=== PATIENT | female | born 1980 | race Caucasian/White ===

== ENCOUNTER 2022-03-26 11:24 | Outpatient (REF) | payer MEDICAID, SELFPAY ==
--- NOTE | ~2022-03-26 | MM_ITS ---
EXAMINATION: MM SCREENING DIGITAL BREAST TOMOSYNTHESIS, BILATERAL CLINICAL INFORMATION: Screening. Asymptomatic. The lifetime risk of breast cancer based on the Tyrer-Cuzick Model is 11%. COMPARISON: Mammography: 06/09/2018 (baseline), bilateral breast ultrasound 06/09/2018. TECHNIQUE: Digital breast tomosynthesis is performed in both the craniocaudal and mediolateral oblique views along with computer-aided detection (CAD). Synthesized 2D images are generated from the tomosynthesis. Additional right MLO view is provided. FINDINGS: There are scattered areas of fibroglandular density (ACR BI-RADS breast composition Category b). There is no mass or architectural abnormality. There are bilateral punctate round calcifications central and outer breasts increased from prior exam, greater on right. Patient will be recalled in order to allow for additional magnification views to fully characterize. The axilla and skin contours are unremarkable. MM/MM tomosynthesis screening BI IMPRESSION: -Bilateral increased round calcifications central and outer breasts, greater on right. ASSESSMENT: BI-RADS 0: Incomplete - Need Additional Imaging Evaluation RECOMMENDATION: 1. Additional bilateral magnification views. 2. Radiology department staff will contact the patient for additional imaging. This patient's information was entered into a reminder system with a target due date for their next mammogram.
== END 2022-03-26 11:25 | disposition home or self-care (01) ==
LOC: HO.MAMMO 11:24
PROVIDERS: PCP Pediatrics; Visit Provider Pediatrics
DX: Z12.31 Encounter for screening mammogram for malignant neoplasm of breast (principal)
CPT/HCPCS: 77063; 77067

== ENCOUNTER 2022-03-29 08:55 | Outpatient (REF) | payer MEDICAID, SELFPAY ==
--- NOTE | ~2022-03-29 | MM_ITS ---
EXAMINATION: MM DIAGNOSTIC DIGITAL MAMMOGRAPHY, BILATERAL CLINICAL INFORMATION: Recall from screening for bilateral increased calcifications central and outer breasts. COMPARISON: Mammography: 03/26/2022, 06/09/2018 (baseline). TECHNIQUE: Digital mammography is performed in the following views: Bilateral magnification CC, bilateral magnification ML. FINDINGS: There are scattered areas of fibroglandular density (ACR BI-RADS breast composition Category b). The additional views demonstrate similar appearing bilateral isolated and grouped calcifications in both breasts. This represents increase/change from baseline exam 06/09/2018. On the right, there are grouped calcifications posterior central inner and posterior upper outer quadrant, respectively. On the left, there are grouped calcifications mid central and posterior upper outer quadrants. Results are discussed with the patient at time of visit. The bilateral similarity suggests probable benign calcifications. Chronicity is uncertain. No additional mammography since 2019. Management plan is for short interval six-month follow-up bilateral breasts with magnification views to assess for stability. MM/MM added views BI IMPRESSION: Bilateral similar appearing calcifications, isolated and grouped. ASSESSMENT: BI-RADS 3: Probably Benign RECOMMENDATION: Diagnostic bilateral mammography in 6 months. This patient's information was entered into a reminder system with a target due date for their next mammogram.
== END 2022-03-29 08:56 | disposition home or self-care (01) ==
LOC: HO.MAMMO 08:55
PROVIDERS: Visit Provider Pediatrics
DX: R92.1 Mammographic calcification found on diagnostic imaging of breast (principal)
CPT/HCPCS: 77066

== ENCOUNTER 2022-10-02 12:48 | Outpatient (REF) | payer MEDICAID, SELFPAY ==
--- NOTE | ~2022-10-02 | MM_ITS ---
EXAMINATION: MM DIAGNOSTIC DIGITAL BREAST TOMOSYNTHESIS, BILATERAL CLINICAL INFORMATION: Short interval six-month follow-up multiple bilateral calcifications, isolated and grouped. No known family history breast cancer. The lifetime risk of breast cancer based on the Tyrer-Cuzick Model is 11%. COMPARISON: Mammography: 03/29/2022, 03/26/2022 (BI-RADS 0), 06/09/2018 (baseline). TECHNIQUE: Digital breast tomosynthesis is performed in both the craniocaudal and mediolateral oblique views along with computer-aided detection (CAD). Synthesized 2D images are generated from the tomosynthesis. FINDINGS: There are scattered areas of fibroglandular density (ACR BI-RADS breast composition Category b). Breast tissue composition borders on heterogeneously dense. There is no significant change in parenchymal pattern. No developing density or significant mass or architectural abnormality. The axilla and skin contours are unremarkable. Bilateral isolated and grouped calcifications are similar in number and distribution and appearance to prior diagnostic exam. There are some layering calcifications as well. The bilateral involvement is reassuring. Calcifications will be reassessed again at time of annual bilateral mammography in 6 months to include bilateral magnification views. Results are provided to the patient at time of visit by the technologist. MM/MM tomosynthesis diagnostic BI IMPRESSION: Bilateral calcifications, isolated and grouped, similar to prior diagnostic exam. ASSESSMENT: BI-RADS 3: Probably Benign RECOMMENDATION: Diagnostic mammography at time of annual bilateral mammography, due in 6 months. This patient's information was entered into a reminder system with a target due date for their next mammogram.
== END 2022-10-02 12:49 | disposition home or self-care (01) ==
LOC: HO.MAMMO 12:48
PROVIDERS: PCP Pediatrics; Visit Provider Pediatrics
DX: R92.1 Mammographic calcification found on diagnostic imaging of breast (principal)
CPT/HCPCS: 77062; 77066

== ENCOUNTER 2022-12-27 10:03 | Outpatient (REF) | payer MEDICAID, SELFPAY ==
[2022-12-29 07:28] LABS: Rubella IgG Antibody 2.74 Index
[2022-12-30 07:54] LABS: TS Negative Control Passed; TS Panel A 0; TS Panel B 0; TS Positive Control Passed; TSpotTB Negative (Negative)
== END 2022-12-27 10:04 | disposition home or self-care (01) ==
LOC: HO.CHCLDS 10:03
PROVIDERS: Visit Provider Pediatrics
DX: Z00.00 Encounter for general adult medical examination without abnormal findings (principal); Z11.1 Encounter for screening for respiratory tuberculosis
CPT/HCPCS: 36415; 86481; 86735; 86762; 86765

== ENCOUNTER 2023-03-27 13:56 | Outpatient (REF) | payer MEDICAID, SELFPAY | END 2023-03-27 13:57 | disposition home or self-care (01) | LOC: HO.CHCLNP 13:56 | PROVIDERS: Visit Provider Pediatrics | DX: R35.0 Frequency of micturition (principal) | CPT/HCPCS: 87086 ==

== ENCOUNTER 2023-03-28 09:11 | Outpatient (REF) | payer MEDICAID, SELFPAY ==
[2023-03-28 14:20] LABS: MANUAL DIFF FLAG NO
[2023-03-28 14:31] LABS: Basophils Absolute Auto 0.1 X10*3/uL (0.0-0.2); Basophils Percent Auto 0.8 % (0-2); Eosinophils Absolute Auto 0.1 X10*3/uL (0.0-0.4); Hematocrit 38.4 % (37.0-47.0); Hemoglobin 12.7 g/dl (12.0-16.0); Imm Gran Abs Auto 0.02 X10*3/uL (0.00-0.03); Imm Gran Pct Auto 0.3 % (0.0-0.4); Lymphocytes Absolute Auto 1.8 X10*3/uL (1.2-4.9); Lymphocytes Percent Auto 28.3 % (20-40); Mean Corpuscular HGB Conc 33.1 g/dl (31.0-35.0); Mean Corpuscular Hemoglobin 27.9 pg (27.0-33.0); Mean Corpuscular Volume 84.4 fL (80.0-98.0); Mean Platelet Volume 9.6 fL (9.4-12.3); Monocytes Absolute Auto 0.4 X10*3/uL (0.1-1.2); Monocytes Percent Auto 5.4 % (2-11); Neutrophils Absolute Auto 4.1 x10*3/uL (2.0-8.3); Neutrophils Percent Auto 63.2 % (45-73); Platelet Count 316 X10*3/uL (160-400); Red Blood Count 4.55 X10*6/uL (4.20-5.50); Red Cell Distribution Width 12.9 % (11.0-16.0); White Blood Count 6.4 X10*3/uL (4.8-10.8)
[2023-03-28 15:04] LABS: Estimated Average Glucose 120 mg/dL; Hemoglobin A1c % 5.8 % (<6.0)
[2023-03-28 15:27] LABS: Alanine Aminotransferase 19 U/L (0-31); Albumin Level 3.9 g/dL (3.5-5.0); Alkaline Phosphatase 75 U/L (39-117); Anion Gap 14 (12-20); Aspartate Amino Transferase 21 U/L (5-31); Bilirubin Direct < 0.2 mg/dL (0.0-0.5); Bilirubin Total 0.2 mg/dL (0.0-1.0); Blood Urea Nitrogen 17 mg/dL (9-16); Calcium 9.2 mg/dL (8.4-10.2); Carbon Dioxide 26 mmol/L (22-29); Chloride 101 mmol/L (96-108); Cholesterol 257 mg/dL (<200); Estimated Glomerular Filt Rate > 60; Glucose Random 83 mg/dL (60-115); HDL Cholesterol 55 mg/dL (>40); LDL Cholesterol Calculated 160 mg/dL (<100); Potassium 3.4 mmol/L (3.3-5.1); Sodium 138 mmol/L (135-145); TSH reflex Free T4 0.84 uIU/mL (0.32-4.0); Total Protein 7.6 g/dL (6.5-8.0); Triglycerides 211 mg/dL (<150)
== END 2023-03-28 09:12 | disposition home or self-care (01) ==
LOC: HO.CHCLDS 09:11
PROVIDERS: Visit Provider Pediatrics
DX: F33.1 Major depressive disorder, recurrent, moderate (principal); E78.1 Pure hyperglyceridemia; R73.03 Prediabetes
CPT/HCPCS: 36415; 80048; 80061; 80076; 83036; 84443; 85025

== ENCOUNTER 2023-03-28 10:41 | Outpatient (REF) | payer MEDICAID, SELFPAY ==
--- NOTE | ~2023-03-28 | MM_ITS ---
EXAMINATION: MM DIAGNOSTIC DIGITAL BREAST TOMOSYNTHESIS, BILATERAL CLINICAL INFORMATION: Follow-up bilateral calcifications. Patient due for bilateral screening COMPARISON: Mammography: 10/02/2022, 03/29/2022, 03/26/2022, 06/09/2018. TECHNIQUE: Digital breast tomosynthesis is performed in both the craniocaudal and mediolateral oblique views along with computer-aided detection (CAD). Synthesized 2D images are generated from the tomosynthesis. In addition to standard views, 2-D spot magnification views in the bilateral CC and ML views were obtained. FINDINGS: There are scattered areas of fibroglandular density (ACR BI-RADS breast composition Category b). There are numerous parenchymal scattered calcifications, loosely grouped, the majority of which layer on 90 degrees mediolateral projections and are most likely related to milk of calcium. These have a benign appearance and are unchanged in both distribution and number, as well as morphology. These remain probably benign. Otherwise, there are no suspicious masses, suspicious grouped calcifications, or areas of architectural distortion in either breast. The parenchymal pattern is stable from prior exams. MM/MM tomosynthesis diagnostic BI IMPRESSION: There are no significant changes from prior study. Bilateral loosely grouped calcifications throughout both breasts, many which layer on 90 degree views suggesting milk of calcium. These have been stable over one year. These remain probably benign, and six-month interval follow-up recommended to ensure stability to include standard magnification views bilaterally. Otherwise, no findings suspicious for malignancy in either breast. ASSESSMENT: BI-RADS BI-RADS 3 - Probably benign finding(s) - 6 month follow-up suggested RECOMMENDATION: 6 Month F/U Results were provided to the patient at time of visit by the technologist. This patient's information was entered into a reminder system with a target due date for their next mammogram.
== END 2023-03-28 10:42 | disposition home or self-care (01) ==
LOC: HO.MAMMO 10:41
PROVIDERS: PCP Pediatrics; Visit Provider Pediatrics
DX: R92.1 Mammographic calcification found on diagnostic imaging of breast (principal)
CPT/HCPCS: 36415; 77062; 77066; 80048; 80061; 80076; 83036; 84443; 85025

== ENCOUNTER → 2023-03-28 10:45 | Outpatient (BNV) | payer MEDICAID, SELFPAY | PROVIDERS: PCP Pediatrics; Visit Provider Radiology Diagnostic Radiology | DX: R92.1 Mammographic calcification found on diagnostic imaging of breast (principal) | CPT/HCPCS: 77062; 77066 ==

== ENCOUNTER 2023-06-21 09:41 | Outpatient (REF) | payer MEDICAID, SELFPAY ==
[2023-06-21 14:47] LABS: Anion Gap 17 (12-20); Blood Urea Nitrogen 16 mg/dL (9-16); Calcium 9.6 mg/dL (8.4-10.2); Carbon Dioxide 27 mmol/L (22-29); Chloride 99 mmol/L (96-108); Estimated Glomerular Filt Rate > 60; Glucose Random 111 mg/dL (60-115); Potassium 3.1 mmol/L (3.3-5.1); Sodium 140 mmol/L (135-145)
[2023-06-21 15:31] LABS: Microalbum/Creatinine Ratio Ur 142.3 ug/mg cr (<30)
[2023-06-27 17:09] LABS: Aldosterone/Renin Ratio 1.1 Ratio (0.9-28.9); Plasma Renin Activity 13.56 ng/mL/h (0.25-5.82)
== END 2023-06-21 09:42 | disposition home or self-care (01) ==
LOC: HO.CHCLDS 09:41
PROVIDERS: Visit Provider Pediatrics
DX: R00.0 Tachycardia, unspecified (principal); I10 Essential (primary) hypertension
CPT/HCPCS: 36415; 80048; 82043; 82088; 82570

== ENCOUNTER 2023-07-01 09:26 | Outpatient (REF) | payer MEDICAID, SELFPAY ==
[2023-07-05 19:03] LABS: CATF, 24 Ur Volume 1475 mL; CATF-24Ur Creatinine 1.58 g/24 h (0.50-2.15); Catecholamines,Tot. (E+NE) 24U 52 mcg/24 h (26-121); Dopamine, 24 Ur 322 mcg/24 h (52-480); Norepinephrine, 24 Ur 52 mcg/24 h (15-100)
== END 2023-07-01 09:27 | disposition home or self-care (01) ==
LOC: HO.CHCLNP 09:26
PROVIDERS: Visit Provider Pediatrics
DX: I10 Essential (primary) hypertension (principal); R00.0 Tachycardia, unspecified
CPT/HCPCS: 36415; 82384

== ENCOUNTER 2023-07-12 10:14 | Outpatient (REF) | payer MEDICAID, SELFPAY | END 2023-07-12 10:15 | disposition home or self-care (01) | LOC: HO.CHCLNP 10:14 | PROVIDERS: Visit Provider Family Medicine | DX: N30.01 Acute cystitis with hematuria (principal) | CPT/HCPCS: 87086; 87088; 87186 ==

== ENCOUNTER 2023-07-25 13:55 | Outpatient (AMB) | payer OTHER, SELFPAY ==
--- NOTE | 2023-07-25 14:19 | HO.NEPHOV_ITS ---
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 She has not been a diabetic. She is tolerating her current medications and BP has been at goal. She does not have any hematuria, pedal edema, renal dysfunction. She is trying to loose some weight. She does not take any excessive NSAID's. She has no nausea, vomiting, diarrhea, pedal edema, chest pain, orthopnea, PND or orthostatic symptoms. COUNT INCLUDES THE [facility] Medical History (Updated 07/25/23 @ 14:44 by Gavin López MD) Depression Persistent proteinuria Surgical History (Updated 07/25/23 @ 14:25 by Shea Felipe MA) H/O section History of appendectomy Hx of nasal septoplasty Family History (Updated 07/25/23 @ 14:25 by Shea Felipe MA) Mother Diabetes Hypertension Paternal Uncle Leukemia Social History (Updated 07/25/23 @ 14:26 by Shea Felipe MA) Alcohol intake: never Patient Tobacco Use Status: Never used Tobacco Physical Exam Vital Signs: Last Vital Signs Pulse 110 H 07/25/23 14:20 BP 110/82 07/25/23 14:20 Pulse Ox 97 07/25/23 14:20 Oxygen Delivery Method Room Air 07/25/23 14:20 BMI result Body Mass Index 39.9 Const General: comfortable and no acute distress Orientation/consciousness: patient oriented x3 HEENT Head: Yes normocephalic Mouth: Normal oral and palatal mucosa present Eyes EOM: EOMs intact bilaterally Neck Neck: Yes supple Resp Auscultation: clear to auscultation bilaterally Cardio Jugular venous distension: no JVD Rate: regular rate GI Palpation (GI): Soft to palpation Auscultation: normal bowel sounds General: Yes no CVA tenderness Back/Spine/Pelvis Back: no CVA tenderness Skin General skin exam: no rashes or lesions noted Neuro General: patient oriented x3 and moves all extremities Extrem General: Yes no pedal edema Results Reviewed Nephrology Results: Hgb 12.7 g/dl (12.0-16.0) 03/28/23 WBC 6.4 X10*3/uL (4.8-10.8) 03/28/23 Plt Count 316 X10*3/uL (160-400) 03/28/23 Sodium 140 mmol/L (135-145) 06/21/23 Potassium 3.1 mmol/L (3.3-5.1) L 06/21/23 Chloride 99 mmol/L (96-108) 06/21/23 Carbon Dioxide 27 mmol/L (22-29) 06/21/23 BUN 16 mg/dL (9-16) 06/21/23 Creatinine 0.77 mg/dL (0.5-1.4) 06/21/23 Calcium 9.6 mg/dL (8.4-10.2) 06/21/23 Urine Creatinine 400.54 mg/dL 06/21/23 Assessment & Plan Assessment & Plan (1) Proteinuria: Code(s): R80.9 - Proteinuria, unspecified Category: Medical Qualifiers: Proteinuria type: other Qualified Code(s): R80.8 - Other proteinuria Plan Renal function stable. BP has been at goal Volume status optimal. Tolerating medications Will benefit from losing weight Ordered further blood work & urine studies Will do a 24 hour urine after next visit No indication for renal biopsy at this moment Minimize/avoid NSAID's. Answered all questions Follow up appointment given Orders: Orders Hemoglobin A1c 07/25/23 R80.9 - Proteinuria, unspecified Protein Electrophoresis 24HrUr 07/25/23 R80.9 - Proteinuria, unspecified UA and rflx microscopic 07/25/23 R80.9 - Proteinuria, unspecified Creatinine 07/25/23 R80.9 - Proteinuria, unspecified Blood Urea Nitrogen 07/25/23 R80.9 - Proteinuria, unspecified Electrolytes 07/25/23 R80.9 - Proteinuria, unspecified
[2023-07-25 14:20] VITALS: BP 110/82; PULSE 110; O2SAT 97; BMI 39.9
== END 2023-07-25 14:52 | disposition home or self-care (01) ==
LOC: HO.HKAS 13:55
PROVIDERS: PCP Pediatrics; Referring Provider Pediatrics; Visit Provider Internal Medicine Nephrology
DX: R80.8 Other proteinuria (principal)
CPT/HCPCS: 99214

== ENCOUNTER → 2023-07-25 13:55 | Outpatient (BNVA) | payer OTHER, SELFPAY | PROVIDERS: PCP Pediatrics; Referring Provider Pediatrics; Visit Provider Internal Medicine Nephrology ==

== ENCOUNTER 2023-10-10 13:57 | Outpatient (REF) | payer OTHER, SELFPAY ==
--- NOTE | ~2023-10-10 | MM_ITS ---
EXAMINATION: MM DIAGNOSTIC DIGITAL MAMMOGRAPHY, BILATERAL CLINICAL INFORMATION: 6 month Follow-up bilateral probably benign calcifications upper outer quadrants both breasts. COMPARISON: Mammography: 03/28/2023, 10/02/2022, 03/29/2022, 03/26/2022, 06/09/2018. TECHNIQUE: Digital mammography is performed in the following views: 2-D spot compression right CC, right MLO, left ML, and left CC x2. Computer-aided diagnosis was used for this study. FINDINGS: There are scattered areas of fibroglandular density (ACR BI-RADS breast composition Category b). There are numerous parenchymal scattered calcifications, loosely grouped, the majority of which layer on 90 degrees mediolateral projections and are most likely related to milk of calcium. These have a benign appearance and are unchanged in both distribution and number, as well as morphology. No further follow-up recommended. MM/MM diagnostic mammo BI IMPRESSION: -No findings suspicious for malignancy in either breast. -Bilateral symmetric regional layering calcifications upper outer quadrants, benign and no further follow-up recommended. -Recommend the patient resume routine annual screening mammography in March 2024. ASSESSMENT: BI-RADS BI-RADS 2 - Benign Findings RECOMMENDATION: 1 year F/U This patient's information was entered into a reminder system with a target due date for their next mammogram.
== END 2023-10-10 13:58 | disposition home or self-care (01) ==
LOC: HO.MAMMO 13:57
PROVIDERS: PCP Pediatrics; Visit Provider Pediatrics
DX: R92.1 Mammographic calcification found on diagnostic imaging of breast (principal)
CPT/HCPCS: 77062; 77066

== ENCOUNTER → 2023-10-10 14:00 | Outpatient (BNV) | payer OTHER, SELFPAY | PROVIDERS: PCP Pediatrics; Visit Provider Radiology Diagnostic Radiology | DX: R92.1 Mammographic calcification found on diagnostic imaging of breast (principal) | CPT/HCPCS: 77062; 77066 ==

== ENCOUNTER → 2024-01-14 11:17 | Outpatient (BNVA) | payer OTHER, SELFPAY | PROVIDERS: PCP Pediatrics; Visit Provider Physician Assistant Surgical ==

== ENCOUNTER 2024-01-17 07:48 | Outpatient (AMB) | payer OTHER, SELFPAY ==
--- NOTE | 2024-01-17 11:13 | MHC.OFFVISWM ---
VS Expanded 01/17/24 11:24 Height 4 ft 8 in Weight 188 lb 2 oz BMI 42.2 Body Fat % 44.5 Body Fat Mass 83.8 Fat Free Mass 104.2 Visceral Fat Rating 13 Body Water % 39.6 Body Water Mass 74.6 Basal Metabolic Rate/Score 1,476 Intake Visit Reasons: TV [employer] SWL BMI 42.2 Allergies codeine Allergy (Verified 01/17/24 11:13) Itching Penicillins Allergy (Verified 01/17/24 11:13) Swelling Medication List - Last Reconciled 01/17/24 by Carlos Leonard MD albuterol sulfate 90 mcg/actuation (Ventolin HFA) 2 puffs inhalation Q4H amitriptyline 75 mg PO BEDTIME aripiprazole 15 mg PO QAM blood pressure test kit-large As directed cetirizine 10 mg PO DAILY PRN fluoxetine 40 mg PO DAILY fluticasone propionate 50 mcg/actuation 2 sprays intranasal DAILY hydrochlorothiazide 25 mg PO QAM hydroxyzine HCl 25 - 50 mg PO Q8H PRN lorazepam 0.5 mg PO BID PRN melatonin 5 - 10 mg PO BEDTIME PRN norethindrone-ethin estradiol 0.5-35 mg-mcg (Nortrel) 1 tab PO DAILY omega 5-ajr-cmx-fish oil 300 mg (120 mg- 180mg)-1,000 mg 1 cap PO BID prazosin 4 mg PO BEDTIME HPI HPI TV [employer] SWL BMI 42.2: Details: Start time: 11.00am, End time: 11.40am ?I spent 35 minutes speaking with the patient on the phone plus an additional 5 minutes reviewing and updating records for a total of 40 minutes HPI Comments Details: Previous weight loss efforts: self diets, Weight Watchers, [employer] Wakes up: 7am, Sleeps: 9pm Breakfast: 10am (cereal, oatmeal, egg sandwich) Lunch: 2pm (salad, soup, grilled cheese Dinner: 7.30pm (rice, beans, vegetables, chicken, steak) Snacks: 12pm (fruit), 9pm (rice cake, yogurt) Exercise: Has an Elliptical at home Fluids: Coffee: none, tea: rarely, soda: Regular or coke zero, juice: none, ETOH: rarely PFSH Medical History (Updated 01/17/24 @ 11:18 by Carlos Leonard MD) Asthma Migraines Insomnia Anxiety Hyperlipidemia Hypertension Morbid obesity Depression Persistent proteinuria Surgical History (Updated 07/25/23 @ 14:25 by Shea Felipe MA) H/O section History of appendectomy Hx of nasal septoplasty Family History (Updated 07/25/23 @ 14:25 by Shea Felipe MA) Mother Diabetes Hypertension Paternal Uncle Leukemia Social History (Updated 01/14/24 @ 13:12 by Leslee Lara CMA) Alcohol intake: current Alcohol intake frequency: holidays/special occasions only Alcohol type: other Patient Tobacco Use Status: Never used Tobacco Telehealth Telehealth Telehealth Platform: Telephone Location of provider rendering services: practice address Location of patient: address on file Patient Identification confirmed using: Name, : Yes Telehealth method: voice only Patient verbally consented to treatment: Yes Patient verbally consented to billing insurance company: Yes Patient informed of any privacy concerns related to visit: Yes Minutes spent on Phone/Video with Pt.: 40 Assessment & Plan Assessment & Plan (1) Morbid obesity: Code(s): E66.01 - Morbid (severe) obesity due to excess calories Category: Medical Plan: 1.? Plan for lap sleeve gastrectomy. If diaphragmatic or ventral hernias are present at time of surgery, these will be repaired laparoscopically as well. 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 I emphasized the importance of close follow-up, adherence to instructions and good communication. 2. You will receive a link of our software melanie to generate an individualized nutritional and exercise plan specific for you. Please send me a screenshot of the plans you will generate Meal to include lean meat (beef, fish, pork, turkey, chicken), or albanian yogurt, or egg whites, or beans with a salad with olive oil and fruits (berries, pears, apples, kiwi). Avoid salt, breads, potatoes, rice, pasta, desserts. ?3. If you choose shakes, each shake would be drunk slowly, like coffee in a period of 2 hours. ?4. If you choose bars, cut each bar in 4 pieces and eat each piece in 30min ?to make each bar last 2 hours. ?5. I emphasized the importance of measuring accurately the food portion and measure it when serving the food in plate ?6. The meal portions include a specific number of forks of meat and salad. You always eat the meat portion but you can replace up to half of salad/vegetables portion with rice, potatoes or pasta, or a fruit ?if you like. The less you do it the better weight loss will be. ?7. One full-size fork is what it can be scooped on the fork without falling aside and not what can be bit with the fork. Use regular forks like those you find in a typical restaurant. ?8.? Please send me weight measurements as soon as possible and then once a week. Always include your diet and exercise plan. 9. The best choice would be to purchase a stationary bike, elliptical or treadmill at home that can track calories. Let me know if you do so I can give you an exercise plan. ?10.?It is important of avoiding and for at least 18 months postoperatively and has been discussed at the infosession. ?11. Goal is to lose at least 1.5-2lbs per week ?12. Goal to lose 10% of your weight before surgery, which is about 18lbs. Ultimate weight goal: 170lbs before surgery 13. Please follow the diet plan exactly without any change. If you don't like something about the plan or you feel hungry you need to communicate with me so I can help you revise the plan. You should not change the plan yourself. 14. To be scheduled for EGD due to history of GERD. The possibility of biopsies was discussed. Patient needs to avoid use of NSAIDs and aspirin for 1 week prior to EGD. Risks of perforation and bleeding was discussed with the patient. This will be an outpatient procedure with IV sedation. Orders: Orders Hemoglobin A1c Today E66.01 - Morbid (severe) obesity due to excess calories, E78.5 - Hyperlipidemia, unspecified, I10 - Essential (primary) hypertension, J45.909 - Unspecified asthma, uncomplicated Lipid Panel Today E66.01 - Morbid (severe) obesity due to excess calories, E78.5 - Hyperlipidemia, unspecified, I10 - Essential (primary) hypertension, J45.909 - Unspecified asthma, uncomplicated Comprehensive Met. Panel Today E66.01 - Morbid (severe) obesity due to excess calories, E78.5 - Hyperlipidemia, unspecified, I10 - Essential (primary) hypertension, J45.909 - Unspecified asthma, uncomplicated Zinc Today E66.01 - Morbid (severe) obesity due to excess calories, E78.5 - Hyperlipidemia, unspecified, I10 - Essential (primary) hypertension, J45.909 - Unspecified asthma, uncomplicated Vitamin B1 Today E66.01 - Morbid (severe) obesity due to excess calories, E78.5 - Hyperlipidemia, unspecified, I10 - Essential (primary) hypertension, J45.909 - Unspecified asthma, uncomplicated TSH reflex Free T4 Today E66.01 - Morbid (severe) obesity due to excess calories, E78.5 - Hyperlipidemia, unspecified, I10 - Essential (primary) hypertension, J45.909 - Unspecified asthma, uncomplicated Ferritin Today E66.01 - Morbid (severe) obesity due to excess calories, E78.5 - Hyperlipidemia, unspecified, I10 - Essential (primary) hypertension, J45.909 - Unspecified asthma, uncomplicated US abdomen comp w elastography Today E66.01 - Morbid (severe) obesity due to excess calories, E78.5 - Hyperlipidemia, unspecified, I10 - Essential (primary) hypertension, J45.909 - Unspecified asthma, uncomplicated FL upper GI w air Today E66.01 - Morbid (severe) obesity due to excess calories, E78.5 - Hyperlipidemia, unspecified, I10 - Essential (primary) hypertension, J45.909 - Unspecified asthma, uncomplicated Insulin Today E66.01 - Morbid (severe) obesity due to excess calories, E78.5 - Hyperlipidemia, unspecified, I10 - Essential (primary) hypertension, J45.909 - Unspecified asthma, uncomplicated H Pylori Breath Test Today E66.01 - Morbid (severe) obesity due to excess calories, E78.5 - Hyperlipidemia, unspecified, I10 - Essential (primary) hypertension, J45.909 - Unspecified asthma, uncomplicated Complete Blood Count Auto Diff Today E66.01 - Morbid (severe) obesity due to excess calories, E78.5 - Hyperlipidemia, unspecified, I10 - Essential (primary) hypertension, J45.909 - Unspecified asthma, uncomplicated IRON PROFILE Today E66.01 - Morbid (severe) obesity due to excess calories, E78.5 - Hyperlipidemia, unspecified, I10 - Essential (primary) hypertension, J45.909 - Unspecified asthma, uncomplicated Vitamin B12 and Folate Today E66.01 - Morbid (severe) obesity due to excess calories, E78.5 - Hyperlipidemia, unspecified, I10 - Essential (primary) hypertension, J45.909 - Unspecified asthma, uncomplicated C Reactive Protein Today E66.01 - Morbid (severe) obesity due to excess calories, E78.5 - Hyperlipidemia, unspecified, I10 - Essential (primary) hypertension, J45.909 - Unspecified asthma, uncomplicated Vitamin A Today E66.01 - Morbid (severe) obesity due to excess calories, E78.5 - Hyperlipidemia, unspecified, I10 - Essential (primary) hypertension, J45.909 - Unspecified asthma, uncomplicated Vitamin D 25-OH Total Today E66.01 - Morbid (severe) obesity due to excess calories, E78.5 - Hyperlipidemia, unspecified, I10 - Essential (primary) hypertension, J45.909 - Unspecified asthma, uncomplicated XR chest 2V Today E66.01 - Morbid (severe) obesity due to excess calories, E78.5 - Hyperlipidemia, unspecified, I10 - Essential (primary) hypertension, J45.909 - Unspecified asthma, uncomplicated ECG 12 lead EKG Today E66.01 - Morbid (severe) obesity due to excess calories, E78.5 - Hyperlipidemia, unspecified, I10 - Essential (primary) hypertension, J45.909 - Unspecified asthma, uncomplicated Referrals Behavioral Health Referral E66.01 - Morbid (severe) obesity due to excess calories, E78.5 - Hyperlipidemia, unspecified, I10 - Essential (primary) hypertension, J45.909 - Unspecified asthma, uncomplicated Nutrition/Dietitian Referral E66.01 - Morbid (severe) obesity due to excess calories, E78.5 - Hyperlipidemia, unspecified, I10 - Essential (primary) hypertension, J45.909 - Unspecified asthma, uncomplicated
[2024-01-17 11:24] VITALS: BMI 42.2
== END 2024-01-17 11:40 | disposition home or self-care (01) ==
LOC: HO.HBS 07:49
PROVIDERS: PCP Pediatrics; Visit Provider Surgery
DX: E66.01 Morbid (severe) obesity due to excess calories (principal)
CPT/HCPCS: 99203

== ENCOUNTER → 2024-01-17 07:48 | Outpatient (BNVA) | payer OTHER, SELFPAY | PROVIDERS: PCP Pediatrics; Visit Provider Surgery ==

== ENCOUNTER 2024-01-30 08:44 | Outpatient (REF) | payer OTHER, SELFPAY ==
--- NOTE | ~2024-01-30 | US_ITS ---
EXAMINATION: US COMPLETE ABDOMEN WITH LIVER ELASTOGRAPHY CLINICAL INFORMATION: Morbid obesity. COMPARISON: None available. TECHNIQUE: Real-time imaging of the abdominal viscera. Noninvasive ultrasound liver fibrosis assessment is performed using Hannah ElastPQ point quantification shear wave elastography (pSWE) with a C5-2 MHz transducer. Multiple elastography samples are obtained. FINDINGS: PANCREAS: The visualized pancreatic head and body are normal in appearance. The remainder of the pancreas is obscured from visualization by the overlying bowel gas. ABDOMINAL AORTA: The proximal, middle, and distal aortic segments are normal in caliber. INFERIOR VENA CAVA: Visualized portions are normal. LIVER: The liver demonstrates normal size and contour but with increased echogenicity. No focal lesion or intrahepatic biliary duct dilatation. The right lobe measures 15.1 cm in length. The left lobe measures 11.5 cm in length. Portal flow is towards the liver (hepatopetal). Shear wave liver elastography median stiffness is 1.38 m/s (reference: normal median stiffness is 1.3 m/s or less). IQR/median stiffness to assess sampling precision is 0.08 (reference: good quality data set is IQR/median stiffness of 0.15 or less). GALLBLADDER: Normal. The gallbladder is physiologically distended without evidence of stones, sludge, polyps, wall thickening or pericholecystic fluid. COMMON BILE DUCT: Normal in caliber measuring 0.3 cm in diameter. RIGHT KIDNEY: Normal. No hydronephrosis. No renal calculi or focal parenchymal lesions. The kidney measures 10.4 cm in maximum dimension. LEFT KIDNEY: Normal. No hydronephrosis. No renal calculi or focal parenchymal lesions. The kidney measures 10.1 cm in maximum dimension. SPLEEN: Normal. The spleen measures 8.8 cm in maximum dimension. FREE FLUID: None. US/US abdomen comp w elastography IMPRESSION: 1. Echogenic liver consistent with hepatic steatosis. 2. Liver elastography: In the absence of other known clinical signs, measurements rule out compensated advanced chronic liver disease. If there are known clinical signs, further testing may be needed for confirmation. REFERENCE: Society of Radiologists in Ultrasound Liver Stiffness Thresholds (2020): LIVER STIFFNESS THRESHOLDS: *Liver Stiffness equal or less than 1.3 m/s: High probability of being normal. *Liver Stiffness less than 1.7 m/s: In the absence of other known clinical signs, rules out compensated advanced chronic liver disease. *Liver Stiffness 1.7-2.1 m/s: Suggestive of compensated advanced chronic liver disease but need further test for confirmation. *Liver Stiffness over 2.1 m/s: Rules in compensated advanced chronic liver disease. *Liver Stiffness over 2.4 m/s: Suggestive of clinically significant portal hypertension. QUALITY OF DATA SET: *IQR/Median value equal or less than 0.15 implies a quality data set. *IQR/Median value over 0.15 implies a poor quality data set. SIGNIFICANT CHANGE FROM PRIOR EXAM: Significant change if liver stiffness measurement is 10% or greater from prior exam. OTHER CONSIDERATIONS: The stage of liver fibrosis may be overestimated in the setting of acute hepatitis, liver inflammation, elevated liver function tests, hepatic vascular congestion, obstructive cholestasis, non-fasting state, and infiltrative diseases such as amyloidosis and lymphoma. In some patients with NAFLD, the liver stiffness thresholds for compensated advanced chronic liver disease may be lower. In causes other than viral hepatitis and NAFLD, liver stiffness thresholds are not well established. Electronically signed by: Benson Jones MD 03/14/2024 12:16 PM [facility]
--- NOTE | 2024-01-30 08:51 | ECG_ITS ---
Test Reason : mor obs Blood Pressure : / mmHG Vent. Rate : 098 BPM Atrial Rate : 098 BPM P-R Int : 150 ms QRS Dur : 080 ms QT Int : 360 ms P-R-T Axes : 058 -07 -06 degrees QTc Int : 459 ms Normal sinus rhythm Normal ECG No previous ECGs available Referred By: Carlos Leonard Electronically Signed By:SAVANAH LUX
[2024-01-30 09:04] LABS: MANUAL DIFF FLAG NO
[2024-01-30 09:11] LABS: Basophils Percent Auto 0.6 % (0-2); Eosinophils Absolute Auto 0.2 X10*3/uL (0.0-0.4); Eosinophils Percent Auto 2.1 % (0-4); Hematocrit 39.6 % (37.0-47.0); Hemoglobin 13.5 g/dl (12.0-16.0); Imm Gran Abs Auto 0.02 X10*3/uL (0.00-0.03); Imm Gran Pct Auto 0.3 % (0.0-0.4); Mean Corpuscular HGB Conc 34.1 g/dl (31.0-35.0); Mean Corpuscular Hemoglobin 28.1 pg (27.0-33.0); Mean Corpuscular Volume 82.3 fL (80.0-98.0); Mean Platelet Volume 8.9 fL (9.4-12.3); Monocytes Absolute Auto 0.4 X10*3/uL (0.1-1.2); Neutrophils Absolute Auto 4.5 x10*3/uL (2.0-8.3); Platelet Count 311 X10*3/uL (160-400); Red Blood Count 4.81 X10*6/uL (4.20-5.50); Red Cell Distribution Width 12.1 % (11.0-16.0); White Blood Count 7.1 X10*3/uL (4.8-10.8)
[2024-01-30 09:30] LABS: Estimated Average Glucose 120 mg/dL; Hemoglobin A1C 136.2563 umol/L; Hemoglobin A1c % 5.8 % (<6.0); Total Hemoglobin (HGBA1C) 3389.7725 umol/L
[2024-01-30 09:48] LABS: Alanine Aminotransferase 33 U/L (0-31); Albumin Level 4.1 g/dL (3.5-5.0); Alkaline Phosphatase 65 U/L (39-117); Anion Gap 14 (12-20); Aspartate Amino Transferase 26 U/L (5-31); Bilirubin Total 0.3 mg/dL (0.0-1.0); Blood Urea Nitrogen 17 mg/dL (9-16); Calcium 9.3 mg/dL (8.4-10.2); Carbon Dioxide 28 mmol/L (22-29); Chloride 100 mmol/L (96-108); Cholesterol 257 mg/dL (<200); Estimated Glomerular Filt Rate > 60; Glucose Random 121 mg/dL (60-115); HDL Cholesterol 53 mg/dL (>40); Iron 69 mcg/dL (30-160); LDL Cholesterol Calculated 147 mg/dL (<100); Percent Iron Saturation 19 % (15-50); Potassium 3.5 mmol/L (3.3-5.1); Sodium 138 mmol/L (135-145); Total Iron Binding Capacity 359 mcg/dL (228-428); Total Protein 7.7 g/dL (6.5-8.0); Triglycerides 287 mg/dL (<150); Unsaturated Iron Binding 290 ug/dL
[2024-01-30 10:14] LABS: Folate 12.4 ng/mL (> or = 4.0); Vitamin B12 314 pg/mL (200-900)
[2024-01-30 10:17] LABS: Ferritin 44 ng/mL (10-250); Insulin 27 uU/mL (2-29); TSH reflex Free T4 0.98 uIU/mL (0.32-4.0)
[2024-02-03 18:28] LABS: Zinc 67 mcg/dL (60-130)
[2024-02-04 22:59] LABS: Vitamin A 78 mcg/dL (38-98)
[2024-02-06 06:39] LABS: Vitamin B1 13 nmol/L (8-30)
== END 2024-01-30 08:45 | disposition home or self-care (01) ==
LOC: HO.US 08:44
PROVIDERS: PCP Pediatrics; Visit Provider Surgery
DX: E66.01 Morbid (severe) obesity due to excess calories (principal); I10 Essential (primary) hypertension; E78.5 Hyperlipidemia, unspecified; J45.909 Unspecified asthma, uncomplicated; Z13.1 Encounter for screening for diabetes mellitus
CPT/HCPCS: 36415; 71046; 76700; 76981; 80053; 80061; 82306; 82607; 82728; 82746; 83036; 83525; 83540; 84425; 84443; 84590; 84630; 85025; 86140; 93005

== ENCOUNTER → 2024-02-05 10:10 | Outpatient (AMB) | payer OTHER, SELFPAY ==
--- NOTE | 2024-02-05 10:05 | MHC.WMTHER ---
Intake Intake Visit Reasons: TV BH Intake Allergies codeine Allergy (Verified 01/17/24 11:13) Itching Penicillins Allergy (Verified 01/17/24 11:13) Swelling PFSH Medical History (Updated 02/03/24 @ 20:19 by Carlos Leonard MD) Asthma Migraines Insomnia Anxiety Hyperlipidemia Hypertension Morbid obesity Depression Persistent proteinuria Surgical History (Updated 07/25/23 @ 14:25 by Shea Felipe MA) H/O section History of appendectomy Hx of nasal septoplasty Family History (Updated 07/25/23 @ 14:25 by Shea Felipe MA) Mother Diabetes Hypertension Paternal Uncle Leukemia Social History (Updated 01/14/24 @ 13:12 by Leslee Lara CMA) Alcohol intake: current Alcohol intake frequency: holidays/special occasions only Alcohol type: other Patient Tobacco Use Status: Never used Tobacco Behavioral Health Assessment Weight Management Therapy Therapy Notes Details PT is a 43 years old Female who presents for a visit to complete BH assessment as part of surgical weight loss program. Presenting Concerns Referral Source WMP-Provider. PT had initial visit with Dr. Matta Reason for referral Completion of behavioral health assessment as part of process for weight-loss surgery. Precipitating Event Obesity Living Situation Current Living Situation Rent At risk of losing current housing? No Satisfied with current living situation? Yes Comments PT live with her partner and 8 y/o daughter. Food/Weight/Diet Expectations of change Initial goal to lose 10% of your weight before surgery, which is about 18lbs. Ultimate weight goal: 170lbs before surgery PT is implementing the following: Current meal plan: Exercise plan: History/Relationship with food Example of meals before starting the program: Breakfast: Lunch: Dinner: Snacks: Drinks/Liquids: History/Relationship with weight In the last 10 years, the patient's Lowest weight was and highest History/Relationship with dieting Weight watchers, [facility] Social History Family history and relationship PT has been in a relationship for 12 years, they live together and have an 8y/o daughter. She has 2 sisters and 1 brother. Parents alive. PT reports she is very close to her family. 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 Developmental history and status WNL Social support Family, parents siblings, partner Community support None. Advent/Spirituality Taoist. Cultural/Ethnic information Born and raised [place]. [place]oved [place] the [place] at age 7. Her is from [place]. Legal Involvement and History Current or historical involvement with the legal system? None reported. Education Highest grade completed Associate degree. Preferred learning style Visual Currently enrolled in educational program? No Interested in further educational program? Yes (pursue her bachelors in nursing. 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 No Meaningful activities Family time, watch some TV, social activities. Financial Situation Describe current financial situation Comfortable Financial assistance? None Service Service? Yes Mental Health and Addiction Treatment Current/Past substance abuse? No Comments Alcohol: Socially, usually on Holidays, probably 3 times at year. Usually 3 wine glasses. Cigarettes/Tobacco: None. Cannabis/Edibles: None Current/Past addictive behavior concerns? 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 She was in therapy for about 2 years, no longer in counseling but receives medication from her PCP as her prescriber retired. Current Psych. meds: - Fluoxetine 20mg 2 per day. - Hydroxyzine 25-50mg, 1 as needed every 8 hours. - Abilify 15mg, 1 per day for anxiety and depression. - Prazosin 4mg, 1 at bedtime for nightmares. She has a prescription for Melatonin but she doesn't use it. Lorazepam 0.5mg - Discontinued that couple of months ago. . Last month she had a period of about a weeks with with stress and anxiety due to a family situation. Most of her symptoms of stress are triggered by life stressors, when nothing is going on she's stable and with no symptoms. She can't remember the last time she had a full depressive episode lasting 2 weeks. But, once at ,month or less she has a short lapse of 2-3 days with active depressive Sx, feeling down, like a failure, sad, denies any SI or self-harming/other-harm thoughts during these days. During these days she also has some anxiety-like Sx with catastrophic thoughts. PT denies any history of concern with SI/Sa, self-harm or other harm. Denies any inpatient services or even been in crisis. Medical and Physical Health Summary Additional Medical History not covered in history bleeding disorder. Sexual History concerns None reported. Physical exam in the last year? Yes Pain Screening Current pain? Yes Pain in the last few months? No Medications Is the patient compliant with medications? Yes Does the patient have [employer] Guardian in place? Not applicable Does the patient use complimentary health approaches? Yes (massages every 2 months. ) Trauma/Abuse History History of trauma? No Questionnaires PHQ-9 Over the last 2 weeks, how often have you been bothered by any of the following problems? 1. Little interest or pleasure in doing things: more than half the days 2. Feeling down, depressed, or hopeless: more than half the days 3. Trouble falling or staying asleep, or sleeping too much: more than half the days 4. Feeling tired or having little energy: more than half the days 5. Poor appetite or overeating: more than half the days 6. Feeling bad about yourself - or that you are a failure or have let yourself or your family down: several days 7. Trouble concentrating on things, such as reading the newspaper or watching television: several days 8. Moving or speaking so slowly that other people could have noticed. Or the opposite - being so fidgety or restless that you have been moving around a lot more than usual: not at all 9. Thoughts that you would be better off or of hurting yourself in some way: not at all Total score: 12 Depression Screening Interpretation: Positive (Scores obtained on 01/13 from new PT pack. New one will be administered at next visit.) Depression Screening Follow-up: Existing condition Depression Screening Done: Yes Source: Developed by Drs. Nitish De La Rosa, Telma Rivera, Ozzie Riddle and colleagues, with an educational aishwarya from [employer]. Binge Eating Scale Group 1 A. I don't feel self-conscious about my wt. or body size when I'm with others. B. I feel concerned about how I look to others, but it normally does not make me fell disappointed with myself C. I do get self-conscious about my appearance and wt. which makes me feel disappointed in myself. D. I feel very self-conscious about my wt. and frequently I feel intense shame and disgust for myself. I try to avoid social contacts because of my self-consciousness. Response Group 1: D Group 2 A. I don't have any difficulty eating slowly in the proper manner. B. Although I seem to gobble down foods, I don't end up feeling stuffed because of eating to much. C. At times, I tend to eat quickly and then, I feel uncomfortably full afterwards. D. I have the habit of bolting down my food, without really chewing it. When this happens I usually feel uncomfortably stuffed because I've eaten to much. Response Group 2: C Group 3 A. I feel capable to control my eating urges when I want to. B. I feel like I have failed to control my eating more than the average person. C. I feel utterly helpless when it comes to feeling in control of my eating urges. D. Because I feel so helpless about controlling my eating I have become very desperate about trying to get control. Response Group 3: B Group 4 A. I don't have the habit of eating when I'm bored. B. I sometimes eat when I'm bored, but often I'm able to get busy and get my mind off food. C. I have a regular habit of eating when I'm bored, but occasionally, I can use some other activity to get my mind off eating. D. I have a strong habit of eating when I'm bored. Nothing seems to help me breath the habit. Response Group 4: D Group 5 A. I'm usually physically hungry when I eat something. B. Occasionally, I eat something on impulse even though I really am not hungry. C. I have the regular habit of eating foods, that I might not really enjoy, to satisfy a hungry feeling even though physically, I don't need the food. D. Although I'm not physically hungry, I get a hungry feeling in my mouth that only seems to be satisfied when I eat a food, like sandwich, that fills my mouth. Sometimes, when I eat the food to satisfy my mouth hunger, I then spit the food out so I won't gain weight. Response Group 5: B Group 6 A. I don't feel any guilt or self-hate after I overeat. B. After I overeat, occasionally I feel guilt or self-hate. C. Almost all the time I experience strong guilt or self-hate after I overeat. Response Group 6: C Group 7 A. I don't lose total control of my eating when dieting even after periods when I overeat. B. Sometimes when I eat a forbidden food on a diet, I feel like I blew it and eat even more. C. Frequently, I have the habit of saying to myself, I've blown it now, why not go all the way, when I overeat on a diet. When that happens I eat more. D. I have a regular habit of starting a strict diets for myself but I break the diets by going on an eating binge. My life seems to be either a feast or famine. Response Group 7: B Group 8 A. I rarely eat so much food that I feel uncomfortably stuffed afterwards. B. Usually about once a month, I each such a quantity of food, I end up feeling very stuffed. C. I have regular periods during the month when I eat large amounts of food, either at mealtime or at snacks. D. I eat so much food that I regularly feel quite uncomfortable after eating and sometimes a bit nauseous. Response Group 8: C Group 9 A. My level of calorie intake does not go up very high or go down very low on a regular basis. B. Sometimes after I overeat, I will try to reduce my caloric intake to almost nothing to compensate for the excess calories I've eaten. C. I have a regular habit of overeating during the night. It seems that my routine is not to be hungry in the morning but overeat in the evening. D. In my adult years, I have had week-long periods where I practically starve myself. This follows periods when I overeat. It seems I live a life of either feast or famine. Response Group 9: A Group 10 A. I usually am able to stop eating when I want to. I know when enough is enough. B. Every so often, I experience a compulsion to eat which I can't seem to control. C. Frequently, I experience strong urges to eat which I seem unable to control, but at other times I can control my eating urges. D. I feel incapable of controlling urges to eat. I have a fear of not being able to stop eating voluntarily. Response Group 10: B Group 11 A. I don't have any problem stopping eating when I feel full. B. I usually can stop eating when I feel full but occasionally overeat leaving me feeling uncomfortably stuffed. C. I have a problem stopping eating once I start and usually I feel uncomfortably stuffed after I eat a meal. D. Because I have a problem not being able to stop eating when I want, I sometimes have to induce vomiting to relieve my stuffed feeling. Response Group 11: B Group 12 A. I seem to eat just as much when I'm with others, Family social gatherings as when I'm by myself. B. Sometimes, when I'm with other persons, I don't eat as much as I want to eat because I'm self-conscious about my eating. C. Frequently, I eat only a small amount of food when others are present, because I'm very embarrassed about my eating. D. I feel so ashamed about overeating that I pick times to overeat when I know no one will see me. I feel like a closet eater. Response Group 12: B Group 14 A. I don't think much about trying to control unwanted eating urges. B. At least some of the time, I feel my thoughts are pre-occupied with trying to control my eating urges. C. I feel that frequently I spend much time thinking about how much I ate or about trying not to eat anymore. D. It seems to me that most of my waking hours are pre-occupied by thoughts about eating or not eating. I feel like I'm constantly struggling not to eat. Response Group 14: B Group 15 A. I don't think about food a great deal. B. I have strong craving for food but they last only for brief periods of time. C. I have days when I can't seem to think about anything else but food. D. Most of my days seem to be pre-occupied with thoughts about food. I feel like I live to eat. Response Group 15: B Group 16 A. I usually know whether or not I'm physically hungry. I take the right portion of food to satisfy me. B. Occasionally, I feel uncertain about knowing whether or not I'm physically hungry. A these times it's hard to know how much food I should take to satisfy me. C. Even though I might know how many calories I should eat, I don't have any idea what is a normal amount of food for me. Response Group 16: B Binge Eating Score: 21 Score less than 17 Minimal Risk Score between 18-26 Moderate Risk Score between 27-46 High Risk Assessment & Plan Assessment & Plan (1) Depression: Code(s): F32.A - Depression, unspecified (2) Anxiety: Code(s): F41.9 - Anxiety disorder, unspecified (3) Morbid obesity: Code(s): E66.01 - Morbid (severe) obesity due to excess calories Plan PT not cleared today as assessment is not finished yet. PHQ9 will be administered again and BES reviewed at next visit. Follow up on 05/28/23 at 10am. Telehealth Telehealth Telehealth Platform: [employer] Location of provider rendering services: other ([place], [place] - [place] office. ) Location of patient: address on file Patient Identification confirmed using: Name, : Yes Telehealth method: voice only Patient verbally consented to treatment: Yes Patient verbally consented to billing insurance company: Yes Patient informed of any privacy concerns related to visit: Yes Minutes spent on Phone/Video with Pt.: 55 Coding Level of Care Code New Pt Tele Psy Diag Elizabeth ([id number]) Patient Type New Diagnoses Depression F32.A Anxiety F41.9 Morbid obesity E66.01 Time Spent (min) 55 Comment Start time: 10:05am, End time:11:00am
== END ==
LOC: HO.HBST 10:10
PROVIDERS: PCP Pediatrics; Visit Provider Counselor Mental Health
DX: F32.A Depression, unspecified (principal); F41.9 Anxiety disorder, unspecified; E66.01 Morbid (severe) obesity due to excess calories
CPT/HCPCS: 90791

== ENCOUNTER → 2024-02-05 10:10 | Outpatient (BNVA) | payer OTHER, SELFPAY | PROVIDERS: PCP Pediatrics; Visit Provider Counselor Mental Health ==

== ENCOUNTER → 2024-02-26 10:05 | Outpatient (BNVA) | payer OTHER, SELFPAY | PROVIDERS: PCP Pediatrics; Visit Provider Counselor Mental Health ==

== ENCOUNTER → 2024-02-26 10:05 | Outpatient (AMB) | payer OTHER, SELFPAY ==
--- NOTE | 2024-02-26 10:00 | A.OFFWM_ITS ---
Intake Intake Visit Reasons: (TV) BH F/U Allergies codeine Allergy (Verified 01/17/24 11:13) Itching Penicillins Allergy (Verified 01/17/24 11:13) Swelling PFSH Medical History (Updated 02/03/24 @ 20:19 by Carlos Leonard MD) Asthma Migraines Insomnia Anxiety Hyperlipidemia Hypertension Morbid obesity Depression Persistent proteinuria Surgical History (Updated 07/25/23 @ 14:25 by Shea Felipe MA) H/O section History of appendectomy Hx of nasal septoplasty Family History (Updated 07/25/23 @ 14:25 by Shea Felipe MA) Mother Diabetes Hypertension Paternal Uncle Leukemia Social History (Updated 01/14/24 @ 13:12 by Leslee Lara CMA) Alcohol intake: current Alcohol intake frequency: holidays/special occasions only Alcohol type: other Patient Tobacco Use Status: Never used Tobacco Behavioral Health Assessment Weight Management Therapy Therapy Notes Details PT is a 43 years old Female who presents for a second visit to complete BH assessment as part of surgical weight loss program. She is interested in bariatric surgery due to strugles with weight loss the past 8 years, PT also expects to gain a better understanding of her eating issues and change eating patterns to be able to keep the weight off in the long-term. 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 She was in therapy for about 2 years, no longer in counseling but receives medication from her MH PCP as her prescriber retired. PT denies any history of concern with SI/SA, self-harm or other harm, also denies any inpatient services or even been in crisis. There is also no evidence for stress/emotional-eating sine started the program, and scores from BES suggest low risk for binge eating behavior. PHQ- scores also showed no active symptoms/concerns with depression. On the other hand, mental status exam is within normal limits, suggesting person's functioning is not impaired. At this time patient is cleared from the behavioral health standpoint. She will follow up with this provider post-op for support. Presenting Concerns Referral Source WMP-Provider. PT had initial visit with Dr. Matta Reason for referral Completion of behavioral health assessment as part of process for weight-loss surgery. Precipitating Event Obesity Living Situation Current Living Situation Rent At risk of losing current housing? No Satisfied with current living situation? Yes Comments PT live with her partner and 8 y/o daughter. Food/Weight/Diet Expectations of change Initial goal to lose 10% of her weight before surgery, which is about 18lbs. Ultimate weight goal: 170lbs before surgery. PT expects to gain a better understanding of her eating issues and change eating patterns to be able to keep the weight off in the long-term. PT is implementing the following: None as she injured and has been sick. Current meal plan: 2 1/2 shakes in the morning, 1 meal (8F/8F) and 1 bar (divided in 2 halves, 2 times at day) Exercise plan: Elipticals, 285 Calories, 7 days at week. History/Relationship with food PT reports she has a weakness for food as she loves trying new things and exploring variety of foods. She eats at lot of carbs due to heritage. Also, she tends to eat more when stressed, and at times after losing weight or do great then she cheat . sometimes after not eating well during the day she might wake up around 2 or 3 am she wakes up to eat. Example of meals before starting the program: Breakfast: Her go to are ham/cheese sandwich, oatmeal, scramble eggs with cheese and fries, cereal with milk and banana. Lunch: skip mostly if had a big breakfast and wasn't hungry. When hungry had chili or a salad, or anything quick and simple. mostly from a local place/restaurant on her way. Dinner: mostly home made. Lasagna, rice with beans and meat, pastas, soup with rice, grilled chicken with potatoes or Salad. Snacks during the day: only after dinner. Her go to were: popcorn, fruits, nuts, dry cereal, yogurt, marshmallows. Drinks/Liquids: 2 cans of soda, 2 glasses of orange juice, lemonade, she has a 64oz jug she fills with water water. History/Relationship with weight In childhood she was at a healthy weight. PT believes her healthy weight is around 115Lbs, and the last time she was at this weight was on her early 20's. She felt very good at 130Lbs before having her daughter 8 years ago. She has gained In the last 10 years, the patient's Lowest weight was 130Lbs and highest 208Lbs. History/Relationship with dieting Weight watchers, [employer]bal[employer], self-diets, phone melanie counting calories. Binge Eating Do you frequently eat large amounts of food in short periods of time, not feeling physically hungry? No Do you feel out of control when you eat a large amount of food in a short period of time? No Do you eat large amounts of food rapidly and typically alone? No Night Eating Do you wake up at least once during the night to eat? No If you wake up in the night, do you find that it is necessary to eat something in order to fall back asleep? No Do you have little or no appetite in the morning and feel very hungry in the evening, often overeating between dinner and when you go to bed? Yes Social History Family history and relationship PT has been in a relationship for 12 years, they live together and have an 8y/o daughter. She has 2 sisters and 1 brother. Parents alive. PT reports she is very close to her family. Parental/Familial branch administrator obligations 8y/o daughter. Developmental history and status WNL Social support Family, parents siblings, partner. Community support None. Jainism/Spirituality Evangelical. Cultural/Ethnic information Born and raised [place]. [place]oved [place] the [place] age 7. Her is from [place]. Legal Involvement and History Current or historical involvement with the legal system? None reported. Education Highest grade completed Associate degree. Preferred learning style Visual Currently enrolled in educational program? No Interested in further educational program? Yes (pursue her bachelors in nursing. 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 No Meaningful activities Family time, watch some TV, social activities. Financial Situation Describe current financial situation Comfortable Financial assistance? None Service Service? Yes Mental Health and Addiction Treatment Current/Past substance abuse? No Comments Alcohol: Socially, usually on Holidays, probably 3 times at year. Usually 3 wine glasses. Cigarettes/Tobacco: None. Cannabis/Edibles: None Current/Past addictive behavior concerns? 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 She was in therapy for about 2 years, no longer in counseling but receives medication from her PCP as her prescriber retired. Current Psych. meds: - Fluoxetine 20mg 2 per day. - Hydroxyzine 25-50mg, 1 as needed every 8 hours. - Abilify 15mg, 1 per day for anxiety an d depression. - Prazosin 4mg, 1 at bedtime for nightma res. She has a prescription for Melatonin but she doesn't use it. Lorazepam 0.5mg - Discontinued that couple of months ago. . Last month she had a period of about a weeks with with stress and anxiety due to a family situation. Most of her symptoms of stress are triggered by life stressors, when nothing is going on she's stable and with no symptoms. She can't remember the last time she had a full depressive episode lasting 2 weeks. But, once at ,month or less she has a short lapse of 2-3 days with active depressive Sx, feeling down, like a failure, sad, denies any SI or self-harming/other-harm thoughts during these days. During these days she also has some anxiety-like Sx with catastrophic thoughts. PT denies any history of concern with SI/SA, self-harm or other harm. Denies any inpatient services or even been in crisis. Medical and Physical Health Summary Additional Medical History not covered in history Bleeding disorder. Sexual History concerns None reported. Physical exam in the last year? Yes Pain Screening Current pain? Yes Pain in the last few months? No Medications Is the patient compliant with medications? Yes Does the patient have [facility] Guardian in place? Not applicable Does the patient use complimentary health approaches? Yes (massages every 2 months. ) Trauma/Abuse History History of trauma? No Questionnaires PHQ-9 Over the last 2 weeks, how often have you been bothered by any of the following problems? 1. Little interest or pleasure in doing things: not at all 2. Feeling down, depressed, or hopeless: several days (2 days) 3. Trouble falling or staying asleep, or sleeping too much: several days (staying asleep, 2-3 days at week) 4. Feeling tired or having little energy: several days (when not sleeping well) 5. Poor appetite or overeating: several days (overeating.) 6. Feeling bad about yourself - or that you are a failure or have let yourself or your family down: not at all 7. Trouble concentrating on things, such as reading the newspaper or watching television: not at all 8. Moving or speaking so slowly that other people could have noticed. Or the opposite - being so fidgety or restless that you have been moving around a lot more than usual: not at all 9. Thoughts that you would be better off or of hurting yourself in some way: not at all Total score: 4 Depression Screening Interpretation: Negative Depression Screening Done: Yes [id number] - PHQ-9 Billing: Yes Source: Developed by Drs. Nitish De La Rosa, Telma Rivera, Ozzie Riddle and colleagues, with an educational aishwarya from [employer]. Binge Eating Scale Group 1 A. I don't feel self-conscious about my wt. or body size when I'm with others. B. I feel concerned about how I look to others, but it normally does not make me fell disappointed with myself C. I do get self-conscious about my appearance and wt. which makes me feel disappointed in myself. D. I feel very self-conscious about my wt. and frequently I feel intense shame and disgust for myself. I try to avoid social contacts because of my self- consciousness. Response Group 1: D Group 2 A. I don't have any difficulty eating slowly in the proper manner. B. Although I seem to gobble down foods, I don't end up feeling stuffed because of eating to much. C. At times, I tend to eat quickly and then, I feel uncomfortably full afterwards. D. I have the habit of bolting down my food, without really chewing it. When this happens I usually feel uncomfortably stuffed because I've eaten to much. Response Group 2: C Group 3 A. I feel capable to control my eating urges when I want to. B. I feel like I have failed to control my eating more than the average person. C. I feel utterly helpless when it comes to feeling in control of my eating urges. D. Because I feel so helpless about controlling my eating I have become very desperate about trying to get control. Response Group 3: B Group 4 A. I don't have the habit of eating when I'm bored. B. I sometimes eat when I'm bored, but often I'm able to get busy and get my mind off food. C. I have a regular habit of eating when I'm bored, but occasionally, I can use some other activity to get my mind off eating. D. I have a strong habit of eating when I'm bored. Nothing seems to help me breath the habit. Response Group 4: D Group 5 A. I'm usually physically hungry when I eat something. B. Occasionally, I eat something on impulse even though I really am not hungry. C. I have the regular habit of eating foods, that I might not really enjoy, to satisfy a hungry feeling even though physically, I don't need the food. D. Although I'm not physically hungry, I get a hungry feeling in my mouth that only seems to be satisfied when I eat a food, like sandwich, that fills my mouth. Sometimes, when I eat the food to satisfy my mouth hunger, I then spit the food out so I won't gain weight. Response Group 5: B Group 6 A. I don't feel any guilt or self-hate after I overeat. B. After I overeat, occasionally I feel guilt or self-hate. C. Almost all the time I experience strong guilt or self-hate after I overeat. Response Group 6: C Group 7 A. I don't lose total control of my eating when dieting even after periods when I overeat. B. Sometimes when I eat a forbidden food on a diet, I feel like I blew it and eat even more. C. Frequently, I have the habit of saying to myself, I've blown it now, why not go all the way, when I overeat on a diet. When that happens I eat more. D. I have a regular habit of starting a strict diets for myself but I break the diets by going on an eating binge. My life seems to be either a feast or famine. Response Group 7: B Group 8 A. I rarely eat so much food that I feel uncomfortably stuffed afterwards. B. Usually about once a month, I each such a quantity of food, I end up feeling very stuffed. C. I have regular periods during the month when I eat large amounts of food, either at mealtime or at snacks. D. I eat so much food that I regularly feel quite uncomfortable after eating and sometimes a bit nauseous. Response Group 8: C Group 9 A. My level of calorie intake does not go up very high or go down very low on a regular basis. B. Sometimes after I overeat, I will try to reduce my caloric intake to almost nothing to compensate for the excess calories I've eaten. C. I have a regular habit of overeating during the night. It seems that my routine is not to be hungry in the morning but overeat in the evening. D. In my adult years, I have had week-long periods where I practically starve myself. This follows periods when I overeat. It seems I live a life of either feast or famine. Response Group 9: A Group 10 A. I usually am able to stop eating when I want to. I know when enough is enough. B. Every so often, I experience a compulsion to eat which I can't seem to control. C. Frequently, I experience strong urges to eat which I seem unable to control, but at other times I can control my eating urges. D. I feel incapable of controlling urges to eat. I have a fear of not being able to stop eating voluntarily. Response Group 10: B Group 11 A. I don't have any problem stopping eating when I feel full. B. I usually can stop eating when I feel full but occasionally overeat leaving me feeling uncomfortably stuffed. C. I have a problem stopping eating once I start and usually I feel uncomfortably stuffed after I eat a meal. D. Because I have a problem not being able to stop eating when I want, I sometimes have to induce vomiting to relieve my stuffed feeling. Response Group 11: B Group 12 A. I seem to eat just as much when I'm with others, Family social gatherings as when I'm by myself. B. Sometimes, when I'm with other persons, I don't eat as much as I want to eat because I'm self-conscious about my eating. C. Frequently, I eat only a small amount of food when others are present, because I'm very embarrassed about my eating. D. I feel so ashamed about overeating that I pick times to overeat when I know no one will see me. I feel like a closet eater. Response Group 12: B Group 14 A. I don't think much about trying to control unwanted eating urges. B. At least some of the time, I feel my thoughts are pre-occupied with trying to control my eating urges. C. I feel that frequently I spend much time thinking about how much I ate or about trying not to eat anymore. D. It seems to me that most of my waking hours are pre-occupied by thoughts about eating or not eating. I feel like I'm constantly struggling not to eat. Response Group 14: B Group 15 A. I don't think about food a great deal. B. I have strong craving for food but they last only for brief periods of time. C. I have days when I can't seem to think about anything else but food. D. Most of my days seem to be pre-occupied with thoughts about food. I feel like I live to eat. Response Group 15: B Group 16 A. I usually know whether or not I'm physically hungry. I take the right portion of food to satisfy me. B. Occasionally, I feel uncertain about knowing whether or not I'm physically hungry. A these times it's hard to know how much food I should take to satisfy me. C. Even though I might know how many calories I should eat, I don't have any idea what is a normal amount of food for me. Response Group 16: B Binge Eating Score: 21 Score less than 17 Minimal Risk Score between 18-26 Moderate Risk Score between 27-46 High Risk Assessment & Plan Assessment & Plan (1) Depression: Code(s): F32.A - Depression, unspecified (2) Anxiety: Code(s): F41.9 - Anxiety disorder, unspecified (3) Morbid obesity: Code(s): E66.01 - Morbid (severe) obesity due to excess calories Plan PT has been cleared from standpoint. This provider has advised client to utilize available resources such as peer support group, Facebook group and group therapy, also the patient has been informed of support available at anytime while she is part of this program. Next melanie: 2-4 wks PO. Telehealth Telehealth Telehealth Platform: TopFloor Location of provider rendering services: other Location of patient: address on file Patient Identification confirmed using: Name, : Yes Telehealth method: voice only Patient verbally consented to treatment: Yes Patient verbally consented to billing insurance company: Yes Patient informed of any privacy concerns related to visit: Yes Minutes spent on Phone/Video with Pt.: 60 Coding Level of Care Code Established Pt Tele Psytx >53 mins (83898) Patient Type Established Diagnoses Depression F32.A Anxiety F41.9 Morbid obesity E66.01 Time Spent (min) 60
== END ==
LOC: HO.HBST 10:05
PROVIDERS: PCP Pediatrics; Visit Provider Counselor Mental Health
DX: F32.A Depression, unspecified (principal); F41.9 Anxiety disorder, unspecified; E66.01 Morbid (severe) obesity due to excess calories
CPT/HCPCS: 90837

== ENCOUNTER 2024-03-31 08:49 | Day surgery (SDC) | payer OTHER, SELFPAY ==
--- NOTE | 2024-03-30 10:17 | HO.ANESPROP2 ---
Documented by User: Shari Corona NP 03/30/24 10:17 HPI - Anesthesia Eval Consult details Narrative: 43yo F for Upper Endoscopy PMFSH Active Problems Active Problems: All Active Problems Vitamin B12 deficiency (Acute) Asthma (Acute) Migraines (Acute) Insomnia (Acute) Anxiety (Acute) Depression (Acute) Hyperlipidemia (Acute) Hypertension (Acute) Morbid obesity (Acute) Proteinuria (Acute) Past Medical History Medical History Asthma Migraines Insomnia Anxiety Hyperlipidemia Hypertension Morbid obesity Depression Persistent proteinuria Family History Family History Mother Diabetes Hypertension Paternal Uncle Leukemia Surgical History Surgical History H/O section History of appendectomy Hx of nasal septoplasty Social History Social History Alcohol intake: current Alcohol intake frequency: holidays/special occasions only Alcohol type: other Patient Tobacco Use Status: Never used Tobacco Use of substances other than those prescribed or required for medical reasons: No Are you DNR?: No Advance Directives: No Advance Directives Information Provided: Yes Meds Allergies Allergy/AdvReac Type Severity Reaction Status Date / Time codeine Allergy Itching Verified 03/31/24 09:04 Penicillins Allergy Swelling Verified 03/31/24 09:04 Home Medications ?Medication ?Instructions ?Recorded ?Confirmed ?Last Taken ?Type albuterol sulfate 90 mcg/actuation 2 puff inhalation Q4H 07/25/23 03/31/24 Unknown History aerosol inhaler (Ventolin HFA) amitriptyline 75 mg tablet 75 mg PO BEDTIME 07/25/23 03/31/24 Unknown History aripiprazole 15 mg tablet 15 mg PO QAM 07/25/23 03/31/24 Unknown History blood pressure test kit-large #1 ea 07/25/23 01/17/24 Unknown History cetirizine 10 mg tablet 10 mg PO DAILY PRN environmental 07/25/23 03/31/24 Unknown History allergies fluoxetine 20 mg capsule 40 mg PO DAILY 07/25/23 03/31/24 Unknown History fluticasone propionate 50 2 spray intranasal DAILY 07/25/23 03/31/24 Unknown History mcg/actuation nasal spray,suspension hydrochlorothiazide 25 mg tablet 25 mg PO QAM 07/25/23 03/31/24 Unknown History hydroxyzine HCl 25 mg tablet 25 - 50 mg PO Q8H PRN anxiety 07/25/23 03/31/24 Unknown History melatonin 5 mg tablet 5 - 10 mg PO BEDTIME PRN insomnia 07/25/23 03/31/24 Unknown History norethindrone 0.5 mg-ethinyl 1 tab PO DAILY 07/25/23 03/31/24 Unknown History estradiol 35 mcg tablet (Nortrel) omega-3 300 mg-dha 120 mg-epa 180 1 cap PO BID 07/25/23 03/31/24 Unknown History mg-fish oil 1,000 mg capsule prazosin 2 mg capsule 4 mg PO BEDTIME 07/25/23 03/31/24 Unknown History Assessment and Plan Assessment Anesthesia Assessment: Chart Reviewed Documented by User: Fabiola Grajeda MD 03/31/24 10:02 PMFSH Past Medical History Medical History Asthma Migraines Insomnia Anxiety Hyperlipidemia Hypertension Morbid obesity Depression Persistent proteinuria Family History Family History Mother Diabetes Hypertension Paternal Uncle Leukemia Surgical History Surgical History H/O section History of appendectomy Hx of nasal septoplasty History of Problems with Anesthesia: No Social History Social History Alcohol intake: current Alcohol intake frequency: holidays/special occasions only Alcohol type: other Patient Tobacco Use Status: Never used Tobacco Use of substances other than those prescribed or required for medical reasons: No Are you DNR?: No Advance Directives: No Advance Directives Information Provided: Yes Meds Allergies Allergy/AdvReac Type Severity Reaction Status Date / Time codeine Allergy Itching Verified 03/31/24 09:04 Penicillins Allergy Swelling Verified 03/31/24 09:04 Home Medications ?Medication ?Instructions ?Recorded ?Confirmed ?Last Taken ?Type albuterol sulfate 90 mcg/actuation 2 puff inhalation Q4H 07/25/23 03/31/24 Unknown History aerosol inhaler (Ventolin HFA) amitriptyline 75 mg tablet 75 mg PO BEDTIME 07/25/23 03/31/24 Unknown History aripiprazole 15 mg tablet 15 mg PO QAM 07/25/23 03/31/24 Unknown History blood pressure test kit-large #1 ea 07/25/23 01/17/24 Unknown History cetirizine 10 mg tablet 10 mg PO DAILY PRN environmental 07/25/23 03/31/24 Unknown History allergies fluoxetine 20 mg capsule 40 mg PO DAILY 07/25/23 03/31/24 Unknown History fluticasone propionate 50 2 spray intranasal DAILY 07/25/23 03/31/24 Unknown History mcg/actuation nasal spray,suspension hydrochlorothiazide 25 mg tablet 25 mg PO QAM 07/25/23 03/31/24 Unknown History hydroxyzine HCl 25 mg tablet 25 - 50 mg PO Q8H PRN anxiety 07/25/23 03/31/24 Unknown History melatonin 5 mg tablet 5 - 10 mg PO BEDTIME PRN insomnia 07/25/23 03/31/24 Unknown History norethindrone 0.5 mg-ethinyl 1 tab PO DAILY 07/25/23 03/31/24 Unknown History estradiol 35 mcg tablet (Nortrel) omega-3 300 mg-dha 120 mg-epa 180 1 cap PO BID 07/25/23 03/31/24 Unknown History mg-fish oil 1,000 mg capsule prazosin 2 mg capsule 4 mg PO BEDTIME 07/25/23 03/31/24 Unknown History Exam Airway Mallampati Class: II TM Dist: >3cm Neck ROM: Full Loose/Missing/Broken Teeth: No Heart: RRR Lungs: CTA Assessment and Plan Assessment Anesthesia Assessment: Anesthesia Plan Discussed Final Anesthetic Review History of Problems with Anesthesia: No NPO: Yes ASA Class: III Final Preanesthetic Review: Meds/Allgs Chart Reviewed, Consent Obtained/Reviewed and Anes Risks/Benef Reviewed Patient Risk: Intermediate Procedure Risk: Intermediate Anesthetic Plan Anesthetic Plan: MAC: Disposition: Standard PACU
[2024-03-31 09:08] VITALS: BMI 40.8
[2024-03-31 09:19] VITALS: BP 117/78; PULSE 104; RESP 16; TEMP 36.9; O2SAT 94
[2024-03-31] MEDS: Lactated Ringers 1,000 ML 100 ML IVCONT (09:23)
[2024-03-31 09:28] LABS: UPreg QC Valid YES; Urine Pregnancy NEGATIVE (NEGATIVE)
--- NOTE | 2024-03-31 10:09 | MHC.SHP ---
Pre-Procedural Eval Section A - 24 Hr Update-Section A only Date of Service: 03/31/24 The patient is an INPATIENT: No The patient has been examined within 24 hours of the surgical procedure. The History & Physical has been completed within 30 days and I have reviewed it.: Yes Section B - Complete if H&P > 30 days Chief Complaint: Morbid (severe) obesity due to excess calories Relevant Family History (Specify if Yes): No Relevant Social History: None Present Medications: None Medical History: No relevant PMH History of Previous Operations: No relevant previous surgery Allergies: Allergies Allergy/AdvReac Type Severity Reaction Status Date / Time codeine Allergy Itching Verified 03/31/24 09:04 Penicillins Allergy Swelling Verified 03/31/24 09:04 Review of Systems Sugical H&P ROS: Negative: Constitution, Cardiovascular, Respiratory, Neurological, Psychiatric, Hem-Onc, Allergic/Immunologic, Gastrointestinal, Genitourinary, Musculoskeletal, Integumentary, Endocrine and Eyes/Ears/Nose/Throat Exam Surgical H&P Exam: Normal: HEENT, Normal: Heart, Normal: Lungs, Normal: Extremities, Normal: Abdomen, Normal: Skin and Normal: Neurological Plan Diagnosis/Plan: Unchanged (EGD to assess the stomach's anatomy. Risks of bleeding and perforation were discussed with the patient and she is in agreement with the plan.) I have reviewed the history and physical and performed a pertinent physical examination on my patient. No changes have occurred unless specified. Time Spent With Patient Time: Total time managing care of this patient today ____ minutes.
--- NOTE | 2024-03-31 10:33 | PM.OP ---
Brief Operative Note Date of Service: 03/31/24 Pre-op diagnosis: Morbid obesity Post-op diagnosis: same (Small diaphragmatic hernia) Procedure: PROCEDURE DATE: 03/31/2024 PREOPERATIVE DIAGNOSIS: Morbid obesity POSTOPERATIVE DIAGNOSIS: ?Same as above. 1) small hiatal hernia PROCEDURE: [id number]-[id number]-[id number] with biopsies Surgeon: ?Riccardo Leonard M.D.. Ph.D. Door And Arrival Attendant: None ? Anesthesia: IV sedation Estimated blood loss: ?Minimal FINDINGS AND PROCEDURE: ? OPERATIVE INDICATIONS: ?The patient is a 43 year old female known to me who is interested in bariatric surgery. Based on this information I recommended an upper endoscopy to evaluate the stomach's anatomy. Risks and complications of the surgery were discussed with the patient in advance particularly the possibility of perforation or bleeding that may require surgical intervention. The patient understood the risks and was in agreement with the plan. ? PROCEDURE: After informed consent was obtained by the patient, the patient was ?transferred to the Operating Room and was placed in the supine position.? After successful induction of IV sedation, a mouth block was inserted and the patient was placed in the left lateral decubitus position. An upper endoscopy was performed next, the oropharynx and esophagus appeared within the normal limits. There was a small 2cm diaphragmatic hernia. The z-line was smooth. Two biopsies were obtained from the distal esophagus 2-3 cm proximal to the GE junction and two additional biopsies from the GE junction. The stomach was entered and it appeared to be of normal size. There was mild gastritis at distal antrum. There was no stricture or ulcer. A biopsy was obtained from the gastric fundus and the antrum. No significant bleeding was noted from any of the biopsy sites. Retroflexion of the scope confirmed the presence of a small diaphragmatic hernia. The scope was then advanced into the duodenum which appeared to be normal as well. At that point the duodenum ?and the stomach were decompressed and the scope was withdrawn from the patient's mouth. The patient extubated and was transferred in stable condition to the Recovery Room for further care. I was present and performed all steps of the procedure. There were no residents to assist with this case. Riccardo Leonard M.D., Ph.D. Surgeon: Carlos Leonard MD Anesthesia: MAC Was an Door And Arrival Attendant used for this Procedure?: No Estimated blood loss (mL): 0 IV fluids (mL): 400 Urine output (mL): 0 (No Fuller to record output) Pathology: other (1) antrum x1, 2) fundus x1, 3) GE junction x2, 4) distal esophagus x2) Condition: stable Disposition: PACU
[2024-03-31 10:35] VITALS: BP 117/74; PULSE 117; RESP 18; TEMP 36.9; O2SAT 96
[2024-03-31 10:50] VITALS: BP 114/77; PULSE 99; RESP 18; O2SAT 96
[2024-03-31 10:54] VITALS: TEMP 36.8
== END 2024-03-31 11:32 | disposition home or self-care (01) ==
PROVIDERS: Nurse Practitioner; PCP Pediatrics; Visit Provider Surgery
PROC: 0DJ08ZZ Inspection of Upper Intestinal Tract, Via Natural or Artificial Opening Endoscopic (ICD-10-PCS; CPT 43235; principal; 2024-03-31 10:30)
DX: E66.01 Morbid (severe) obesity due to excess calories (principal); Z68.41 Body mass index [BMI] 40.0-44.9, adult; K29.60 Other gastritis without bleeding; K44.9 Diaphragmatic hernia without obstruction or gangrene; I10 Essential (primary) hypertension; J45.909 Unspecified asthma, uncomplicated; E78.5 Hyperlipidemia, unspecified; R80.1 Persistent proteinuria, unspecified; G43.909 Migraine, unspecified, not intractable, without status migrainosus; G47.00 Insomnia, unspecified; F32.A Depression, unspecified; Z79.51 Long term (current) use of inhaled steroids; F41.9 Anxiety disorder, unspecified; Z79.899 Other long term (current) drug therapy; Z88.0 Allergy status to penicillin; Z88.5 Allergy status to narcotic agent; Z98.890 Other specified postprocedural states
CPT/HCPCS: 43239; 81025; 88305; 88313; 88342; J2003; J2704

== ENCOUNTER → 2024-03-31 08:49 | Outpatient (BNV) | payer OTHER, SELFPAY | PROVIDERS: PCP Pediatrics; Visit Provider Surgery | DX: K44.9 Diaphragmatic hernia without obstruction or gangrene (principal) | CPT/HCPCS: 43239 ==

== ENCOUNTER 2024-04-01 08:45 | Outpatient (REF) | payer OTHER, SELFPAY ==
--- NOTE | ~2024-04-01 | FL_ITS ---
EXAMINATION: XR FLUOROSCOPY UPPER GI WITH AIR CLINICAL INFORMATION: Preoperative evaluation prior to bariatric surgery COMPARISON: None TECHNIQUE: Fluoroscopic air contrast upper GI examination was performed utilizing standard techniques with thin and thick barium and effervescent granules. Numerous spot images were obtained. FINDINGS: Dual and single contrast images of the esophagus demonstrate normal caliber, contour, and mucosal pattern. No evidence of stricture, mass, or ulcerations identified. Esophageal peristalsis was normal. A very small type I hiatal hernia is present. Mild gastroesophageal reflux is seen in the distal esophagus. Dual contrast and single contrast images of the stomach demonstrated a normal contour. Evaluation of the gastric mucosa is limited due to suboptimal coating of the barium. No obvious masses or ulcerations are seen. Contrast freely passed into the gastric antrum and duodenal bulb without delay. Single and air-contrast images of the duodenal bulb demonstrate no abnormality. The duodenal sweep has a normal appearance, course, and mucosal fold appearance. The imaged proximal jejunum has a normal fold pattern and caliber. FLUOROSCOPY TIME: 3.0 minutes Number of Spot Images: 7 Number of Cine: 11 DOSE AREA PRODUCT: 2280 uGy-m2 (microgray-meter squared) FL/FL upper GI w air IMPRESSION: 1. Very small type I hiatal hernia mild gastroesophageal reflux. 2. Limited evaluation of the gastric mucosa due to suboptimal coating of the barium. This procedure was performed by Rene Matthews PA-C, and supervised by Dr. Sandy Electronically signed by: Dominick Sandy MD 04/01/2024 03:29 PM [facility] Workstation: [id number]
== END 2024-04-01 08:46 | disposition home or self-care (01) ==
LOC: HO.XRAY 08:45
PROVIDERS: PCP Pediatrics; Visit Provider Surgery
DX: E66.01 Morbid (severe) obesity due to excess calories (principal); I10 Essential (primary) hypertension; E78.5 Hyperlipidemia, unspecified; J45.909 Unspecified asthma, uncomplicated
CPT/HCPCS: 74246

== ENCOUNTER → 2024-04-01 08:46 | Outpatient (BNV) | payer OTHER, SELFPAY | PROVIDERS: PCP Pediatrics; Visit Provider Physician Assistant Surgical | DX: K44.9 Diaphragmatic hernia without obstruction or gangrene (principal); E66.01 Morbid (severe) obesity due to excess calories; Z01.818 Encounter for other preprocedural examination | CPT/HCPCS: 74246 ==

== ENCOUNTER 2024-04-16 08:54 | Outpatient (REF) | payer OTHER, SELFPAY ==
--- NOTE | ~2024-04-16 | MM_ITS ---
EXAMINATION: MM SCREENING DIGITAL BREAST TOMOSYNTHESIS, BILATERAL CLINICAL INFORMATION: Screening. Asymptomatic. COMPARISON: Mammography: Comparison is made with available priors TECHNIQUE: Digital breast mammography with tomosynthesis is performed in both the craniocaudal and mediolateral oblique views along with computer-aided detection (CAD). FINDINGS: The breasts are heterogeneously dense, which may obscure small masses (ACR BI-RADS breast composition Category c). Bilateral benign-appearing stable calcifications. There are no significant masses, abnormal calcifications, or other abnormalities. MM/MM tomosynthesis screening BI IMPRESSION: No mammographic evidence of malignancy. ASSESSMENT: BI-RADS BI-RADS 2 - Benign Findings RECOMMENDATION: Routine annual mammography screening. 1 year F/U This examination should not preclude the clinical evaluation of a suspicious palpable abnormality. This patient's information was entered into a reminder system with a target due date for their next mammogram. Electronically signed by: Lupe Dunaway DO 04/17/2024 09:38 AM [facility]
== END 2024-04-16 08:55 | disposition home or self-care (01) ==
LOC: HO.MAMMO 08:54
PROVIDERS: PCP Pediatrics; Visit Provider Pediatrics
DX: Z12.31 Encounter for screening mammogram for malignant neoplasm of breast (principal)
CPT/HCPCS: 77063; 77067

== ENCOUNTER → 2024-04-16 09:00 | Outpatient (BNV) | payer OTHER, SELFPAY | PROVIDERS: PCP Pediatrics; Visit Provider Internal Medicine | DX: Z12.31 Encounter for screening mammogram for malignant neoplasm of breast (principal) | CPT/HCPCS: 77063; 77067 ==

== ENCOUNTER 2024-06-01 08:57 | Outpatient (AMB) | payer OTHER, SELFPAY ==
--- OUTSIDE RECORDS SUMMARY | 2024-06-01 09:18 | XMS_ITS | Encounter Summary ---
Author Organization [facility] Address [address] [place] [address] Care Team Providers Care Rough Patcher Name Role Phone Rochelle Phan MD Primary Care Provider [phone] Gilberto Zayas Unavailable Unavailable Encounter Details Date Type Department Care Team (Latest Contact Info) Description 06/14/2020 Abstract [facility] CONVERSIONS Dental, Provider, DDS Social History Tobacco Use Types Packs/Day Years Used Date Smoking Tobacco: Never Assessed Comments Unknown Sex and Gender Information Value Date Recorded Sex Assigned at Female 02/26/2022 10:17 AM EDT Legal Sex Female 10:17 AM EDT Gender Identity Female 02/26/2022 10:17 AM EDT Sexual Orientation Straight 02/26/2022 10 :17 AM EDT documented as of this encounter Plan of Treatment Not on file documented as of this encounter Visit Diagnoses Not on filedocumented in this encounter Care Teams Rough Patcher Relationship Specialty Start Date End Date Rochelle Phan MD [address] [place] [address] PCP - General Family Medicine 10/27/12 Gilberto Zayas FNP [address] [place] [address] Nurse Practitioner Family Medicine 03/20/23 documented as of this encounter
--- OUTSIDE RECORDS SUMMARY | 2024-06-01 09:18 | XMS_ITS | Encounter Summary ---
Author Organization [facility] Address [address] [place] [address] Care Team Providers Care Keller Machine Operator Name Role Phone Physician, Pcp Unknown Primary Care Provider Nieves vailable Reason for Referral * Consultation (Routine) - Authorized Specialty Diagnoses / Procedures Referred By Gordon mckeon Referred To Contact Obstetrics and Gynecology Diagnoses Ovarian mass Ira Sloan PA [address] [place] [address] [facility] [address] [place] [address] Referral ID Status Reason Start Date Expiration Date Visits Requested Visits Authorized [id number] Authorized Specialty Services Required 05/24/2024 05/24/2025 1 1 Reason for Visit * Reason Comments Abdominal Pain R abd pain that radi ates to her back, +vomiting brown emesis. Started yest Encounter Details Date Type Department Care Team ([facility] st Contact Info) Description 05/24/2024 11:21 AM EST - 05/24/2024 4:03 PM EST Emergency [facility] Emergency [address] [place] [address] Ovarian mass (Primary Dx); Acute cystitis without hematuria Discharge Disposition: Home or Self Care Social History Tobacco Use Types Packs/Day Years Used Date Smoking Tobacco: Never Smokeless Tobacco: Never Tobacco Cessation:Counseling Given: Not Answered Alcohol Use Standard Drinks/Week Comments Never 0 (1 standard drink = 0.6 oz pur e alcohol) Sex and Gender Information Value Date Recorded Sex Assigned at Not on file Gender Identity Not on file Sexual Orientation Not on file Job Start Date Occupation Industry Not on file Not on file Not on file documented as of this encounter Last Filed Vital Signs Vital Sign Reading Time Taken Comments Blood Pressure 121/81 05/24/2024 2:51 PM EST Pulse 89 05/24/2024 2:51 PM EST Temperature 37 ??C (98.6 ??F) 05/24/2024 2:51 PM EST Respiratory Rate 16 05/24/2024 2:51 PM EST Oxygen Saturation 100% 05/24/2024 2:51 PM EST Inhaled Oxygen Concentration - - Weight 84.4 kg (186 lb) 05/24/2024 8:47 AM EST Height 147.3 cm (4' 10 ) 05/24/2024 8:47 AM EST Body Mass Index 38.87 05/24/2024 8:47 AM EST documented in this encounter Functional Status Functional Status Response Date of Assess ment Are you deaf or do you have serious difficulty h earing? No 05/24/2024 Are you blind or do you have serious difficulty seeing, even when wearing glasses? No 05/24/2024 Do you have serious difficul ty walking or climbing stairs? No 05/24/2024 Do you have serious difficulty dressing or bathi ng? No 05/24/2024 Because of a physical, menta l, or emotional condition, do you have serious difficulty doing errands alone such as visiting the doctor? No 05/24/2024 Cognitive Status Response Date of Assessm ent Because of a physical, menta l, or emotional condition, do you have serious difficulty concentrating, remembering, or making decisions? (5 years old or older) No 05/24/2024 documented as of this encounter Discharge Instructions * Discharge Instructions* ETIENNE Sherman - 05/24/2024 3:27 PM EST Take the antibiotics as prescribed. Increase fluids and empty bladder frequently. You were given dose of long-acting anti-inflammatory in the ER and first dose of antibiotics. Please take next dose of both of these things tomorrow morning. Return to the ER for significantly new or worsening symptoms. documented in this encounter Medications at Time of Discharge Medication Sig Dispensed Refills Start Date End Date cefpodoxime (VANTIN) 200 mg tablet Take 1 tablet (200 mg total) by mouth 2 (two) times a day for 10 days. 20 each 05/24/2024 06/03/2024 diclofenac (VOLTAREN) 25 mg EC tablet Take 1 tablet (25 mg total) by mouth 2 (two) times a day for 7 days. Do not crush, chew, or split. 14 each 05/24/2024 05/31/2024 documented as of this encounter Ordered Prescriptions Prescription Sig Dispensed Refills Start Date End Da te cefpodoxime (VANTIN) 200 mg tablet Take 1 tablet (200 mg total) by mouth 2 (two) times a day for 10 days. 20 each 05/24/2024 06/03/2024 diclofenac (VOLTAREN) 25 mg EC tablet Take 1 tablet (25 mg total) by mouth 2 (two) times a day for 7 days. Do not crush, chew, or split. 14 each 05/24/2024 05/31/2024 documented in this encounter Discharge Disposition Disposition Code Departure Means Destination Comment s Home or Self Care documented in this encounter Progress Notes * Connie Gray RN - 05/24/2024 8:45 AM EST C/o R sided abd pain that radiates to her back, vomiting brown emesis. Both started yesterday. +N/-D. Reports chills at home, denies fevers. Pt does have a hx of a clotting disorder. Denies any bright red blood in emesis. +dizziness. Reports her BP has been little low the past few days, my surgeonis aware . * ETIENNE Sherman - 05/24/2024 8:37 AM EST Emergency Medicine Note Patient Name: Maria C Adam Initial Evaluation: 05/24/2024 : 1980 Patient's PCP: Pcp Unknown Physician Emergency Physician: ETIENNE Sherman History of Present Illness Chief Complaint: Chief Complaint Patient presents with Abdominal Pain R abd pain that radiates to her back, +vomiting brown emesis. Started yest HPI: 43-year-old female with history of von Willebrand's disease, asthma, presents reporting right upper quadrant abdominal pain for a few days with intermittent nausea/vomiting. She denies any hematemesis. She denies any specific diarrhea or change in bowel movements. She says she is due to have ba riatric surgery coming up and she did notify her surgeon of this issue. Otherwise she has had a previous appendectomy and in the past. -She denies cough, shortness of breath, dysuria, hematuria, trauma, rash, chest pain ROS: I have performed a ROS with the pertinent positives and negatives documented in the history ofpresent illness. Previous History Past Medical History: Diagnosis Date Asthma Clotting disorder (CMS/HCC) History reviewed. No pertinent surgical history. Social History Tobacco Use Smoking status: Never Smokeless tobacco: Never Substance Use Topics Alcohol use: Never Drug use: Never No family history on file. is allergic to codeine and penicillin g. No current facility-administered medications on file prior to encounter. No current outpatient medications on file prior to encounter. Physical Exam ED Triage Vitals [05/24/24 0847] Temp Heart Rate Resp BP 36.7 ??C (98.1 ??F) 87 16 (!) 136/101 SpO2 Temp Source Heart Rate Source Patient Position 97 % Oral -- Sitting BP Location FiO2 (%) Left arm -- General: awake, calm, cooperative, No apparent distress Skin: warm, dry, No diaphoresis Eyes: PERRLA, EOMI ENT: mucosa moist, throat is clear Neck: soft/supple, full range of motion, no nuchal rigidity Respiratory: clear to auscultation Cardiovascular: regular rate and rhythm, no peripheral edema Gastrointestinal: soft, right upper quadrant abdominal tenderness, positive right CVA tenderness, normal active bowel sounds, no hepatomegaly Musculoskeletal: no calf tenderness, no pedal edema, appropriate range of motion in upper and lowerextremities Neurological: alert and oriented X3, strength 5/5 bilateral hands, 5/5 strength upper and lower extremities Psychiatric: stable mood and affect Results Labs Reviewed COMPREHENSIVE METABOLIC PANEL - Abnormal Result Value Sodium 137 Potassium 4.5 Chloride 106 CO2 25 Anion Gap 6 Glucose 119 (*) BUN 15 Creatinine 0.83 eGFR 90 BUN/Creatinine Ratio 18.1 Calcium 9.0 AST (SGOT) 29 ALT (SGPT) 51 Alkaline Phosphatase 65 Total Protein 7.6 Albumin 3.4 Total Bilirubin 0.3 CBC WITH AUTO DIFFERENTIAL - Abnormal WBC 9.6 RBC 4.60 Hemoglobin 12.9 Hematocrit 39.3 MCV 85.1 MCH 27.9 MCHC 32.8 RDW 12.5 Platelets 341 MPV 9.4 NRBC 0.0 NRBC Absolute 0.00 Neutrophils Relative 86.6 Lymphocytes Relative 9.7 Monocytes Relative 2.4 Eosinophils Relative 0.5 Basophils Relative 0.5 Immature Granulocytes Relative 0.3 Neutrophils Absolute 8.34 (*) Lymphocytes Absolute 0.93 (*) Monocytes Absolute 0.23 Eosinophils Absolute 0.05 Basophils Absolute 0.05 Immature Granulocytes Absolute 0.03 URINALYSIS WITH REFLEX MICROSCOPIC AND CULTURE - Abnormal Specific [place] Urine 1.025 pH, Urine 6.0 Leukocytes, Urine Negative Nitrite, Urine Negative Protein, Urine 30 (*) Glucose, Urine Negative Ketones, Urine Trace (*) Urobilinogen, Urine 0.2 Bilirubin, Urine Negative Blood, Urine Small (*) RBC, Urine 22.1 (*) WBC, Urine 8.0 (*) Squamous Epithelial, Urine 80 (*) Bacteria, Urine Moderate (*) Hyaline Casts, Urine 3.0 RESPIRATORY VIRUS PANEL MOLECULAR STUDY - Normal Adenovirus Detection by PCR Not Detected Influenza A PCR Not Detected Influenza B PCR Not Detected Coronavirus 229E Not Detected Coronavirus HKU1 Not Detected Coronavirus OC43 Not Detected Coronavirus NL63 Not Detected Parainfluenza Virus 1 Not Detected Parainfluenza Virus 2 Not Detected Parainfluenza Virus 3 Not Detected Parainfluenza Virus 4 Not Detected RSV PCR Not Detected Human Metapneumovirus A and B Not Detected Rhinovirus/Enterovirus Not Detected Bordetella pertussis Not Detected Bordetella parapertussis Not Detected Mycoplasma pneumo by PCR Not Detected Chlamydia pneumoniae Not Detected SARS COV-2 Not Detected Narrative: Testing was performed using the [employer] Respiratory Pathogen PCR Assay. All results must be correlated with the clinical findings. Results should not be used as the sole basis for diagnosis. False Negative results may occur from the presence of sequence variants in the region targeted by the assay or the presence of inhibitors. Results may be affected by concurrent antiviral/antimicrobial therapy or levels of organisms that are below the limit of detection. MAGNESIUM - Normal Magnesium 2.1 TROPONIN I HIGH SENSITIVITY - Normal High Sensitivity Troponin I <3 Narrative: High levels of biotin in samples may falsely decrease hsTroponin values. Use caution when interpreting hsTroponin results in patients taking biotin who exhibit renal impairment (eGFR <60) or in patients taking more than 20 mg/day of biotin. TROPONIN I HIGH SENSITIVITY - Normal High Sensitivity Troponin I <3 Narrative: High levels of biotin in samples may falsely decrease hsTroponin values. Use caution when interpreting hsTroponin results in patients taking biotin who exhibit renal impairment (eGFR <60) or in patients taking more than 20 mg/day of biotin. PROTHROMBIN TIME WITH INR - Normal Protime 11.0 INR 0.9 CULTURE URINE Narrative: Beta Strep Group B noted. The presence of a low colony count of Beta Strep Group B may have clinical significance in women. CBC AND DIFFERENTIAL Narrative: The following orders were created for panel order CBC and differential. Procedure Abnormality Status --------- ------ CBC auto differential[[id number]] Abnormal Final result Please view results for these tests on the individual orders. TYPE AND SCREEN ABO Group O Rh Type Positive Antibody Screen Negative URINALYSIS WITH REFLEX MICROSCOPIC AND CULTURE Narrative: The following orders were created for panel order Urinalysis with reflex microscopic and culture. Procedure Abnormality Status --------- ------ Urinalysis with reflex ...[[id number]] Abnormal Final result Moss urine culture tube[[id number]] Final result Please view results for these tests on the individual orders. POC , URINE DIAGNOSTIC HCG, Ur POC Negative POC hCG Int QC Pass? Yes EXPIRATION DATE POC LOT NUMBER POC Abnormal Labs Reviewed COMPREHENSIVE METABOLIC PANEL - Abnormal; Notable for the following components: Result Value Glucose 119 (*) All other components within normal limits CBC WITH AUTO DIFFERENTIAL - Abnormal; Notable for the following components: Neutrophils Absolute 8.34 (*) Lymphocytes Absolute 0.93 (*) All other components within normal limits URINALYSIS WITH REFLEX MICROSCOPIC AND CULTURE - Abnormal; Notable for the following components: Protein, Urine 30 (*) Ketones, Urine Trace (*) Blood, Urine Small (*) RBC, Urine 22.1 (*) WBC, Urine 8.0 (*) Squamous Epithelial, Urine 80 (*) Bacteria, Urine Moderate (*) All other components within normal limits CT Abdomen Pelvis w Contrast Final Result Impression: 1. Bilateral fat-containing adnexal masses, as described, suspicious for cystic teratomas (dermoid tumors). Outpatient gynecology consultation recommended for further management. 2. 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 Telerad PA ([id number]) -------- FINAL REPORT -------- Dictated By: Mechelle Bosch Dictated Date: 05/24/2024 13:53 ET Assigned Physician: Mechelle Bosch Reviewed and Electronically Signed By: Mechelle Bosch Signed Date: 05/24/2024 14:04 ET Workstation ID: [id number] Transcribed By: Self Edit Transcribed Date: 05/24/2024 13:53 ET XR Chest 2 Views Final Result Impression: No active pulmonary process identified. Telerad PA ([id number]) -------- FINAL REPORT -------- Dictated By: Mechelle Bosch Dictated Date: 05/24/2024 12:44 ET Assigned Physician: Mechelle Bosch Reviewed and Electronically Signed By: Mechelle Bosch Signed Date: 05/24/2024 12:45 ET Workstation ID: [id number] Transcribed By: Self Edit Transcribed Date: 05/24/2024 12:44 ET I have discussed the incidental/abnormal imaging and/or lab abnormalities with the patient and haveinstructed them the need for further evaluation and workup with their primary care doctor. The laboratory results, imaging results and other diagnostic exam results were reviewed in the EMR. EKG Interpretation Sinus rhythm. No STEMI Critical Care Time None ? Medical Decision Making MDM as described in ED course below Medications sodium chloride 0.9 % bolus 1,000 mL (0 mL intravenous Stopped 05/24/24 1218) ondansetron (PF) (ZOFRAN) injection 4 mg (4 mg intravenous Given 05/24/24 1216) morphine injection 4 mg (4 mg intravenous Given 05/24/24 1217) morphine injection 4 mg (4 mg intravenous Given 05/24/24 1405) sodium chloride 0.9 % flush 10 mL (10 mL intravenous Given 05/24/24 1338) iopamidoL (ISOVUE-370) 370 mg iodine /mL (76 %) injection 90 mL (90 mL intravenous Given 05/24/24 1338) barium sulfate (READI-CAT 2) 2 % (w/v) suspension 450 mL (450 mL oral Given 05/24/241337) cefTRIAXone (ROCEPHIN) 1 g in sterile water 10 mL IV syringe (1 g intravenous Given 05/24/24 153) ketorolac (TORADOL) injection 15 mg (15 mg intravenous Given 05/24/24 153) ED Course as of 05/27/24 0146 Sun May 24, 2024 1145 And evaluated. History and physical exam performed. Vitals reviewed. Patient has right upper quadrant tenderness, nausea and vomiting. Not necessarily postprandial. Possible gastroenteritis versus acute cholecystitis high suspicion at this time. Will await labs, imaging, UA, symptomatic/support chayo treatment and hydration with reevaluation [AT] 1525 Patient has UTI. Will give first dose of antibiotic here, anti- inflammatory. Also discussed that she has abnormal masses on bilateral ovaries and needs to follow-up. 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 She isaware to call if she does not hear by mid next week. [AT] ED Course User Index [AT] ETIENNE Sherman Clinical Impressions as of 05/27/24145 Ovarian mass Acute cystitis without hematuria Procedures Procedures Differential Diagnosis Cholecystitis Cholelithiasis Viral syndrome/gastroenteritis Food poisoning Kidney stone Colitis Dehydration Atypical ACS Diagnosis 1. Ovarian mass 2. Acute cystitis without hematuria Disposition Discharge Condition: Stable ED Prescriptions Medication Sig Dispense Start Date End Date Auth. Provider cefpodoxime (VANTIN) 200 mg tablet Take 1 tablet (200 mg total) by mouth 2 (two) times a day for 10days. 20 each 05/24/2024 06/03/2024 ETIENNE Sherman diclofenac (VOLTAREN) 25 mg EC tablet Take 1 tablet (25 mg total) by mouth 2 (two) times a day for 7 days. Do not crush, chew, or split. 14 each 05/24/2024 05/31/2024 ETIENNE Sherman Physician Attestation ETIENNE Sherman 05/24/24 1147 ETIENNE Sherman 05/27/24145 documented in this encounter Plan of Treatment Upcoming Encounters Date Type Department Care Team (Late st Contact Info) Description 06/11/2024 10:30 AM EST Office Visit [facility]st[facility] [address] [place] [address] Sahara Tello DO [address] [facility] [place] [address] Pending Results Name Type Priority Associated Diagnoses Date /Time POC , urine manually resulted Point of Care Testing STAT 05/24/2024 12:22 PM EST Scheduled Orders Name Type Priority Associated Diagnoses Orde r Schedule POC , urine manually resulted Point of Care Testing STAT Once for 1 Occurrences starting 05/24/2024 until 05/24/2024 Scheduled Referrals Name Type Priority Associated Diagnoses Order Schedule Ambulatory referral to Obstetrics / Gynecology Outpatient Referral Routine 1 Occurrence s starting 05/24/2024 until 05/24/2025 documented as of this encounter Procedures Procedure Name Priority Date/Time Associated Diagnosis Comments CT ABDOMEN PELVIS W CONTRAST STAT 05/24/2024 1:44 PM EST XR CHEST 2 VIEWS STAT 05/24/2024 12:4 3 PM EST RESPIRATORY VIRUS PANEL MOLECULAR STUDY STAT 05/24/2024 12:14 PM EST URINALYSIS WITH REFLEX MICROSCOPIC AND CULTURE STAT 05/24/2024 12:12 PM EST MOSS URINE CULTURE TUBE STAT 05/24/2024 12:12 PM EST TROPONIN I HIGH SENSITIVITY STAT 05/24/2024 12:12 PM EST URINALYSIS WITH REFLEX MICROSCOPIC AND CULTURE STAT 05/24/2024 12:12 PM EST CULTURE URINE STAT 05/24/2024 12:12 PM EST TROPONIN I HIGH SENSITIVITY STAT 05/24/2024 10:36 AM EST CBC WITH AUTO DIFFERENTIAL STAT 05/24/2024 10:36 AM EST PROTHROMBIN TIME WITH INR STAT 05/24/2024 10:36 AM EST CBC AND DIFFERENTIAL STAT 05/24/2024 10:36 AM EST TYPE AND SCREEN STAT 05/24/2024 10:36 AM EST MAGNESIUM STAT 05/24/2024 10:36 AM EST COMPREHENSIVE METABOLIC PANEL STAT 05/24/2024 10:36 AM EST ECG 12-LEAD STAT 05/24/2024 9:53 AM EST ECG ANNOTATED 05/24/2024 documented in this encounter Results * CT Abdomen Pelvis w Contrast (05/24/2024 1:44 PM EST) Anatomical Region Laterality Modality Body Computed Tomogra phy 05/24/2024 1:53 PM EST Impressions 05/24/2024 2:04 PM EST Impression: 1. Bilateral fat-containing adnexal masses, as described, suspicious for cystic teratomas (dermoid tumors). Outpatient gynecology consultation recommended for further management. 2. 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 [facility] ETIENNE ([id number]) -------- FINAL REPORT -------- Dictated By: Mechelle Bosch Dictated Date: 05/24/2024 13:53 ET Assigned Physician: Mechelle Bosch Reviewed and Electronically Signed By: Mechelle Bosch Signed Date: 05/24/2024 14:04 ET Workstation ID: [id number] Transcribed By: Self Edit Transcribed Date: 05/24/2024 13:53 ET Narrative 05/24/2024 2:04 PM EST History: Right-sided abdominal pain radiating to the back. Vomiting. Prior appendectomy. Comparison: 06/18/18 Technique: Helical volumetric imaging of the abdomen and pelvis was performed following oral contrast and during the uneventful intravenous administration of 90 cc Isovue-370. DLP: 1194.40 mGy/cm GE Puzlpeed VCT Iterative reconstruction technique Findings: The liver is normal in size and configuration. Mildly heterogeneous hepatic attenuation is unchanged from the previous study, compatible with geographic fatty infiltration. No masses are identified. The portal and hepatic veins are patent. The gallbladder is physiologically distended. No evidence of biliary obstruction is seen. Spleen, pancreas and adrenal glands are unremarkable. The kidneys are normal in position and size, with symmetric, intact nephrograms and no evidence of hydronephrosis or mass. No ascites is seen. No lymphadenopathy is identified. The abdominal aorta and IVC are unremarkable. A 5.4 x 5.7 x 5.8 cm circumscribed round mass in the left adnexa, presumably ovarian in origin, has areas of fat attenuation within it, suspicious for a dermoid tumor. This is new from 2019. A 2.3 x 2.2 x 1.8 cm circumscribed round mass in the right adnexa also has fat attenuation, suspicious for a dermoid tumor. This lesion has slightly increased in size since 2019. The uterus is mildly enlarged and contains a circumscribed round 4.2 x 3.5 x 2.9 cm mass within the anterior body, new from the previous study, possibly a leiomyoma. The urinary bladder is unremarkable. No evidence of bowel obstruction is seen. No abnormal perienteric or pericolonic fat stranding is identified. The regional skeleton is intact. Procedure Note Mechelle Bosch MD - 05/24/2024 History: Right-sided abdominal pain radiating to the back. Vomiting. Priorappendectomy. Comparison: 06/18/18 Technique: Helical volumetric imaging of the abdomen and pelvis wasperformed following oral contrast and during the uneventful intravenousadministration of 90 cc Isovue-370. DLP: 1194.40 mGy/cm GE Puzlpeed VCT Iterative reconstruction technique Findings: The liver is normal in size and configuration. Mildly heterogeneoushepatic attenuation is unchanged from the previous study, compatible withgeographic fatty infiltration. No masses are identified. The portal andhepatic veins are patent. The gallbladder is physiologically distended. Noevidence of biliary obstruction is seen. Spleen, pancreas and adrenal glands are unremarkable. The kidneys are normal in position and size, with symmetric, intactnephrograms and no evidence of hydronephrosis or mass. No ascites is seen. No lymphadenopathy is identified. The abdominal aortaand IVC are unremarkable. A 5.4 x 5.7 x 5.8 cm circumscribed round mass inthe left adnexa, presumably ovarian in origin, has areas of fatattenuation within it, suspicious for a dermoid tumor. This is new [id number]. A 2.3 x 2.2 x 1.8 cm circumscribed round mass in the right adnexaalso has fat attenuation, suspicious for a dermoid tumor. This lesion hasslightly increased in size since 2019. The uterus is mildly enlarged and contains a circumscribed round 4.2 x 3.5x 2.9 cm mass within the anterior body, new from the previous study,possibly a leiomyoma. The urinary bladder is unremarkable. No evidence of bowel obstruction is seen. No abnormal perienteric orpericolonic fat stranding is identified. The regional skeleton is intact. IMPRESSION: Impression: 1. Bilateral fat-containing adnexal masses, as described, suspicious forcystic teratomas (dermoid tumors). Outpatient gynecology consultationrecommended for further management. 2. 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 [employer] ETIENNE ([id number]) -------- FINAL REPORT -------- Dictated By: Mechelle Bosch Dictated Date: 05/24/2024 13:53 ET Assigned Physician: Mechelle Bosch Reviewed and Electronically Signed By: Mechelle Bosch Signed Date: 05/24/2024 14:04 ET Workstation ID: [id number] Transcribed By: Self Edit Transcribed Date: 05/24/2024 13:53 ET Ira CLIFTON IMG CT PROCEDURE S * XR Chest 2 Views (05/24/2024 12:43 PM EST) Anatomical Region Laterality Modality Body Radiographic Jing ging 05/24/2024 12:4 4 PM EST Impressions 05/24/2024 12:45 PM EST Impression: No active pulmonary process identified. [employer] ETIENNE ([id number]) -------- FINAL REPORT -------- Dictated By: Mechelle Bosch Dictated Date: 05/24/2024 12:44 ET Assigned Physician: Mechelle Bosch Reviewed and Electronically Signed By: Mechelle Bosch Signed Date: 05/24/2024 12:45 ET Workstation ID: [id number] Transcribed By: Self Edit Transcribed Date: 05/24/2024 12:44 ET Narrative 05/24/2024 12:45 PM EST History: Chest pain. Comparison: 01/22/12 Findings: PA and lateral views. The cardiomediastinal silhouette, hilar contours and pulmonary vascularity are within normal limits. The lungs are clear. The costophrenic angles are sharp. Minimal thoracic vertebral endplate spurring is noted. Procedure Note Mechelle Bosch MD - 05/24/2024 History: Chest pain. Comparison: 01/22/12 Findings: PA and lateral views. The cardiomediastinal silhouette, hilar contours andpulmonary vascularity are within normal limits. The lungs are clear. Thecostophrenic angles are sharp. Minimal thoracic vertebral endplate spurring is noted. IMPRESSION: Impression: No active pulmonary process identified. [facility] PA ([id number]) -------- FINAL REPORT -------- Dictated By: Mechelle Bosch Dictated Date: 05/24/2024 12:44 ET Assigned Physician: Mechelle Bosch Reviewed and Electronically Signed By: Mehcelle Bosch Signed Date: 05/24/2024 12:45 ET Workstation ID: [id number] Transcribed By: Self Edit Transcribed Date: 05/24/2024 12:44 ET Debbie Steele Elder DO IMG XR PROCEDURES * Respiratory virus panel molecular study (05/24/2024 12:14 PM EST) Adenovirus Detection by PCR Not Detected Not Detected LAB MICROBIOLOGY METHOD 05/24/2024 1:44 PM EST [facility] Influenza A PCR Not Detected Not Detected LAB MICROBIOLOGY METHOD 05/24/2024 1:44 PM EST [facility] Influenza B PCR Not Detected Not Detected LAB MICROBIOLOGY METHOD 05/24/2024 1:44 PM [facility] Coronavirus 229E Not Detected Not Detected LAB MICROBIOLOGY METHOD 05/24/2024 1:44 PM [facility] Coronavirus HKU1 Not Detected Not Detected LAB MICROBIOLOGY METHOD 05/24/2024 1:44 PM [facility] Coronavirus OC43 Not Detected Not Detected LAB MICROBIOLOGY METHOD 05/24/2024 1:44 PM [facility] Coronavirus NL63 Not Detected Not Detected LAB MICROBIOLOGY METHOD 05/24/2024 1:44 PM [facility] Parainfluenza Virus 1 Not Detected Not Detected LAB MICROBIOLOGY METHOD 05/24/2024 1:44 PM [facility] Parainfluenza Virus 2 Not Detected Not Detected LAB MICROBIOLOGY METHOD 05/24/2024 1:44 PM [facility] Parainfluenza Virus 3 Not Detected Not Detected LAB MICROBIOLOGY METHOD 05/24/2024 1:44 PM [facility] Parainfluenza Virus 4 Not Detected Not Detected LAB MICROBIOLOGY METHOD 05/24/2024 1:44 PM [facility] RSV PCR Not Detected Not Detected LAB MICROBIOLOGY METHOD 05/24/2024 1:44 PM [facility] Human Metapneumovirus A and B Not Detected Not Detected LAB MICROBIOLOGY METHOD 05/24/2024 1:44 PM [facility] Rhinovirus/Entero virus Not Detected Not Detected LAB MICROBIOLOGY METHOD 05/24/2024 1:44 PM [facility] Bordetella pertussis Not Detected Not Detected LAB MICROBIOLOGY METHOD 05/24/2024 1:44 PM [facility] Bordetella parapertussis Not Detected Not Detected LAB MICROBIOLOGY METHOD 05/24/2024 1:44 PM [facility] Mycoplasma pneumo by PCR Not Detected Not Detected LAB MICROBIOLOGY METHOD 05/24/2024 1:44 PM [facility] Chlamydia pneumoniae Not Detected Not Detected LAB MICROBIOLOGY METHOD 05/24/2024 1:44 PM EST [facility] SARS COV-2 Not Detected Not Detected LAB MICROBIOLOGY METHOD 05/24/2024 1:44 PM EST [facility] Swab Both anterior nares / Unknown Non-blood Collection / Unknown 05/24/2024 12:14 PM EST 05/24/2024 12:43 PM EST Narrative [facility] - 05/24/2024 1:44 PM EST Testing was performed using the [employer] Respiratory Pathogen PCR Assay. All results must be correlated with the clinical findings. Results should not be used as the sole basis for diagnosis. False Negative results may occur from the presence of sequence variants in the region targeted by the assay or the presence of inhibitors. Results may be affected by concurrent antiviral/antimicrobial therapy or levels of organisms that are below the limit of detection. Ira CLIFTON LAB MICROBIOLOGY - GENERAL ORDERABLES Performing Organization Address City/[facility]/ZIP Co de Phone Number [facility] [address] [place] [address], * Culture urine (05/24/2024 12:12 PM EST) Urine Urine specimen obtained by clean catch procedure / Unknown Non-blood Collection / Unknown 05/24/2024 12:12 PM EST 05/24/2024 1:08 PM EST Narrative [facility] - 05/26/2024 11:10 AM EST Beta Strep Group B noted. The presence of a low colony count of Beta Strep Group B may have clinical significance in women. Ira CLIFTON LAB MICROBIOLOGY - GENERAL ORDERABLES [facility] [address] [place] [address], [place] [phone] * Moss urine culture tube (05/24/2024 12:12 PM EST) Extra Tube Hold for add-ons. 05/24/2024 2:01 PM [facility] Comment:Auto resulted. Urine Urine specimen obtained by clean catch procedure / Unknown Non-blood Collection / Unknown 05/24/2024 12:12 PM EST 05/24/2024 12:44 PM EST Ira CLIFTON LAB URINE ORDERA BLES [facility] [address] [place] [address], [place] [phone] * (ABNORMAL) Urinalysis with reflex microscopic and culture (05/24/2024 12:12 PM EST) Specific [place] Urine 1.025 1.003 - 1.030 LAB URINALYSIS - AUTOMATED METHOD 05/24/2024 1:08 PM [facility] pH, Urine 6.0 5.0 - 8.0 pH LAB URINALYSIS - AUTOMATED METHOD 05/24/2024 1:08 PM [facility] Leukocytes, Urine Negative Negative LAB URINALYSIS - AUTOMATED METHOD 05/24/2024 1:08 PM [facility] Nitrite, Urine Negative Negative LAB URINALYSIS - AUTOMATED METHOD 05/24/2024 1:08 PM [facility] Protein, Urine 30(A) <=Trace mg/dL LAB URINALYSIS - AUTOMATED METHOD 05/24/2024 1:08 PM [facility] Glucose, Urine Negative Negative mg/dL LAB URINALYSIS - AUTOMATED METHOD 05/24/2024 1:08 PM [facility] Ketones, Urine Trace(A) Negative mg/dL LAB URINALYSIS - AUTOMATED METHOD 05/24/2024 1:08 PM [facility] Urobilinogen , Urine 0.2 0.2 - 1.0 mg/dL LAB URINALYSIS - AUTOMATED METHOD 05/24/2024 1:08 PM [facility] Bilirubin, Urine Negative Negative LAB URINALYSIS - AUTOMATED METHOD 05/24/2024 1:08 PM [facility] Blood, Urine Small(A) Negative LAB URINALYSIS - AUTOMATED METHOD 05/24/2024 1:08 PM [facility] RBC, Urine 22.1(H) 0 - 4 /HPF LAB URINALYSIS - AUTOMATED METHOD 05/24/2024 1:08 PM [facility] WBC, Urine 8.0(H) 0 - 4 /HPF LAB URINALYSIS - AUTOMATED METHOD 05/24/2024 1:08 PM [facility] Squamous Epithelial, Urine 80(H) 0 - 60 /LPF LAB URINALYSIS - AUTOMATED METHOD 05/24/2024 1:08 PM [facility] Bacteria, Urine Moderate(A) Negative /HPF LAB URINALYSIS - AUTOMATED METHOD 05/24/2024 1:08 PM [facility] Hyaline Casts, Urine 3.0 0 - 3 /LPF LAB URINALYSIS - AUTOMATED METHOD 05/24/2024 1:08 PM [facility] Urine Urine specimen obtained by clean catch procedure / Unknown Non-blood Collection / Unknown 05/24/2024 12:12 PM EST 05/24/2024 12:44 PM EST Ira CLIFTON LAB URINE ORDERA BLES [facility] [address] [place] [address], * Troponin I high sensitivity (05/24/2024 12:12 PM EST) High Sensitivity Troponin I <3 <=54 ng/L LAB CHEMISTRY METHOD 05/24/2024 1:21 PM [facility] Blood Venous blood specimen / Unknown Venipuncture / Unknown 05/24/2024 12:12 PM EST 05/24/2024 12:[address] [facility] - 05/24/2024 1:21 PM EST High levels of biotin in samples may falsely decrease hsTroponin values. ??Use caution when interpreting hsTroponin results in patients taking biotin who exhibit renal impairment (eGFR <60) or in patients taking more than 20 mg/day of biotin. Debbie Elder DO LAB BLOOD ORDERAB LES [facility] [address] [place] [address], * (ABNORMAL) CBC auto differential (05/24/2024 10:36 AM EST) [facility] Signature WBC 9.6 4.8 - 10.8 K/mcL LAB HEMETOLOGY METHOD 05/24/2024 10:58 AM [facility] RBC 4.60 3.80 - 4.80 M/[facility] LAB HEMETOLOGY METHOD 05/24/2024 10:58 AM [facility] Hemoglobin 12.9 11.5 - 16.0 g/dL LAB HEMETOLOGY METHOD 05/24/2024 10:58 AM [facility] Hematocrit 39.3 35.0 - 47.0 % LAB HEMETOLOGY METHOD 05/24/2024 10:58 AM [facility] MCV 85.1 79.0 - 98.0 FL LAB HEMETOLOGY METHOD 05/24/2024 10:58 AM [facility] MCH 27.9 27.0 - 32.0 pcg LAB HEMETOLOGY METHOD 05/24/2024 10:58 AM [facility] MCHC 32.8 32.0 - 37.0 g/dL LAB HEMETOLOGY METHOD 05/24/2024 10:58 AM [facility] RDW 12.5 11.0 - 15.0 % LAB HEMETOLOGY METHOD 05/24/2024 10:58 AM [facility] Platelets 341 130 - 400 K/mcL LAB HEMETOLOGY METHOD 05/24/2024 10:58 AM [facility] MPV 9.4 7.0 - 11.0 FL LAB HEMETOLOGY METHOD 05/24/2024 10:58 AM [facility] NRBC 0.0 <1.0 % LAB HEMETOLOGY METHOD 05/24/2024 10:58 AM [facility] NRBC Absolute 0.00 <0.10 K/mcL LAB HEMETOLOGY METHOD 05/24/2024 10:58 AM [facility] Neutrophils Relative 86.6 % LAB HEMETOLOGY METHOD 05/24/2024 10:58 AM [facility] Lymphocytes Relative 9.7 % LAB HEMETOLOGY METHOD 05/24/2024 10:58 AM [facility] Monocytes Relative 2.4 % LAB HEMETOLOGY METHOD 05/24/2024 10:58 AM [facility] Eosinophils Relative 0.5 % LAB HEMETOLOGY METHOD 05/24/2024 10:58 AM [facility] Basophils Relative 0.5 % LAB HEMETOLOGY METHOD 05/24/2024 10:58 AM [facility] Immature Granulocytes Relative 0.3 % LAB HEMETOLOGY METHOD 05/24/2024 10:58 AM [facility] Neutrophils Absolute 8.34(H) 1.50 - 7.00 K/mcL LAB HEMETOLOGY METHOD 05/24/2024 10:58 AM [facility] Lymphocytes Absolute 0.93(L) 1.00 - 5.00 K/mcL LAB HEMETOLOGY METHOD 05/24/2024 10:58 AM [facility] Monocytes Absolute 0.23 0.20 - 1.00 K/mcL LAB HEMETOLOGY METHOD 05/24/2024 10:58 AM [facility] Eosinophils Absolute 0.05 0.00 - 0.50 K/[facility] LAB HEMETOLOGY METHOD 05/24/2024 10:58 AM [facility] Basophils Absolute 0.05 0.00 - 0.20 K/mcL LAB HEMETOLOGY METHOD 05/24/2024 10:58 AM [facility] Immature Granulocytes Absolute 0.03 0.00 - 0.03 K/[facility] LAB HEMETOLOGY METHOD 05/24/2024 10:58 AM [facility] Blood Venous blood specimen / Unknown Venipuncture / Unknown 05/24/2024 10:36 AM EST 05/24/2024 10:52 AM EST Debbie Elder LAB BLOOD ORDERAB LES Performing Organization Address City/[facility]/ZIP Co de Phone Number [facility] [address] [place] [address], * Protime-INR (05/24/2024 10:36 AM EST) Protime 11.0 10.6 - 13.9 sec LAB COAGULATION METHOD 05/24/2024 11:01 AM [facility] INR 0.9 LAB COAGULATION METHOD 05/24/2024 11:01 AM [facility] Blood Venous blood specimen / Unknown Venipuncture / Unknown 05/24/2024 10:36 AM EST 05/24/2024 10:52 AM EST Debbie Elder LAB BLOOD ORDERAB LES [facility] [address] [place] [address], [place] [phone] * Type and screen (05/24/2024 10:36 AM EST) ABO Group O 05/24/2024 11:51 AM [facility] Rh Type Positive 05/24/2024 11:51 AM [facility] Antibody Screen Negative 05/24/2024 11:51 AM [facility] Blood Venous blood specimen / Unknown Venipuncture / Unknown 05/24/2024 10:36 AM EST 05/24/2024 10:52 AM EST Debbie Steele Jerrod DO LAB BLOOD BANK TE ST ORDERABLES [facility] [address] [place] [address], * (ABNORMAL) Comprehensive metabolic panel (05/24/2024 10:36 AM EST) Sodium 137 133 - 145 mmol/L LAB CHEMISTRY METHOD 05/24/2024 11:41 AM [facility] Potassium 4.5 3.5 - 5.5 mmol/L LAB CHEMISTRY METHOD 05/24/2024 11:41 AM [facility] Comment:Hemolysis present Chloride 106 96 - 110 mmol/L LAB CHEMISTRY METHOD 05/24/2024 11:41 AM [facility] CO2 25 21 - 32 mmol/L LAB CHEMISTRY METHOD 05/24/2024 11:41 AM [facility] Anion Gap 6 3 - 11 LAB CHEMISTRY METHOD 05/24/2024 11:41 AM [facility] Glucose 119(H) 70 - 100 mg/dL LAB CHEMISTRY METHOD 05/24/2024 11:41 AM [facility] BUN 15 5 - 25 mg/dL LAB CHEMISTRY METHOD 05/24/2024 11:41 AM [facility] Creatinine 0.83 0.50 - 1.10 mg/dL LAB CHEMISTRY METHOD 05/24/2024 11:41 AM [facility] eGFR 90 >=60 mL/min/1. 73m2 LAB CHEMISTRY METHOD 05/24/2024 11:41 AM [facility] Comment:Calculation based on the??Chronic Kidney Disease Epidemiology Collaboration (CKD-EPI) equation refit??without adjustment for race. BUN/Creatinine Ratio 18.1 LAB CHEMISTRY METHOD 05/24/2024 11:41 AM [facility] Calcium 9.0 8.5 - 10.5 mg/dL LAB CHEMISTRY METHOD 05/24/2024 11:41 AM [facility] AST (SGOT) 29 10 - 42 unit/L LAB CHEMISTRY METHOD 05/24/2024 11:41 AM [facility] Comment:Hemolysis present ALT (SGPT) 51 10 - 60 unit/L LAB CHEMISTRY METHOD 05/24/2024 11:41 AM [facility] Alkaline Phosphatase 65 42 - 121 unit/L LAB CHEMISTRY METHOD 05/24/2024 11:41 AM [facility] Total Protein 7.6 6.0 - 8.0 g/dL LAB CHEMISTRY METHOD 05/24/2024 11:41 AM [facility] Albumin 3.4 3.2 - 5.0 g/dL LAB CHEMISTRY METHOD 05/24/2024 11:41 AM [facility] Total Bilirubin 0.3 0.0 - 1.4 mg/dL LAB CHEMISTRY METHOD 05/24/2024 11:41 AM [facility] Blood Venous blood specimen / Unknown Venipuncture / Unknown 05/24/2024 10:36 AM EST 05/24/2024 10:52 AM EST Debbie Elder DO LAB BLOOD ORDERAB LES [facility] [address] [place] [address], * Troponin I high sensitivity (05/24/2024 10:36 AM EST) High Sensitivity Troponin I <3 <=54 ng/L LAB CHEMISTRY METHOD 05/24/2024 11:41 AM EST [facility] Blood Venous blood specimen / Unknown Venipuncture / Unknown 05/24/2024 10:36 AM EST 05/24/2024 10:52 AM EST Narrative [facility] - 05/24/2024 11:41 AM EST High levels of biotin in samples may falsely decrease hsTroponin values. ??Use caution when interpreting hsTroponin results in patients taking biotin who exhibit renal impairment (eGFR <60) or in patients taking more than 20 mg/day of biotin. Debbie Edler LAB BLOOD ORDERAB LES Performing Organization Address City/[facility]/ZIP Co de Phone Number [facility] [address] [place] [address], * Magnesium (05/24/2024 10:36 AM EST) [facility] Magnesium 2.1 1.9 - 2.6 mg/dL LAB CHEMISTRY METHOD 05/24/2024 11:41 AM EST [facility] Comment:Hemolysis present Blood Venous blood specimen / Unknown Venipuncture / Unknown 05/24/2024 10:36 AM EST 05/24/2024 10:52 AM EST Debbie Juan Manuel Cedricestefanía Elder LAB BLOOD ORDERAB LES [facility] [address] [place] [address], [place] [phone] * ECG 12 lead (05/24/2024 9:53 AM EST) [facility] Ventricular Rate ECG 80 BPM GEMUSE Atrial Rate 80 BPM GEMUSE P-R Interval 148 ms GEMUSE QRS Duration 90 ms GEMUSE Q-T Interval 396 ms GEMUSE QTc 456 ms GEMUSE P Wave [place] 19 degrees GEMUSE R [place] -13 degrees GEMUSE T [place] -9 degrees GEMUSE ECG Interpretation Normal sinus rhythm When compared with ECG of 21-JAN-2012 23:59, Nonspecific T wave abnormality now evident in Anterior leads Confirmed by MATHEW GARRIDO ([id number]) on 05/25/2024 8:33:46 PM GEMUSE 05/24/2024 9:53 AM EST 05/25/2024 8:33 PM EST Debbie Steele Elder DO ECG ORDERABLES GEMUSE * ECG-Annotated (05/24/2024) Provider Onbase MD ECG ORDERABLES documented in this encounter Visit Diagnoses Diagnosis Ovarian mass- Primary Unspecified noninflammatory disorder of ovary, fallopian tube, and broad ligament Acute cystitis without hematuria documented in this encounter Administered Medications Inactive Administered Medications - up to 3 most recent administrations Medication Order MAR Action Action Date Dose Rate Site barium sulfate (READI-CAT 2) 2 % (w/v) suspension 450 mL 450 mL, oral, Once, On 05/24/24 at 1335, For 1 dose Given 05/24/2024 1:38 PM EST 450 mL cefTRIAXone (ROCEPHIN) 1 g in sterile water 10 mL IV syringe 1 g, intravenous, at 200 mL/hr, Administer over 3 Minutes, Once, On 05/24/24 at 1526, For 1 dose, Do not administer simultaneously with any calcium containing solutions via a Y-site in any patient., Indication: Urinary Tract/Genitourinary Given 05/24/2024 3:38 PM EST 1 g 200 mL/hr iopamidoL (ISOVUE-370) 370 mg iodine /mL (76 %) injection 90 mL 90 mL, intravenous, Once in imaging, Starting on 05/24/24 at 1334, For 1 dose Given 05/24/2024 1:38 PM EST 90 mL ketorolac (TORADOL) injection 15 mg 15 mg, intravenous, Once, On 05/24/24 at 1526, For 1 dose Given 05/24/2024 3:38 PM EST 15 mg morphine injection 4 mg 4 mg, intravenous, Once, On 05/24/24 at 1146, For 1 dose Given 05/24/2024 12:17 PM EST 4 mg morphine injection 4 mg 4 mg, intravenous, Once, On 05/24/24 at 1333, For 1 dose Given 05/24/2024 2:05 PM EST 4 mg ondansetron (PF) (ZOFRAN) injection 4 mg 4 mg, intravenous, Once, On 05/24/24 at 1146, For 1 dose Given 05/24/2024 12:16 PM EST 4 mg sodium chloride 0.9 % bolus 1,000 mL 1,000 mL, intravenous, at 2,000 mL/hr, Administer over 30 Minutes, Once, On 05/24/24 at 1146, For 1 dose New Bag 05/24/2024 12:16 PM EST 1,000 mL 2000 mL/hr sodium chloride 0.9 % flush 10 mL 10 mL, intravenous, Once, On 05/24/24 at 1335, For 1 dose Given 05/24/2024 1:38 PM EST 10 mL documented in this encounter Active and Recently Administered Medications Times are shown in EST. Scheduled Medication Order 05/22/2024 05/23/2024 05/24/2024 barium sulfate (READI-CAT 2) 2 % (w/v) suspension 450 mL (COMPLETED) 450 mL, oral, Once, On 05/24/24 at 1335, For 1 dose 1338 (Given - Provid er: Marla Griffith) cefTRIAXone (ROCEPHIN) 1 g in sterile water 10 mL IV syringe (COMPLETED) 1 g, intravenous, at 200 mL/hr, Administer over 3 Minutes, Once, On 05/24/24 at 1526, For 1 dose, Do not administer simultaneously with any calcium containing solutions via a Y-site in any patient., Indication: Urinary Tract/Genitourinary 1538 (Given - Provid er: Ivory Kurtz RN) iopamidoL (ISOVUE-370) 370 mg iodine /mL (76 %) injection 90 mL (COMPLETED) 90 mL, intravenous, Once in imaging, Starting on 05/24/24 at 1334, For 1 dose 1338 (Given - Provid er: Marla Griffith) ketorolac (TORADOL) injection 15 mg (COMPLETED) 15 mg, intravenous, Once, On 05/24/24 at 1526, For 1 dose 1538 (Given - Provid er: Ivory Kurtz RN) morphine injection 4 mg (COMPLETED) 4 mg, intravenous, Once, On 05/24/24 at 1146, For 1 dose 1217 (Given - Provid er: Lina Iyer RN) morphine injection 4 mg (COMPLETED) 4 mg, intravenous, Once, On 05/24/24 at 1333, For 1 dose 1405 (Given - Provid er: Lina Iyer RN) ondansetron (PF) (ZOFRAN) injection 4 mg (COMPLETED) 4 mg, intravenous, Once, On 05/24/24 at 1146, For 1 dose 1216 (Given - Provid er: Lina Iyer RN) sodium chloride 0.9 % bolus 1,000 mL (COMPLETED) 1,000 mL, intravenous, at 2,000 mL/hr, Administer over 30 Minutes, Once, On 05/24/24 at 1146, For 1 dose 1216 (New Bag - Prov ider: Lina Iyer RN)1218 (Stopped - Provider: Lina Iyer RN) sodium chloride 0.9 % flush 10 mL (COMPLETED) 10 mL, intravenous, Once, On 05/24/24 at 1335, For 1 dose 1338 (Given - Provid er: Marla Griffith) documented in this encounter Additional Health Concerns Infection Onset Date Last Indicated Resolved Time Respiratory Rule-Out 05/24/2024 05/24/2024 025 1:44 PM EST COVID-19 Rule-Out 05/24/2024 05/24/2024 05/24/2024 1:44 PM EST documented as of this encounter Care Teams Keller 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
--- OUTSIDE RECORDS SUMMARY | 2024-06-01 09:18 | XMS_ITS | Clinical Summary ---
Author Organization [employer] Address [address] [place] [address] Care Team Providers Care Gusset Ripper Name Role Phone Rochelle Phan MD Primary Care Provider [phone] Gilberto Zayas Unavailable Unavailable Allergies Active Allergy Reactions Criticality Noted Date Comments Codeine Hives Low 04/18/2010 Break out hives Nsaids 04/18/2010 Other reaction(s): Increased bleeding r/t Von Willdebrand's Penicillin G 03/27/2023 Penicillins Hives Low 04/26/2022 Itchy Medications ProAir HFA 108 (90 Base) MCG/ACT inhalerIndicatio ns:Mild persistent asthma without complication INHALE TWO PUFFS BY MOUTH EVERY 4 HOURS 8.5 g 5 04/12/20 22 Active acetaminophen (Tylenol) 500 MG tablet Take 1 tablet by mouth every 8 (eight) hours. 08/16/19 22 Active EPINEPHrine (EpiPen 2-Sebastián) 0.3 MG/0.3ML injection syringe Inject 1 pen injector intramuscularly single dose as needed 02/07/20 22 Active fluticasone (Flonase) 50 MCG/ACT nasal spray spray 1 spray by intranasal route every day in each nostril as needed 10/14/19 22 Active nitrofurantoin, macrocrystal-mon ohydrate, (Macrobid) 100 MG capsuleIndicatio ns:Acute cystitis with hematuria Take 1 tablet twice a day for 7 days 14 capsule 04/26/20 22 Active dulaglutide (Trulicity) 0.75 MG/0.5ML solution pen-injector Inject 0.75 mg under the skin 1 (one) time per week. 4 each 09/05/19 23 Active melatonin 5 MG tabletIndication s:Insomnia, unspecified type Take 1-2 tablets (5-10 mg) by mouth if needed at bedtime (sleep). 180 tablet 1 11/14/19 23 Active Blood Pressure kit Check BP daily 1 kit 03/27/20 23 Active hydroCHLOROthiaz irais (HYDRODiuril) 25 MG tablet Take 1 tablet (25 mg) by mouth in the morning. 30 tablet 05/02/19 24 Active omega-3 (Fish Oil) 1000 MG capsuleIndicatio ns:Hypertriglyce ridemia TAKE ONE CAPSULE BY MOUTH TWICE DAILY 60 capsule 05/30/19 24 Active ARIPiprazole (Abilify) 15 MG tabletIndication s:Moderate recurrent major depression (CMS/HCC) Take 1 tablet (15 mg) by mouth Once per day. 90 tablet 3 11/14/19 24 Active amitriptyline (Elavil) 75 MG tabletIndication s:Moderate recurrent major depression (CMS/HCC),Insomn ia, unspecified type Take 1 tablet (75 mg) by mouth at bedtime. 90 tablet 3 11/14/19 24 Active FLUoxetine (PROzac) 20 MG capsuleIndicatio ns:Moderate recurrent major depression (CMS/HCC) Take 2 capsules (40 mg) by mouth Once daily. 180 capsule 11/14/19 24 Active hydrOXYzine HCl (Atarax) 25 MG tabletIndication s:Moderate recurrent major depression (CMS/HCC) Take 1-2 tablets (25-50 mg) by mouth every 8 (eight) hours if needed for anxiety. 200 tablet 6 11/14/19 24 Active LORazepam (Ativan) 0.5 MG tabletIndication s:Moderate recurrent major depression (CMS/HCC) Take 1 tablet (0.5 mg) by mouth 2 times daily. If needed for anxiety 60 tablet 5 11/14/19 24 Active Nortrel 0.5/35, 28, 0.5-35 MG-MCG tablet TAKE ONE TABLET BY MOUTH EVERY DAY 28 tablet 11 12/19/19 24 Active Active Problems Problem Noted Date Diagnosed Date Abnormal cytological findings in female genital organs 07/12/2023 GBS carrier 07/12/2023 Incompetence of cervix 07/12/2023 Severe obesity (BMI 35.0-39.9) with comorbidity 07/12/2023 Pure hypercholesterolemia 07/12/2023 Primary hypertension 06/21/2023 Elevated BP without diagnosis of hypertension Acute cystitis with hematuria 04/26/2022 Assessment & Plan (07/13/2023 1:21 AM EDT): Prescribed Bacterium and pyridium. I will also order a urine culture and reassess treatment based on results. Labs: urinalysis Assessment & Plan (04/26/2022 4:31 PM EST): + blood in dipstick could be secondary to UTI, will treat with antibiotics, after she is done with treatment is prudent to repeat a UA to assess resolution of blood. Recommended to followup with PCP Psoriasis 01/23/2018 Moderate recurrent major depression 01/17/2018 Assessment & Plan (07/25/2023 4:18 PM EDT): with onset. Not doing as well with increased anxiety r/t social stressors. Also not taking meds consistently, forgets doses. Recommend getting a med-minder pill box to prepare weekly dosing. No change at this time. Continue Abilify 15 mg, Prozac 40 mg daily, Amitriptyline 75 mg at bedtime. She may take Hydroxyzine 25 mg 1-2 tabs every 8 hours as needed. [place] Lorazepam 0.5 mg for occasional panic attacks which should be less problematical if she takes her other meds as difected. Not having nightmares so will discontinue Prazosin 2 mg 2 at bedtime. Will refer for counseling. On 01/24/2023 provider informed the patient that I would be retiring, but we would plan for continuity of care. Meanwhile F/U with me in 6-8 weeks. She agrees with the plan. Assessment & Plan (01/24/2023 10:54 AM EDT): with onset. Again doing well. Has taken Lorazepam 0.5 mg appropriately as needed for (rare) panic attacks and may continue. Also continue Abilify 15 mg, Prozac 40 mg daily, Amitriptyline 75 mg at bedtime. She may take Hydroxyzine 25 mg 1-2 tabs every 8 hours as needed, May continue Melatonin prn. For nightmares, continue Prazosin 2 mg 2 at bedtime. Does not feel she needs counseling, doing very well with medications. Today 01/24/2023 provider informed the patient that I would be retiring within the next year or so, and that [facility] should hopefully have new prescriber(s) available by then. F/U 2 months. She agrees with the plan. Assessment & Plan (11/13/2022 11:46 AM EDT): with onset. Again doing well. Has taken Lorazepam 0.5 mg appropriately as needed for (rare) panic attacks and may continue. Also continue Abilify 15 mg, Prozac 40 mg daily, Amitriptyline 75 mg at bedtime. She may take Hydroxyzine 25 mg 1-2 tabs every 8 hours as needed, May continue Melatonin prn. For nightmares, continue Prazosin 2 mg 2 at bedtime. Consider counseling when she is able to fit it in to her schedule. F/U 2-3 months. She agrees with the plan. Assessment & Plan (09/18/2022 11:23 AM EDT): with onset. Recently increased anxiety r/t serious illness of both grandmothers. Has taken Lorazepam 0.5 mg appropriately as needed for (rare) panic attacks and may continue. Also continue Abilify 15 mg, Prozac 40 mg daily, Amitriptyline 75 mg at bedtime. She may take Hydroxyzine 25 mg 1-2 tabs every 8 hours as needed, May continue Melatonin prn. For nightmares, continue Prazosin 2 mg 2 at bedtime. Consider counseling when she is able to fit it in to her schedule. F/U 2 months. She agrees with the plan. Assessment & Plan (07/16/2022 3:33 PM EDT): with onset. Markedly increased anxiety and sadness, r/t her grandmother's life-limiting illness. Pt has had several panic attacks with chest pain, not responding to Hydroxyzine 50 mg. Discussed options for anxiety treatment. At this time she will have Rx for Lorazepam 0.5 mg to take BID if needed for severe anxiety. Reviewed that this was a controlled substance, could be habit forming, take only as directed. Anticipate short-term use. Also continue Abilify 15 mg, Prozac 40 mg daily, Amitriptyline 75 mg at bedtime. She may take Hydroxyzine 25 mg 1-2 tabs every 8 hours as needed, May continue Melatonin prn. For nightmares, continue Prazosin 2 mg 2 at bedtime. F/U 1 month. She agrees with the plan. Assessment & Plan (05/15/2022 9:19 AM EST): with onset. Mood has been well controlled. Will continue Abilify 15 mg, Prozac 40 mg daily, Amitriptyline 75 mg at bedtime. She may take Hydroxyzine 25 mg 1-2 tabs every 8 hours as needed, May continue Melatonin prn. For nightmares, continue Prazosin 2 mg 2 at bedtime. F/U 2 months. She agrees with the plan. Injury of foot 10/07/2017 depression 02/09/2016 Cystic acne 03/17/2015 Migraine 10/13/2012 Syncope 09/25/2012 Von Willebrand disease 04/30/2012 Asthma 04/30/2012 Encounters Date Type Department Care Team Description 03/31/2024 Orders Only GENERIC EXTERNAL DATA DEPARTMENT Provider, Generic External Data from Last 3 Months Immunizations Name Administration Dates Next Due Influenza injectable quadriv alent IIV4 with preservative 01/17/2018,02/09/2016,02/03/2015 Influenza injectable quadriv alent preservative free 02/27/2023,02/06/2022,04/18/2021,2018 Influenza, IIV3, injectable 02/06/2017 Moderna Covid-19 Vaccine 12+ 08/20/2020,07/24/19 21 Tdap 01/17/2018,10/06/2015 Social History Tobacco Use Types Packs/Day Years Used Date Smoking Tobacco: Never Passive Smoke Exposure: Never Smokeless Tobacco: Never Tobacco Cessation:Counseling Given: Not Answered Alcohol Use Standard Drinks/Week Comments Never 0 (1 standard drink = 0.6 oz pur e alcohol) Depression Answer Date Recorded Patient Health Questionnaire-9 Score 1 07/25/2023 Patient Health Questionnaire-9 Score 1 07/25/2023 Last PHQ-9: Questionnaire Data Not on file 0 07/25/2023 Housing Stability Answer Date Recorded What is your housing situation today? I have saloni funk 06/21/[address] you li ve. Do you have problems with any of the following? None of the above 06/21/2023 Food Insecurity Answer Date Recorded Within the past 12 months, y ou worried that your food would run out before you got money to buy more: Never True 06/21/2023 Within the past 12 months,th e food you bought just didn't last and you didn't have enough money to get more: Never True Transportation Answer Date Recorded In the past 12 months, has l ack of transportation kept you from medical appts, meetings, work or from getting things needed for daily living? No 06/21/2023 Utilities Answer Date Recorded In the past 12 months, has t he electric, gas, oil or water company threatened to shut off services in your home? No 06/21/2023 Depression Answer Date Recorded Patient Health Questionnaire-2 Score 1 07/25/2023 Comments Unknown Sex and Gender Information Value Date Recorded Sex Assigned at Female 02/26/2022 10:17 AM EDT Legal Sex Female 10:17 AM EDT Gender Identity Female 02/26/2022 10:17 AM EDT Sexual Orientation Straight 02/26/2022 10 :17 AM EDT Last Filed Vital Signs Vital Sign Reading Time Taken Comments Blood Pressure 129/90 07/12/2023 9:14 AM EDT Pulse 86 07/12/2023 9:14 AM EDT Temperature 36.7 ??C (98 ??F) 07/12/2023 9:14 AM EDT Respiratory Rate 20 07/12/2023 9:14 AM EDT Oxygen Saturation 98% 07/12/2023 9:14 AM EDT Inhaled Oxygen Concentration - - Weight 88.6 kg (195 lb 6.4 oz) 07/12/2023 9:14 A M EDT Height 151 cm (4' 11.45 ) 07/12/2023 9:14 AM EDT Body Mass Index 38.87 07/12/2023 9:14 AM EDT Plan of Treatment Health Maintenance Due Date Last Done Comments Alcohol/Substance Use Screening 1993 Family Planning (PISQ) 1996 Hepatitis C Screening 12/31/1999 Hepatitis B Vaccines (1 of 3 - 19+ 3-dose series) 2000 Pneumococcal Vaccine: Pediatrics (0 to 5 Years) and At-Risk Patients (6 to 49) Years) (1 of 2 - PCV) 2000 COVID-19 Vaccine ( season) 2023 02/07/2022, 07/11/2021, 08/20/2020, Additional history exists Influenza Vaccine (#1) 2023 , 02/06/2022, 04/18/2021, Additional history exists Pap Smear 04/18/2024 04/18/2021 SDOH Screening 06/21/2024 06/21/2023 Tobacco Screening 07/11/2024 07/12/2023 Depression Screening 07/24/2024 07/25/2023, 07/25/19 24 Diabetes: Hemoglobin A1C 01/29/2025 024, 03/28/2023, 05/25/2022, Additional history exists Mammogram 04/16/2026 04/16/2024, 09/27, 03/28/2023, Additional history exists Cervical Cancer Screening 04/18/2026 HPV/Cotest 04/18/2026 04/18/2021 DTaP/Tdap/Td Vaccines (3 - Td or Tdap) 01/18/2028 01/17/2018, 10/06/2015 Lipid Panel 01/29/2029 01/30/2024, 03/01, 05/25/2022, Additional history exists Zoster Vaccines (1 of 2) 12/31/2031 RSV Patients and Patients Aged 60 years or older (1 - 1-dose 75+ series) 2056 HIV Screening Completed 01/05/2022 HIB Vaccines Aged Out No longer eligi ble based on patient's age to complete this topic HPV Vaccines Aged Out No longer eligi ble based on patient's age to complete this topic Hepatitis A Vaccines Aged Out No long er eligible based on patient's age to complete this topic IPV Vaccines Aged Out No longer eligi ble based on patient's age to complete this topic Meningococcal Vaccine Aged Out No yovanny elizabeth eligible based on patient's age to complete this topic RSV under 20 months Aged Out No longe r eligible based on patient's age to complete this topic Rotavirus Vaccines Aged Out No longer eligible based on patient's age to complete this topic Procedures Procedure Name Priority Date/Time Associated Diagnosis Comments BI MAMMOGRAM SCREENING TOMOSYNTHESIS BILATERAL Routine 04/16/2024 9:00 AM EST FL UPPER GI W AIR Routine 04/01/2024 8:4 6 AM EST HEMATOXYLIN AND EOSIN STAIN Routine 03/31/2024 10:22 AM EST HCG, QL, URINE Routine 03/31/2024 9:00 AM EST HEMOGLOBIN A1C Routine 01/30/2024 9:03 AM EDT LIPID PANEL, STANDARD Routine 01/30/2024 9:03 AM EDT HIV 1/2 ANTIGEN/ANTIBODY, FOURTH GENERATION W/RFL Routine 01/05/2022 9:49 AM EDT THINPREP IMAGING PAP AND HPV MRNA E6/E7 WITH REFLEX TO HPV 16,18/45 Routine 04/18/2021 10:23 AM EST from Last 3 Months or Most Recently Relevant to Health Maintenance Results * BI Mammogram Screening Tomosynthesis Bilateral (04/16/2024 9:00 AM EST) Anatomical Region Laterality Modality Breast Bilateral Mammography 04/16/2024 9:00 AM EST Narrative 04/17/2024 9:41 AM EST ? [facility] [place] ? [address] ?[place] [address] ? Mammography Report ? Signed ? Patient: Jair,Maria C ?MR#: [id number] ?? [id number] ? : 1980 ?Acct:[id number] ? Age/Sex: 43 / F ?ADM Date: 12/19/24 ? Loc: HO.MAMMO ? Attending Dr: Rochelle Phan MD ? Ordering Physician: Rochelle Phan MD ?Results: 2Be ?? nign Findings ? Date of Service: 04/16/24 ?Follow Up: 1 Year From Orig ?? inal Mammogram ? Procedure(s): MM tomosynthesis screening BI ?? Accession Number(s): [id number] ? cc: Rochelle Phan MD ? EXAMINATION: ?? MM SCREENING DIGITAL BREAST TOMOSYNTHESIS, BILATERAL ? CLINICAL INFORMATION: ? Screening. Asymptomatic. ? COMPARISON: ?? Mammography: Comparison is made with available priors ? TECHNIQUE: ?? Digital breast mammography with tomosynthesis is performed in both the ?? craniocaudal and mediolateral oblique views along with computer-aided ?? detection (CAD). ? FINDINGS: ?? The breasts are heterogeneously dense, which may obscure small masses ?? (ACR BI-RADS breast composition Category c). ?? Bilateral benign-appearing stable calcifications. ?? There are no significant masses, abnormal calcifications, or other ?? abnormalities. ? MM/MM tomosynthesis screening BI ?? IMPRESSION: ?? No mammographic evidence of malignancy. ? ASSESSMENT: ? BI-RADS BI-RADS 2 - Benign Findings ? RECOMMENDATION: ?? Routine annual mammography screening. ? 1 year F/U ? This examination should not preclude the clinical evaluation of a ?? suspicious palpable abnormality. ? This patient's information was entered into a reminder system with a ?? target due date for their next mammogram. ? Electronically signed by: ??Lupe Dunaway DO ??04/17/2024 09:38 AM EST ?? RP ? Dictated By: ?Lupe Dunaway DO ? Signed By: ?<Electronically signed by Lupe Dunaway, DO in OV> ? 04/17/24 0938 ? DD/ 0900 ? TD/TT: 04/16/24 0925 ? Motorcycle Tester: ? Procedure Note Donotnidainterpreter, Image - 04/17/2024 [place] [facility] [address] [place], [place] [address] Mammography Report Signed Patient: Rosalina Adam#: [id number] : 1980Acct:[id number] Age/Sex: 43 / FADM Date: 04/16/24 Loc: HO.MAMMO Attending Dr: Rochelle Phan MD Ordering Physician: Rochelle Phan MDResults: 2Be nign Findings Date of Service: 04/16/24Follow Up: 1 Year From Orig inal Mammogram Procedure(s): MM tomosynthesis screening BI Accession Number(s): [id number] cc: Rochelle Phan MD EXAMINATION: MM SCREENING DIGITAL BREAST TOMOSYNTHESIS, BILATERAL CLINICAL INFORMATION: Screening. Asymptomatic. COMPARISON: Mammography: Comparison is made with available priors TECHNIQUE: Digital breast mammography with tomosynthesis is performed in both the craniocaudal and mediolateral oblique views along with computer-aided detection (CAD). FINDINGS: The breasts are heterogeneously dense, which may obscure small masses (ACR BI-RADS breast composition Category c). Bilateral benign-appearing stable calcifications. There are no significant masses, abnormal calcifications, or other abnormalities. MM/MM tomosynthesis screening BI IMPRESSION: No mammographic evidence of malignancy. ASSESSMENT: BI-RADS BI-RADS 2 - Benign Findings RECOMMENDATION: Routine annual mammography screening. 1 year F/U This examination should not preclude the clinical evaluation of a suspicious palpable abnormality. This patient's information was entered into a reminder system with a target due date for their next mammogram. Electronically signed by: Lupe Dunaway DO 04/17/2024 09:38 AM EST RP Dictated By: Lupe Dunaway DO Signed By: <Electronically signed by Lupe Dunaway DO in OV> 04/17/24937 DD/ 9 TD/TT: 04/16/24924 Motorcycle Tester: us Rochelle Phan MD IMG BI PROCEDURES Final Resul t * FL upper GI w air (04/01/2024 8:46 AM EST) Anatomical Region Laterality Modality Body Radiographic Jing ging 04/01/2024 8:46 AM EST Narrative 04/01/2024 3:32 PM EST ? [facility] ?[address] ?[place] [address] ? Fluoroscopy Report ? Signed ? Patient: Maria C Adam ?MR#: [id number] ?? [id number] ? : 1980 ?Acct:[id number] ? Age/Sex: 43 / F ?ADM Date: 04/01/24 ? Loc: HO.XRAY ? Attending Dr: Carlos Leonard MD ? Ordering Physician: Carlos Leonard MD ?? Date of Service: 04/01/24 ?? Procedure(s): FL upper GI w air ?? Accession Number(s): [id number] ? cc: Rochelle Phan MD; Carlos Leonard MD ? EXAMINATION: ?? XR FLUOROSCOPY UPPER GI WITH AIR ? CLINICAL INFORMATION: ?? Preoperative evaluation prior to bariatric surgery ? COMPARISON: ?? None ? TECHNIQUE: ?? Fluoroscopic air contrast upper GI examination was performed utilizing ?? standard techniques with thin and thick barium and effervescent ?? granules. Numerous spot images were obtained. ? FINDINGS: ?? Dual and single contrast images of the esophagus demonstrate normal ?? caliber, contour, and mucosal pattern. No evidence of stricture, mass, ?? or ulcerations identified. Esophageal peristalsis was normal. ? A very small type I hiatal hernia is present. Mild gastroesophageal ?? reflux is seen in the distal esophagus. ? Dual contrast and single contrast images of the stomach demonstrated a ?? normal contour. Evaluation of the gastric mucosa is limited due to ?? suboptimal coating of the barium. No obvious masses or ulcerations are ?? seen. Contrast freely passed into the gastric antrum and duodenal bulb ?? without delay. ? Single and air-contrast images of the duodenal bulb demonstrate no ?? abnormality. The duodenal sweep has a normal appearance, course, and ?? mucosal fold appearance. The imaged proximal jejunum has a normal fold ?? pattern and caliber. ? FLUOROSCOPY TIME: ?? 3.0 minutes ? Number of Spot Images: 7 ?? Number of Cine: 11 ? DOSE AREA PRODUCT: ?? 2280 uGy-m2 (microgray-meter squared) ? FL/FL upper GI w air ?? IMPRESSION: ?? 1. Very small type I hiatal hernia mild gastroesophageal reflux. ?? 2. Limited evaluation of the gastric mucosa due to suboptimal coating ?? of the barium. ? This procedure was performed by Rene Matthews PA-C, and supervised by ?? Dr. Sandy ? Electronically signed by: ??Dominick Sandy MD ??04/01/2024 03:29 PM EST RP ?? Workstation: [id number] ? Dictated By: ?Rene Matthews ? Signed By: ?<Electronically signed by Rene PA Matthews in OV> ? 04/01/24 1529 ?<Electronically signed by Dominick Sandy MD in OV> ? 04/01/24 1531 ? DD/ 0846 ? TD/TT: 04/01/24 09 ? Motorcycle Tester: ? Procedure Note Becca Chavis - 04/01/[address] [address] Fluoroscopy Report Signed Patient: Rosalina Adam#: [id number] : 1980Acct:[id number] Age/Sex: 43 / FADM Date: 04/01/24 Loc: [facility] Attending Dr: Carlos Leonard MD Ordering Physician: Carlos Leonard MD Date of Service: 04/01/24 Procedure(s): FL upper GI w air Accession Number(s): [id number] cc: Rochelle Phan MD; Carlos Leonard MD EXAMINATION: XR FLUOROSCOPY UPPER GI WITH AIR CLINICAL INFORMATION: Preoperative evaluation prior to bariatric surgery COMPARISON: None TECHNIQUE: Fluoroscopic air contrast upper GI examination was performed utilizing standard techniques with thin and thick barium and effervescent granules. Numerous spot images were obtained. FINDINGS: Dual and single contrast images of the esophagus demonstrate normal caliber, contour, and mucosal pattern. No evidence of stricture, mass, or ulcerations identified. Esophageal peristalsis was normal. A very small type I hiatal hernia is present. Mild gastroesophageal reflux is seen in the distal esophagus. Dual contrast and single contrast images of the stomach demonstrated a normal contour. Evaluation of the gastric mucosa is limited due to suboptimal coating of the barium. No obvious masses or ulcerations are seen. Contrast freely passed into the gastric antrum and duodenal bulb without delay. Single and air-contrast images of the duodenal bulb demonstrate no abnormality. The duodenal sweep has a normal appearance, course, and mucosal fold appearance. The imaged proximal jejunum has a normal fold pattern and caliber. FLUOROSCOPY TIME: 3.0 minutes Number of Spot Images: 7 Number of Cine: 11 DOSE AREA PRODUCT: 2280 uGy-m2 (microgray-meter squared) FL/FL upper GI w air IMPRESSION: 1. Very small type I hiatal hernia mild gastroesophageal reflux. 2. Limited evaluation of the gastric mucosa due to suboptimal coating of the barium. This procedure was performed by Rene Matthews PA-C, and supervised by Dr. Sandy Electronically signed by: Dominick Sandy MD 04/01/2024 03:29 PM EST Dictated By: Rene Matthews Signed By: <Electronically signed by Rene Matthews in OV> 04/01/24 1529 <Electronically signed by Dominick Sandy MD in OV> 04/01/24 1531 DD/ 0846 TD/TT: 04/01/24 0905 Motorcycle Tester: [facility] External Provider IMG FLU OROSCOPY PROCEDURES Final Result * Hematoxylin and Eosin Stain (03/31/2024 10:22 AM EST) 03/31/2024 10:2 2 AM EST 03/31/2024 10:48 AM EST Narrative [facility] - 04/02/2024 11:31 AM EST ----- ------- Name: Maria C Adam ?Age/Sex: 43/F ? : 1980 Unit#: [id number] ?? Attend Dr: Carlos Leonard MD ?Re03/31/24 ?Status: DEP SDC ? Location: HO.SSS ?Disch: ? ----- ------- SPEC : [id number] ? RECD: 03/31/24 ? STATUS: ??SOUT ? REQ NUM: [id number] ? HUAN: 03/31/24-1021 ? SUBM DR: Carlos Leonard MD ? ENTERED: ??03/31/24 ?SP TYPE: Surgical ? OTHR DR: Rochelle Phan MD ? ORDERED: ??HE Stain/9, Gross Micro L4/4, IHC/2, Special st. 2/3, H. pylori/2, AB/PAS/3 ? Diagnosis ?? A. ??Stomach, antrum, biopsy: ??Antral-type mucosa with moderate chronic inactive ?? inflammation; definitive Helicobacter organisms not seen. ? B. ??Stomach, fundus, biopsy: ??Cardiac-type mucosa with moderate chronic inactive ?? inflammation; definitive Helicobacter organisms not seen. ? C. ??EG junction, biopsy: ?- Cardiac-type mucosa with moderate chronic inactive inflammation and multilayered ?? epithelium; no fully developed intestinal metaplasia seen. ?- Squamous mucosa with focal hyperkeratosis; otherwise within normal limits. ? D. ??Esophagus, biopsy: ??Squamous epithelium within normal limits; no inflammation seen. ? Comment: ??The lack of definitive H pylori given the degree of inflammation is somewhat ?? surprising. ??Consider alternative testing, as clinically appropriate. ?Clinical History Pre-Op Dx: ??Obesity Post-Op Dx: Small diaphragmatic hernia ?Microscopic Description A-D. ??Microscopic sections examined. ??No fully-developed metaplastic changes are seen, supported by AB/PAS stains (A, B and C); definitive Helicobacter organisms are not seen, supported by H. pylori immunostain (A and B). ? Material Received ?? A. Antrum bx ?? B. Fundus bx ?? C. EG junction bx ?? D. Esophagus bx ? Gross Description Received in four parts. Part A: ??Received in formalin labeled ?antrum bx? is a 0.3 cm miguel- pink irregular tissue fragment, submitted in toto in a cassette labeled A. Part B: ??Received in formalin labeled ?fundus bx? is a 0.3 cm miguel- pink irregular tissue ? CONTINUED ON NEXT PAGE ----- ------- Name: Maria C Adma ?Age/Sex: 43/F ? : 1980 Unit#: [id number] ?? Attend Dr: Carlos Leonard MD ?Re03/31/24 ?Status: DEP SDC ? Location: HO.SSS ?Disch: ? ----- ------- SPEC : [id number] ? RECD: 03/31/24 ? STATUS: ??SOUT ? REQ NUM: [id number] ? HUAN: 03/31/24-1021 ? SUBM DR: Carlos Leonard MD ? ENTERED: ??03/31/24-1053 ?SP TYPE: Surgical ? OTHR DR: Rochelle Phan MD ? ORDERED: ??HE Stain/9, Gross Micro L4/4, IHC/2, Special st. 2/3, H. pylori/2, AB/PAS/3 ? Gross Description ?(Continued) fragment, submitted in toto in a cassette labeled B. Part C: ??Received in formalin labeled ?EG junction bx? are 2 miguel-pink irregular tissue fragments each measuring 0.25 cm, submitted in toto in a cassette labeled C. Part D: ??Received in formalin labeled ?esophagus bx? are 3 pale, suarez-white irregular tissue fragments ranging from minute to 0.2 cm with scant blood, submitted in toto in a cassette labeled D. ??CEDS Special studies ordered and performed: Immunostain for H. pylori on A and B; AB/PAS stains on A, B and C Copies To: ?? Rochelle Phan MD ?? [facility] ?? [address] ?? [place] [address] ?? [phone] ?? Carlos Leonard MD ?? [facility] ?? [address] ?? [place] [address] ?? [phone] ----- ------- Signed (signature on file) Paulo Castillo MD 04/02/24 1131 ? ----- ------- ? END OF REPORT ? Generic External Data Provider LAB BLOOD ORDERAB LES Final Result Performing Organization Address [facility] de Phone Number [facility] [address] [place] [address] [phone] * HCG, Qualitative, Urine (03/31/2024 9:00 AM EST) Urine NEGATIVE NEGATIVE [facility] Comment:This test was develo ped to detect early . Falsenegative results may occur after the 5th - 7th week ofpregnancy when using this test method. If clinicallyindicated, consider a serum hCG. 03/31/2024 9:00 AM EST 03/31/2024 9:23 AM EST NullPointer External Data Provider LAB URINE ORDERAB LES Final Result Performing Organization Address [facility] de Phone Number [facility] [address] [place] [phone] * Hemoglobin A1c (01/30/2024 9:03 AM EDT) Hemoglobin A1c 5.8 <6.0 % [facility] Comment:Hemoglobin A1C Refer ence Range Adults: 4.8 - 6.0 % Non diabetic: < 6.0 % Goal: < 7.0 %Additional Action Suggested: > 8.0 %Note: Hemoglobin A1c results are invalid for patients with abnormal amounts of HbF. Blood transfusions may impact the HbA1c concentration in the patient sample. Estimated Average Glucose 120 mg/dL [facility] Comment:eAG = Estimated ave rage glucose which is %A1C expressed asaverage glucose, using the formula of the E2A-ScjbahrObdqdfn Glucose study (ADAG), Diabetes Care, Vol.31,#8,2007 01/30/2024 9:03 AM EDT 01/30/2024 9:03 AM EDT Generic External Data Provider LAB BLOOD ORDERAB LES Final Result Performing Organization Address [facility] Co de Phone Number [facility] [address] [place] [phone] * (ABNORMAL) Lipid Panel, Standard (01/30/2024 9:03 AM EDT) Triglycerides 287(H) <150 mg/dL [facility] Comment:Desirable Triglyceri de: less than 150 mg/dLBorderline High Triglyceride 150-199 mg/dLHigh Triglyceride: 200-499 mg/dLVery High Triglyceride: greater than or equal to 5OO mg/dL Cholesterol 257(H) <200 mg/dL [facility] Comment:Desirable Cholestero l: less than 200 mg/dLBorderline High Cholesterol: 200-239 mg/dLHigh Cholesterol: greater than 239 mg/dL LDL Cholesterol Calculated 147(H) <100 mg/dL [facility] Comment:Desirable LDL: less than 100 mg/dLNear Optimal/Above Optimal LDL: 110- 129 mg/dLBorderline High LDL: 130-159 mg/dLHigh LDL: 160-189 mg/dLVery High LDL: greater than or equal to 190 mg/dL HDL Cholesterol 53 >40 mg/dL [facility] Comment:Desirable HDL: great er than 40 mg/dL Note: This HDL assay may give artificially low results in patients with liver disease. 01/30/2024 9:03 AM EDT 01/30/2024 9:03 AM EDT us Generic External Data Provider LAB BLOOD ORDERAB LES Final Result Performing Organization Address [facility]/ZIP Co de Phone Number [facility] [address] [place] [address] [phone] * HIV 1/2 ANTIGEN/ANTIBODY,FOURTH GENERATION W/RFL (01/05/2022 9:49 AM EDT) HIV-1/2 ANTIGEN AND ANTIBODIES, 4TH GENERATION W/ REFLEX NON-REACT DEEPTI NON-REACT DEEPTI [facility] Comment: HIV-1 antigen and HIV-1/HIV-2 antibodies were not detected. There is no laboratory evidence of HIV infection. ?? PLEASE NOTE: This information has been disclosed to you from records whose confidentiality may be protected by state law. ??If your state requires such protection, then the state law prohibits you from making any further disclosure of the information without the specific written consent of the person to whom it pertains, or as otherwise permitted by law. A general authorization for the release of medical or other information is NOT sufficient for this purpose. ? For additional information please refer to http://education.Buck/faq/UVS254 (This link is being provided for informational/ educational purposes only.) ? The performance of this assay has not been clinically validated in patients less than 2 years old. ?? 01/05/2022 9:49 AM EDT Heidi Moreau MD LAB BLOOD ORDERABLES Final Re sult [facility] [address] * THINPREP TIS PAP AND HPV mRNA E6/E7 WITH REFLEX TO HPV 16,18/45 (04/18/2021 10:23 AM EST) Pathologist [facility] Clinical Information: None given [facility] COMMENT SEE COMMENT [facility] Comment: EXPLANATORY NOTE: ? The Pap is a screening test for cervical cancer. It is ?? not a diagnostic test and is subject to false negative ?? and false positive results. It is most reliable when a ?? satisfactory sample, regularly obtained, is submitted ?? with relevant clinical findings and history, and when ?? the Pap result is evaluated along with historic and ?? current clinical information. ?? COMMENT: This Pap test has been evaluated with computer assisted technology. [facility] Embroidery Finisher: SEE COMMENT [facility] Comment: HJP, CT(ASCP) CT screening location: [address] ??[phone] HPV nRNA E6/E7 Not Detected Not Detected [facility] Comment: Methodology: Claims Counsel-Mediated Amplification This assay detects E6/E7 viral messenger RNA (mRNA) from 14 high-risk HPV types (16,18,31,33,35,39,45,51,52,56,58,59,66,68). ? The analytical performance characteristics of this assay have been determined by [employer]. The modifications have not been cleared or approved by the FDA. This assay has been validated pursuant to the CLIA regulations and is used for clinical purposes. ?? For additional information, please refer to http://education.Buck/faq/SKY176l8 (This link if provided for information/ educational purposes only.) Interpretation/Re sult: Negative for intraepithelial lesion or malignancy. [facility] LMP: 03/2021 [facility] Prev. BX: NONE GIVEN [facility] Prev. PAP: 01/23/18 [facility] SOURCE: Cervix [facility] Statement Of Adequacy: SEE COMMENT [facility] Comment: Satisfactory for evaluation. Endocervical/transformation zone component absent. 04/18/2021 10:2 3 AM EST us Rochelle Phan MD LAB PATHOLOGY ORDERABLES Meenakshi barone Result [facility] [address] from Last 3 Months or Most Recently Relevant to Health Maintenance Care Teams [employer] Relationship Specialty Start Date End Date Rochelle Phan MD [address] [facility] [place] [address] PCP - General Family Medicine 10/27/12 Gilberto Zayas FNP [address] [facility] [place] [address] Nurse Practitioner Family Medicine 03/20/23
--- OUTSIDE RECORDS SUMMARY | 2024-06-01 09:18 | XMS_ITS | Clinical Summary ---
Author Organization [facility] Address [address] [place] [address] Phone Care Team Providers Care Bounty Hunter Name Role Phone Physician, No Pcp Primary Care Provider Unavaila ble Allergies Active Allergy Reactions Criticality Noted Date Comments Codeine Itching 05/24/2024 Penicillin G Itching 05/24/2024 Medications Medication Sig Dispensed Refills Start Date End Date Status cefpodoxime (VANTIN) 200 mg tablet Take 1 tablet (200 mg total) by mouth 2 (two) times a day for 10 days. 20 each 05/24/2024 06/03/2024 Active diclofenac (VOLTAREN) 25 mg EC tablet Take 1 tablet (25 mg total) by mouth 2 (two) times a day for 7 days. Do not crush, chew, or split. 14 each 05/24/2024 05/31/2024 Encounters Date Type Department Care Team Description 05/24/2024 11:21 AM EST - 05/24/2024 4:03 PM EST Emergency [facility] Emergency [address] [place] [address] Ovarian mass (Primary Dx); Acute cystitis without hematuria Discharge Disposition: Home or Self Care from Last 3 Months Medical History Medical History Date Comments Asthma Clotting disorder (CMS/HCC) Social History Tobacco Use Types Packs/Day Years [...] file Not on file Not on file Obstetrics History Last Filed Vital Signs Vital Sign Reading [...] Mass Index 38.87 05/24/2024 8:47 AM EST Plan of Treatment Upcoming Encounters Date Type Department Care Team (Late st Contact Info) Description 06/11/2024 10:30 AM EST Office Visit [facility]st[facility]s [facility] [address] [place] [address] Sahara Tello DO [address] [place] [address] Health Maintenance Due Date Last Done Comments Breast Cancer Screening 1981 Pneumococcal Vaccine: Pediatrics (0 to 5 Years) and At-Risk Patients (6 to 64 Years) (1 of 2 - PCV) 12/31/1987 Hepatitis B Vaccines (1 of 3 - 19+ 3-dose series) 2000 Cervical Cancer Screening: Pap Smear 2002 Hepatitis C Screening 04/01/2022 Social Influencers of Health Screening 04/01/2022 COVID-19 Vaccine ( season) 2023 02/07/2022, 07/11/2021, 08/20/2020, Additional history exists Depression Screening 07/24/2024 07/25/2023 Hypertension/CHF/CAD Annual BMP Blood Test 05/24/2025 05/24/2024 DTaP,Tdap,and Td Vaccines (3 - Td or Tdap) 01/18/2028 01/17/2018, 10/06/2015 Cholesterol Screening (Lipid Panel) 01/29/2029 01/30/2024 HIV Screening Completed 01/05/2022 Influenza Vaccine Completed 01/27/2024, , 02/06/2022, Additional history exists HIB Vaccines Aged Out No longer eligi [...] on patient's age to complete this topic MMR Vaccines Aged Out No longer eligi ble based on patient's age to complete this topic Meningococcal ACWY Vaccine Aged Out N o longer eligible based on patient's age to complete this topic RSV Immunization Patients Under 20 months Aged Out No longer eligible based on patient's age to complete this topic Varicella Vaccines Aged Out No longer eligible based on patient's age to complete this topic Procedures Procedure Name Priority Date/Time Associated Diagnosis Comments CT ABDOMEN PELVIS W CONTRAST STAT 05/24/2024 1:44 PM EST XR CHEST 2 VIEWS STAT 05/24/2024 12:4 3 PM EST RESPIRATORY VIRUS PANEL MOLECULAR STUDY STAT 05/24/2024 12:14 PM EST MOSS URINE CULTURE TUBE STAT 05/24/2024 12:12 PM EST URINALYSIS WITH REFLEX MICROSCOPIC AND CULTURE STAT 05/24/2024 12:12 PM EST URINALYSIS WITH REFLEX MICROSCOPIC AND CULTURE STAT 05/24/2024 12:12 PM EST TROPONIN I HIGH SENSITIVITY STAT 05/24/2024 12:12 PM EST CULTURE URINE STAT 05/24/2024 12:12 PM EST CBC WITH AUTO DIFFERENTIAL STAT 05/24/2024 10:36 AM EST PROTHROMBIN TIME WITH INR STAT 05/24/2024 10:36 AM EST TYPE AND SCREEN STAT 05/24/2024 10:36 AM EST COMPREHENSIVE METABOLIC PANEL STAT 05/24/2024 10:36 AM EST TROPONIN I HIGH SENSITIVITY STAT 05/24/2024 10:36 AM EST MAGNESIUM STAT 05/24/2024 10:36 AM EST CBC AND DIFFERENTIAL STAT 05/24/2024 10:36 AM EST ECG 12-LEAD STAT 05/24/2024 9:53 AM EST ECG ANNOTATED 05/24/2024 from Last 3 Months Results * CT Abdomen Pelvis w Contrast (05/24/2024 1:44 PM EST) Anatomical Region Laterality Modality Body Computed Tomogra phy 05/24/2024 1:53 PM EST Impressions 05/24/2024 2:04 PM EST Impression: 1. Bilateral fat-containing adnexal masses, as described, suspicious for cystic teratomas (dermoid tumors). Outpatient gynecology consultation recommended for further management. 2. 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 Telerad ETIENNE ([id number]) -------- FINAL REPORT -------- Dictated By: Mechelle Bosch Dictated Date: 05/24/2024 13:53 ET Assigned Physician: Mechelle Bosch Reviewed and Electronically Signed By: Mechelle Bosch Signed Date: 05/24/2024 14:04 ET Workstation ID: [id number] Transcribed By: Self Edit Transcribed Date: 05/24/2024 13:53 ET Narrative 05/24/2024 2:04 PM EST History: Right-sided abdominal pain radiating to the back. Vomiting. Prior appendectomy. Comparison: 06/18/18 Technique: Helical volumetric imaging of the abdomen and pelvis was performed following oral contrast and during the uneventful intravenous administration of 90 cc Isovue-370. DLP: 1194.40 mGy/cm IBUonline VCT Iterative reconstruction technique Findings: The liver [...] of 90 cc Isovue-370. DLP: 1194.40 mGy/cm IBUonline VCT Iterative reconstruction technique Findings: The liver [...] for a dermoid tumor. This is new [id number]. A 2.3 x 2.2 x 1.8 cm [...] management. 2. 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 Telerad ETIENNE ([id number]) -------- FINAL REPORT -------- Dictated By: Mechelle Bosch Dictated Date: 05/24/2024 13:53 ET Assigned Physician: Mechelle Bosch Reviewed and Electronically Signed By: Mechelle Bosch Signed Date: 05/24/2024 14:04 ET Workstation ID: [id number] Transcribed By: Self Edit Transcribed Date: 05/24/2024 13:53 ET Ira CLIFTON IMG CT PROCEDURE S * XR Chest 2 Views (05/24/2024 12:43 PM EST) Anatomical Region Laterality Modality Body Radiographic Jing ging 05/24/2024 12:4 4 PM EST Impressions 05/24/2024 12:45 PM EST Impression: No active pulmonary process identified. Telerad PA ([id number]) -------- FINAL REPORT -------- Dictated By: Mechelle Bosch Dictated Date: 05/24/2024 12:44 ET Assigned Physician: Mechelle Bosch Reviewed and Electronically Signed By: Mechelle Bosch Signed Date: 05/24/2024 12:45 ET Workstation ID: [id number] Transcribed By: Self Edit Transcribed Date: 05/24/2024 [...] Impression: No active pulmonary process identified. Telerad ETIENNE ([id number]) -------- FINAL REPORT -------- Dictated By: Mechelle Bosch Dictated Date: 05/24/2024 12:44 ET Assigned Physician: Mechelle Bosch Reviewed and Electronically Signed By: Mechelle Bosch Signed Date: 05/24/2024 12:45 ET Workstation ID: [id number] Transcribed By: Self Edit Transcribed Date: 05/24/2024 12:44 ET Debbie Elder DO IMG XR PROCEDURES * Respiratory virus panel molecular study (05/24/2024 12:14 PM EST) Adenovirus Detection by PCR Not Detected Not Detected LAB MICROBIOLOGY METHOD 05/24/2024 1:44 PM EST [facility] Influenza A PCR Not Detected Not Detected LAB MICROBIOLOGY METHOD 05/24/2024 1:44 PM [facility] Influenza B PCR Not Detected Not Detected LAB MICROBIOLOGY METHOD 05/24/2024 1:44 PM [facility] Coronavirus 229E Not Detected Not Detected LAB MICROBIOLOGY METHOD 05/24/2024 1:44 PM EST [facility] Coronavirus HKU1 Not Detected Not Detected LAB MICROBIOLOGY METHOD 05/24/2024 1:44 PM [facility] Coronavirus OC43 Not Detected Not Detected LAB MICROBIOLOGY METHOD 05/24/2024 1:44 PM [facility] Coronavirus NL63 Not Detected Not Detected LAB MICROBIOLOGY METHOD 05/24/2024 1:44 PM [facility] Parainfluenza Virus 1 Not Detected Not Detected LAB MICROBIOLOGY METHOD 05/24/2024 1:44 PM [facility] Parainfluenza Virus 2 Not Detected Not Detected LAB MICROBIOLOGY METHOD 05/24/2024 1:44 PM [facility] Parainfluenza Virus 3 Not Detected Not Detected LAB MICROBIOLOGY METHOD 05/24/2024 1:44 PM [facility] Parainfluenza Virus 4 Not Detected Not Detected LAB MICROBIOLOGY METHOD 05/24/2024 1:44 PM [facility] RSV PCR Not Detected Not Detected LAB MICROBIOLOGY METHOD 05/24/2024 1:44 PM [facility] Human Metapneumovirus A and B Not Detected Not Detected LAB MICROBIOLOGY METHOD 05/24/2024 1:44 PM [facility] Rhinovirus/Entero virus Not Detected Not Detected LAB MICROBIOLOGY METHOD 05/24/2024 1:44 PM [facility] Bordetella pertussis Not Detected Not Detected LAB MICROBIOLOGY METHOD 05/24/2024 1:44 PM [facility] Bordetella parapertussis Not Detected Not Detected LAB MICROBIOLOGY METHOD 05/24/2024 1:44 PM [facility] Mycoplasma pneumo by PCR Not Detected Not Detected LAB MICROBIOLOGY METHOD 05/24/2024 1:44 PM [facility] Chlamydia pneumoniae Not Detected Not Detected LAB MICROBIOLOGY METHOD 05/24/2024 1:44 PM [facility] SARS COV-2 Not Detected Not Detected LAB MICROBIOLOGY METHOD 05/24/2024 1:44 PM [facility] Swab Both anterior nares / Unknown Non-blood Collection / Unknown 05/24/2024 12:14 PM EST 05/24/2024 12:43 PM EST [facility] - 05/24/2024 1:44 PM EST Testing was performed using the Exanete Respiratory Pathogen PCR Assay. All results must [...] Ira CLIFTON LAB MICROBIOLOGY - GENERAL ORDERABLES [facility] [address] [place] [address], * (ABNORMAL) Urinalysis with reflex microscopic and culture (05/24/2024 12:12 PM EST) Specific [place] Urine 1.025 1.003 - 1.030 LAB URINALYSIS - AUTOMATED METHOD 05/24/2024 1:08 PM [facility] pH, Urine 6.0 5.0 - 8.0 pH LAB URINALYSIS - AUTOMATED METHOD 05/24/2024 1:08 PM [facility] Leukocytes, Urine Negative Negative LAB URINALYSIS - AUTOMATED METHOD 05/24/2024 1:08 PM [facility] Nitrite, Urine Negative Negative LAB URINALYSIS - AUTOMATED METHOD 05/24/2024 1:08 PM [facility] Protein, Urine 30(A) <=Trace mg/dL LAB URINALYSIS - AUTOMATED METHOD 05/24/2024 1:08 PM [facility] Glucose, Urine Negative Negative mg/dL LAB URINALYSIS - AUTOMATED METHOD 05/24/2024 1:08 PM [facility] Ketones, Urine Trace(A) Negative mg/dL LAB URINALYSIS - AUTOMATED METHOD 05/24/2024 1:08 PM [facility] Urobilinogen , Urine 0.2 0.2 - 1.0 mg/dL LAB URINALYSIS - AUTOMATED METHOD 05/24/2024 1:08 PM [facility] Bilirubin, Urine Negative Negative LAB URINALYSIS - AUTOMATED METHOD 05/24/2024 1:08 PM [facility] Blood, Urine Small(A) Negative LAB URINALYSIS - AUTOMATED METHOD 05/24/2024 1:08 PM [facility] RBC, Urine 22.1(H) 0 - 4 /HPF LAB URINALYSIS - AUTOMATED METHOD 05/24/2024 1:08 PM [facility] WBC, Urine 8.0(H) 0 - 4 /HPF LAB URINALYSIS - AUTOMATED METHOD 05/24/2024 1:08 PM [facility] Squamous Epithelial, Urine 80(H) 0 - 60 /LPF LAB URINALYSIS - AUTOMATED METHOD 05/24/2024 1:08 PM [facility] Bacteria, Urine Moderate(A) Negative /HPF LAB URINALYSIS - AUTOMATED METHOD 05/24/2024 1:08 PM [facility] Hyaline Casts, Urine 3.0 0 - 3 /LPF LAB URINALYSIS - AUTOMATED METHOD 05/24/2024 1:08 PM [facility] Urine Urine specimen obtained by clean catch procedure / Unknown Non-blood Collection / Unknown 05/24/2024 12:12 PM EST 05/24/2024 12:44 PM EST Ira CLIFTON LAB URINE ORDERA BLES [facility] [address] [place] [address], * Moss urine culture tube (05/24/2024 12:12 PM EST) Extra Tube Hold for add-ons. 05/24/2024 2:01 PM EST [facility] Comment:Auto resulted. Urine Urine specimen obtained by clean catch procedure / Unknown Non-blood Collection / Unknown 05/24/2024 12:12 PM EST 05/24/2024 12:44 PM EST Ira CLIFTON LAB URINE ORDERA BLES Performing Organization Address City/[facility]/ZIP Co de Phone Number [facility] [address] [place] [address], [place] [phone] * Troponin I high sensitivity (05/24/2024 12:12 PM EST) Only the most recent of2 resultswithin the time period is included. [facility] High Sensitivity Troponin I <3 <=54 ng/L LAB CHEMISTRY METHOD 05/24/2024 1:21 PM EST [facility] Blood Venous blood specimen / Unknown Venipuncture / Unknown 05/24/2024 12:12 PM EST 05/24/2024 12:43 PM EST Narrative [facility] - 05/24/2024 1:21 PM EST High levels of biotin in samples may falsely decrease hsTroponin values. ??Use caution when interpreting hsTroponin results in patients taking biotin who exhibit renal impairment (eGFR <60) or in patients taking more than 20 mg/day of biotin. Debbie Elder DO LAB BLOOD ORDERAB LES Performing Organization Address City/[facility]/ZIP Co de Phone Number [facility] [address] [place] [address], [place] [phone] * Culture urine (05/24/2024 12:12 PM EST) Urine Urine specimen obtained by clean catch procedure / Unknown Non-blood Collection / Unknown 05/24/2024 12:12 PM EST 05/24/2024 1:08 PM EST Narrative [facility] - 05/26/2024 11:10 AM EST Beta Strep Group B noted. The presence of a low colony count of Beta Strep Group B may have clinical significance in women. Ira CLIFTON LAB MICROBIOLOGY - GENERAL ORDERABLES [facility] [address] [place] [address], * (ABNORMAL) CBC auto differential (05/24/2024 10:36 AM EST) [facility] WBC 9.6 4.8 - 10.8 K/mcL LAB HEMETOLOGY METHOD 05/24/2024 10:58 AM [facility] RBC 4.60 3.80 - 4.80 M/mcL LAB HEMETOLOGY METHOD 05/24/2024 10:58 AM [facility] Hemoglobin 12.9 11.5 - 16.0 g/dL LAB HEMETOLOGY METHOD 05/24/2024 10:58 AM [facility] Hematocrit 39.3 35.0 - 47.0 % LAB HEMETOLOGY METHOD 05/24/2024 10:58 AM [facility] MCV 85.1 79.0 - 98.0 FL LAB HEMETOLOGY METHOD 05/24/2024 10:58 AM [facility] MCH 27.9 27.0 - 32.0 pcg LAB HEMETOLOGY METHOD 05/24/2024 10:58 AM [facility] MCHC 32.8 32.0 - 37.0 g/dL LAB HEMETOLOGY METHOD 05/24/2024 10:58 AM [facility] RDW 12.5 11.0 - 15.0 % LAB HEMETOLOGY METHOD 05/24/2024 10:58 AM [facility] Platelets 341 130 - 400 K/mcL LAB HEMETOLOGY METHOD 05/24/2024 10:58 AM [facility] MPV 9.4 7.0 - 11.0 FL LAB HEMETOLOGY METHOD 05/24/2024 10:58 AM [facility] NRBC 0.0 <1.0 % LAB HEMETOLOGY METHOD 05/24/2024 10:58 AM [facility] NRBC Absolute 0.00 <0.10 K/mcL LAB HEMETOLOGY METHOD 05/24/2024 10:58 AM [facility] Neutrophils Relative 86.6 % LAB HEMETOLOGY METHOD 05/24/2024 10:58 AM [facility] Lymphocytes Relative 9.7 % LAB HEMETOLOGY METHOD 05/24/2024 10:58 AM [facility] Monocytes Relative 2.4 % LAB HEMETOLOGY METHOD 05/24/2024 10:58 AM [facility] Eosinophils Relative 0.5 % LAB HEMETOLOGY METHOD 05/24/2024 10:58 AM [facility] Basophils Relative 0.5 % LAB HEMETOLOGY METHOD 05/24/2024 10:58 AM [facility] Immature Granulocytes Relative 0.3 % LAB HEMETOLOGY METHOD 05/24/2024 10:58 AM [facility] Neutrophils Absolute 8.34(H) 1.50 - 7.00 K/mcL LAB HEMETOLOGY METHOD 05/24/2024 10:58 AM [facility] Lymphocytes Absolute 0.93(L) 1.00 - 5.00 K/mcL LAB HEMETOLOGY METHOD 05/24/2024 10:58 AM [facility] Monocytes Absolute 0.23 0.20 - 1.00 K/mcL LAB HEMETOLOGY METHOD 05/24/2024 10:58 AM [facility] Eosinophils Absolute 0.05 0.00 - 0.50 K/mcL LAB HEMETOLOGY METHOD 05/24/2024 10:58 AM [facility] Basophils Absolute 0.05 0.00 - 0.20 K/[facility] LAB HEMETOLOGY METHOD 05/24/2024 10:58 AM EST [facility] Immature Granulocytes Absolute 0.03 0.00 - 0.03 /[facility] LAB HEMETOLOGY METHOD 05/24/2024 10:58 AM EST [facility] Blood Venous blood specimen / Unknown Venipuncture / Unknown 05/24/2024 10:36 AM EST 05/24/2024 10:52 AM EST Debbie Elder LAB BLOOD ORDERAB LES Performing Organization Address City/[facility]/ZIP Co de Phone Number [facility] [address] [place] [address], [place] [phone] * Protime-INR (05/24/2024 10:36 AM EST) Pathologist [facility] Protime 11.0 10.6 - 13.9 sec LAB COAGULATION METHOD 05/24/2024 11:01 AM EST [facility] INR 0.9 LAB COAGULATION METHOD 05/24/2024 11:01 AM EST [facility] Blood Venous blood specimen / Unknown Venipuncture / Unknown 05/24/2024 10:36 AM EST 05/24/2024 10:52 AM EST Debbie Elder LAB BLOOD ORDERAB LES [facility] [address] [place] [address], [place] [phone] * Type and screen (05/24/2024 10:36 AM EST) Pathologist [facility] ABO Group O 05/24/2024 11:51 AM EST [facility] Rh Type Positive 05/24/2024 11:51 AM EST [facility] Antibody Screen Negative 05/24/2024 11:51 AM EST [facility] Blood Venous blood specimen / Unknown Venipuncture / Unknown 05/24/2024 10:36 AM EST 05/24/2024 10:52 AM EST Debbie Elder LAB BLOOD BANK TE ST ORDERABLES [facility] [address] [place] [address], [place] [phone] * Magnesium (05/24/2024 10:36 AM EST) Pathologist [facility] Magnesium 2.1 1.9 - 2.6 mg/dL LAB CHEMISTRY METHOD 05/24/2024 11:41 AM EST [facility] Comment:Hemolysis present Blood Venous blood specimen / Unknown Venipuncture / Unknown 05/24/2024 10:36 AM EST 05/24/2024 10:52 AM EST Debbie Elder LAB BLOOD ORDERAB LES [facility] [address] [place] [address], [place] [phone] * (ABNORMAL) Comprehensive metabolic panel (05/24/2024 10:36 AM EST) Pathologist [facility] Sodium 137 133 - 145 mmol/L LAB CHEMISTRY METHOD 05/24/2024 11:41 AM [facility] Potassium 4.5 3.5 - 5.5 mmol/L LAB CHEMISTRY METHOD 05/24/2024 11:41 AM [facility] Comment:Hemolysis present Chloride 106 96 - 110 mmol/L LAB CHEMISTRY METHOD 05/24/2024 11:41 AM [facility] CO2 25 21 - 32 mmol/L LAB CHEMISTRY METHOD 05/24/2024 11:41 AM [facility] Anion Gap 6 3 - 11 LAB CHEMISTRY METHOD 05/24/2024 11:41 AM [facility] Glucose 119(H) 70 - 100 mg/dL LAB CHEMISTRY METHOD 05/24/2024 11:41 AM [facility] BUN 15 5 - 25 mg/dL LAB CHEMISTRY METHOD 05/24/2024 11:41 AM [facility] Creatinine 0.83 0.50 - 1.10 mg/dL LAB CHEMISTRY METHOD 05/24/2024 11:41 AM [facility] eGFR 90 >=60 mL/min/1. 73m2 LAB CHEMISTRY METHOD 05/24/2024 11:41 AM [facility] Comment:Calculation based on the??Chronic Kidney Disease Epidemiology Collaboration (CKD-EPI) equation refit??without adjustment for race. BUN/Creatinine Ratio 18.1 LAB CHEMISTRY METHOD 05/24/2024 11:41 AM [facility] Calcium 9.0 8.5 - 10.5 mg/dL LAB CHEMISTRY METHOD 05/24/2024 11:41 AM [facility] AST (SGOT) 29 10 - 42 unit/L LAB CHEMISTRY METHOD 05/24/2024 11:41 AM [facility] Comment:Hemolysis present ALT (SGPT) 51 10 - 60 unit/L LAB CHEMISTRY METHOD 05/24/2024 11:41 AM [facility] Alkaline Phosphatase 65 42 - 121 unit/L LAB CHEMISTRY METHOD 05/24/2024 11:41 AM [facility] Total Protein 7.6 6.0 - 8.0 g/dL LAB CHEMISTRY METHOD 05/24/2024 11:41 AM [facility] Albumin 3.4 3.2 - 5.0 g/dL LAB CHEMISTRY METHOD 05/24/2024 11:41 AM [facility] Total Bilirubin 0.3 0.0 - 1.4 mg/dL LAB CHEMISTRY METHOD 05/24/2024 11:41 AM [facility] Blood Venous blood specimen / Unknown Venipuncture / Unknown 05/24/2024 10:36 AM EST 05/24/2024 10:52 AM EST Debbie Elder DO LAB BLOOD ORDERAB LES [facility] [address] [place] [address], * ECG 12 lead (05/24/2024 9:53 AM EST) Ventricular Rate ECG 80 BPM GEM[facility] Atrial Rate 80 BPM GEMUSE P-R Interval 148 ms GEMUSE QRS Duration 90 ms GEMUSE Q-T Interval 396 ms GEMUSE QTc 456 ms GEMUSE P Wave Porum 19 degrees GEMUSE R Porum -13 degrees GEMUSE T Por[place] -9 degrees GEMUSE ECG Interpretation Normal sinus rhythm When compared with ECG of 21-JAN-2012 23:59, Nonspecific T wave abnormality now evident in Anterior leads Confirmed by MATHEW GARRIDO ([id number]) on 05/25/2024 8:33:46 PM GEM[facility] 05/24/2024 9:53 AM EST 05/25/2024 8:33 PM EST Debbie Elder DO ECG ORDERABLES Performing Organization Address [facility]/ZIP Co de Phone Number GEMUSE * ECG-Annotated (05/24/2024) Provider Onbase MD ECG ORDERABLES from Last 3 Months Care Teams Bounty Hunter Relationship Specialty Start Date End Date Physician, No Pcp PCP - General 05/27/24
--- NOTE | 2024-06-01 11:45 | MHC.OFFVISWM ---
VS Expanded 06/01/24 12:01 Height 4 ft 10 in Weight 183 lb BMI 38.2 Body Fat % 54 Body Fat Mass 98.2 Fat Free Mass 84.2 Visceral Fat Rating 23 Body Water % 31.6 Body Water Mass 57.8 Basal Metabolic Rate/Score 1,194 Intake Visit Reasons: TV Pre Op LSG 06/16/24 Allergies codeine Allergy (Verified 06/01/24 11:46) Itching Penicillins Allergy (Verified 06/01/24 11:46) Swelling Medication List - Last Reconciled 06/01/24 by Carlos Leonard MD albuterol sulfate 90 mcg/actuation (Ventolin HFA) 2 puffs inhalation Q4H amitriptyline 75 mg PO BEDTIME aripiprazole 15 mg PO QAM blood pressure test kit-large As directed hydroxyzine HCl 25 - 50 mg PO Q8H PRN mecobalamin (vitamin B12) 1,000 mcg sublingual DAILY norethindrone-ethin estradiol 0.5-35 mg-mcg (Nortrel) 1 tab PO DAILY omega 5-cwb-qlz-fish oil 300 mg (120 mg- 180mg)-1,000 mg 1 cap PO BID ondansetron 4 mg PO Q12H pantoprazole 40 mg PO DAILY polyethylene glycol 3350 17 grams PO DAILY prazosin 4 mg PO BEDTIME sucralfate 10 mL PO BID HPI HPI TV Pre Op LSG 06/16/24: Details: Start time: 11.45am, End time: 12.15pm I spent 25 minutes speaking with the patient on the phone plus an additional 5 minutes reviewing and updating records for a total of 30 minutes HPI Comments Details: Overall weight loss: 5.2lbs, or 2.76% TBWL Is doing 2 Celebrate Rebuild protein shakes (1/2 scoop in almond milk), 2 Celebrate protein bars and one meal (6 forks each) Exercise: treadmill at the gym x4/wk for 250 calories per work-out PFSH Medical History Asthma Migraines Insomnia Anxiety Hyperlipidemia Hypertension Morbid obesity Depression Persistent proteinuria Surgical History H/O section History of appendectomy Hx of nasal septoplasty Family History Mother Diabetes Hypertension Paternal Uncle Leukemia Social History Alcohol intake: current Alcohol intake frequency: holidays/special occasions only Alcohol type: other Patient Tobacco Use Status: Never used Tobacco Telehealth Telehealth Telehealth Platform: Telephone Location of provider rendering services: practice address Location of patient: address on file Patient Identification confirmed using: Name, : Yes Telehealth method: voice only Patient verbally consented to treatment: Yes Patient verbally consented to billing insurance company: Yes Patient informed of any privacy concerns related to visit: Yes Minutes spent on Phone/Video with Pt.: 30 Assessment & Plan Assessment & Plan (1) Morbid obesity: Code(s): E66.01 - Morbid (severe) obesity due to excess calories Category: Medical Plan: 1. Plan for lap sleeve gastrectomy. If diaphragmatic or ventral hernias are present at time of surgery, these will be repaired laparoscopically as well. I emphasized the importance of close follow-up, adherence to instructions and good communication. The surgery does not replace the need to change your lifestlyle which is the cause of the obesity problem. The surgery provides the motivation to try again to change your lifestyle, it reduces the appetite and make the transition to a better lifestyle easier and doubles the amount of weight you would lose compared to doing the lifestyle change without the surgery. You will need to be on a liquid diet with protein shakes for 2 weeks before surgery to maximize weight loss and boost your nutritional status to recover better from surgery and also for the first two weeks after surgery to let the stomach heal before we introduce other foods. After the first 2 weeks we will introduce protein bars and soft foods like scrambled eggs, cottage cheese and yogurt and after the 6th week will introduce meat, fish and cooked vegetables in small amounts. Over time you should be able to eat everything in small amounts. Side effects like nausea, vomiting, heartburn or abdominal pain are not common in the practice unless you are not following in the practice. This operation requires lifetime commitment to following in our practice and communication with me. You will much less weight and experience side effects if you don?t communicate or not following in the practice. Complications are rare and in our practice is about 1/10 of the national average. However, you can develop bleeding that may require transfusion (hasn?t happened for year in the practice), you may from complications (we did not have any deaths in the practice) and infections. Infections are usually a result of breakdown in communication or not understanding or following directions correctly. They are difficult to treat, they can happen during the first 6 weeks, they may require to be in the hospital for weeks or even months, not being able to eat by mouth and you may have drains and surgeries to try and correct the issue. Other risks and complications include possible conversion to an open procedure, leaks, small bowel obstruction, blood clots, cardiac, or pulmonary complications, as terminal make up operator complications such as ulcers, insufficient weight loss and vitamin deficiencies. 2. Preop prescriptions were provided and explained the purpose of each one. Need to be purchased preop. Start Pantoprazole now as you get it from the pharmacy, 1 pill per day. Sucralfate and Zofran are for after surgery as needed. 3. Bowel prep: please do 7 packets of Miralax mixing each one with a an 8oz glass of water, crystal light, gatorade zero, or propel on 06/14/24 and the same amount on 06/15/24. The Miralax you begin with one packet at a time in 8oz water or crystal light, gatorade zero, or propel as early in the day as you can and you do them back to back until you finish them. Continue the protein shakes during the bowel prep. 4. Needs to purchase 1oz medicine cups . 5. Needs to purchase Children's liquid Tylenol for postop pain control. 6. Avoid aspirin, motrin, Advil, Aleve, Ibuprofen, Naproxyn. Tylenol is OK. 7. She needs to purchase the Celebrate 4:1 protein shakes from the hospital's gift shop. 8. Will do basic preop blood work-up any day between Saturday06/08/24 and Saturday06/13/24 fasting for 12 hours and is scheduled to see the Anesthesiologist prior to the day of surgery. 9. Stop food and bars as of tomorrow and create an aggressive meal plan with only Celebrate Rebuild protein shakes using the [employer]. Please send me a screenshot of the meal you will create. 10. No soups, broths or V8 11. The patient's medical history has been reviewed and they are considered low risk for post op DVT and therefore DVT prophylaxis is not considered necessary. Travel after surgery was reviewed. The patient has not disclosed any travel plans during the first 30 days after surgery and they have been advised that within the first 30 days after surgery any bus, plane, train or car travel over 2 hours in duration is contraindicated due to the possibility of developing blood clots from immobility. Any travel, needs to include periods of ambulation of 10 minutes in duration every 2 hours. Patient was instructed to discuss any plans for travel during this period with their bariatric surgeon. 12. Please take at the day of surgery the following medications: NONE 13. Stop any control pills and don't use them for one month after surgery 14. Absolutely no smoking or vaping, or marijuana until the surgery and for at least the first 4 weeks. Only nicotine patches are allowed. 15. Send me weight measurements DAILY then on Saturday06/16/24, the day of surgery before you go to the hospital. 16. Avoid any steroids by mouth for any reason. Let me know if someone prescribes them to you 17. These instructions supersede anything else you read in the handbook, anything you watched in videos or classes or you were told by any other provider. If there is any conflict, you follow the above instructions and nothing else. 18. Due to von Willebrandt disease, you will need DDAVP before incision and 2 units of platelets will be available if needed. Orders: Orders Comprehensive Met. Panel Today E66.01 - Morbid (severe) obesity due to excess calories, E78.5 - Hyperlipidemia, unspecified, I10 - Essential (primary) hypertension TSH reflex Free T4 Today E66.01 - Morbid (severe) obesity due to excess calories, E78.5 - Hyperlipidemia, unspecified, I10 - Essential (primary) hypertension Type and Screen Today E66.01 - Morbid (severe) obesity due to excess calories, E78.5 - Hyperlipidemia, unspecified, I10 - Essential (primary) hypertension Partial Thromboplastin Time Today E66.01 - Morbid (severe) obesity due to excess calories, E78.5 - Hyperlipidemia, unspecified, I10 - Essential (primary) hypertension C Reactive Protein Today E66.01 - Morbid (severe) obesity due to excess calories, E78.5 - Hyperlipidemia, unspecified, I10 - Essential (primary) hypertension Lipid Panel Today E66.01 - Morbid (severe) obesity due to excess calories, E78.5 - Hyperlipidemia, unspecified, I10 - Essential (primary) hypertension Complete Blood Count Auto Diff Today E66.01 - Morbid (severe) obesity due to excess calories, E78.5 - Hyperlipidemia, unspecified, I10 - Essential (primary) hypertension Prothrombin Time INR Today E66.01 - Morbid (severe) obesity due to excess calories, E78.5 - Hyperlipidemia, unspecified, I10 - Essential (primary) hypertension Hemoglobin A1c Today E66.01 - Morbid (severe) obesity due to excess calories, E78.5 - Hyperlipidemia, unspecified, I10 - Essential (primary) hypertension Insulin Today E66.01 - Morbid (severe) obesity due to excess calories, E78.5 - Hyperlipidemia, unspecified, I10 - Essential (primary) hypertension Medications: New pantoprazole 40 mg PO DAILY 90 tabs 0RF K21.9 - Gastro-esophageal reflux disease without esophagitis sucralfate 10 mL PO BID 600 mL 2RF K21.9 - Gastro-esophageal reflux disease without esophagitis polyethylene glycol 3350 Mix each measuring cup with 8oz of water, Crystal light, or Gatorade zero, or Propel and do 7 measuring cups on 06/14/24 and another 7 measuring cups on 06/15/24 17 grams PO DAILY 238 grams 0RF Z01.818 - Encounter for other preprocedural examination ondansetron Only take one every 12 hours as needed if you have nausea 4 mg PO Q12H 20 tabs 0RF nausea and vomiting R11.0 - Nausea
[2024-06-01 12:01] VITALS: BMI 38.2
== END 2024-06-01 12:16 | disposition home or self-care (01) ==
LOC: HO.HBS 08:57
PROVIDERS: PCP Pediatrics; Visit Provider Surgery
DX: E66.01 Morbid (severe) obesity due to excess calories (principal)
CPT/HCPCS: 98014

== ENCOUNTER → 2024-06-01 08:57 | Outpatient (BNVA) | payer OTHER, SELFPAY | PROVIDERS: PCP Pediatrics; Visit Provider Surgery ==

== ENCOUNTER 2024-06-16 07:04 | Inpatient (IN) | payer OTHER, SELFPAY ==
[2024-06-02 06:37] LABS: MANUAL DIFF FLAG NO
[2024-06-02 07:34] LABS: Basophils Percent Auto 0.6 % (0-2); Eosinophils Absolute Auto 0.3 X10*3/uL (0.0-0.4); Hematocrit 39.1 % (37.0-47.0); Hemoglobin 13.1 g/dl (12.0-16.0); Imm Gran Abs Auto 0.01 X10*3/uL (0.00-0.03); Imm Gran Pct Auto 0.2 % (0.0-0.4); Lymphocytes Absolute Auto 1.8 X10*3/uL (1.2-4.9); Lymphocytes Percent Auto 28.1 % (20-40); Mean Corpuscular HGB Conc 33.5 g/dl (31.0-35.0); Mean Corpuscular Hemoglobin 28.1 pg (27.0-33.0); Mean Corpuscular Volume 83.7 fL (80.0-98.0); Monocytes Absolute Auto 0.4 X10*3/uL (0.1-1.2); Monocytes Percent Auto 5.6 % (2-11); Neutrophils Absolute Auto 3.9 x10*3/uL (2.0-8.3); Neutrophils Percent Auto 61.5 % (45-73); Platelet Count 344 X10*3/uL (160-400); Red Blood Count 4.67 X10*6/uL (4.20-5.50); White Blood Count 6.3 X10*3/uL (4.8-10.8)
[2024-06-02 07:39] LABS: INTERNATIONAL NORM RATIO 0.9 (0.9-1.1); Prothrombin Time 10.9 SEC (10.9-12.4)
[2024-06-02 07:49] LABS: Estimated Average Glucose 120 mg/dL; Hemoglobin A1C 137.7843 umol/L; Hemoglobin A1c % 5.8 % (<6.0); Total Hemoglobin (HGBA1C) 3492.7293 umol/L
[2024-06-02 08:03] LABS: Alanine Aminotransferase 29 U/L (0-31); Albumin Level 3.8 g/dL (3.5-5.0); Alkaline Phosphatase 60 U/L (39-117); Anion Gap 12 (12-20); Aspartate Amino Transferase 26 U/L (5-31); Bilirubin Total 0.3 mg/dL (0.0-1.0); Blood Urea Nitrogen 17 mg/dL (9-16); C Reactive Protein 1.22 mg/dL (< or = 0.50); Calcium 8.7 mg/dL (8.4-10.2); Carbon Dioxide 24 mmol/L (22-29); Chloride 106 mmol/L (96-108); Cholesterol 277 mg/dL (<200); Estimated Glomerular Filt Rate > 60; Glucose Random 103 mg/dL (60-115); HDL Cholesterol 49 mg/dL (>40); LDL Cholesterol Calculated 176 mg/dL (<100); Sodium 138 mmol/L (135-145); Total Protein 7.7 g/dL (6.5-8.0); Triglycerides 262 mg/dL (<150)
[2024-06-02 08:31] LABS: TSH reflex Free T4 0.81 uIU/mL (0.32-4.0)
[2024-06-02 08:34] LABS: Insulin 24 uU/mL (2-29)
[2024-06-08 10:28] VITALS: BMI 37.4
--- NOTE | 2024-06-11 14:12 | HO.ANESPROP2 ---
Documented by User: Shari Corona NP 06/12/24 10:21 HPI - Anesthesia Eval Consult details Narrative: 43yo F for Gastrectomy Sleeve - EGD, possible diaphragmatic hernia, possible ventral hernia, possible open Von Willebrands requiring DDAVP and platelets preop per surgeon PMFSH Active Problems Active Problems: All Active Problems Vitamin B12 deficiency (Acute) Proteinuria (Acute) Asthma (Acute) Migraines (Acute) Insomnia (Acute) Anxiety (Acute) Depression (Acute) Hyperlipidemia (Acute) Hypertension (Acute) Morbid obesity (Acute) Past Medical History Medical History Pre-diabetes Von Willebrand's disease Asthma Migraines Insomnia Anxiety Hyperlipidemia Hypertension Morbid obesity Depression Persistent proteinuria Family History Family History Mother Diabetes Hypertension Paternal Uncle Leukemia Surgical History Surgical History H/O section History of appendectomy Hx of nasal septoplasty History of Problems with Anesthesia: No Social History Social History Are you a primary care rep to a significant other at home: No Do you presently have visiting nurse or other home services: No Alcohol intake: current Alcohol intake frequency: does not drink Alcohol type: other Patient Tobacco Use Status: Never used Tobacco Use of substances other than those prescribed or required for medical reasons: No Have you been hit, kicked, punched, or otherwise hurt by someone within the past year? If so, by whom?: No Spiritual Healthcare Practices: none Rastafari Healthcare Practices: Protestant Cultural Healthcare Practices: none Are you DNR?: No Advance Directives: No (states is primary contact) Advance Directives Information Provided: Yes Advance Directives on File: No Recently lost weight without trying: No Eating poorly because of decreased appetite: No Nutrition Risks: No Nutritional Risk Patient : No FDLMP: 06/03/24 : No Poor oral hygiene: No Meds Allergies Allergy/AdvReac Type Severity Reaction Status Date / Time codeine Allergy Intermediate Itching Verified 06/04/24 15:10 Penicillins Allergy Intermediate Swelling Verified 06/04/24 15:10 Home Medications ?Medication ?Instructions ?Recorded ?Confirmed ?Last Taken ?Type albuterol sulfate 90 mcg/actuation 2 puff inhalation Q4H 07/25/23 06/04/24 Unknown History aerosol inhaler (Ventolin HFA) amitriptyline 75 mg tablet 75 mg PO BEDTIME 07/25/23 06/16/24 06/15/24 History aripiprazole 15 mg tablet 15 mg PO QAM 07/25/23 06/04/24 06/15/24 History blood pressure test kit-large #1 ea 07/25/23 06/01/24 Unknown History hydroxyzine HCl 25 mg tablet 25 - 50 mg PO Q8H PRN anxiety 07/25/23 06/04/24 Unknown History omega-3 300 mg-dha 120 mg-epa 180 1 cap PO BID 07/25/23 06/04/24 06/15/24 History mg-fish oil 1,000 mg capsule fluoxetine 20 mg capsule 40 mg PO DAILY 06/16/24 06/16/24 Unknown History norethindrone 0.5 mg-ethinyl 1 tab PO DAILY 06/16/24 06/16/24 06/09/24 History estradiol 35 mcg tablet (Nortrel) ondansetron 4 mg disintegrating 4 mg PO Q12H PRN nausea and 06/16/24 06/16/24 Unknown History tablet vomiting pantoprazole 40 mg tablet,delayed 40 mg PO DAILY@0630 06/16/24 06/16/24 06/15/24 History release Exam Height,Weight and Vital Signs: Height 4 ft 10 in Weight 81.193 kg Pertinent Lab Results Pertinent Lab Results: Laboratory Tests 06/02/24 06:35 WBC 6.3 RBC 4.67 Hgb 13.1 Hct 39.1 MCV 83.7 MCH 28.1 MCHC 33.5 RDW 13.0 Plt Count 344 MPV 9.0 L Immature Gran % (Auto) 0.2 Neut % (Auto) 61.5 Lymph % (Auto) 28.1 [place] % (Auto) 5.6 Eos % (Auto) 4.0 Baso % (Auto) 0.6 Lymph # (Auto) 1.8 [place] # (Auto) 0.4 Eos # (Auto) 0.3 Baso # (Auto) 0.0 Abs Immat Gran (auto) 0.01 Absolute Neuts (auto) 3.9 Absolute Nucleated RBC 0.000 Nucleated RBC % (auto) 0.0 PT 10.9 INR 0.9 APTT 35.0 Sodium 138 Potassium 4.0 Chloride 106 Carbon Dioxide 24 Anion Gap 12 BUN 17 H Creatinine 0.82 Estim Creat Clear Calc TNP Estimated GFR > 60 Random Glucose 103 Estimat Average Glucose 120 Hemoglobin A1c % 5.8 Insulin Level 24 Calcium 8.7 D Total Bilirubin 0.3 AST 26 ALT 29 Alkaline Phosphatase 60 C-Reactive Protein 1.22 H Total Protein 7.7 Albumin 3.8 Triglycerides 262 H Cholesterol 277 H LDL Cholesterol, Calc 176 H HDL Cholesterol 49 TSH 0.81 Blood Type O Positive Antibody Screen NEGATIVE Narrative Narrative: EKG 01/2024 Vent. Rate : 098 BPM Atrial Rate : 098 BPM P-R Int : 150 ms QRS Dur : 080 ms QT Int : 360 ms P-R-T Axes : 058 -07 -06 degrees QTc Int : 459 ms Normal sinus rhythm Normal ECG No previous ECGs available Assessment and Plan Assessment Anesthesia Assessment: Chart Reviewed Final Anesthetic Review History of Problems with Anesthesia: No Documented by User: Leanna Freeman MD 06/16/24 11:04 HPI - Anesthesia Eval Consult details Narrative: 43yo F for EGD, Laparoscopic Sleeve Gastrectomy, possible diaphragmatic hernia repair, possible ventral hernia repair, possible open Von Willebrands requiring DDAVP and platelets preop per surgeon Addendum 06/16/24: Patient has received 20mcg of DDAVP as ordered by Dr Leonard [facility] Active Problems Active Problems: All Active Problems Vitamin B12 deficiency (Acute) Proteinuria (Acute) Asthma (Acute) Migraines (Acute) Insomnia (Acute) Anxiety (Acute) Depression (Acute) Hyperlipidemia (Acute) Hypertension (Acute) Morbid obesity (Acute) 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 Has had DDAVP in the past. vWF concentrate tried in the past for bleeding eye injury when DDAVP did not work but got rash and so returned to DDAVP therapy. Patient may also have been given TXA in the past. Said she was given po meds to take for 3days pre-op and when I asked if she had heard of TXA, she confirmed that these were the pills. No bleeding issues with surgeries Denies TYE Past Medical History Medical History Pre-diabetes Von Willebrand's disease Asthma Migraines Insomnia Anxiety Hyperlipidemia Hypertension Morbid obesity Depression Persistent proteinuria Family History Family History Mother Diabetes Hypertension Paternal Uncle Leukemia Family history of problems with anesthesia: No Surgical History Surgical History H/O section History of appendectomy Hx of nasal septoplasty History of Problems with Anesthesia: No Social History Social History Are you a primary care rep to a significant other at home: No Do you presently have visiting nurse or other home services: No Alcohol intake: current Alcohol intake frequency: does not drink Alcohol type: other Patient Tobacco Use Status: Never used Tobacco Use of substances other than those prescribed or required for medical reasons: No Have you been hit, kicked, punched, or otherwise hurt by someone within the past year? If so, by whom?: No Spiritual Healthcare Practices: none Rastafari Healthcare Practices: Protestant Cultural Healthcare Practices: none Are you DNR?: No Advance Directives: No (states is primary contact) Advance Directives Information Provided: Yes Advance Directives on File: No Recently lost weight without trying: No Eating poorly because of decreased appetite: No Nutrition Risks: No Nutritional Risk Patient : No FDLMP: 06/03/24 : No Poor oral hygiene: No Meds Allergies Allergy/AdvReac Type Severity Reaction Status Date / Time codeine Allergy Intermediate Itching Verified 06/04/24 15:10 Penicillins Allergy Intermediate Swelling Verified 06/04/24 15:10 Home Medications ?Medication ?Instructions ?Recorded ?Confirmed ?Last Taken ?Type albuterol sulfate 90 mcg/actuation 2 puff inhalation Q4H 07/25/23 06/04/24 Unknown History aerosol inhaler (Ventolin HFA) amitriptyline 75 mg tablet 75 mg PO BEDTIME 07/25/23 06/16/24 06/15/24 History aripiprazole 15 mg tablet 15 mg PO QAM 07/25/23 06/04/24 06/15/24 History blood pressure test kit-large #1 ea 07/25/23 06/01/24 Unknown History hydroxyzine HCl 25 mg tablet 25 - 50 mg PO Q8H PRN anxiety 07/25/23 06/04/24 Unknown History omega-3 300 mg-dha 120 mg-epa 180 1 cap PO BID 07/25/23 06/04/24 06/15/24 History mg-fish oil 1,000 mg capsule fluoxetine 20 mg capsule 40 mg PO DAILY 06/16/24 06/16/24 Unknown History norethindrone 0.5 mg-ethinyl 1 tab PO DAILY 06/16/24 06/16/24 06/09/24 History estradiol 35 mcg tablet (Nortrel) ondansetron 4 mg disintegrating 4 mg PO Q12H PRN nausea and 06/16/24 06/16/24 Unknown History tablet vomiting pantoprazole 40 mg tablet,delayed 40 mg PO DAILY@0630 06/16/24 06/16/24 06/15/24 History release Exam Height,Weight and Vital Signs: Height 4 ft 10 in Weight 81.193 kg Vital Signs Temp Pulse Resp BP Pulse Ox O2 Del Method 06/16/24 07:42 97.4 F 92 16 113/79 95 Room Air Pertinent Lab Results Pertinent Lab Results: Laboratory Tests 06/02/24 06:35 WBC 6.3 RBC 4.67 Hgb 13.1 Hct 39.1 MCV 83.7 MCH 28.1 MCHC 33.5 RDW 13.0 Plt Count 344 MPV 9.0 L Immature Gran % (Auto) 0.2 Neut % (Auto) 61.5 Lymph % (Auto) 28.1 [place] % (Auto) 5.6 Eos % (Auto) 4.0 Baso % (Auto) 0.6 Lymph # (Auto) 1.8 [place] # (Auto) 0.4 Eos # (Auto) 0.3 Baso # (Auto) 0.0 Abs Immat Gran (auto) 0.01 Absolute Neuts (auto) 3.9 Absolute Nucleated RBC 0.000 Nucleated RBC % (auto) 0.0 PT 10.9 INR 0.9 APTT 35.0 Sodium 138 Potassium 4.0 Chloride 106 Carbon Dioxide 24 Anion Gap 12 BUN 17 H Creatinine 0.82 Estim Creat Clear Calc TNP Estimated GFR > 60 Random Glucose 103 Estimat Average Glucose 120 Hemoglobin A1c % 5.8 Insulin Level 24 Calcium 8.7 D Total Bilirubin 0.3 AST 26 ALT 29 Alkaline Phosphatase 60 C-Reactive Protein 1.22 H Total Protein 7.7 Albumin 3.8 Triglycerides 262 H Cholesterol 277 H LDL Cholesterol, Calc 176 H HDL Cholesterol 49 TSH 0.81 Blood Type O Positive Antibody Screen NEGATIVE Laboratory Results - last 24 hr 06/16/24 07:13 Urine Test NEGATIVE Airway Mallampati Class: II TM Dist: >3cm Neck ROM: Full Loose/Missing/Broken Teeth: Yes (Missing molars, tooth top back left and front left(gap closed with braces). Denies loose or broken teeth) Heart: RRR Lungs: CTAB Assessment and Plan Assessment Anesthesia Assessment: Anesthesia Plan Discussed and Chart Reviewed Final Anesthetic Review Family History of Problems with Anesthesia: No History of Problems with Anesthesia: No NPO: Yes ASA Class: III Final Preanesthetic Review: No Changes in Pt Med Stat, Meds/Allgs Chart Reviewed, Consent Obtained/Reviewed and Anes Risks/Benef Reviewed Patient Risk: Intermediate Procedure Risk: Intermediate Assessment/Block/Sedation in SS: Assess/Block/Sedation-SS Anesthetic Plan Anesthetic Plan: GA Disposition: Standard PACU and Inp. Admit - Standard Bed
[2024-06-16] VITALS (23 sets, daily range): BP systolic 113–149; BP diastolic 60–96; PULSE 84–99; RESP 12–19; TEMP 36.1–37.4; O2SAT 95–100; BMI 36.0; BMI 39.0
--- OUTSIDE RECORDS SUMMARY | 2024-06-16 07:16 | XMS_ITS | Encounter Summary ---
Author Organization [employer] [facility] Address [address] [place] [address] Care Team Providers Care Log Brander Name Role Phone Rochelle Phan MD Primary Care Provider [phone] Gilberto Zayas Unavailable Unavailable Encounter Details Date [...] on filedocumented in this encounter Care Teams Log Brander Relationship Specialty Start Date End Date Rochelle Phan MD [address] [place] [address] PCP - General Family Medicine 10/27/12 Gilberto Zayas FNP [address] [place] [address] Nurse Practitioner Family Medicine 03/20/23 documented as of this encounter
--- OUTSIDE RECORDS SUMMARY | 2024-06-16 07:17 | XMS_ITS | Clinical Summary ---
Author Organization [facility] Address [address] [place] [address] Phone Care Team Providers Care Director Of Science Name Role Phone Physician, No Pcp Primary Care Provider Unavaila ble Allergies Active Allergy Reactions Criticality Noted Date Comments Codeine Itching 05/24/2024 Penicillin G Itching 05/24/2024 Medications cefpodoxime (VANTIN) 200 mg tablet Take 1 tablet (200 mg total) by mouth 2 (two) times a day for 10 days. 20 each 05/24/2024 5 diclofenac (VOLTAREN) 25 mg EC tablet Take 1 tablet (25 mg total) by mouth 2 (two) times a day for 7 days. Do not crush, chew, or split. 14 each 05/24/2024 5 Encounters Date Type Department Care Team Description 05/24/2024 11:21 AM EST - 05/24/2024 4:03 PM EST Emergency [facility] Emergency [address] [place] [address] Ovarian mass (Primary Dx); Acute [...] drink = 0.6 oz pur e alcohol) Comments Unknown Sex and Gender Information Value Date Recorded Sex Assigned at Not on file Legal Sex Female 4:57 AM EST Gender Identity Not on file Sexual Orientation Not on file Obstetrics History Last Filed [...] 05/24/2024 8:47 AM EST Plan of Treatment Health Maintenance Due Date Last Done Comments Breast Cancer Screening 1981 Hepatitis B Vaccines (1 of 3 - 19+ 3-dose series) 2000 Pneumococcal Vaccine: Pediatrics (0 to 5 Years) and At-Risk Patients (6 to 64 Years) (1 of 2 - PCV) 2000 Cervical Cancer Screening: Pap Smear 2002 [...] patient's age to complete this topic Meningococcal B Vacine Aged Out No lo nger eligible based on patient's age to complete [...] management. 2. 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 Telerad PA ([id number]) -------- FINAL REPORT -------- Dictated By: Mechelle Bosch Dictated Date: 05/24/2024 13:53 ET Assigned Physician: Mechelle Bosch Reviewed and Electronically Signed By: Mechelle Bosch Signed Date: 05/24/2024 14:04 ET Workstation ID: [id number] Transcribed By: Self Edit Transcribed Date: 05/24/2024 13:53 ET Narrative 05/24/2024 2:04 PM EST History: Right-sided abdominal pain radiating to the back. Vomiting. Prior appendectomy. Comparison: 06/18/18 Technique: Helical volumetric imaging of the abdomen and pelvis was performed following oral contrast and during the uneventful intravenous administration of 90 cc Isovue-370. DLP: 1194.40 mGy/cm [place] VCT Iterative reconstruction technique Findings: The liver [...] of 90 cc Isovue-370. DLP: 1194.40 mGy/cm [place] VCT Iterative reconstruction technique Findings: The liver [...] for a dermoid tumor. This is new [id number]. A 2.3 x 2.2 x 1.8 cm [...] management. 2. 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 Telerad ETIENNE ([id number]) -------- FINAL REPORT -------- Dictated By: Mechelle Bosch Dictated Date: 05/24/2024 13:53 ET Assigned Physician: Mechelle Bosch Reviewed and Electronically Signed By: Mechelle Bosch Signed Date: 05/24/2024 14:04 ET Workstation ID: [id number] Transcribed By: Self Edit Transcribed Date: 05/24/2024 13:53 ET Ira CLIFTON IMG CT PROCEDURES Final Result * XR Chest 2 Views (05/24/2024 12:43 PM EST) Anatomical Region Laterality Modality Body Radiographic Jing ging 05/24/2024 12:4 4 PM EST Impressions 05/24/2024 12:45 PM EST Impression: No active pulmonary process identified. Telerad PA ([id number]) -------- FINAL REPORT -------- Dictated By: Mechelle Bosch Dictated Date: 05/24/2024 12:44 ET Assigned Physician: Mechelle Bosch Reviewed and Electronically Signed By: Mechelle Bosch Signed Date: 05/24/2024 12:45 ET Workstation ID: [id number] Transcribed By: Self Edit Transcribed Date: 05/24/2024 [...] No active pulmonary process identified. Telerad PA ([id number]) -------- FINAL REPORT -------- Dictated By: Mechelle Bosch Dictated Date: 05/24/2024 12:44 ET Assigned Physician: Mechelle Bosch Reviewed and Electronically Signed By: Mechelle Bosch Signed Date: 05/24/2024 12:45 ET Workstation ID: [id number] Transcribed By: Self Edit Transcribed Date: 05/24/2024 12:44 ET [facility] Cedric Jerrod DO IMG XR PROCEDURES Final R esult * Respiratory virus panel molecular study (05/24/2024 12:14 PM EST) Adenovirus Detection by PCR Not Detected Not Detected LAB MICROBIOLOGY METHOD 05/24/2024 1:44 PM [facility] Influenza A PCR Not Detected Not Detected LAB MICROBIOLOGY METHOD 05/24/2024 1:44 PM [facility] Influenza B PCR Not Detected Not Detected LAB MICROBIOLOGY METHOD 05/24/2024 1:44 PM [facility] Coronavirus 229E Not Detected Not Detected LAB MICROBIOLOGY METHOD 05/24/2024 1:44 PM [facility] Coronavirus HKU1 Not Detected Not Detected LAB MICROBIOLOGY METHOD 05/24/2024 1:44 PM [facility] Coronavirus OC43 Not Detected Not Detected LAB MICROBIOLOGY METHOD 05/24/2024 1:44 PM [facility] Coronavirus NL63 Not Detected Not Detected LAB MICROBIOLOGY METHOD 05/24/2024 1:44 PM [facility] Parainfluenza Virus 1 Not Detected Not Detected LAB MICROBIOLOGY METHOD 05/24/2024 1:44 PM [facility] Parainfluenza Virus 2 Not Detected Not Detected LAB MICROBIOLOGY METHOD 05/24/2024 1:44 PM [facility] Parainfluenza Virus 3 Not Detected Not Detected LAB MICROBIOLOGY METHOD 05/24/2024 1:44 PM [facility] Parainfluenza Virus 4 Not Detected Not Detected LAB MICROBIOLOGY METHOD 05/24/2024 1:44 PM [facility] RSV PCR Not Detected Not Detected LAB MICROBIOLOGY METHOD 05/24/2024 1:44 PM [facility] Human Metapneumovirus A and B Not Detected Not Detected LAB MICROBIOLOGY METHOD 05/24/2024 1:44 PM [facility] Rhinovirus/Entero virus Not Detected Not Detected LAB MICROBIOLOGY METHOD 05/24/2024 1:44 PM [facility] Bordetella pertussis Not Detected Not Detected LAB MICROBIOLOGY METHOD 05/24/2024 1:44 PM [facility] Bordetella parapertussis Not Detected Not Detected LAB MICROBIOLOGY METHOD 05/24/2024 1:44 PM [facility] Mycoplasma pneumo by PCR Not Detected Not Detected LAB MICROBIOLOGY METHOD 05/24/2024 1:44 PM [facility] Chlamydia pneumoniae Not Detected Not Detected LAB MICROBIOLOGY METHOD 05/24/2024 1:44 PM [facility] SARS COV-2 Not Detected Not Detected LAB MICROBIOLOGY METHOD 05/24/2024 1:44 PM [facility] Swab Both anterior nares / Unknown Non-blood Collection / Unknown 05/24/2024 12:14 PM EST 05/24/2024 12:43 PM EST [facility] - 05/24/2024 1:44 PM EST Testing was performed using the BioBiomode - Biomolecular Determinatione Respiratory Pathogen PCR Assay. All results must [...] of detection. Ira CLIFTON LAB MICROBIOLOGY - [facility] AL ORDERABLES Final Result [facility] [address] [place] [address], [place] [phone] * (ABNORMAL) Urinalysis with reflex microscopic and culture (05/24/2024 12:12 PM EST) Specific [place] Urine 1.025 1.003 - 1.030 LAB URINALYSIS - AUTOMATED METHOD 05/24/2024 1:08 PM [facility] pH, Urine 6.0 5.0 - 8.0 pH LAB URINALYSIS - AUTOMATED METHOD 05/24/2024 1:08 PM [facility] Leukocytes, Urine Negative Negative LAB URINALYSIS - AUTOMATED METHOD 05/24/2024 1:08 PM [facility] Nitrite, Urine Negative Negative LAB URINALYSIS - AUTOMATED METHOD 05/24/2024 1:08 PM [facility] Protein, Urine 30(A) <=Trace mg/dL LAB URINALYSIS - AUTOMATED METHOD 05/24/2024 1:08 PM [facility] Glucose, Urine Negative Negative mg/dL LAB URINALYSIS - AUTOMATED METHOD 05/24/2024 1:08 PM [facility] Ketones, Urine Trace(A) Negative mg/dL LAB URINALYSIS - AUTOMATED METHOD 05/24/2024 1:08 PM [facility] Urobilinogen , Urine 0.2 0.2 - 1.0 mg/dL LAB URINALYSIS - AUTOMATED METHOD 05/24/2024 1:08 PM [facility] Bilirubin, Urine Negative Negative LAB URINALYSIS - AUTOMATED METHOD 05/24/2024 1:08 PM [facility] Blood, Urine Small(A) Negative LAB URINALYSIS - AUTOMATED METHOD 05/24/2024 1:08 PM [facility] RBC, Urine 22.1(H) 0 - 4 /HPF LAB URINALYSIS - AUTOMATED METHOD 05/24/2024 1:08 PM [facility] WBC, Urine 8.0(H) 0 - 4 /HPF LAB URINALYSIS - AUTOMATED METHOD 05/24/2024 1:08 PM [facility] Squamous Epithelial, Urine 80(H) 0 - 60 /LPF LAB URINALYSIS - AUTOMATED METHOD 05/24/2024 1:08 PM [facility] Bacteria, Urine Moderate(A) Negative /HPF LAB URINALYSIS - AUTOMATED METHOD 05/24/2024 1:08 PM [facility] Hyaline Casts, Urine 3.0 0 - 3 /LPF LAB URINALYSIS - AUTOMATED METHOD 05/24/2024 1:08 PM [facility] Urine Urine specimen obtained by clean catch procedure / Unknown Non-blood Collection / Unknown 05/24/2024 12:12 PM EST 05/24/2024 12:44 PM EST us Ira CLIFTON LAB URINE ORDERABLES Fin al Result [facility] [address] [place] [address], * Moss urine culture tube (05/24/2024 12:12 PM EST) Extra Tube Hold for add-ons. 05/24/2024 2:01 PM [facility] Comment:Auto resulted. Urine Urine specimen obtained by clean catch procedure / Unknown Non-blood Collection / Unknown 05/24/2024 12:12 PM EST 05/24/2024 12:44 PM EST Ira CLIFTON LAB URINE ORDERABLES Fin al Result Performing Organization Address [facility]/ZIP Co de Phone Number [facility] [address] [place] [address], * Troponin I high sensitivity (05/24/2024 12:12 PM EST) Only the most recent of2 resultswithin the time period is included. [facility] High Sensitivity Troponin I <3 <=54 ng/L LAB CHEMISTRY METHOD 05/24/2024 1:[address] [facility] Blood Venous blood specimen / Unknown Venipuncture / Unknown 05/24/2024 12:12 PM EST 05/24/2024 12:[address] [facility] - 05/24/2024 1:21 PM EST High levels of biotin in samples may falsely decrease hsTroponin values. ??Use caution when interpreting hsTroponin results in patients taking biotin who exhibit renal impairment (eGFR <60) or in patients taking more than 20 mg/day of biotin. Debbie Elder DO LAB BLOOD ORDERABLES Meenakshi l Result Performing Organization Address [facility]/ZIP Co de Phone Number [facility] [address] [place] [address], * Culture urine (05/24/2024 12:12 PM EST) Urine Urine specimen obtained by clean catch procedure / Unknown Non-blood Collection / Unknown 05/24/2024 12:12 PM EST 05/24/2024 1:[address] [facility] - 05/26/2024 11:10 AM EST Beta Strep Group B noted. The presence of a low colony count of Beta Strep Group B may have clinical significance in women. Ira CLIFTON LAB MICROBIOLOGY - GENER AL ORDERABLES Final Result [facility] [address] [place] [address], * (ABNORMAL) CBC auto differential (05/24/2024 10:36 AM EST) WBC 9.6 4.8 - 10.8 K/mcL LAB HEMETOLOGY METHOD 05/24/2024 10:58 AM [facility] RBC 4.60 3.80 - 4.80 M/mcL LAB HEMETOLOGY METHOD 05/24/2024 10:58 AM [facility] Hemoglobin 12.9 11.5 - 16.0 g/dL LAB HEMETOLOGY METHOD 05/24/2024 10:58 AM [facility] Hematocrit 39.3 35.0 - 47.0 % LAB HEMETOLOGY METHOD 05/24/2024 10:58 AM [facility] MCV 85.1 79.0 - 98.0 FL LAB HEMETOLOGY METHOD 05/24/2024 10:58 AM [facility] MCH 27.9 27.0 - 32.0 pcg LAB HEMETOLOGY METHOD 05/24/2024 10:58 AM [facility] MCHC 32.8 32.0 - 37.0 g/dL LAB HEMETOLOGY METHOD 05/24/2024 10:58 AM [facility] RDW 12.5 11.0 - 15.0 % LAB HEMETOLOGY METHOD 05/24/2024 10:58 AM [facility] Platelets 341 130 - 400 K/mcL LAB HEMETOLOGY METHOD 05/24/2024 10:58 AM [facility] MPV 9.4 7.0 - 11.0 FL LAB HEMETOLOGY METHOD 05/24/2024 10:58 AM [facility] NRBC 0.0 <1.0 % LAB HEMETOLOGY METHOD 05/24/2024 10:58 AM [facility] NRBC Absolute 0.00 <0.10 K/mcL LAB HEMETOLOGY METHOD 05/24/2024 10:58 AM [facility] Neutrophils Relative 86.6 % LAB HEMETOLOGY METHOD 05/24/2024 10:58 AM [facility] Lymphocytes Relative 9.7 % LAB HEMETOLOGY METHOD 05/24/2024 10:58 AM [facility] Monocytes Relative 2.4 % LAB HEMETOLOGY METHOD 05/24/2024 10:58 AM [facility] Eosinophils Relative 0.5 % LAB HEMETOLOGY METHOD 05/24/2024 10:58 AM [facility] Basophils Relative 0.5 % LAB HEMETOLOGY METHOD 05/24/2024 10:58 AM [facility] Immature Granulocytes Relative 0.3 % LAB HEMETOLOGY METHOD 05/24/2024 10:58 AM [facility] Neutrophils Absolute 8.34(H) 1.50 - 7.00 K/mcL LAB HEMETOLOGY METHOD 05/24/2024 10:58 AM [facility] Lymphocytes Absolute 0.93(L) 1.00 - 5.00 K/mcL LAB HEMETOLOGY METHOD 05/24/2024 10:58 AM [facility] Monocytes Absolute 0.23 0.20 - 1.00 K/mcL LAB HEMETOLOGY METHOD 05/24/2024 10:58 AM [facility] Eosinophils Absolute 0.05 0.00 - 0.50 K/mcL LAB HEMETOLOGY METHOD 05/24/2024 10:58 AM [facility] Basophils Absolute 0.05 0.00 - 0.20 K/mcL LAB HEMETOLOGY METHOD 05/24/2024 10:58 AM [facility] Immature Granulocytes Absolute 0.03 0.00 - 0.03 K/mcL LAB HEMETOLOGY METHOD 05/24/2024 10:58 AM [facility] Blood Venous blood specimen / Unknown Venipuncture / Unknown 05/24/2024 10:36 AM EST 05/24/2024 10:52 AM EST [facility] Cedric [facility] LAB BLOOD ORDERABLES Meenakshi l Result Performing Organization Address [facility]/ZIP Co de Phone Number [facility] [address] [place] [address], [place] [phone] * Protime-INR (05/24/2024 10:36 AM EST) Protime 11.0 10.6 - 13.9 sec LAB COAGULATION METHOD 05/24/2024 11:01 AM [facility] INR 0.9 LAB COAGULATION METHOD 05/24/2024 11:01 AM [facility] Blood Venous blood specimen / Unknown Venipuncture / Unknown 05/24/2024 10:36 AM EST 05/24/2024 10:52 AM EST [facility] Juan Manuel Elder LAB BLOOD ORDERABLES Meenakshi l Result Performing Organization Address City/[facility]/ZIP Co de Phone Number [facility] [address] [place] [address], [place] [phone] * Type and screen (05/24/2024 10:36 AM EST) ABO Group O 05/24/2024 11:51 AM [facility] Rh Type Positive 05/24/2024 11:51 AM [facility] Antibody Screen Negative 05/24/2024 11:51 AM [facility] Blood Venous blood specimen / Unknown Venipuncture / Unknown 05/24/2024 10:36 AM EST 05/24/2024 10:52 AM EST Debbie Elder LAB BLOOD BANK TEST ORDER MARY KATE Final Result Performing Organization Address [facility]/ZIP Co de Phone Number [facility] [address] [place] [address], [place] [phone] * Magnesium (05/24/2024 10:36 AM EST) Pathologist [facility] Magnesium 2.1 1.9 - 2.6 mg/dL LAB CHEMISTRY METHOD 05/24/2024 11:[address] [facility] Comment:Hemolysis present Blood Venous blood specimen / Unknown Venipuncture / Unknown 05/24/2024 10:36 AM EST 05/24/2024 10:52 AM EST Debbie Elder LAB BLOOD ORDERABLES Meenakshi l Result Performing Organization Address [facility]/ZIP Co de Phone Number [facility] [address] [place] [address], [place] [phone] * (ABNORMAL) Comprehensive metabolic panel (05/24/2024 10:36 AM EST) Pathologist [facility] Sodium 137 133 - 145 mmol/L LAB CHEMISTRY METHOD 05/24/2024 11:[address] [facility] Potassium 4.5 3.5 - 5.5 mmol/L LAB CHEMISTRY METHOD 05/24/2024 11:41 AM [facility] Comment:Hemolysis present Chloride 106 96 - 110 mmol/L LAB CHEMISTRY METHOD 05/24/2024 11:[address] [facility] CO2 25 21 - 32 mmol/L LAB CHEMISTRY METHOD 05/24/2024 11:41 AM [facility] Anion Gap 6 3 - 11 LAB CHEMISTRY METHOD 05/24/2024 11:41 AM [facility] Glucose 119(H) 70 - 100 mg/dL LAB CHEMISTRY METHOD 05/24/2024 11:41 AM [facility] BUN 15 5 - 25 mg/dL LAB CHEMISTRY METHOD 05/24/2024 11:41 AM [facility] Creatinine 0.83 0.50 - 1.10 mg/dL LAB CHEMISTRY METHOD 05/24/2024 11:41 AM [facility] eGFR 90 >=60 mL/min/1. 73m2 LAB CHEMISTRY METHOD 05/24/2024 11:41 AM [facility] Comment:Calculation based on the??Chronic Kidney Disease Epidemiology Collaboration (CKD-EPI) equation refit??without adjustment for race. BUN/Creatinine Ratio 18.1 LAB CHEMISTRY METHOD 05/24/2024 11:41 AM [facility] Calcium 9.0 8.5 - 10.5 mg/dL LAB CHEMISTRY METHOD 05/24/2024 11:41 AM [facility] AST (SGOT) 29 10 - 42 unit/L LAB CHEMISTRY METHOD 05/24/2024 11:41 AM [facility] Comment:Hemolysis present ALT (SGPT) 51 10 - 60 unit/L LAB CHEMISTRY METHOD 05/24/2024 11:41 AM [facility] Alkaline Phosphatase 65 42 - 121 unit/L LAB CHEMISTRY METHOD 05/24/2024 11:41 AM [facility] Total Protein 7.6 6.0 - 8.0 g/dL LAB CHEMISTRY METHOD 05/24/2024 11:41 AM [facility] Albumin 3.4 3.2 - 5.0 g/dL LAB CHEMISTRY METHOD 05/24/2024 11:41 AM [facility] Total Bilirubin 0.3 0.0 - 1.4 mg/dL LAB CHEMISTRY METHOD 05/24/2024 11:41 AM [facility] Blood Venous blood specimen / Unknown Venipuncture / Unknown 05/24/2024 10:36 AM EST 05/24/2024 10:52 AM EST Debbie Elder DO LAB BLOOD ORDERABLES Meenakshi l Result Performing Organization Address City/[facility]/ZIP Co de Phone Number SEEMA CHING [place] ([facility]) [facility] [address] [place] [address], * ECG 12 lead (05/24/2024 9:53 AM EST) Ventricular Rate ECG 80 BPM GEMUSE Atrial Rate 80 BPM GEMUSE P-R Interval 148 ms GEMUSE QRS Duration 90 ms GEMUSE Q-T Interval 396 ms GEMUSE QTc 456 ms GEMUSE P Wave [place] 19 degrees GEMUSE R [place] -13 degrees GEMUSE T [place] -9 degrees GEMUSE ECG Interpretation Normal sinus rhythm When compared with ECG of 21-JAN-2012 23:59, Nonspecific T wave abnormality now evident in Anterior leads Confirmed by MATHEW GARRIDO ([id number]) on 05/25/2024 8:33:46 PM GEMUSE 05/24/2024 9:53 AM EST 05/25/2024 8:33 PM EST Debbie Elder DO ECG ORDERABLES Final Res ult Performing Organization Address [facility] Co de Phone Number GEMUSE * ECG-Annotated (05/24/2024) Provider Onbase MD ECG ORDERABLES Final Result from Last 3 Months Insurance [employer] Care Teams Director Of Science Relationship Specialty Start Date End Date Physician, No Pcp PCP - General 05/27/24
--- OUTSIDE RECORDS SUMMARY | 2024-06-16 07:17 | XMS_ITS | Clinical Summary ---
Author Organization [employer] Address [address] [facility] [address] [place] [address] Care Team Providers Care Statistical Programmer Name Role Phone Rochelle Phan MD Primary Care Provider [phone] Gilberto Zayas Unavailable Unavailable Allergies Active Allergy [...] 1-2 tabs every 8 hours as needed. [place] Lorazepam 0.5 mg for occasional panic attacks [...] the next year or so, and that [facility] should hopefully have new prescriber(s) available by [...] EST Narrative 04/17/2024 9:41 AM EST ? [facility] [place] ? [address] ?[place] [address] ? Mammography Report ? Signed ? Patient: Jair,Maria C ?MR#: [id number] ?? [id number] ? : 1980 ?Acct:[id number] ? Age/Sex: 43 / F ?ADM Date: 12/19/24 ? Loc: HO.MAMMO ? Attending Dr: Rochelle Phan MD ? Ordering Physician: Rochelle Phan MD ?Results: 2Be ?? nign Findings ? Date of Service: 04/16/24 ?Follow Up: 1 Year From Orig ?? inal Mammogram ? Procedure(s): MM tomosynthesis screening BI ?? Accession Number(s): [id number] ? cc: Rochelle Phan MD ? EXAMINATION: [...] DD/ 0900 ? TD/TT: 04/16/24 0925 ? Signal Tester: ? Procedure Note Donotnidainterpreter, Image - 04/17/2024 [place] [facility] [address] [place], [place] [address] Mammography Report Signed Patient: Rosalina Adam#: [id number] : 1980Acct:[id number] Age/Sex: 43 / FADM Date: 04/16/24 Loc: HO.MAMMO Attending Dr: Rochelle Phan MD Ordering Physician: Rochelle Phan MDResults: 2Be nign Findings Date of Service: 04/16/24Follow Up: 1 Year From Orig inal Mammogram Procedure(s): MM tomosynthesis screening BI Accession Number(s): [id number] cc: Rochelle Phan MD EXAMINATION: MM SCREENING [...] in OV> 04/17/24937 DD/ 9 TD/TT: 04/16/24924 Signal Tester: us Rochelle Phan MD IMG BI PROCEDURES Final Resul t * FL upper GI w air (04/01/2024 8:46 AM EST) Anatomical Region Laterality Modality Body Radiographic Jing ging 04/01/2024 8:46 AM EST Narrative 04/01/2024 3:32 PM EST ? [facility] ?[address] ?[place] [address] ? Fluoroscopy Report ? Signed ? Patient: Maria C Adam ?MR#: [id number] ?? [id number] ? : 1980 ?Acct:[id number] ? Age/Sex: 43 / F ?ADM Date: 04/01/24 ? Loc: HO.XRAY ? Attending Dr: Carlos Leonard MD ? Ordering Physician: Carlos Leonard MD ?? Date of Service: 04/01/24 ?? Procedure(s): FL upper GI w air ?? Accession Number(s): [id number] ? cc: Rochelle Phan MD; Carlos Leonard [...] ??04/01/2024 03:29 PM EST RP ?? [id number] ? Dictated By: ?Rene Matthews ? Signed By: ?<Electronically signed by Rene PA Matthews in OV> ? 04/01/24 1529 ?<Electronically signed by Dominick Sandy MD in OV> ? 04/01/24 1531 ? DD/ 0846 ? TD/TT: 04/01/24 09 ? Signal Tester: ? Procedure Note Becca Chavis - 04/01/[address] [address] Fluoroscopy Report Signed Patient: Rosalina Adam#: [id number] : 1980Acct:[id number] Age/Sex: 43 / FADM Date: 04/01/24 Loc: [facility] Attending Dr: Carlos Leonard MD Ordering Physician: Carlos Leonard MD Date of Service: 04/01/24 Procedure(s): FL upper GI w air Accession Number(s): [id number] cc: Rochelle Phan MD; Carlos Leonard MD [...] 04/01/24 1531 DD/ 0846 TD/TT: 04/01/24 0905 Signal Tester: [facility] External Provider IMG FLU OROSCOPY PROCEDURES Final Result * Hematoxylin and Eosin Stain (03/31/2024 10:22 AM EST) 03/31/2024 10:2 2 AM EST 03/31/2024 10:48 AM EST Narrative [facility] - 04/02/2024 11:31 AM EST ----- ------- Name: Maria C Adam ?Age/Sex: 43/F ? : 1980 Unit#: [id number] ?? Attend Dr: Carlos Leonard MD ?Re03/31/24 ?Status: DEP SDC ? Location: HO.SSS ?Disch: ? ----- ------- SPEC : [id number] ? RECD: 03/31/24 ? STATUS: ??SOUT ? REQ NUM: [id number] ? HUAN: 03/31/24-1021 ? SUBM DR: Carlos [...] NEXT PAGE ----- ------- Name: Maria C Adam ?Age/Sex: 43/F ? : 1980 Unit#: [id number] ?? Attend Dr: Carlos Leonard MD ?Re03/31/24 ?Status: DEP SDC ? Location: HO.SSS ?Disch: ? ----- ------- SPEC : [id number] ? RECD: 03/31/24 ? STATUS: ??SOUT ? REQ NUM: [id number] ? HUAN: 03/31/24-1021 ? SUBM DR: Carlos [...] Copies To: ?? Rochelle Phan MD ?? [facility] ?? [address] ?? [place] [address] ?? [phone] ?? Carlos Leonard MD ?? [facility] ?? [address] ?? [place] [address] ?? [phone] ----- ------- Signed (signature on file) Paulo Castillo MD 04/02/24 1131 ? ----- ------- ? END OF REPORT ? Generic External Data Provider LAB BLOOD ORDERAB LES Final Result Performing Organization Address [facility] de Phone Number [facility] [address] [place] [address] [phone] * HCG, Qualitative, Urine (03/31/2024 9:00 AM EST) Urine NEGATIVE NEGATIVE [facility] Comment:This test was develo ped to detect early . Falsenegative results may occur after the 5th - 7th week ofpregnancy when using this test method. If clinicallyindicated, consider a serum hCG. 03/31/2024 9:00 AM EST 03/31/2024 9:23 AM EST [employer] External Data Provider LAB URINE ORDERAB LES Final Result Performing Organization Address [facility] de Phone Number [facility] [address] [place] [phone] * Hemoglobin A1c (01/30/2024 9:03 AM EDT) Hemoglobin A1c 5.8 <6.0 % [facility] Comment:Hemoglobin A1C Refer ence Range Adults: 4.8 - 6.0 % Non diabetic: < 6.0 % Goal: < 7.0 %Additional Action Suggested: > 8.0 %Note: Hemoglobin A1c results are invalid for patients with abnormal amounts of HbF. Blood transfusions may impact the HbA1c concentration in the patient sample. Estimated Average Glucose 120 mg/dL [facility] Comment:eAG = Estimated ave rage glucose which is %A1C expressed asaverage glucose, using the formula of the E4Y-OirttasKmhfjhp Glucose study (ADAG), Diabetes Care, Vol.31,#8,2007 01/30/2024 9:03 AM EDT 01/30/2024 9:03 AM EDT Generic External Data Provider LAB BLOOD ORDERAB LES Final Result Performing Organization Address [facility] Co de Phone Number [facility] [address] [place] [address] [phone] * (ABNORMAL) Lipid Panel, Standard (01/30/2024 9:03 AM EDT) Triglycerides 287(H) <150 mg/dL [facility] Comment:Desirable Triglyceri de: less than 150 mg/dLBorderline High Triglyceride 150-199 mg/dLHigh Triglyceride: 200-499 mg/dLVery High Triglyceride: greater than or equal to 5OO mg/dL Cholesterol 257(H) <200 mg/dL [facility] Comment:Desirable Cholestero l: less than 200 mg/dLBorderline High Cholesterol: 200-239 mg/dLHigh Cholesterol: greater than 239 mg/dL LDL Cholesterol Calculated 147(H) <100 mg/dL [facility] Comment:Desirable LDL: less than 100 mg/dLNear Optimal/Above Optimal LDL: 110- 129 mg/dLBorderline High LDL: 130-159 mg/dLHigh LDL: 160-189 mg/dLVery High LDL: greater than or equal to 190 mg/dL HDL Cholesterol 53 >40 mg/dL [facility] Comment:Desirable HDL: great er than 40 mg/dL Note: This HDL assay may give artificially low results in patients with liver disease. 01/30/2024 9:03 AM EDT 01/30/2024 9:03 AM EDT us Generic External Data Provider LAB BLOOD ORDERAB LES Final Result Performing Organization Address [facility]/ZIP Co de Phone Number [facility] [address] [place] [address] [phone] * HIV 1/2 ANTIGEN/ANTIBODY,FOURTH GENERATION W/RFL (01/05/2022 9:49 AM EDT) HIV-1/2 ANTIGEN AND ANTIBODIES, 4TH GENERATION W/ REFLEX NON-REACT DEEPTI NON-REACT DEEPTI [facility] Comment: HIV-1 antigen and HIV-1/HIV-2 [...] ? For additional information please refer to http://education.[employer]/faq/VXX992 (This link is being provided for informational/ educational purposes only.) ? The performance of this assay has not been clinically validated in patients less than 2 years old. ?? 01/05/2022 9:49 AM EDT Heidi Moreau MD LAB BLOOD ORDERABLES Final Re sult [facility] [address] * THINPREP TIS PAP AND HPV mRNA E6/E7 WITH REFLEX TO HPV 16,18/45 (04/18/2021 10:23 AM EST) Pathologist [facility] Clinical Information: None given [facility] COMMENT SEE COMMENT [facility] [...] has been evaluated with computer assisted technology. [facility] Engraver Ornamental Design: SEE COMMENT [facility] Comment: HJP, CT(ASCP) CT screening location: [address] ??[id number] HPV nRNA E6/E7 Not Detected Not Detected [facility] Comment: Methodology: Sales Representative Business Courses-Mediated Amplification This assay detects E6/E7 viral messenger RNA (mRNA) from 14 high-risk HPV types (16,18,31,33,35,39,45,51,52,56,58,59,66,68). ? The analytical performance characteristics of this assay have been determined by [employer]. The modifications have not been cleared or approved by the FDA. This assay has been validated pursuant to the CLIA regulations and is used for clinical purposes. ?? For additional information, please refer to http://education.[employer]/faq/EYN700k4 (This link if provided for information/ educational purposes only.) Interpretation/Re sult: Negative for intraepithelial lesion or malignancy. [facility] LMP: 03/2021 [facility] Prev. BX: NONE GIVEN [facility] Prev. PAP: 01/23/18 [facility] SOURCE: Cervix [facility] Statement Of Adequacy: SEE COMMENT [facility] Comment: Satisfactory for evaluation. Endocervical/transformation zone component absent. 04/18/2021 10:2 3 AM EST us Rochelle Phan MD LAB PATHOLOGY ORDERABLES Meenakshi barone Result [facility] [address] from Last 3 Months or Most Recently Relevant to Health Maintenance Care Teams Statistical Programmer Relationship Specialty Start Date End Date Rochelle Phan MD [address] [facility] [place] [address] PCP - General Family Medicine 10/27/12 Gilberto Zayas FNP [address] [facility] [place] [address] Nurse Practitioner Family Medicine 03/20/23
--- OUTSIDE RECORDS SUMMARY | 2024-06-16 07:17 | XMS_ITS | Encounter Summary ---
Author Organization [facility] Address [address] [place] [address] Care Team Providers Care Supervisor Operations Name Role Phone Physician, Pcp Unknown Primary Care Provider Nieves vailable Reason for Referral * Consultation (Routine) - Authorized Specialty Diagnoses / Procedures Referred By Gordon t Referred To Contact Obstetrics and Gynecology Diagnoses Ovarian mass Ira Sloan PA [address] [place] [address] Phone: tel: fax: Obstetrics & Gynecology - [address] [address] Phone: tel: fax: Referral ID Status Reason Start Date Expiration Date Visits Requested Visits Authorized [id number] Authorized Specialty Services Required 05/24/2024 05/24/2025 1 1 Reason for Visit * Reason Comments Abdominal Pain R abd pain that radi ates to her back, +vomiting brown emesis. Started yest Encounter Details Date Type Department Care Team (Late st Contact Info) Description 05/24/2024 11:21 AM EST - 05/24/2024 4:03 PM EST Emergency [facility] Emergency [address] [place] [address] Ovarian mass (Primary Dx); Acute [...] on file Sexual Orientation Not on file documented as of this [...] EST documented in this encounter Functional Status * Are you deaf or do you have serious difficulty hearing? Answer Date of Assessment Author No 05/24/2024 11:36 AM Pedro Luis Galicia RN * Are you blind or do you have serious difficulty seeing, even when wearing glasses? Answer Date of Assessment Author No 05/24/2024 11:36 AM Pedro Luis Galicia RN * Do you have serious difficulty walking or climbing stairs? Answer Date of Assessment Author No 05/24/2024 11:36 AM Pedro Luis Galicia RN * Do you have serious difficulty dressing or bathing? Answer Date of Assessment Author No 05/24/2024 11:36 AM Pedro Luis Galicia RN * Because of a physical, mental, or emotional condition, do you have serious difficulty doing errandsalone such as visiting the doctor? Answer Date of Assessment Author No 05/24/2024 11:36 AM Pedro Luis Galicia RN documented as of this encounter Mental Status * Because of a physical, mental, or emotional condition, do you have serious difficulty concentrating, remembering, or making decisions? (5 years old or older) Answer Entry Date Author No 05/24/2024 11:36 AM Pedro Luis Galicia RN documented in this encounter Discharge Instructions * Discharge Instructions* [...] this encounter Medications at Time of Discharge cefpodoxime (VANTIN) 200 mg tablet Take 1 [...] of this encounter Ordered Prescriptions Prescription Sig Dispense Quantity Refills Last Filled Start Date End Date diclofenac (VOLTAREN) 25 mg EC tablet Take 1 tablet (25 mg total) by mouth 2 (two) times a day for 7 days. Do not crush, chew, or split. 14 each 05/24/2024 05/31/2024 cefpodoxime (VANTIN) 200 mg tablet Take 1 tablet (200 mg total) by mouth 2 (two) times a day for 10 days. 20 each 05/24/2024 06/03/2024 documented in this encounter Discharge Disposition Disposition [...] REFLEX MICROSCOPIC AND CULTURE - Abnormal Specific [place] Urine 1.025 pH, Urine 6.0 Leukocytes, Urine [...] Detected Narrative: Testing was performed using the [employer]ogame Respiratory Pathogen PCR Assay. All results must [...] Procedure Abnormality Status --------- ------ CBC auto differential[[id number]] Abnormal Final result Please view results for these tests on the individual orders. TYPE AND SCREEN ABO Group O Rh Type Positive Antibody Screen Negative URINALYSIS WITH REFLEX MICROSCOPIC AND CULTURE Narrative: The following orders were created for panel order Urinalysis with reflex microscopic and culture. Procedure Abnormality Status --------- ------ Urinalysis with reflex ...[[id number]] Abnormal Final result Moss urine culture tube[[id number]] Final result Please view results for these [...] for further management. 2. 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 [employer] ETIENNE ([id number]) -------- FINAL REPORT -------- Dictated By: Mechelle Bosch Dictated Date: 05/24/2024 13:53 ET Assigned Physician: Mechelle Bosch Reviewed and Electronically Signed By: Mechelle Bosch Signed Date: 05/24/2024 14:04 ET Workstation ID: [id number] Transcribed By: Self Edit Transcribed Date: 05/24/2024 13:53 ET XR Chest 2 Views Final Result Impression: No active pulmonary process identified. [employer] ETIENNE ([id number]) -------- FINAL REPORT -------- Dictated By: Mechelle Bosch Dictated Date: 05/24/2024 12:44 ET Assigned Physician: Mechelle Bosch Reviewed and Electronically Signed By: Mechelle Bosch Signed Date: 05/24/2024 12:45 ET Workstation ID: [id number] Transcribed By: Self Edit Transcribed Date: 05/24/2024 [...] suspension 450 mL (450 mL oral Given 05/24/24 133) cefTRIAXone (ROCEPHIN) 1 g in sterile water 10 mL IV syringe (1 g intravenous Given 05/24/24 1538) ketorolac (TORADOL) injection 15 mg (15 mg intravenous Given 05/24/24 1538) ED Course as of 05/27/24 0146 Sun [...] and needs to follow-up. Will refer to SECURITY ENGINEER. She isaware to call if she does [...] Attestation ETIENNE Sherman 05/24/24 1147 ETIENNE Sherman 05/27/24 0146 Cosigned by Debbie Elder DO at 05/27/2024 8:04 AM EST documented in this encounter Plan of Treatment Pending Results Name Type Priority Associated Diagnoses [...] management. 2. 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 [employer] ETIENNE ([id number]) -------- FINAL REPORT -------- Dictated By: Mecehlle Bosch Dictated Date: 05/24/2024 13:53 ET Assigned Physician: Mechelle Bosch Reviewed and Electronically Signed By: Mechelle Bosch Signed Date: 05/24/2024 14:04 ET Workstation ID: [id number] Transcribed By: Self Edit Transcribed Date: 05/24/2024 13:53 ET Narrative 05/24/2024 2:04 PM EST History: Right-sided abdominal pain radiating to the back. Vomiting. Prior appendectomy. Comparison: 06/18/18 Technique: Helical volumetric imaging of the abdomen and pelvis was performed following oral contrast and during the uneventful intravenous administration of 90 cc Isovue-370. DLP: 1194.40 mGy/cm GE [employer] VCT Iterative reconstruction technique Findings: The liver [...] of 90 cc Isovue-370. DLP: 1194.40 mGy/cm [employer] VCT Iterative reconstruction technique Findings: The liver [...] for a dermoid tumor. This is new [id number]. A 2.3 x 2.2 x 1.8 cm [...] for further management. 2. 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 [employer] CLIFTON ([id number]) -------- FINAL REPORT -------- Dictated By: Mechelle Bosch Dictated Date: 05/24/2024 13:53 ET Assigned Physician: Mechelle Bosch Reviewed and Electronically Signed By: Mechelle Bosch Signed Date: 05/24/2024 14:04 ET Workstation ID: [id number] Transcribed By: Self Edit Transcribed Date: 05/24/2024 13:53 ET Ira CLIFTON IMG CT PROCEDURES Final Result * XR Chest 2 Views (05/24/2024 12:43 PM EST) Anatomical Region Laterality Modality Body Radiographic Jing ging 05/24/2024 12:4 4 PM EST Impressions 05/24/2024 12:45 PM EST Impression: No active pulmonary process identified. [employer] PA ([id number]) -------- FINAL REPORT -------- Dictated By: Mechelle Bosch Dictated Date: 05/24/2024 12:44 ET Assigned Physician: Mechelle Bosch Reviewed and Electronically Signed By: Mechelle Bosch Signed Date: 05/24/2024 12:45 ET Workstation ID: [id number] Transcribed By: Self Edit Transcribed Date: 05/24/2024 [...] No active pulmonary process identified. [employer] PA ([id number]) -------- FINAL REPORT -------- Dictated By: Mechelle Bosch Dictated Date: 05/24/2024 12:44 ET Assigned Physician: Mechelle Bosch Reviewed and Electronically Signed By: Mechelle Bosch Signed Date: 05/24/2024 12:45 ET Workstation ID: [id number] Transcribed By: Self Edit Transcribed Date: 05/24/2024 12:44 ET us Debbie Elder DO IMG XR PROCEDURES Final R esult * Respiratory virus panel molecular study (05/24/2024 12:14 PM EST) Adenovirus Detection by PCR Not Detected Not Detected LAB MICROBIOLOGY METHOD 05/24/2024 1:44 PM [facility] Influenza A PCR Not Detected Not Detected LAB MICROBIOLOGY METHOD 05/24/2024 1:44 PM EST [facility] Influenza B PCR Not Detected Not Detected LAB MICROBIOLOGY METHOD 05/24/2024 1:44 PM [facility] Coronavirus 229E Not Detected Not Detected LAB MICROBIOLOGY METHOD 05/24/2024 1:44 PM [facility] Coronavirus HKU1 Not Detected Not Detected LAB MICROBIOLOGY METHOD 05/24/2024 1:44 PM [facility] Coronavirus OC43 Not Detected Not Detected LAB MICROBIOLOGY METHOD 05/24/2024 1:44 PM [facility] Coronavirus NL63 Not Detected Not Detected LAB MICROBIOLOGY METHOD 05/24/2024 1:44 PM [facility] Parainfluenza Virus 1 Not Detected Not Detected LAB MICROBIOLOGY METHOD 05/24/2024 1:44 PM [facility] Parainfluenza Virus 2 Not Detected Not Detected LAB MICROBIOLOGY METHOD 05/24/2024 1:44 PM [facility] Parainfluenza Virus 3 Not Detected Not Detected LAB MICROBIOLOGY METHOD 05/24/2024 1:44 PM [facility] Parainfluenza Virus 4 Not Detected Not Detected LAB MICROBIOLOGY METHOD 05/24/2024 1:44 PM [facility] RSV PCR Not Detected Not Detected LAB MICROBIOLOGY METHOD 05/24/2024 1:44 PM [facility] Human Metapneumovirus A and B Not Detected Not Detected LAB MICROBIOLOGY METHOD 05/24/2024 1:44 PM [facility] Rhinovirus/Entero virus Not Detected Not Detected LAB MICROBIOLOGY METHOD 05/24/2024 1:44 PM [facility] Bordetella pertussis Not Detected Not Detected LAB MICROBIOLOGY METHOD 05/24/2024 1:44 PM [facility] Bordetella parapertussis Not Detected Not Detected LAB MICROBIOLOGY METHOD 05/24/2024 1:44 PM EST [facility] Mycoplasma pneumo by PCR Not Detected Not Detected LAB MICROBIOLOGY METHOD 05/24/2024 1:44 PM EST [facility] Chlamydia pneumoniae Not Detected Not Detected LAB MICROBIOLOGY METHOD 05/24/2024 1:44 PM EST [facility] SARS COV-2 Not Detected Not Detected LAB MICROBIOLOGY METHOD 05/24/2024 1:44 PM EST [facility] Swab Both anterior nares / Unknown Non-blood Collection / Unknown 05/24/2024 12:14 PM EST 05/24/2024 12:43 PM EST [facility] - 05/24/2024 1:44 PM EST Testing was performed using the [employer] Respiratory Pathogen PCR Assay. All results must [...] of detection. Ira CLIFTON LAB MICROBIOLOGY - GENER AL ORDERABLES Final Result [facility] [address] [place] [address], * Culture urine (05/24/2024 12:12 PM EST) Urine Urine specimen obtained by clean catch procedure / Unknown Non-blood Collection / Unknown 05/24/2024 12:12 PM EST 05/24/2024 1:08 PM EST [facility] - 05/26/2024 11:10 AM EST Beta Strep Group B noted. The presence of a low colony count of Beta Strep Group B may have clinical significance in women. Ira Cordero [place] LAB MICROBIOLOGY - GENER AL ORDERABLES Final Result Performing Organization Address City/[facility]/ZIP Co de Phone Number [facility] [address] [place] [address], [place] [phone] * Moss urine culture tube (05/24/2024 12:12 PM EST) [facility] Extra Tube Hold for add-ons. 05/24/2024 2:01 PM [facility] Comment:Auto resulted. Urine Urine specimen obtained by clean catch procedure / Unknown Non-blood Collection / Unknown 05/24/2024 12:12 PM EST 05/24/2024 12:44 PM EST Ira CLIFTON LAB URINE ORDERABLES Fin al Result Performing Organization Address [facility]/ZIP Co de Phone Number [facility] [address] [place] [address], [place] [phone] * (ABNORMAL) Urinalysis with reflex microscopic and culture (05/24/2024 12:12 PM EST) [facility] Specific [place] Urine 1.025 1.003 - 1.030 LAB URINALYSIS - AUTOMATED METHOD 05/24/2024 1:08 PM [facility] pH, Urine 6.0 5.0 - 8.0 pH LAB URINALYSIS - AUTOMATED METHOD 05/24/2024 1:08 PM [facility] Leukocytes, Urine Negative Negative LAB URINALYSIS - AUTOMATED METHOD 05/24/2024 1:08 PM [facility] Nitrite, Urine Negative Negative LAB URINALYSIS - AUTOMATED METHOD 05/24/2024 1:08 PM [facility] Protein, Urine 30(A) <=Trace mg/dL LAB URINALYSIS - AUTOMATED METHOD 05/24/2024 1:08 PM [facility] Glucose, Urine Negative Negative mg/dL LAB URINALYSIS - AUTOMATED METHOD 05/24/2024 1:08 PM [facility] Ketones, Urine Trace(A) Negative mg/dL LAB URINALYSIS - AUTOMATED METHOD 05/24/2024 1:08 PM [facility] Urobilinogen , Urine 0.2 0.2 - 1.0 mg/dL LAB URINALYSIS - AUTOMATED METHOD 05/24/2024 1:08 PM [facility] Bilirubin, Urine Negative Negative LAB URINALYSIS - AUTOMATED METHOD 05/24/2024 1:08 PM [facility] Blood, Urine Small(A) Negative LAB URINALYSIS - AUTOMATED METHOD 05/24/2024 1:08 PM [facility] RBC, Urine 22.1(H) 0 - 4 /HPF LAB URINALYSIS - AUTOMATED METHOD 05/24/2024 1:08 PM [facility] WBC, Urine 8.0(H) 0 - 4 /HPF LAB URINALYSIS - AUTOMATED METHOD 05/24/2024 1:08 PM [facility] Squamous Epithelial, Urine 80(H) 0 - 60 /LPF LAB URINALYSIS - AUTOMATED METHOD 05/24/2024 1:08 PM [facility] Bacteria, Urine Moderate(A) Negative /HPF LAB URINALYSIS - AUTOMATED METHOD 05/24/2024 1:08 PM [facility] Hyaline Casts, Urine 3.0 0 - 3 /LPF LAB URINALYSIS - AUTOMATED METHOD 05/24/2024 1:08 PM [facility] Urine Urine specimen obtained by clean catch procedure / Unknown Non-blood Collection / Unknown 05/24/2024 12:12 PM EST 05/24/2024 12:44 PM EST us Ira CLIFTON LAB URINE ORDERABLES Fin al Result [facility] [address] [place] [address], * Troponin I high sensitivity (05/24/2024 12:12 PM EST) [facility] High Sensitivity Troponin I <3 <=54 ng/L LAB CHEMISTRY METHOD 05/24/2024 1:21 PM [facility] Blood Venous blood specimen / Unknown Venipuncture / Unknown 05/24/2024 12:12 PM EST 05/24/2024 12:43 PM EST [facility] - 05/24/2024 1:21 PM EST High levels of biotin in samples may falsely decrease hsTroponin values. ??Use caution when interpreting hsTroponin results in patients taking biotin who exhibit renal impairment (eGFR <60) or in patients taking more than 20 mg/day of biotin. us Debbie Elder DO LAB BLOOD ORDERABLES Meenakshi l Result [facility] [address] [place] [address], * (ABNORMAL) CBC auto differential (05/24/2024 10:36 AM EST) [facility] WBC 9.6 4.8 - 10.8 K/mcL LAB HEMETOLOGY METHOD 05/24/2024 10:58 AM [facility] RBC 4.60 3.80 - 4.80 M/mcL LAB HEMETOLOGY METHOD 05/24/2024 10:58 AM [facility] Hemoglobin 12.9 11.5 - 16.0 g/dL LAB HEMETOLOGY METHOD 05/24/2024 10:58 AM [facility] Hematocrit 39.3 35.0 - 47.0 % LAB HEMETOLOGY METHOD 05/24/2024 10:58 AM [facility] MCV 85.1 79.0 - 98.0 FL LAB HEMETOLOGY METHOD 05/24/2024 10:58 AM [facility] MCH 27.9 27.0 - 32.0 pcg LAB HEMETOLOGY METHOD 05/24/2024 10:58 AM [facility] MCHC 32.8 32.0 - 37.0 g/dL LAB HEMETOLOGY METHOD 05/24/2024 10:58 AM [facility] RDW 12.5 11.0 - 15.0 % LAB HEMETOLOGY METHOD 05/24/2024 10:58 AM [facility] Platelets 341 130 - 400 K/mcL LAB HEMETOLOGY METHOD 05/24/2024 10:58 AM [facility] MPV 9.4 7.0 - 11.0 FL LAB HEMETOLOGY METHOD 05/24/2024 10:58 AM [facility] NRBC 0.0 <1.0 % LAB HEMETOLOGY METHOD 05/24/2024 10:58 AM [facility] NRBC Absolute 0.00 <0.10 K/mcL LAB HEMETOLOGY METHOD 05/24/2024 10:58 AM [facility] Neutrophils Relative 86.6 % LAB HEMETOLOGY METHOD 05/24/2024 10:58 AM [facility] Lymphocytes Relative 9.7 % LAB HEMETOLOGY METHOD 05/24/2024 10:58 AM [facility] Monocytes Relative 2.4 % LAB HEMETOLOGY METHOD 05/24/2024 10:58 AM [facility] Eosinophils Relative 0.5 % LAB HEMETOLOGY METHOD 05/24/2024 10:58 AM [facility] Basophils Relative 0.5 % LAB HEMETOLOGY METHOD 05/24/2024 10:58 AM [facility] Immature Granulocytes Relative 0.3 % LAB HEMETOLOGY METHOD 05/24/2024 10:58 AM [facility] Neutrophils Absolute 8.34(H) 1.50 - 7.00 K/mcL LAB HEMETOLOGY METHOD 05/24/2024 10:58 AM EST [facility] Lymphocytes Absolute 0.93(L) 1.00 - 5.00 K/[facility] LAB HEMETOLOGY METHOD 05/24/2024 10:58 AM EST [facility] Monocytes Absolute 0.23 0.20 - 1.00 K/[facility] LAB HEMETOLOGY METHOD 05/24/2024 10:58 AM [facility] Eosinophils Absolute 0.05 0.00 - 0.50 K/[facility] LAB HEMETOLOGY METHOD 05/24/2024 10:58 AM [facility] Basophils Absolute 0.05 0.00 - 0.20 K/[facility] LAB HEMETOLOGY METHOD 05/24/2024 10:58 AM [facility] Immature Granulocytes Absolute 0.03 0.00 - 0.03 K/[facility] LAB HEMETOLOGY METHOD 05/24/2024 10:58 AM [facility] Blood Venous blood specimen / Unknown Venipuncture / Unknown 05/24/2024 10:36 AM EST 05/24/2024 10:52 AM EST us Debbie Elder DO LAB BLOOD ORDERABLES Meenakshi l Result [facility] [address] [place] [address], * Protime-INR (05/24/2024 10:36 AM EST) Protime 11.0 10.6 - 13.9 sec LAB COAGULATION METHOD 05/24/2024 11:01 AM EST [facility] INR 0.9 LAB COAGULATION METHOD 05/24/2024 11:01 AM EST [facility] Blood Venous blood specimen / Unknown Venipuncture / Unknown 05/24/2024 10:36 AM EST 05/24/2024 10:52 AM EST Debbie Elder LAB BLOOD ORDERABLES Meenakshi l Result [facility] [address] [place] [address], [place] [phone] * Type and screen (05/24/2024 10:36 AM EST) Pathologist [facility] ABO Group O 05/24/2024 11:51 AM EST [facility] Rh Type Positive 05/24/2024 11:51 AM EST [facility] Antibody Screen Negative 05/24/2024 11:51 AM [facility] Blood Venous blood specimen / Unknown Venipuncture / Unknown 05/24/2024 10:36 AM EST 05/24/2024 10:52 AM EST [facility] Juan Manuel Elder LAB BLOOD BANK TEST ORDER MARY KATE Final Result Performing Organization Address [facility]/ZIP Co de Phone Number [facility] [address] [place] [address], [place] [phone] * (ABNORMAL) Comprehensive metabolic panel (05/24/2024 10:36 AM EST) [facility] Sodium 137 133 - 145 mmol/L LAB CHEMISTRY METHOD 05/24/2024 11:41 AM [facility] Potassium 4.5 3.5 - 5.5 mmol/L LAB CHEMISTRY METHOD 05/24/2024 11:41 AM [facility] Comment:Hemolysis present Chloride 106 96 - 110 mmol/L LAB CHEMISTRY METHOD 05/24/2024 11:41 AM [facility] CO2 25 21 - 32 mmol/L LAB CHEMISTRY METHOD 05/24/2024 11:41 AM [facility] Anion Gap 6 3 - 11 LAB CHEMISTRY METHOD 05/24/2024 11:41 AM [facility] Glucose 119(H) 70 - 100 mg/dL LAB CHEMISTRY METHOD 05/24/2024 11:41 AM [facility] BUN 15 5 - 25 mg/dL LAB CHEMISTRY METHOD 05/24/2024 11:41 AM [facility] Creatinine 0.83 0.50 - 1.10 mg/dL LAB CHEMISTRY METHOD 05/24/2024 11:41 AM [facility] eGFR 90 >=60 mL/min/1. 73m2 LAB CHEMISTRY METHOD 05/24/2024 11:41 AM [facility] Comment:Calculation based on the??Chronic Kidney Disease Epidemiology Collaboration (CKD-EPI) equation refit??without adjustment for race. BUN/Creatinine Ratio 18.1 LAB CHEMISTRY METHOD 05/24/2024 11:41 AM [facility] Calcium 9.0 8.5 - 10.5 mg/dL LAB CHEMISTRY METHOD 05/24/2024 11:41 AM [facility] AST (SGOT) 29 10 - 42 unit/L LAB CHEMISTRY METHOD 05/24/2024 11:41 AM [facility] Comment:Hemolysis present ALT (SGPT) 51 10 - 60 unit/L LAB CHEMISTRY METHOD 05/24/2024 11:41 AM [facility] Alkaline Phosphatase 65 42 - 121 unit/L LAB CHEMISTRY METHOD 05/24/2024 11:41 AM [facility] Total Protein 7.6 6.0 - 8.0 g/dL LAB CHEMISTRY METHOD 05/24/2024 11:41 AM [facility] Albumin 3.4 3.2 - 5.0 g/dL LAB CHEMISTRY METHOD 05/24/2024 11:41 AM [facility] Total Bilirubin 0.3 0.0 - 1.4 mg/dL LAB CHEMISTRY METHOD 05/24/2024 11:41 AM [facility] Blood Venous blood specimen / Unknown Venipuncture / Unknown 05/24/2024 10:36 AM EST 05/24/2024 10:52 AM EST Debbie Elder DO LAB BLOOD ORDERABLES Meenakshi l Result Performing Organization Address [facility] Co de Phone Number [facility] [address] [place] [address], [place] [phone] * Troponin I high sensitivity (05/24/2024 10:36 AM EST) [facility] High Sensitivity Troponin I <3 <=54 ng/L LAB CHEMISTRY METHOD 05/24/2024 11:41 AM EST [facility] Blood Venous blood specimen / Unknown Venipuncture / Unknown 05/24/2024 10:36 AM EST 05/24/2024 10:52 AM EST Narrative [facility] - 05/24/2024 11:41 AM EST High levels of biotin in samples may falsely decrease hsTroponin values. ??Use caution when interpreting hsTroponin results in patients taking biotin who exhibit renal impairment (eGFR <60) or in patients taking more than 20 mg/day of biotin. us Debbie Zambrano Cedric Elder DO LAB BLOOD ORDERABLES Meenakshi l Result Performing Organization Address [facility] de Phone Number [facility] [address] [place] [address], [place] [phone] * Magnesium (05/24/2024 10:36 AM EST) [facility] Magnesium 2.1 1.9 - 2.6 mg/dL LAB CHEMISTRY METHOD 05/24/2024 11:41 AM EST [facility] Comment:Hemolysis present Blood Venous blood specimen / Unknown Venipuncture / Unknown 05/24/2024 10:36 AM EST 05/24/2024 10:52 AM EST Debbie Zambrano Cedric Elder DO LAB BLOOD ORDERABLES Meenakshi l Result [facility] [address] [place] [address], * ECG 12 lead (05/24/2024 9:53 AM EST) Ventricular Rate ECG 80 BPM GEMUSE Atrial Rate 80 BPM GEMUSE P-R Interval 148 ms GEMUSE QRS Duration 90 ms GEMUSE Q-T Interval 396 ms GEMUSE QTc 456 ms GEMUSE P Wave [place] 19 degrees GEMUSE R [place] -13 degrees GEMUSE T [place] -9 degrees GEMUSE ECG Interpretation Normal sinus rhythm When compared with ECG of 21-JAN-2012 23:59, Nonspecific T wave abnormality now evident in Anterior leads Confirmed by MATHEW GARRIDO ([id number]) on 05/25/2024 8:33:46 PM GEMUSE 05/24/2024 9:53 AM EST 05/25/2024 8:33 PM EST Debbie Elder DO ECG ORDERABLES Final Res ult GEMUSE * ECG-Annotated (05/24/2024) Provider Onbase MD ECG ORDERABLES Final Result documented in this encounter Visit Diagnoses Diagnosis [...] documented as of this encounter Care Teams Supervisor Operations Relationship Specialty Start Date End Date Physician, Pcp Unknown PCP - General 05/24/24 05/26/24 documented as of this encounter
[2024-06-16 07:27] LABS: UPreg QC Valid YES; Urine Pregnancy NEGATIVE (NEGATIVE)
[2024-06-16] MEDS: Lactated Ringers 1,000 ML 999 ML IV ×2 (08:05→09:36)
[2024-06-16] MEDS: Aprepitant 32 MG/4.4 ML VIAL IVPUSH (08:05)
--- NOTE | 2024-06-16 08:53 | PHA.MEDREC ---
Pharmacy Consult ? Medication Reconciliation Pharmacy has reviewedd the medication reconciliation completed by nursing. Spoke with pt, and confirmed she is no longer on Flonase or HCTZ, pt confirmed she is still on Nortrel (and was advised to stop this 1 week pre-op, and resume 1 month after surgery).
[2024-06-16] MEDS: Desmopressin Acetate 20 MCG in 0.9 % Sodium Chloride 50 ML 100 MCG IV (10:12)
--- NOTE | 2024-06-16 10:27 | MHC.SHP ---
Pre-Procedural Eval Section A - 24 Hr Update-Section A only Date of Service: 06/16/24 The patient is an INPATIENT: Yes The patient has been examined within 24 hours of the surgical procedure. The History & Physical has been completed within 30 days and I have reviewed it.: Yes Section B - Complete if H&P > 30 days Chief Complaint: Morbid Obesity Relevant Family History (Specify if Yes): No Relevant Social History: None Present Medications: None Medical History: No relevant PMH History of Previous Operations: No relevant previous surgery Allergies: Allergies Allergy/AdvReac Type Severity Reaction Status Date / Time codeine Allergy Intermediate Itching Verified 06/04/24 15:10 Penicillins Allergy Intermediate Swelling Verified 06/04/24 15:10 Review of Systems Sugical H&P ROS: Negative: Constitution, Cardiovascular, Respiratory, Neurological, Psychiatric, Hem-Onc, Allergic/Immunologic, Gastrointestinal, Genitourinary, Musculoskeletal, Integumentary, Endocrine and Eyes/Ears/Nose/Throat Exam Surgical H&P Exam: Normal: HEENT, Normal: Heart, Normal: Lungs, Normal: Extremities, Normal: Abdomen, Normal: Skin and Normal: Neurological Plan Diagnosis/Plan: Unchanged I have reviewed the history and physical and performed a pertinent physical examination on my patient. No changes have occurred unless specified. Time Spent With Patient Time: Total time managing care of this patient today ____ minutes.
--- NOTE | 2024-06-16 10:39 | PM.OP ---
Brief Operative Note Date of Service: 06/16/24 Pre-op diagnosis: Morbid obesity with comorbidities (see below) Post-op diagnosis: same Procedure: INITIAL PATIENT BMI ON PRESENTATION AT OUR OFFICE: 42,2 kg/m2 LAST BMI BEFORE SURGERY: 40.6 kg/m2 COMORBIDITIES: Von Willebrandt's disease, hypertension, asthma, depression, anxiety, migraines, insomnia, hyperlipidemia, GERD ?The patient presented to the Weight Management Program with significant obesity that was negatively impacting the patient's comorbidities as listed above.? The program is a phased program with a special focus on preoperative medical weight management to promote substantial weight loss and prepare the patients for the second phase of the program: bariatric surgery. The patient participated in an intensive weekly lifestyle ?intervention and exercise program during which the patient ?has lost between the initial office visit and the last preoperative visit 7.8 lbs, or 4.14% of initial actual body weight. It was deemed appropriate for the patient to now have bariatric surgery. In light of the current Covid-19 pandemic and the well documented strong association of obesity and increased risk of worse outcomes if infected with Covid-19 (REFERENCES:https://pubmed.ncbi.nlm.nih.gov/91481725/,?https://pubmed.ncbi.nlm.nih.gov/14260990/), any delay in undergoing bariatric surgery may lead to the patient's worsening health condition and increased?risk of more severe Covid-19 disease if infected. In addition a recent?study from [facility] published in ANU Surgery on 04/24/2021 ([email or web address]) found that, among patients with obesity, substantial weight loss achieved with surgery was associated with improved outcomes of COVID-19 infection. The findings suggest that obesity can be a modifiable risk factor for the severity of COVID-19 infection. In addition, the patient met the BMI-criteria for bariatric surgery based on the BMI on initial presentation. The patient should not be penalized for achieving such weight loss because ?it is not sustainable long-term without surgical intervention and it was achieved in preparation for bariatric surgery ?under my direction and based on my published research ([email or web address]).[email or web address] and?https://www.soard.org/article/[email or web address](89)45045-X/pdf) ?that a 10% preoperative weight loss improves long-term weight loss after surgery and reduces perioperative complications.? Insurance carriers such as [facility] have endorsed my recommendations ?and have included in their policies criteria to include a 10% preoperative weight loss requirement. PROCEDURE: Esophago-gastroscopy,, laparoscopic lysis of adhesions, laparoscopic sleeve gastrectomy and laparoscopic gastropexy INDICATIONS: This is a 43 year-old female who was electively scheduled for laparoscopic, possibly open sleeve gastrectomy. The risks and complications of the procedure were discussed with the patient in advance, particularly the possibility of ; pulmonary embolism; staple line leak; bleeding; GERD; cardiac, pulmonary, or renal complications; as well as long-term problems such as insufficient weight loss, vitamin deficiency, strictures, or ulcers. The patient understood all the risks, and was in agreement to proceed with surgery. DESCRIPTION OF PROCEDURE: After informed consent was obtained from the patient, the patient was given preoperative antibiotics, and was transferred to the operating room. After successful induction of general anesthesia, pneumatic compression devices were placed on both lower extremities. Due to the history of Von Willenbrandt's disease the patient received 0.3mcg/kg of DDAVP 30min before the incision and tranexamic acid. An upper endoscopy was performed next. The oropharynx and esophagus appeared to be within normal limits. There was no diaphragmatic hernia present. The stomach was entered. Then after all fluid and air were suctioned and the stomach was fully decompressed, the scope was withdrawn and secured in the mid esophagus. The patient was then prepped and draped in the usual sterile manner, and abdominal access was established at the right upper quadrant with the Bee technique. A 12 mm blunt port was inserted, and the abdomen was insufflated with CO2 to a pressure of 15 mmHg. Under direct visualization, additional ports were placed, specifically two 5 mm Versi-step ports to the left upper quadrant, and a 5 mm Versi-Step port to the right upper quadrant. 1% lidocaine plain was used to infiltrate all port sites as well as all fascia defects. Following that, the patient was placed in a steep reverse Trendelenburg position. An additional 5 mm port was placed to the right flank for the Mediflex retractor that was used to retract the left lobe of the liver. The gastro-esophageal fat pad was opened with the ultrasonic device (Thunderbeat, Olympus) and the anterior esophagus and hiatus were exposed. The angle of His was opened with the ultrasonic device the fundus of the stomach from any diaphragmatic and splenic attachments. I then opened the gastrocolic ligament between the transverse colon and the greater curvature of the stomach with the ultrasonic device to enter the lesser sac and facilitate the ligation of the short gastric vessels. I started at a mid-point along the greater curvature and using the Thunderbeat, all short gastric vessels were divided all the way to the angle of His until the left livan was completely dissected at its entirety. I then divided the gastro-colic ligament distally to a distance of about 3-4 cm proximal to the pylorus. There were extensive congenital adhesions between the pancreas and posterior gastric wall. Those were lysed completely with the ultrasonic device. Adhesiolysis took approximately 45 min to complete. The stomach was then divided transversely with three Endo MADDISON-45 purple and three MADDISON-60 articulating purple loads using the StrategyEye stapler and loads. Every effort was made that the gastric sleeve had a tubular shape and an even caliber throughout. Once the sleeve resection was completed, the staple line of the gastric sleeve was reinforced with Hemoclips. The resected stomach was retrieved without difficulty from the Bee port. A gastropexy was then performed in order to prevent postoperative GERD and partial gastric volvulus. Several interrupted 2.0 Surgidac sutures were placed between the sleeve's staple line and the previously divided greater omentum and gastro-colic ligament using the Endo-Stitch device. ?An upper endoscopy was performed. There was no narrowing at the GE junction. The scope was easily advanced all the way to the pylorus which was clearly visualized. There was no narrowing anywhere and the sleeve's caliber was even throughout. The sleeve's staple line was inspected and there was no evidence of ischemia, bleeding or dehiscence. At that point the gastroscope was withdrawn from the patient?s mouth while we were decompressing the bowel and the stomach from any remaining air. I looked into the lesser sac to see how the sleeve was situating and it was situating well. There was no bleeding from the staple line, spleen, or short gastric vessels. The Mediflex retractor was removed, and the undersurface of the liver was inspected and there was no bleeding. The patient was placed in supine position. I closed the fascial defect of the 12 mm port site with a figure of eight #1 Polysorb suture. Then 30cc Ropivacaine plain with 10 mg of Dexamethasone were used to infiltrate the fascial closure as well as all skin incisions. At this point, the abdomen was deflated, all ports were removed under direct vision, and no bleeding was noted from any of the port sites. The skin incisions were irrigated with saline and were closed with 4-0 absorbable monofilament sutures. Steri-Strips and OpSites were used to cover all incisions. The patient was extubated and was transferred in stable condition to the recovery room for further care. I was present and performed all ruiz parts of the procedure. Ms. Mueller was the internet marketing assistant. There were no residents to assist with this case. Riccardo Leonard MD, PhD, FACS Surgeon: Carlos Leonard MD Anesthesia: GETA, local and other (TAP block) Was an Coil Binder used for this Procedure?: No Coil Binder: Ira Mueller Estimated blood loss (mL): 10 IV fluids (mL): 3,000 Urine output (mL): 0 (No Fuller to record output) Pathology: other (1) Stomach, 2) gastro-esophageal fat pad) Condition: stable Disposition: PACU
--- NOTE | 2024-06-16 10:43 | P.PNGS_ITS ---
Subjective Subjective Date of Service: 06/17/24 Interval history: Feels well. Mild incisional pain. She is tolerating phase 1 bariatric diet Physical Exam 2 Vital Signs: Vital Signs: Last Vital Signs Temp 97.4 F 06/16/24 07:42 Pulse 92 06/16/24 07:42 Resp 16 06/16/24 07:42 BP 113/79 06/16/24 07:42 Pulse Ox 95 06/16/24 07:42 O2 Del Method Room Air 06/16/24 07:42 BMI result Body Mass Index 36.0 GI: Inspection: Yes normal to inspection, Yes incision (clean, dry and intact) and Yes obesity Palpation (GI): Soft to palpation Extrem: Right lower extremity: normal to inspection (no calf tenderness) L eft lower extremity: normal to inspection (no calf tenderness) Objective Data Active Medications Albuterol Sulfate (Albuterol Sulfate (0.083%) 2.5 Mg/3 Ml Vial.Neb) 2.5 mg INHALE ONCE PRN PRN Reason: Shortness of Breath/Wheezing Lactated Ringer's (Lr) 1,000 mls @ 100 mls/hr IVCONT .Q10H SELMA Labs 06/17/24 05:42 06/17/24 05:42 Labs: Laboratory Results - last 24 hr 06/16/24 07:13 Urine Test NEGATIVE Procedures Date of Service Date of Service: 06/17/24 Progress Note: A&P Assessment and plan (1) Morbid obesity: Status: Acute Assessment and Plan: s/p laparoscopic sleeve gastrectomy, lysis of adhesions and gastropexy Doing well Will check am labs and if OK the patient will be discharged home after today's DDAVP dose (2) Von Willebrand's disease: Status: Acute (3) Depression: Status: Acute (4) Anxiety: Status: Acute (5) Hypertension: Status: Acute (6) Hyperlipidemia: Status: Acute (7) Asthma: Status: Acute (8) Migraines: Status: Acute (9) GERD (gastroesophageal reflux disease): Status: Acute (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 Quality Stroke Does the patient have a stroke diagnosis?: No VTE Prior VTE?: No VTE Risk Level:: Surgical - moderate VTE Device Contraindication: N/A - Device Ordered VTE Drug Contraindication: Treatment Not Indicated
[2024-06-16] MEDS: levoFLOXacin/D5W 500 MG/100 ML PIGGYBACK 100 MG IV (11:17)
[2024-06-16] MEDS: Acetaminophen 1,000 MG/100 ML PIGGYBACK 400 MG IV (11:58)
--- NOTE | 2024-06-16 13:55 | PM.DS ---
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 DISCHARGE DIAGNOSIS: same, s/p laparoscopic sleeve gastrectomy and gastropexy ? PAST SURGICAL HISTORY:?, appendectomy, nasal septoplasty ? PROCEDURE: upper endoscopy, laparoscopic sleeve gastrectomy and gastropexy ? DISCHARGE SUMMARY: ? History of Present Illness: ? The patient is a? 43? year-old woman with a BMI of? 36? kg/m2 and associated co-morbidities as described above. The patient had extensive work-up,lost? 9.6? lbs preoperatively and was electively scheduled for laparoscopic, possible open sleeve gastrectomy and gastropexy. Risks and complications of the surgery were discussed with the patient in advance, particularly the possibility of , pulmonary embolism, anastomotic leak, bleeding, bowel injury, GERD, cardiac, renal or pulmonary complications. The patient understood all the risks and was in agreement with the surgical plan. ? Hospital Course: ? The patient underwent an uneventful laparoscopic sleeve gastrectomy with gastropexy on the day of admission. Postoperatively, the patient was transferred to the surgical floor. The patient received IV Acetaminophen and IV dilaudid for pain control. Patient was started on bariatric phase 1 diet POD #0. On postoperative day one, the patient was feeling well without nausea, vomiting, fevers, or tachycardia. The patient had some mild incisional pain and the abdomen was soft.? ? On the morning of postoperative day one, the patient was continued on 1 ounce of water or ice every half hour. During the day, the patient did fairly well, having some incisional pain, but able to ambulate adequately and to tolerate liquids well. She also received a second dose of DDAVP (had received one dose preop). ? Since the patient is doing well, we decided that the patient was ready to be discharged. The patient was given instructions to follow-up with me next week and to call my office for any fever over 101, persistent abdominal pain, nausea, vomiting, GERD, symptoms of DVT such as calf tenderness, or leg swelling, or pulmonary embolism such as chest pain or shortness of breath.? The patient was also instructed to drink 40-60 ounces of liquids per day using the 1-ounce cups. The patient had been given prescriptions for Tylenol for pain, Zofran prn for nausea, and pantoprazole and carafate previously. The patient was encouraged to ambulate and use the incentive spirometer. The patient was allowed to shower, but no baths, and encouraged to stay active at home. All of these instructions were given to the patient personally. All questions were answered and the patient understood all instructions, the instructions were also given to the patient in print. Time Attestation Discharge Coordination Time (in mins): 30 Quality: Safe Use of Opioids Does Pt have an Active Cancer Diagnosis on the Problem List?: No Quality: Stroke Does the patient have a stroke diagnosis?: No Physical Exam Vital Signs: Vital Signs: Last Vital Signs Temp 99.4 F 06/16/24 13:43 Pulse 95 06/16/24 13:43 Resp 18 06/16/24 13:43 BP 128/80 06/16/24 13:43 Pulse Ox 96 06/16/24 13:43 O2 Del Method Nasal Cannula 06/16/24 13:43 O2 Flow Rate 3 06/16/24 13:43 BMI result Body Mass Index 36.0 DS: Data Data Completed and Pending Pending studies at discharge: Pending at discharge 06/16/24 13:05 Surgical [PTH] Routine Labs on day of discharge: Laboratory Results - last 24 hr 06/16/24 07:13 Urine Test NEGATIVE Discharge Plan Discharge Anticipated Discharge Date/Time: 06/17/24 15:00 Patient Disposition: Home, Self-Care Discharge Diagnosis: s/p laparoscopic sleeve gastrectomy with gastropexy Referrals: Rochelle Phan MD [Primary Care Provider] - 1 Week Discharge Medications: Continued fluoxetine 20 mg capsule 40 mg PO DAILY pantoprazole 40 mg tablet,delayed release (DR/EC) 40 mg PO DAILY@0630 ondansetron 4 mg tablet,disintegrating 4 mg PO Q12H PRN (Reason: nausea and vomiting) Rx Instructions: Only take one every 12 hours as needed if you have nausea amitriptyline 75 mg tablet 75 mg PO BEDTIME aripiprazole 15 mg tablet 15 mg PO QAM albuterol sulfate [Ventolin HFA] 90 mcg/actuation HFA aerosol inhaler 2 puff inhalation Q4H (DME) blood pressure test kit-large Kit See Rx Instructions .ROUTE DAILY Qty: 1 Rx Instructions: As directed hydroxyzine HCl 25 mg tablet 25 - 50 mg PO Q8H PRN (Reason: anxiety) Discontinued Nortrel 0.5/35 (28) 0.5-35 mg-mcg tablet 1 tab PO DAILY omega 5-hpy-usr-fish oil 300 mg (120 mg- 180mg)-1,000 mg capsule 1 cap PO BID Discharge Orders: Discharge Order (Routine); Ordered 06/17/24 Ordered By: Ganga Sagastume Activity on Discharge: No heavy lifting Stand Alone Forms: Patient Portal Discharge page Print Language: New Zealander Care Plan Goals: weight loss Health Concerns: obesity Plan of Treatment: No tub baths, sex or returning to work until discussed at first post op appointment. No alcohol, tobacco or illegal drug use. Continue to use incentive spirometer hourly while awake. Walk in home for 5- 10 minutes every 2 hours during the first week. Wear abdominal binder with activity. Follow all meal plan instructions from your bariatric surgeon. Review bariatric handbook and call with any questions. Discharge Instructions 1. Please call your doctor or come back to the emergency room should any new symptoms arise. 2. Activity: abstain from alcohol,? limited stair climbing, no bending, no driving, no exercise, no illicit substances, no lifting, no sex, no tub bath, no work. 4. Diet: follow your bariatric surgeons recommendations for advancing diet. 5. Dressing Change/Wound Care: Your incisions are covered with waterproof dressings. You can shower with these and pat dry. Do not rub over dressings or incisions. If the area is tender, you may apply an ice pack for short intervals (no more than 20 minutes on, followed by at least 20 minutes off). Do not apply heat. Do not use creams, lotions, or topical antibiotics unless instructed to do so by your surgeon. 6. Call your doctor if: - Your temperature exceeds 101.5 F - You experience excessive pain or swelling - You have an unexpected reaction to medication - You have excessive bleeding - You experience continued vomiting/nausea - Your incision begins to separate - Your incision shows signs of infection such as increased redness, swelling, excessive pain, heat, or drainage (light blood or clear fluid is normal) General instructions: No lifting greater than 10 lbs for the next 6 weeks[address] driving within 24 hours of taking narcotic pain medications. If you do not move your bowels in the next 2 days, please take milk of magnesia over the counter. Please follow the post op diet and do not advance your diet until you are seen in the office in about 2 weeks. Please walk around your home every hour or two to prevent blood clots from forming in your legs. You do not need to wake from sleeping to walk. Please sleep in a bed or couch to prevent kinking at the hips and knees. Please take your incentive spirometer (your lung social service manager) home with you and use it for the next few days to prevent pneumonias. You may shower, no hot tubs, baths or swimming pools. Please call the office with any questions or concerns such as increasing abdominal pain, fever, chills, shortness of breath, chest pain, leg pain or swelling, or redness or drainage from your incisions. Please make sure you are consuming 40-60 ounces of total fluids per day. Avoid all carbonation. Do not hesitate to contact the office with any questions at . The patient's medical history has been reviewed and they are considered low risk for post op DVT and therefore DVT prophylaxis is not considered necessary. Travel after surgery was reviewed. The patient has not disclosed any travel plans during the first 30 days after surgery and they have been advised that within the first 30 days after surgery any bus, plane, train or car travel over 2 hours in duration is contraindicated due to the possibility of developing blood clots from immobility. Any travel, needs to include periods of ambulation of 10 minutes in duration every 2 hours.? The patient was instructed to discuss any plans for travel during this period with their bariatric surgeon. Assessment: s/p laparoscopic sleeve gastectomy with gastropexy Discharge Date/Time: 06/17/24 13:36
[2024-06-16] MEDS: fentaNYL citrate/PF 100 MCG/2 ML VIAL 25 MCG IVPUSH ×2 (14:20→14:30)
[2024-06-16 14:41] LABS: Hematocrit 34.7 % (37.0-47.0); Hemoglobin 11.7 g/dl (12.0-16.0)
[2024-06-16 15:01] LABS: Anion Gap 14 (12-20); Blood Urea Nitrogen 11 mg/dL (9-16); Calcium 8.3 mg/dL (8.4-10.2); Carbon Dioxide 22 mmol/L (22-29); Chloride 105 mmol/L (96-108); Creatinine Clr Calc Pharmacy 94.9; Estimated Glomerular Filt Rate > 60; Glucose Random 127 mg/dL (60-115); Potassium 3.9 mmol/L (3.3-5.1); Sodium 137 mmol/L (135-145)
[2024-06-16] MEDS: HYDROmorphone HCl 0.5 MG/0.5 ML SYRINGE 0.25 MG IVPUSH ×4 (15:10→20:36)
[2024-06-16] MEDS: Lactated Ringers 1,000 ML 100 ML IVCONT (17:30)
[2024-06-16] MEDS: ARIPiprazole 15 MG TABLET PO (17:30)
[2024-06-16] MEDS: Acetaminophen 1,000 MG/100 ML PIGGYBACK 16.7 MG IV ×2 (17:31→23:05)
--- NOTE | 2024-06-16 17:53 | PC.NURSE ---
Per ETIENNE Roth no Plts to be given at this time, blood bank notified.
[2024-06-16] MEDS: Amitriptyline HCl 25 MG TABLET 75 MG PO (20:27)
[2024-06-16] MEDS: Famotidine/PF 20 MG/2 ML VIAL IVPUSH (20:27)
[2024-06-16 20:32] LABS: Hematocrit 36.2 % (37.0-47.0); Hemoglobin 12.5 g/dl (12.0-16.0)
[2024-06-16] MEDS: Albuterol Sulfate 90 MCG 8 GM INHALER 2 PUFF INHALE (22:18)
[2024-06-17 03:27] VITALS: BP 127/73; PULSE 87; RESP 18; TEMP 36.3; O2SAT 94
[2024-06-17] MEDS: HYDROmorphone HCl 0.5 MG/0.5 ML SYRINGE 0.25 MG IVPUSH ×2 (03:29→10:29)
[2024-06-17] MEDS: Acetaminophen 1,000 MG/100 ML PIGGYBACK 16.7 MG IV ×2 (04:38→10:26)
--- NOTE | 2024-06-17 04:50 | PC.NURSE ---
06/16/24 2300 pt unable to void bladder scanned for 282 cc.
--- NOTE | 2024-06-17 04:51 | PC.NURSE ---
0200 pt unable to void bladder scanned for 349 cc.
--- NOTE | 2024-06-17 04:52 | PC.NURSE ---
0445 pt still unable to void bladder scanned for 495 cc.Ganga CLIFTON notified does not want to st. cath at this time.Pt ambulated around unit couple times back in bed at present time.
[2024-06-17 05:55] LABS: MANUAL DIFF FLAG NO
[2024-06-17 06:06] LABS: Basophils Percent Auto 0.1 % (0-2); Hematocrit 34.1 % (37.0-47.0); Hemoglobin 11.7 g/dl (12.0-16.0); Imm Gran Abs Auto 0.03 X10*3/uL (0.00-0.03); Imm Gran Pct Auto 0.3 % (0.0-0.4); Lymphocytes Absolute Auto 0.7 X10*3/uL (1.2-4.9); Lymphocytes Percent Auto 6.9 % (20-40); Mean Corpuscular HGB Conc 34.3 g/dl (31.0-35.0); Mean Corpuscular Hemoglobin 28.3 pg (27.0-33.0); Mean Corpuscular Volume 82.4 fL (80.0-98.0); Mean Platelet Volume 9.1 fL (9.4-12.3); Monocytes Absolute Auto 0.4 X10*3/uL (0.1-1.2); Monocytes Percent Auto 3.7 % (2-11); Neutrophils Absolute Auto 8.8 x10*3/uL (2.0-8.3); Platelet Count 285 X10*3/uL (160-400); Red Blood Count 4.14 X10*6/uL (4.20-5.50); Red Cell Distribution Width 12.5 % (11.0-16.0); White Blood Count 9.9 X10*3/uL (4.8-10.8)
[2024-06-17 06:14] LABS: Anion Gap 11 (12-20); Blood Urea Nitrogen 9 mg/dL (9-16); Calcium 8.5 mg/dL (8.4-10.2); Carbon Dioxide 22 mmol/L (22-29); Chloride 102 mmol/L (96-108); Creatinine Clr Calc Pharmacy 100.6; Estimated Glomerular Filt Rate > 60; Glucose Random 110 mg/dL (60-115); Potassium 4.1 mmol/L (3.3-5.1); Sodium 131 mmol/L (135-145)
--- NOTE | 2024-06-17 06:29 | PC.NURSE ---
Pt ambulated to bathroom voided 900 cc.
[2024-06-17 07:30] VITALS: BP 127/82; PULSE 81; RESP 16; TEMP 36.2; O2SAT 92
[2024-06-17] MEDS: ARIPiprazole 15 MG TABLET PO (08:09)
[2024-06-17] MEDS: FLUoxetine HCl 20 MG CAPSULE 40 MG PO (08:09)
[2024-06-17] MEDS: 0.9 % Sodium Chloride 1,000 ML 100 ML IVCONT (08:09)
[2024-06-17] MEDS: Famotidine/PF 20 MG/2 ML VIAL IVPUSH (08:09)
[2024-06-17] MEDS: Albuterol Sulfate 90 MCG 8 GM INHALER 2 PUFF INHALE ×2 (08:41→12:06)
[2024-06-17 08:43] VITALS: PULSE 84; RESP 16; O2SAT 95
--- NOTE | 2024-06-17 09:06 | HO.POSTANES ---
Post Anesthesia Evaluation Post Anesthesia Evaluation Date of Service: 06/17/24 Vital Signs: Vital Signs Temp Pulse Resp BP Pulse Ox O2 Del Method O2 Flow Rate 06/17/24 08:43 84 16 06/17/24 07:30 97.2 F 81 16 127/82 92 Room Air 06/17/24 03:27 97.3 F 87 18 127/73 94 Room Air 06/16/24 23:26 97.6 F 84 18 126/73 96 Nasal Cannula 1 06/16/24 22:19 84 16 Anesthesia: General Endotracheal-GETA Mental Status: Awake Pain Control: Satisfactory Nausea/Vomiting: None Hydration: Adequate Anesthesia-Related Issues: No Anes. Related Issues
--- NOTE | 2024-06-17 10:57 | MHC.CM.PN ---
Addendum entered by Heidi Osborne 06/17/24 13:43: DP: PT HAS BEEN MEDICALLY CLEARED FOR DC HOME, NO SERVICES. PT'S SPOUSE WILL TRANSPORT. Original Note: CM MET WITH PT AT BEDSIDE. PT LIVES WITH FAMILY AND IS FUNCTIONALLY INDEPENDENT. NO SERVICES OR DME + HCP PCP DR. TOMLINSON DP: HOME, NO SERVICES ANTICIPATED. PT'S SPOUSE WILL TRANSPORT. CM WILL CONTINUE TO FOLLOW FOR ANY CHANGE TO DC NEEDS/PLAN
[2024-06-17 11:14] VITALS: BP 121/74; PULSE 87; RESP 18; TEMP 36.1; O2SAT 93
[2024-06-17 12:07] VITALS: PULSE 87; RESP 18; O2SAT 96
[2024-06-17] MEDS: Desmopressin Acetate 20 MCG in 0.9 % Sodium Chloride 50 ML 100 MCG IV (12:16)
== END 2024-06-17 13:36 | disposition home or self-care (01) | DRG 620 ==
LOC: HO.SSSA 13:53 → HO.S3 15:21
PROVIDERS: Nurse Practitioner; Physician Assistant Surgical; Admitting Provider Surgery; PCP Pediatrics; Visit Provider Surgery
PROC: 0DB64Z3 Excision of Stomach, Percutaneous Endoscopic Approach, Vertical (ICD-10-PCS; CPT 43845; principal; 2024-06-16 10:20)
DX: E66.01 Morbid (severe) obesity due to excess calories (principal); D68.00 Von Willebrand disease, unspecified; Q43.3 Congenital malformations of intestinal fixation; Z68.41 Body mass index [BMI] 40.0-44.9, adult; I10 Essential (primary) hypertension; J45.909 Unspecified asthma, uncomplicated; F41.9 Anxiety disorder, unspecified; F32.A Depression, unspecified; G47.00 Insomnia, unspecified; E78.5 Hyperlipidemia, unspecified; K21.9 Gastro-esophageal reflux disease without esophagitis; Z79.899 Other long term (current) drug therapy
CPT/HCPCS: 36415; 80048; 80053; 80061; 81025; 83036; 83525; 84443; 85014; 85018; 85025; 85610; 85730; 86140; 86850; 86900; 86901; 88304; 88305; 88307; 88342; 94640; A4649; C9145; J0131; J1100; J1171; J1956; J2003; J2250; J2371; J2405; J2597; J2704; J2795; J3010; J7120

== ENCOUNTER → 2024-06-16 07:04 | Outpatient (BNV) | payer OTHER, SELFPAY | PROVIDERS: Admitting Provider Surgery; PCP Pediatrics; Visit Provider Surgery | DX: E66.01 Morbid (severe) obesity due to excess calories (principal); D68.00 Von Willebrand disease, unspecified; F32.A Depression, unspecified; F41.9 Anxiety disorder, unspecified; I10 Essential (primary) hypertension; E78.5 Hyperlipidemia, unspecified; J45.909 Unspecified asthma, uncomplicated; G43.909 Migraine, unspecified, not intractable, without status migrainosus; K21.9 Gastro-esophageal reflux disease without esophagitis; Q43.3 Congenital malformations of intestinal fixation; Z98.84 Bariatric surgery status | CPT/HCPCS: 43659; 43775; 99024 ==

== ENCOUNTER 2024-06-22 10:57 | Outpatient (AMB) | payer OTHER, SELFPAY ==
--- NOTE | 2024-06-22 10:58 | MHC.OFFVISWM ---
VS Expanded 06/22/24 11:04 BP 130/75 Blood Pressure Location Rt brachial Blood Pressure Position Sitting Pulse 113 H Pulse Source Pulse Oximeter Temp 98.4 F Temperature Source Temporal Artery Scan Pulse Oximetry 96 Oxygen Delivery Method Room Air Height 4 ft 10 in Weight 172 lb 3.2 oz BMI 36.0 Body Fat % 39.1 Body Fat Mass 67.2 Fat Free Mass 105.0 Visceral Fat Rating 9.0 Body Water % 43.5 Body Water Mass 75.0 Muscle Mass/Score 99.6 Basal Metabolic Rate/Score 1,456 Intake Visit Reasons: (OV) PO LSG 06/16/24 Workers Compensation Legal Secretary Required: No Allergies codeine Allergy (Intermediate, Verified 06/22/24 11:11) Itching Penicillins Allergy (Intermediate, Verified 06/22/24 11:11) Swelling Medication List - Last Reconciled 06/22/24 by ETIENNE Smith albuterol sulfate 90 mcg/actuation (Ventolin HFA) 2 puffs inhalation Q4H amitriptyline 75 mg PO BEDTIME aripiprazole 15 mg PO QAM blood pressure test kit-large As directed fluoxetine 40 mg PO DAILY hydroxyzine HCl 25 - 50 mg PO Q8H PRN ondansetron 4 mg PO Q12H PRN pantoprazole 40 mg PO DAILY@0630 HPI Comments Details: Patient is a pleasant 43-year-old female who returns to the office today in follow-up. She is 6 days post sleeve gastrectomy performed on 06/16/2024. She is tolerating 3 celebrate 4 in 1 shakes with 1 scoop each and proximally 40-50 oz of fluids. She denies any significant pain. [facility]LY [facility] Medical History (Updated 06/20/24 @ 00:02 by Rasta Colindres) Pre-diabetes Von Willebrand's disease Asthma Migraines Insomnia Anxiety Hyperlipidemia Hypertension Morbid obesity Depression Persistent proteinuria Surgical History (Updated 06/22/24 @ 11:12 by Latosha De Jesus CMA) S/P laparoscopic sleeve gastrectomy H/O section History of appendectomy Hx of nasal septoplasty Family History Mother Diabetes Hypertension Paternal Uncle Leukemia Social History Household Members: Significant Other and Children Housing: Apartment Are you a primary healthcare management to a significant other at home: No Do you presently have visiting nurse or other home services: No Alcohol intake: current Alcohol intake frequency: does not drink Alcohol type: other Patient Tobacco Use Status: Never used Tobacco e-Cigarette/Vaping Use: Never Used service: No Physical Exam GI Inspection: Yes incision (Clean, dry, intact.) Assessment & Plan Assessment & Plan (1) S/P laparoscopic sleeve gastrectomy: Code(s): Z98.84 - Bariatric surgery status Category: Surgical Plan: POD 6 s/p LSG on 06/16/[address] Leonard Weight loss prior to surgery was 7.8 pounds or 4.1 % TBWL. Original weight on 01/17/2024 was 188.2 pounds and op weight was 180.4 pounds. Be sure to text Dr Leonard exactly 1 week after surgery your weight from your home scale so he can adjust your meal plan. Continue meal plan until f/u mary Roth in 2 weeks May shower, no submersion in bath for another week Continue abdominal binder with activity and exercise for the next 2 weeks. Exercise prior to surgery was elliptical and may resume No abdominal exercises for 6 weeks post operatively Will be emailed link to post op video for review Reminded of the pace of drinking, 2 mL per minute, 1 oz/15 min.
[2024-06-22 11:04] VITALS: BP 130/75; PULSE 113; TEMP 36.9; O2SAT 96; BMI 36.0
--- OUTSIDE RECORDS SUMMARY | 2024-06-22 12:33 | XMS_ITS | Clinical Summary ---
Author Organization [facility] Address [address] [place] [address] Phone Care Team Providers Care Specialty Plant Supervisor Name Role Phone Physician, No Pcp Primary [...] EST - 05/24/2024 4:03 PM EST Emergency [facility] Emergency [address] [place] [address] Ovarian mass (Primary Dx); Acute [...] management. 2. 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 Telerad PA ([id number]) -------- FINAL REPORT -------- Dictated By: Mechelle Bosch Dictated Date: 05/24/2024 13:53 ET Assigned Physician: Mechelle Bosch Reviewed and Electronically Signed By: Mechelle Bosch Signed Date: 05/24/2024 14:04 ET Workstation ID: [id number] Transcribed By: Self Edit Transcribed Date: 05/24/2024 13:53 ET Narrative 05/24/2024 2:04 PM EST History: Right-sided abdominal pain radiating to the back. Vomiting. Prior appendectomy. Comparison: 06/18/18 Technique: Helical volumetric imaging of the abdomen and pelvis was performed following oral contrast and during the uneventful intravenous administration of 90 cc Isovue-370. DLP: 1194.40 mGy/cm Zlio VCT Iterative reconstruction technique Findings: The liver [...] of 90 cc Isovue-370. DLP: 1194.40 mGy/cm Zlio VCT Iterative reconstruction technique Findings: The liver [...] for a dermoid tumor. This is new [id number]. A 2.3 x 2.2 x 1.8 cm [...] management. 2. 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 Telerad ETIENNE ([id number]) -------- FINAL REPORT -------- Dictated By: Mechelle Bosch Dictated Date: 05/24/2024 13:53 ET Assigned Physician: Mechelle Bosch Reviewed and Electronically Signed By: Mechelle Bosch Signed Date: 05/24/2024 14:04 ET Workstation ID: [id number] Transcribed By: Self Edit Transcribed Date: 05/24/2024 13:53 ET Ira CLIFTON IMG CT PROCEDURES Final Result * XR Chest 2 Views (05/24/2024 12:43 PM EST) Anatomical Region Laterality Modality Body Radiographic Jing ging 05/24/2024 12:4 4 PM EST Impressions 05/24/2024 12:45 PM EST Impression: No active pulmonary process identified. Telerad PA ([id number]) -------- FINAL REPORT -------- Dictated By: Mechelle Bosch Dictated Date: 05/24/2024 12:44 ET Assigned Physician: Mechelle Bosch Reviewed and Electronically Signed By: Mechelle Bosch Signed Date: 05/24/2024 12:45 ET Workstation ID: [id number] Transcribed By: Self Edit Transcribed Date: 05/24/2024 [...] No active pulmonary process identified. Telerad PA ([id number]) -------- FINAL REPORT -------- Dictated By: Mechelle Bosch Dictated Date: 05/24/2024 12:44 ET Assigned Physician: Mechelle Bosch Reviewed and Electronically Signed By: Mechelle Bosch Signed Date: 05/24/2024 12:45 ET Workstation ID: [id number] Transcribed By: Self Edit Transcribed Date: 05/24/2024 12:44 ET [facility] Cedric Jerrod DO IMG XR PROCEDURES Final R esult * Respiratory virus panel molecular study (05/24/2024 12:14 PM EST) Adenovirus Detection by PCR Not Detected Not Detected LAB MICROBIOLOGY METHOD 05/24/2024 1:44 PM [facility] Influenza A PCR Not Detected Not Detected LAB MICROBIOLOGY METHOD 05/24/2024 1:44 PM [facility] Influenza B PCR Not Detected Not Detected LAB MICROBIOLOGY METHOD 05/24/2024 1:44 PM [facility] Coronavirus 229E Not Detected Not Detected LAB MICROBIOLOGY METHOD 05/24/2024 1:44 PM [facility] Coronavirus HKU1 Not Detected Not Detected LAB MICROBIOLOGY METHOD 05/24/2024 1:44 PM [facility] Coronavirus OC43 Not Detected Not Detected LAB MICROBIOLOGY METHOD 05/24/2024 1:44 PM [facility] Coronavirus NL63 Not Detected Not Detected LAB MICROBIOLOGY METHOD 05/24/2024 1:44 PM [facility] Parainfluenza Virus 1 Not Detected Not Detected LAB MICROBIOLOGY METHOD 05/24/2024 1:44 PM [facility] Parainfluenza Virus 2 Not Detected Not Detected LAB MICROBIOLOGY METHOD 05/24/2024 1:44 PM [facility] Parainfluenza Virus 3 Not Detected Not Detected LAB MICROBIOLOGY METHOD 05/24/2024 1:44 PM [facility] Parainfluenza Virus 4 Not Detected Not Detected LAB MICROBIOLOGY METHOD 05/24/2024 1:44 PM [facility] RSV PCR Not Detected Not Detected LAB MICROBIOLOGY METHOD 05/24/2024 1:44 PM [facility] Human Metapneumovirus A and B Not Detected Not Detected LAB MICROBIOLOGY METHOD 05/24/2024 1:44 PM [facility] Rhinovirus/Entero virus Not Detected Not Detected LAB MICROBIOLOGY METHOD 05/24/2024 1:44 PM [facility] Bordetella pertussis Not Detected Not Detected LAB MICROBIOLOGY METHOD 05/24/2024 1:44 PM [facility] Bordetella parapertussis Not Detected Not Detected LAB MICROBIOLOGY METHOD 05/24/2024 1:44 PM [facility] Mycoplasma pneumo by PCR Not Detected Not Detected LAB MICROBIOLOGY METHOD 05/24/2024 1:44 PM [facility] Chlamydia pneumoniae Not Detected Not Detected LAB MICROBIOLOGY METHOD 05/24/2024 1:44 PM [facility] SARS COV-2 Not Detected Not Detected LAB MICROBIOLOGY METHOD 05/24/2024 1:44 PM [facility] Swab Both anterior nares / Unknown Non-blood Collection / Unknown 05/24/2024 12:14 PM EST 05/24/2024 12:43 PM EST [facility] - 05/24/2024 1:44 PM EST Testing was performed using the [employer] Respiratory Pathogen PCR Assay. All results must [...] of detection. Ira CLIFTON LAB MICROBIOLOGY - [facility] AL ORDERABLES Final Result [facility] [address] [place] [address], [place] [phone] * (ABNORMAL) Urinalysis with reflex microscopic and culture (05/24/2024 12:12 PM EST) [facility] Urine 1.025 1.003 - 1.030 LAB URINALYSIS - AUTOMATED METHOD 05/24/2024 1:08 PM [facility] pH, Urine 6.0 5.0 - 8.0 pH LAB URINALYSIS - AUTOMATED METHOD 05/24/2024 1:08 PM [facility] Leukocytes, Urine Negative Negative LAB URINALYSIS - AUTOMATED METHOD 05/24/2024 1:08 PM [facility] Nitrite, Urine Negative Negative LAB URINALYSIS - AUTOMATED METHOD 05/24/2024 1:08 PM [facility] Protein, Urine 30(A) <=Trace mg/dL LAB URINALYSIS - AUTOMATED METHOD 05/24/2024 1:08 PM [facility] Glucose, Urine Negative Negative mg/dL LAB URINALYSIS - AUTOMATED METHOD 05/24/2024 1:08 PM [facility] Ketones, Urine Trace(A) Negative mg/dL LAB URINALYSIS - AUTOMATED METHOD 05/24/2024 1:08 PM [facility] Urobilinogen , Urine 0.2 0.2 - 1.0 mg/dL LAB URINALYSIS - AUTOMATED METHOD 05/24/2024 1:08 PM [facility] Bilirubin, Urine Negative Negative LAB URINALYSIS - AUTOMATED METHOD 05/24/2024 1:08 PM [facility] Blood, Urine Small(A) Negative LAB URINALYSIS - AUTOMATED METHOD 05/24/2024 1:08 PM [facility] RBC, Urine 22.1(H) 0 - 4 /HPF LAB URINALYSIS - AUTOMATED METHOD 05/24/2024 1:08 PM [facility] WBC, Urine 8.0(H) 0 - 4 /HPF LAB URINALYSIS - AUTOMATED METHOD 05/24/2024 1:08 PM [facility] Squamous Epithelial, Urine 80(H) 0 - 60 /LPF LAB URINALYSIS - AUTOMATED METHOD 05/24/2024 1:08 PM [facility] Bacteria, Urine Moderate(A) Negative /HPF LAB URINALYSIS - AUTOMATED METHOD 05/24/2024 1:08 PM [facility] Hyaline Casts, Urine 3.0 0 - 3 /LPF LAB URINALYSIS - AUTOMATED METHOD 05/24/2024 1:08 PM [facility] Urine Urine specimen obtained by clean catch procedure / Unknown Non-blood Collection / Unknown 05/24/2024 12:12 PM EST 05/24/2024 12:44 PM EST us Ira CLIFTON LAB URINE ORDERABLES Fin al Result [facility] [address] [place] [address], * Moss urine culture tube (05/24/2024 12:12 PM EST) Extra Tube Hold for add-ons. 05/24/2024 2:01 PM [facility] Comment:Auto resulted. Urine Urine specimen obtained by clean catch procedure / Unknown Non-blood Collection / Unknown 05/24/2024 12:12 PM EST 05/24/2024 12:44 PM EST Ira CLIFTON LAB URINE ORDERABLES Fin al Result Performing Organization Address [facility]/ZIP Co de Phone Number [facility] [address] [place] [address], * Troponin I high sensitivity (05/24/2024 12:12 PM EST) Only the most recent of2 resultswithin the time period is included. [facility] High Sensitivity Troponin I <3 <=54 ng/L LAB CHEMISTRY METHOD 05/24/2024 1:21 PM EST [facility] Blood Venous blood specimen / Unknown Venipuncture / Unknown 05/24/2024 12:12 PM EST 05/24/2024 12:43 PM EST Narrative [facility] - 05/24/2024 1:21 PM EST High levels of biotin in samples may falsely decrease hsTroponin values. ??Use caution when interpreting hsTroponin results in patients taking biotin who exhibit renal impairment (eGFR <60) or in patients taking more than 20 mg/day of biotin. Debbie Elder DO LAB BLOOD ORDERABLES Meenakshi l Result Performing Organization Address [facility]/ZIP Co de Phone Number [facility] [address] [place] [address], * Culture urine (05/24/2024 12:12 PM EST) Urine Urine specimen obtained by clean catch procedure / Unknown Non-blood Collection / Unknown 05/24/2024 12:12 PM EST 05/24/2024 1:08 PM EST Narrative [facility] - 05/26/2024 11:10 AM EST Beta Strep Group B noted. The presence of a low colony count of Beta Strep Group B may have clinical significance in women. Ira CLIFTON LAB MICROBIOLOGY - GENER AL ORDERABLES Final Result [facility] [address] [place] [address], * (ABNORMAL) CBC auto differential (05/24/2024 10:36 AM EST) WBC 9.6 4.8 - 10.8 K/mcL LAB HEMETOLOGY METHOD 05/24/2024 10:58 AM [facility] RBC 4.60 3.80 - 4.80 M/mcL LAB HEMETOLOGY METHOD 05/24/2024 10:58 AM [facility] Hemoglobin 12.9 11.5 - 16.0 g/dL LAB HEMETOLOGY METHOD 05/24/2024 10:58 AM [facility] Hematocrit 39.3 35.0 - 47.0 % LAB HEMETOLOGY METHOD 05/24/2024 10:58 AM [facility] MCV 85.1 79.0 - 98.0 FL LAB HEMETOLOGY METHOD 05/24/2024 10:58 AM [facility] MCH 27.9 27.0 - 32.0 pcg LAB HEMETOLOGY METHOD 05/24/2024 10:58 AM [facility] MCHC 32.8 32.0 - 37.0 g/dL LAB HEMETOLOGY METHOD 05/24/2024 10:58 AM [facility] RDW 12.5 11.0 - 15.0 % LAB HEMETOLOGY METHOD 05/24/2024 10:58 AM [facility] Platelets 341 130 - 400 K/mcL LAB HEMETOLOGY METHOD 05/24/2024 10:58 AM [facility] MPV 9.4 7.0 - 11.0 FL LAB HEMETOLOGY METHOD 05/24/2024 10:58 AM [facility] NRBC 0.0 <1.0 % LAB HEMETOLOGY METHOD 05/24/2024 10:58 AM [facility] NRBC Absolute 0.00 <0.10 K/mcL LAB HEMETOLOGY METHOD 05/24/2024 10:58 AM [facility] Neutrophils Relative 86.6 % LAB HEMETOLOGY METHOD 05/24/2024 10:58 AM [facility] Lymphocytes Relative 9.7 % LAB HEMETOLOGY METHOD 05/24/2024 10:58 AM [facility] Monocytes Relative 2.4 % LAB HEMETOLOGY METHOD 05/24/2024 10:58 AM [facility] Eosinophils Relative 0.5 % LAB HEMETOLOGY METHOD 05/24/2024 10:58 AM [facility] Basophils Relative 0.5 % LAB HEMETOLOGY METHOD 05/24/2024 10:58 AM [facility] Immature Granulocytes Relative 0.3 % LAB HEMETOLOGY METHOD 05/24/2024 10:58 AM [facility] Neutrophils Absolute 8.34(H) 1.50 - 7.00 K/mcL LAB HEMETOLOGY METHOD 05/24/2024 10:58 AM [facility] Lymphocytes Absolute 0.93(L) 1.00 - 5.00 K/mcL LAB HEMETOLOGY METHOD 05/24/2024 10:58 AM [facility] Monocytes Absolute 0.23 0.20 - 1.00 K/mcL LAB HEMETOLOGY METHOD 05/24/2024 10:58 AM [facility] Eosinophils Absolute 0.05 0.00 - 0.50 K/mcL LAB HEMETOLOGY METHOD 05/24/2024 10:58 AM [facility] Basophils Absolute 0.05 0.00 - 0.20 K/mcL LAB HEMETOLOGY METHOD 05/24/2024 10:58 AM [facility] Immature Granulocytes Absolute 0.03 0.00 - 0.03 K/mcL LAB HEMETOLOGY METHOD 05/24/2024 10:58 AM [facility] Blood Venous blood specimen / Unknown Venipuncture / Unknown 05/24/2024 10:36 AM EST 05/24/2024 10:52 AM EST [facility] Cedric [facility] LAB BLOOD ORDERABLES Meenakshi l Result Performing Organization Address [facility]/ZIP Co de Phone Number [facility] [address] [place] [address], [place] [phone] * Protime-INR (05/24/2024 10:36 AM EST) Protime 11.0 10.6 - 13.9 sec LAB COAGULATION METHOD 05/24/2024 11:01 AM [facility] INR 0.9 LAB COAGULATION METHOD 05/24/2024 11:01 AM [facility] Blood Venous blood specimen / Unknown Venipuncture / Unknown 05/24/2024 10:36 AM EST 05/24/2024 10:52 AM EST [facility] Juan Manuel Elder LAB BLOOD ORDERABLES Meenakshi l Result Performing Organization Address City/[facility]/ZIP Co de Phone Number [facility] [address] [place] [address], [place] [phone] * Type and screen (05/24/2024 10:36 AM EST) ABO Group O 05/24/2024 11:51 AM [facility] Rh Type Positive 05/24/2024 11:51 AM [facility] Antibody Screen Negative 05/24/2024 11:51 AM [facility] Blood Venous blood specimen / Unknown Venipuncture / Unknown 05/24/2024 10:36 AM EST 05/24/2024 10:52 AM EST Debbie Elder LAB BLOOD BANK TEST ORDER MARY KATE Final Result Performing Organization Address [facility]/ZIP Co de Phone Number [facility] [address] [place] [address], [place] [phone] * Magnesium (05/24/2024 10:36 AM EST) Pathologist [facility] Magnesium 2.1 1.9 - 2.6 mg/dL LAB CHEMISTRY METHOD 05/24/2024 11:41 AM EST [facility] Comment:Hemolysis present Blood Venous blood specimen / Unknown Venipuncture / Unknown 05/24/2024 10:36 AM EST 05/24/2024 10:52 AM EST Debbei Elder LAB BLOOD ORDERABLES Meenakshi l Result Performing Organization Address [facility]/ZIP Co de Phone Number [facility] [address] [place] [address], [place] [phone] * (ABNORMAL) Comprehensive metabolic panel (05/24/2024 10:36 AM EST) Pathologist [facility] Sodium 137 133 - 145 mmol/L LAB CHEMISTRY METHOD 05/24/2024 11:41 AM EST [facility] Potassium 4.5 3.5 - 5.5 mmol/L LAB CHEMISTRY METHOD 05/24/2024 11:41 AM [facility] Comment:Hemolysis present Chloride 106 96 - 110 mmol/L LAB CHEMISTRY METHOD 05/24/2024 11:41 AM EST [facility] CO2 25 21 - 32 mmol/L LAB CHEMISTRY METHOD 05/24/2024 11:41 AM [facility] Anion Gap 6 3 - 11 LAB CHEMISTRY METHOD 05/24/2024 11:41 AM [facility] Glucose 119(H) 70 - 100 mg/dL LAB CHEMISTRY METHOD 05/24/2024 11:41 AM [facility] BUN 15 5 - 25 mg/dL LAB CHEMISTRY METHOD 05/24/2024 11:41 AM [facility] Creatinine 0.83 0.50 - 1.10 mg/dL LAB CHEMISTRY METHOD 05/24/2024 11:41 AM [facility] eGFR 90 >=60 mL/min/1. 73m2 LAB CHEMISTRY METHOD 05/24/2024 11:41 AM [facility] Comment:Calculation based on the??Chronic Kidney Disease Epidemiology Collaboration (CKD-EPI) equation refit??without adjustment for race. BUN/Creatinine Ratio 18.1 LAB CHEMISTRY METHOD 05/24/2024 11:41 AM [facility] Calcium 9.0 8.5 - 10.5 mg/dL LAB CHEMISTRY METHOD 05/24/2024 11:41 AM [facility] AST (SGOT) 29 10 - 42 unit/L LAB CHEMISTRY METHOD 05/24/2024 11:41 AM [facility] Comment:Hemolysis present ALT (SGPT) 51 10 - 60 unit/L LAB CHEMISTRY METHOD 05/24/2024 11:41 AM [facility] Alkaline Phosphatase 65 42 - 121 unit/L LAB CHEMISTRY METHOD 05/24/2024 11:41 AM [facility] Total Protein 7.6 6.0 - 8.0 g/dL LAB CHEMISTRY METHOD 05/24/2024 11:41 AM [facility] Albumin 3.4 3.2 - 5.0 g/dL LAB CHEMISTRY METHOD 05/24/2024 11:41 AM [facility] Total Bilirubin 0.3 0.0 - 1.4 mg/dL LAB CHEMISTRY METHOD 05/24/2024 11:41 AM [facility] Blood Venous blood specimen / Unknown Venipuncture / Unknown 05/24/2024 10:36 AM EST 05/24/2024 10:52 AM EST Debbie Elder DO LAB BLOOD ORDERABLES Meenakshi l Result Performing Organization Address City/[facility]/ZIP Co de Phone Number SEEMA CHING [place] ([facility]) [facility] [address] [place] [address], * ECG 12 lead (05/24/2024 9:53 AM EST) Ventricular Rate ECG 80 BPM GEMUSE Atrial Rate 80 BPM GEMUSE P-R Interval 148 ms GEMUSE QRS Duration 90 ms GEMUSE Q-T Interval 396 ms GEMUSE QTc 456 ms GEMUSE P Wave [place] 19 degrees GEMUSE R [place] -13 degrees GEMUSE T [place] -9 degrees GEMUSE ECG Interpretation Normal sinus rhythm When compared with ECG of 21-JAN-2012 23:59, Nonspecific T wave abnormality now evident in Anterior leads Confirmed by MATHEW GARRIDO ([id number]) on 05/25/2024 8:33:46 PM GEMUSE 05/24/2024 9:53 AM EST 05/25/2024 8:33 PM EST Debbie Elder DO ECG ORDERABLES Final Res ult Performing Organization Address [facility] Co de Phone Number GEMUSE * ECG-Annotated (05/24/2024) Provider Onbase MD ECG ORDERABLES Final Result from Last 3 Months Insurance [employer] Care Teams Specialty Plant Supervisor Relationship Specialty Start Date End Date Physician, No Pcp PCP - General 05/27/24
--- OUTSIDE RECORDS SUMMARY | 2024-06-22 12:33 | XMS_ITS | Encounter Summary ---
Author Organization [employer] [facility] Address [address] [place] [address] Care Team Providers Care Ground Support Equipment Assembler Name Role Phone Rochelle Phan MD Primary Care Provider [phone] Gilberto Zayas Unavailable Unavailable Encounter Details Date [...] on filedocumented in this encounter Care Teams Ground Support Equipment Assembler Relationship Specialty Start Date End Date Rochelle Phan MD [address] [place] [address] PCP - General Family Medicine 10/27/12 Gilberto Zayas FNP [address] [place] [address] Nurse Practitioner Family Medicine 03/20/23 documented as of this encounter
--- OUTSIDE RECORDS SUMMARY | 2024-06-22 12:34 | XMS_ITS | Encounter Summary ---
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 Name Role Phone Physician, Pcp Unknown Primary Care Provider Nieves vailable Reason for Referral * Consultation (Routine) - Authorized Specialty Diagnoses / Procedures Referred By Gordon t Referred To Contact Obstetrics and Gynecology Diagnoses Ovarian mass Ira Sloan PA [address] [place] [address] Phone: tel: fax: Obstetrics & Gynecology - [address] [address] Phone: tel: fax: Referral ID Status Reason Start Date Expiration Date Visits Requested Visits Authorized [id number] Authorized Specialty Services Required 05/24/2024 05/24/2025 1 1 Reason for Visit * Reason Comments Abdominal Pain R abd pain that radi ates to her back, +vomiting brown emesis. Started yest Encounter Details Date Type Department Care Team (Late st Contact Info) Description 05/24/2024 11:21 AM EST - 05/24/2024 4:03 PM EST Emergency [facility] Emergency [address] [place] [address] Ovarian mass (Primary Dx); Acute [...] REFLEX MICROSCOPIC AND CULTURE - Abnormal Specific [place] Urine 1.025 pH, Urine 6.0 Leukocytes, Urine [...] Detected Narrative: Testing was performed using the TeamPages Respiratory Pathogen PCR Assay. All results must [...] Procedure Abnormality Status --------- ------ CBC auto differential[[id number]] Abnormal Final result Please view results for these tests on the individual orders. TYPE AND SCREEN ABO Group O Rh Type Positive Antibody Screen Negative URINALYSIS WITH REFLEX MICROSCOPIC AND CULTURE Narrative: The following orders were created for panel order Urinalysis with reflex microscopic and culture. Procedure Abnormality Status --------- ------ Urinalysis with reflex ...[[id number]] Abnormal Final result Moss urine culture tube[[id number]] Final result Please view results for these [...] for further management. 2. 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 Clavister ETIENNE ([id number]) -------- FINAL REPORT -------- Dictated By: Mechelle Bosch Dictated Date: 05/24/2024 13:53 ET Assigned Physician: Mechelle Bosch Reviewed and Electronically Signed By: Mechelle Bosch Signed Date: 05/24/2024 14:04 ET Workstation ID: [id number] Transcribed By: Self Edit Transcribed Date: 05/24/2024 13:53 ET XR Chest 2 Views Final Result Impression: No active pulmonary process identified. Clavister ETIENNE ([id number]) -------- FINAL REPORT -------- Dictated By: Mechelle Bosch Dictated Date: 05/24/2024 12:44 ET Assigned Physician: Mechelle Bosch Reviewed and Electronically Signed By: Mechelle Bosch Signed Date: 05/24/2024 12:45 ET Workstation ID: [id number] Transcribed By: Self Edit Transcribed Date: 05/24/2024 [...] and needs to follow-up. 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 She isaware to call if she does [...] management. 2. 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 Telerad ETIENNE ([id number]) -------- FINAL REPORT -------- Dictated By: Mechelle Bosch Dictated Date: 05/24/2024 13:53 ET Assigned Physician: Mechelle Bosch Reviewed and Electronically Signed By: Mechelle Bosch Signed Date: 05/24/2024 14:04 ET Workstation ID: [id number] Transcribed By: Self Edit Transcribed Date: 05/24/2024 13:53 ET Narrative 05/24/2024 2:04 PM EST History: Right-sided abdominal pain radiating to the back. Vomiting. Prior appendectomy. Comparison: 06/18/18 Technique: Helical volumetric imaging of the abdomen and pelvis was performed following oral contrast and during the uneventful intravenous administration of 90 cc Isovue-370. DLP: 1194.40 mGy/cm GE ALENTYpeHazelcast VCT Iterative reconstruction technique Findings: The liver [...] of 90 cc Isovue-370. DLP: 1194.40 mGy/cm Sensory MedicalpeHazelcast VCT Iterative reconstruction technique Findings: The liver [...] for a dermoid tumor. This is new uaue1991. A 2.3 x 2.2 x 1.8 cm [...] management. 2. 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 Telewei CLIFTON ([id number]) -------- FINAL REPORT -------- Dictated By: Mechelle Bosch Dictated Date: 05/24/2024 13:53 ET Assigned Physician: Mechelle Bosch Reviewed and Electronically Signed By: Mechelle Bosch Signed Date: 05/24/2024 14:04 ET Workstation ID: [id number] Transcribed By: Self Edit Transcribed Date: 05/24/2024 13:53 ET Ira CLIFTON IMG CT PROCEDURES Final Result * XR Chest 2 Views (05/24/2024 12:43 PM EST) Anatomical Region Laterality Modality Body Radiographic Jing ging 05/24/2024 12:4 4 PM EST Impressions 05/24/2024 12:45 PM EST Impression: No active pulmonary process identified. Telerad PA ([id number]) -------- FINAL REPORT -------- Dictated By: Mechelle Bosch Dictated Date: 05/24/2024 12:44 ET Assigned Physician: Mechelle Bosch Reviewed and Electronically Signed By: Mechelle Bosch Signed Date: 05/24/2024 12:45 ET Workstation ID: [id number] Transcribed By: Self Edit Transcribed Date: 05/24/2024 [...] No active pulmonary process identified. Telerad PA ([id number]) -------- FINAL REPORT -------- Dictated By: Mechelle Bosch Dictated Date: 05/24/2024 12:44 ET Assigned Physician: Mechelle Bosch Reviewed and Electronically Signed By: Mechelle Bosch Signed Date: 05/24/2024 12:45 ET Workstation ID: [id number] Transcribed By: Self Edit Transcribed Date: 05/24/2024 [...] 12:14 PM EST 05/24/2024 12:43 PM EST [facility] - 05/24/2024 1:44 PM EST Testing was performed using the TeamPages Respiratory Pathogen PCR Assay. All results must [...] Result [facility] [address] [place] [address], * Culture urine (05/24/2024 12:12 PM EST) Urine Urine specimen obtained by clean catch procedure / Unknown Non-blood Collection / Unknown 05/24/2024 12:12 PM EST 05/24/2024 1:08 PM EST [facility] - 05/26/2024 11:10 AM EST Beta Strep Group B noted. The presence of a low colony count of Beta Strep Group B may have clinical significance in women. Ira Cordero [place] LAB MICROBIOLOGY - GENER AL ORDERABLES Final Result Performing Organization Address City/[facility]/ZIP Co de Phone Number [facility] [address] [place] [address], [place] [phone] * Moss urine culture tube (05/24/2024 12:12 PM EST) [facility] Extra Tube Hold for add-ons. 05/24/2024 2:01 PM [facility] Comment:Auto resulted. Urine Urine specimen obtained by clean catch procedure / Unknown Non-blood Collection / Unknown 05/24/2024 12:12 PM EST 05/24/2024 12:44 PM EST Ira CLIFTON LAB URINE ORDERABLES Fin al Result Performing Organization Address [facility]/ZIP Co de Phone Number [facility] [address] [place] [address], [place] [phone] * (ABNORMAL) Urinalysis with reflex microscopic and culture (05/24/2024 12:12 PM EST) [facility] Specific [place] Urine 1.025 1.003 - 1.030 LAB URINALYSIS [...] Result [facility] [address] [place] [address], * Troponin I high sensitivity (05/24/2024 12:12 PM EST) [facility] High Sensitivity Troponin I <3 <=54 ng/L LAB CHEMISTRY METHOD 05/24/2024 1:21 PM [facility] Blood Venous blood specimen / Unknown Venipuncture / Unknown 05/24/2024 12:12 PM EST 05/24/2024 12:43 PM EST [facility] - 05/24/2024 1:21 PM EST High levels of biotin in samples may falsely decrease hsTroponin values. ??Use caution when interpreting hsTroponin results in patients taking biotin who exhibit renal impairment (eGFR <60) or in patients taking more than 20 mg/day of biotin. us Debbie Elder DO LAB BLOOD ORDERABLES Meenakshi l Result [facility] [address] [place] [address], * (ABNORMAL) CBC auto differential (05/24/2024 10:36 AM EST) [facility] WBC 9.6 4.8 - 10.8 K/mcL LAB [...] LAB Lymphocytes Absolute 0.93(L) 1.00 - 5.00 K/[facility] LAB HEMETOLOGY METHOD 05/24/2024 10:58 AM EST [facility] Monocytes Absolute 0.23 0.20 - 1.00 K/[facility] LAB HEMETOLOGY METHOD 05/24/2024 10:58 AM [facility] Eosinophils Absolute 0.05 0.00 - 0.50 K/[facility] LAB HEMETOLOGY METHOD 05/24/2024 10:58 AM [facility] Basophils Absolute 0.05 0.00 - 0.20 K/[facility] LAB HEMETOLOGY METHOD 05/24/2024 10:58 AM [facility] Immature Granulocytes Absolute 0.03 0.00 - 0.03 K/[facility] LAB HEMETOLOGY METHOD 05/24/2024 10:58 AM [facility] Blood Venous blood specimen / Unknown Venipuncture / Unknown 05/24/2024 10:36 AM EST 05/24/2024 10:52 AM EST us Debbie Elder DO LAB BLOOD ORDERABLES Meenakshi l Result [facility] [address] [place] [address], * Protime-INR (05/24/2024 10:36 AM EST) Protime [...] Result [facility] [address] [place] [address], [place] [phone] * Type and screen (05/24/2024 10:36 AM EST) Pathologist [facility] ABO Group O 05/24/2024 11:51 AM EST [facility] Rh Type Positive 05/24/2024 11:51 AM EST [facility] Antibody Screen Negative 05/24/2024 11:51 AM [facility] Blood Venous blood specimen / Unknown Venipuncture / Unknown 05/24/2024 10:36 AM EST 05/24/2024 10:52 AM EST [facility] Juan Manuel Elder LAB BLOOD BANK TEST ORDER MARY KATE Final Result Performing Organization Address [facility]/ZIP Co de Phone Number [facility] [address] [place] [address], [place] [phone] * (ABNORMAL) Comprehensive metabolic panel (05/24/2024 10:36 AM EST) [facility] Sodium 137 133 - 145 mmol/L LAB CHEMISTRY METHOD 05/24/2024 11:41 AM [facility] Potassium 4.5 3.5 - 5.5 mmol/L LAB CHEMISTRY METHOD 05/24/2024 11:41 AM [facility] Comment:Hemolysis present Chloride 106 96 - 110 mmol/L LAB CHEMISTRY METHOD 05/24/2024 11:41 AM [facility] CO2 25 21 - [...] ORDERABLES Meenakshi l Result Performing Organization Address [facility] Co de Phone Number [facility] [address] [place] [address], [place] [phone] * Troponin I high sensitivity (05/24/2024 10:36 AM EST) [facility] High Sensitivity Troponin I <3 <=54 ng/L [...] ORDERABLES Meenakshi l Result Performing Organization Address [facility] de Phone Number [facility] [address] [place] [address], [place] [phone] * Magnesium (05/24/2024 10:36 AM EST) [facility] Magnesium 2.1 1.9 - 2.6 mg/dL LAB CHEMISTRY METHOD 05/24/2024 11:41 AM EST [facility] Comment:Hemolysis present Blood Venous blood specimen / Unknown Venipuncture / Unknown 05/24/2024 10:36 AM EST 05/24/2024 10:52 AM EST Debbie Zambrano Cedric Elder DO LAB BLOOD ORDERABLES Meenakshi l Result [facility] [address] [place] [address], * ECG 12 lead (05/24/2024 9:53 AM EST) Ventricular Rate ECG 80 BPM GEMUSE Atrial Rate 80 BPM GEMUSE P-R Interval 148 ms GEMUSE QRS Duration 90 ms GEMUSE Q-T Interval 396 ms GEMUSE QTc 456 ms GEMUSE P Wave Dawson 19 degrees GEMUSE R Dawson -13 degrees GEMUSE T Dawson -9 degrees GEMUSE ECG Interpretation Normal sinus rhythm When compared with ECG of 21-JAN-2012 23:59, Nonspecific T wave abnormality now evident in Anterior leads Confirmed by MATHEW GARRIDO ([id number]) on 05/25/2024 8:33:46 PM GEMUSE 05/24/2024 9:53 AM EST 05/25/2024 8:33 PM EST Debibe Elder DO ECG ORDERABLES Final Res ult [...] documented as of this encounter Care Teams Keymodule Assembly Machine Tender Relationship Specialty Start Date End Date Physician, Pcp Unknown PCP - General 05/24/24 05/26/24 documented as of this encounter
--- OUTSIDE RECORDS SUMMARY | 2024-06-22 12:34 | XMS_ITS | Clinical Summary ---
Author Organization [employer] Address [address] [place] [address] Care Team Providers Care Swimming Instructor Name Role Phone Rochelle Phan MD Primary Care Provider [phone] Gilberto Zayas Unavailable Unavailable Allergies Active Allergy [...] 1-2 tabs every 8 hours as needed. [place] Lorazepam 0.5 mg for occasional panic attacks [...] the next year or so, and that [facility] should hopefully have new prescriber(s) available [...] EST Narrative 04/17/2024 9:41 AM EST ? [facility] [place] ? [address] ?[place] [address] ? Mammography Report ? Signed ? Patient: Jair,Maria C ?MR#: [id number] ?? [id number] ? : 1980 ?Acct:[id number] ? Age/Sex: 43 / F ?ADM Date: 12/19/24 ? Loc: HO.MAMMO ? Attending Dr: Rochelle Phan MD ? Ordering Physician: Rochelle Phan MD ?Results: 2Be ?? nign Findings ? Date of Service: 04/16/24 ?Follow Up: 1 Year From Orig ?? inal Mammogram ? Procedure(s): MM tomosynthesis screening BI ?? Accession Number(s): [id number] ? cc: Rochelle Phan MD ? EXAMINATION: [...] DD/ 0900 ? TD/TT: 04/16/24 0925 ? Trolley Cleaner: ? Procedure Note Donotnidainterpreter, Image - 04/17/[address] [place] [facility] [address] [place], [place] [address] Mammography Report Signed Patient: Rosalina Adam#: [id number] : 1980Acct:[id number] Age/Sex: 43 / FADM Date: 04/16/24 Loc: HO.MAMMO Attending Dr: Rochelle Phan MD Ordering Physician: Rochelle Phan MDResults: 2Be nign Findings Date of Service: 04/16/24Follow Up: 1 Year From Orig inal Mammogram Procedure(s): MM tomosynthesis screening BI Accession Number(s): [id number] cc: Rochelle Phan MD EXAMINATION: MM SCREENING [...] in OV> 04/17/24937 DD/ 9 TD/TT: 04/16/24924 Trolley Cleaner: us Rochelle Phan MD IMG BI PROCEDURES Final Resul t * FL upper GI w air (04/01/2024 8:46 AM EST) Anatomical Region Laterality Modality Body Radiographic Jing ging 04/01/2024 8:46 AM EST Narrative 04/01/2024 3:32 PM EST ? [facility] ?[address] ?[place] [address] ? Fluoroscopy Report ? Signed ? Patient: Maria C Adam ?MR#: [id number] ?? [id number] ? : 1980 ?Acct:[id number] ? Age/Sex: 43 / F ?ADM Date: 04/01/24 ? Loc: HO.XRAY ? Attending Dr: Carlos Leonard MD ? Ordering Physician: Carlos Leonard MD ?? Date of Service: 04/01/24 ?? Procedure(s): FL upper GI w air ?? Accession Number(s): [id number] ? cc: Rochelle Phan MD; Carlos Leonard [...] ??04/01/2024 03:29 PM EST RP ?? Workstation: [id number] ? Dictated By: ?Rene Matthews ? Signed By: ?<Electronically signed by Rene PA Matthews in OV> ? 04/01/24 1529 ?<Electronically signed by Dominick Sandy MD in OV> ? 04/01/24 1531 ? DD/ 0846 ? TD/TT: 04/01/24 09 ? Trolley Cleaner: ? Procedure Note Becca Chavis - 04/01/[address] [address] Fluoroscopy Report Signed Patient: Rosalina Adam#: [id number] : 1980Acct:[id number] Age/Sex: 43 / FADM Date: 04/01/24 Loc: [facility] Attending Dr: Carlos Leonard MD Ordering Physician: Carlos Leonard MD Date of Service: 04/01/24 Procedure(s): FL upper GI w air Accession Number(s): [id number] cc: Rochelle Phan MD; Carlos Leonard MD [...] the barium. This procedure was performed by eRne Matthews PA-C, and supervised by Dr. Sandy Electronically signed by: Dominick Sandy MD 04/01/2024 03:29 PM EST Dictated By: Rene Matthews Signed By: <Electronically signed by Rene Matthews in OV> 04/01/24 1529 <Electronically signed by Domincik Sandy MD in OV> 04/01/24 1531 DD/ 0846 TD/TT: 04/01/24 0905 Trolley Cleaner: [facility] External Provider IMG FLU OROSCOPY PROCEDURES Final Result * Hematoxylin and Eosin Stain (03/31/2024 10:22 AM EST) 03/31/2024 10:2 2 AM EST 03/31/2024 10:48 AM EST Narrative [facility] - 04/02/2024 11:31 AM EST ----- ------- Name: Maria C Adam ?Age/Sex: 43/F ? : 1980 Unit#: [id number] ?? Attend Dr: Carlos Leonard MD ?Re03/31/24 ?Status: DEP SDC ? Location: HO.SSS ?Disch: ? ----- ------- SPEC : [id number] ? RECD: 03/31/24 ? STATUS: ??SOUT ? REQ NUM: [id number] ? HUAN: 03/31/24-1021 ? SUBM DR: Carlos [...] Adam ?Age/Sex: 43/F ? : 1980 Unit#: [id number] ?? Attend Dr: Carlos Leonard MD ?Re03/31/24 ?Status: DEP SDC ? Location: HO.SSS ?Disch: ? ----- ------- SPEC : [id number] ? RECD: 03/31/24 ? STATUS: ??SOUT ? REQ NUM: [id number] ? HUAN: 03/31/24-1021 ? SUBM DR: Carlos [...] Copies To: ?? Rochelle Phan MD ?? [facility] ?? [address] ?? [place] [address] ?? [phone] ?? Carlos Leonard MD ?? [facility] ?? [address] ?? [place] [address] ?? [phone] ----- ------- Signed (signature on file) Paulo Castillo MD 04/02/24 1131 ? ----- ------- ? END OF REPORT ? Generic External Data Provider LAB BLOOD ORDERAB LES Final Result Performing Organization Address [facility] de Phone Number [facility] [address] [place] [address] [phone] * HCG, Qualitative, Urine (03/31/2024 9:00 AM EST) Urine NEGATIVE NEGATIVE [facility] Comment:This test was develo ped to detect early . Falsenegative results may occur after the 5th - 7th week ofpregnancy when using this test method. If clinicallyindicated, consider a serum hCG. 03/31/2024 9:00 AM EST 03/31/2024 9:23 AM EST [employer] External Data Provider LAB URINE ORDERAB LES Final Result Performing Organization Address [facility] de Phone Number [facility] [address] [place] [phone] * Hemoglobin A1c (01/30/2024 9:03 AM EDT) Hemoglobin A1c 5.8 <6.0 % [facility] Comment:Hemoglobin A1C Refer ence Range Adults: 4.8 - 6.0 % Non diabetic: < 6.0 % Goal: < 7.0 %Additional Action Suggested: > 8.0 %Note: Hemoglobin A1c results are invalid for patients with abnormal amounts of HbF. Blood transfusions may impact the HbA1c concentration in the patient sample. Estimated Average Glucose 120 mg/dL [facility] Comment:eAG = Estimated ave rage glucose which is %A1C expressed asaverage glucose, using the formula of the T3J-LinsojbGgtzxoi Glucose study (ADAG), Diabetes Care, Vol.31,#8,2007 01/30/2024 9:03 AM EDT 01/30/2024 9:03 AM EDT Generic External Data Provider LAB BLOOD ORDERAB LES Final Result Performing Organization Address [facility] Co de Phone Number [facility] [address] [place] [address] [phone] * (ABNORMAL) Lipid Panel, Standard (01/30/2024 9:03 AM EDT) Triglycerides 287(H) <150 mg/dL [facility] Comment:Desirable Triglyceri de: less than 150 mg/dLBorderline High Triglyceride 150-199 mg/dLHigh Triglyceride: 200-499 mg/dLVery High Triglyceride: greater than or equal to 5OO mg/dL Cholesterol 257(H) <200 mg/dL [facility] Comment:Desirable Cholestero l: less than 200 mg/dLBorderline High Cholesterol: 200-239 mg/dLHigh Cholesterol: greater than 239 mg/dL LDL Cholesterol Calculated 147(H) <100 mg/dL [facility] Comment:Desirable LDL: less than 100 mg/dLNear Optimal/Above Optimal LDL: 110- 129 mg/dLBorderline High LDL: 130-159 mg/dLHigh LDL: 160-189 mg/dLVery High LDL: greater than or equal to 190 mg/dL HDL Cholesterol 53 >40 mg/dL [facility] Comment:Desirable HDL: great er than 40 mg/dL Note: This HDL assay may give artificially low results in patients with liver disease. 01/30/2024 9:03 AM EDT 01/30/2024 9:03 AM EDT us Generic External Data Provider LAB BLOOD ORDERAB LES Final Result Performing Organization Address [facility]/ZIP Co de Phone Number [facility] [address] [place] [address] [phone] * HIV 1/2 ANTIGEN/ANTIBODY,FOURTH GENERATION W/RFL (01/05/2022 9:49 AM EDT) HIV-1/2 ANTIGEN AND ANTIBODIES, 4TH GENERATION W/ REFLEX NON-REACT DEEPTI NON-REACT DEEPTI [facility] Comment: HIV-1 antigen and HIV-1/HIV-2 [...] ? For additional information please refer to http://education.lifeIO/faq/CIK037 (This link is being provided for informational/ educational purposes only.) ? The performance of this assay has not been clinically validated in patients less than 2 years old. ?? 01/05/2022 9:49 AM EDT Heidi Moreau MD LAB BLOOD ORDERABLES Final Re sult [facility] [address] * THINPREP TIS PAP AND HPV mRNA E6/E7 WITH REFLEX TO HPV 16,18/45 (04/18/2021 10:23 AM EST) Pathologist [facility] Clinical Information: None given [facility] COMMENT SEE COMMENT [facility] [...] has been evaluated with computer assisted technology. [facility] Precision Agriculture Technician: SEE COMMENT [facility] Comment: HJP, CT(ASCP) CT screening location: [address] ??[address] HPV nRNA E6/E7 Not Detected Not Detected [facility] Comment: Methodology: Black Top Raker-Mediated Amplification This assay detects E6/E7 viral messenger RNA (mRNA) from 14 high-risk HPV types (16,18,31,33,35,39,45,51,52,56,58,59,66,68). ? The analytical performance characteristics of this assay have been determined by [employer]. The modifications have not been cleared or approved by the FDA. This assay has been validated pursuant to the CLIA regulations and is used for clinical purposes. ?? For additional information, please refer to http://education.lifeIO/faq/OGX988e0 (This link if provided for information/ educational purposes only.) Interpretation/Re sult: Negative for intraepithelial lesion or malignancy. [facility] LMP: 03/2021 [facility] Prev. BX: NONE GIVEN [facility] Prev. PAP: 01/23/18 [facility] SOURCE: Cervix [facility] Statement Of Adequacy: SEE COMMENT [facility] Comment: Satisfactory for evaluation. Endocervical/transformation zone component absent. 04/18/2021 10:2 3 AM EST us Rochelle Phan MD LAB PATHOLOGY ORDERABLES Meenakshi barone Result [facility] [address] from Last 3 Months or Most Recently Relevant to Health Maintenance Care Teams Swimming Instructor Relationship Specialty Start Date End Date Rochelle Phan MD [address] [facility] [place] [address] PCP - General Family Medicine 10/27/12 Gilberto Zayas FNP [address] [facility] [place] [address] Nurse Practitioner Family Medicine 03/20/23
== END 2024-06-22 11:33 | disposition home or self-care (01) ==
PROVIDERS: PCP Pediatrics; Visit Provider Physician Assistant Surgical
DX: Z98.84 Bariatric surgery status (principal)
CPT/HCPCS: 99024

== ENCOUNTER 2024-07-08 09:15 | Outpatient (AMB) | payer OTHER, SELFPAY ==
--- NOTE | 2024-07-08 09:00 | A.OFFWM_ITS ---
Intake Intake Visit Reasons: VIDEO PO LSG 06/16/24 Allergies codeine Allergy (Intermediate, Verified 06/22/24 11:11) Itching Penicillins Allergy (Intermediate, Verified 06/22/24 11:11) Swelling PFSH Medical History (Updated 06/30/24 @ 00:01 by Background Daemon) Pre-diabetes Von Willebrand's disease Asthma Migraines Insomnia Anxiety Hyperlipidemia Hypertension Morbid obesity Depression Persistent proteinuria Surgical History (Updated 06/30/24 @ 00:01 by Background Dasameera) S/P laparoscopic sleeve gastrectomy H/O section History of appendectomy Hx of nasal septoplasty Family History Mother Diabetes Hypertension Paternal Uncle Leukemia Social History Household Members: Significant Other and Children Housing: Apartment Are you a primary critical care cns to a significant other at home: No Do you presently have visiting nurse or other home services: No Alcohol intake: current Alcohol intake frequency: does not drink Alcohol type: other Patient Tobacco Use Status: Never used Tobacco e-Cigarette/Vaping Use: Never Used service: No Behavioral Health Assessment Weight Management Therapy Therapy Notes Details Subjective: The patient reports that her recovery following surgery last month has been progressing well. However, she is currently coping with grief from the recent loss of her grandparents in March 2024. Additionally, she has been experiencing stress related to being laid off from work. Despite these challenges, the patient states that she is overall feeling well and has a strong support system in place to help her navigate these difficulties. Objective: The patient presents for a follow-up appointment via Telehealth after undergoing bariatric surgery on 06/16/2024. We discussed her current functioning, challenges, and ongoing needs. Topics included navigating post-operative life, reviewing her meal plan, tracking weight loss, and celebrating non-scale victories. Cognitive-behavioral therapy (CBT) strategies were used to support her weight- loss commitment, with a focus on habit formation, maintaining consistency with routines, and tips for long-term success. Emphasis was placed on the importance of ongoing communication with her healthcare provider and adherence to medical instructions. A PHQ-9 screening was administered, indicating mild symptoms of depression, likely triggered by the recent loss of two family members. Assessment/Response: * Mental Status: Euthymic; within normal limits * Risk Factors Identified: None The patient responded positively to the interventions provided during the session. She appeared engaged and actively participated in the discussion. Food/Weight/Diet Expectations of change Initial goal to lose 10% of her weight before surgery, which is about 18lbs. Ultimate weight goal: 170lbs before surgery. PT expects to gain a better understanding of her eating issues and change eating patterns to be able to keep the weight off in the long-term. Initial weight: 188Lbs, (then she gained weight and was 192 weeks after) Surgery day weight: 178Lbs PO weight 06/22/24: 172Lbs PO Weight as of 07/07/2024: 167Lbs PT's target goal: 125Lbs. PT is implementing the following: None as she injured and has been sick. Current meal plan: 2 shakes and 1 bar. Exercise plan: Eliptical3-5 days at week. Questionnaires PHQ-9 Over the last 2 weeks, how often have you been bothered by any of the following problems? 1. Little interest or pleasure in doing things: not at all 2. Feeling down, depressed, or hopeless: several days (mostly related to recent loss.) 3. Trouble falling or staying asleep, or sleeping too much: several days (staying asleep ) 4. Feeling tired or having little energy: several days (short periods of time during the day.) 5. Poor appetite or overeating: not at all (Following Post-Op meal plan.) 6. Feeling bad about yourself - or that you are a failure or have let yourself or your family down: several days (Triggered by being laid off at work. ) 7. Trouble concentrating on things, such as reading the newspaper or watching television: not at all 8. Moving or speaking so slowly that other people could have noticed. Or the opposite - being so fidgety or restless that you have been moving around a lot more than usual: not at all 9. Thoughts that you would be better off or of hurting yourself in some way: not at all Total score: 4 Depression Screening Interpretation: Positive (Mild Sx, triggered by recent loss of 2 family memebers. ) Depression Screening Follow-up: Existing condition Depression Screening Done: Yes 19636 - PHQ-9 Billing: Yes Source: Developed by Drs. Nitish De La Rosa, Telma Rivera, Ozzie Riddle and colleagues, with an educational aishwarya from [employer]. Assessment & Plan Assessment & Plan (1) Depression: Code(s): F32.A - Depression, unspecified (2) Anxiety: Code(s): F41.9 - Anxiety disorder, unspecified Plan The patient does not require further visits with this provider unless she requests additional support. She was reminded of her post-operative appointment with Ira on 07/23/2024 at 9:30 AM. The patient was also given information about a supportive Facebook group and encouraged to join. Telehealth Telehealth Telehealth Platform: [facility] Location of provider rendering services: practice address Location of patient: address on file Patient Identification confirmed using: Name, : Yes Telehealth method: video Patient verbally consented to treatment: Yes Patient verbally consented to billing insurance company: Yes Patient informed of any privacy concerns related to visit: Yes Minutes spent on Phone/Video with Pt.: 45 Coding Level of Care Code Established Pt Tele Psytx 45 mins (44004) Patient Type Established Diagnoses Depression F32.A Anxiety F41.9 Additional Codes PHQ-9 - 72078 - PHQ-9 Billing: Yes ([id number]) Time Spent (min) 45
--- OUTSIDE RECORDS SUMMARY | 2024-07-08 09:56 | XMS_ITS | Clinical Summary ---
Author Organization [employer] Address [address] [place] [address] Care Team Providers Care Plant Operations Manager Name Role Phone Rochelle Phan MD Primary Care Provider [phone] Gilberto Zayas Unavailable Unavailable Allergies Active Allergy [...] 1-2 tabs every 8 hours as needed. [place] Lorazepam 0.5 mg for occasional panic attacks [...] the next year or so, and that [facility] should hopefully have new prescriber(s) available by [...] 09/25/2012 Von Willebrand disease 04/30/2012 Asthma 04/30/2012 Immunizations Name Administration Dates Next Due Influenza [...] 2 - PCV) 2000 COVID-19 Vaccine ( - season) 2023 02/07/2022, 07/11/2021, 08/20/2020, Additional history exists Influenza Vaccine (#1) 2023 , 02/06/2022, 04/18/2021, Additional history exists Pap Smear 04/18/2024 04/18/2021 SDOH Screening 06/21/2024 06/21/2023 Tobacco Screening 07/11/2024 07/12/2023 Depression Screening 07/24/2024 07/25/2023, 07/25/19 Diabetes: Hemoglobin A1C 01/29/2025 024, 03/28/2023, 05/25/2022, [...] TOMOSYNTHESIS BILATERAL Routine 04/16/2024 9:00 AM EST HEMOGLOBIN A1C Routine 01/30/2024 [...] EST Narrative 04/17/2024 9:41 AM EST ? [facility] [place] ? [address] ?[place] [address] ? Mammography Report ? Signed ? Patient: Jair,Maria C ?MR#: [id number] ?? [id number] ? : 1980 ?Acct:[id number] ? Age/Sex: 43 / F ?ADM Date: 12/19/24 ? Loc: HO.MAMMO ? Attending Dr: Rochelle Phan MD ? Ordering Physician: Rochelle Phan MD ?Results: 2Be ?? nign Findings ? Date of Service: 04/16/24 ?Follow Up: 1 Year From Orig ?? inal Mammogram ? Procedure(s): MM tomosynthesis screening BI ?? Accession Number(s): [id number] ? cc: Rochelle Phan MD ? EXAMINATION: [...] DD/ 0900 ? TD/TT: 04/16/24 0925 ? Ict Analyst: ? Procedure Note Donotuseinterpreter, Image - 04/17/2024 Noe [facility] [address] [place], [place] [address] Mammography Report Signed Patient: Rosalina Adam#: [id number] : 1980Acct:[id number] Age/Sex: 43 / FADM Date: 04/16/24 Loc: HO.MAMMO Attending Dr: Rochelle Phan MD Ordering Physician: Rochelle Phan MDResults: 2Be nign Findings Date of Service: 04/16/24Follow Up: 1 Year From Orig inal Mammogram Procedure(s): MM tomosynthesis screening BI Accession Number(s): [id number] cc: Rochelle Phan MD EXAMINATION: MM SCREENING [...] Lupe Dunaway DO 04/17/2024 09:38 AM EST Dictated By: Lupe Dunaway DO Signed By: <Electronically signed by Lupe Dunaway DO in OV> 04/17/24937 DD/ 9 TD/TT: 04/16/24924 Ict Analyst: us Rochelle Phan MD IMG BI PROCEDURES Final Resul t * Hemoglobin A1c (01/30/2024 9:03 AM EDT) Hemoglobin A1c 5.8 <6.0 % [facility] Comment:Hemoglobin A1C Refer ence Range Adults: 4.8 - 6.0 % Non diabetic: < 6.0 % Goal: < 7.0 %Additional Action Suggested: > 8.0 %Note: Hemoglobin A1c results are invalid for patients with abnormal amounts of HbF. Blood transfusions may impact the HbA1c concentration in the patient sample. Estimated Average Glucose 120 mg/dL [facility] Comment:eAG = Estimated ave rage glucose which is %A1C expressed asaverage glucose, using the formula of the T9K-CwgvlkrCuscsyb Glucose study (ADAG), Diabetes Care, Vol.31,#8,Nov. 2007 01/30/2024 9:03 AM EDT 01/30/2024 9:03 AM EDT us Generic External Data Provider LAB BLOOD ORDERAB LES Final Result [facility] [address] [place] [address] [phone] * (ABNORMAL) Lipid Panel, Standard (01/30/2024 9:03 AM EDT) Triglycerides 287(H) <150 mg/dL [facility] Comment:Desirable Triglyceri de: less than 150 mg/dLBorderline High Triglyceride 150-199 mg/dLHigh Triglyceride: 200-499 mg/dLVery High Triglyceride: greater than or equal to 5OO mg/dL Cholesterol 257(H) <200 mg/dL [facility] Comment:Desirable Cholestero l: less than 200 mg/dLBorderline High Cholesterol: 200-239 mg/dLHigh Cholesterol: greater than 239 mg/dL LDL Cholesterol Calculated 147(H) <100 mg/dL [facility] Comment:Desirable LDL: less than 100 mg/dLNear Optimal/Above Optimal LDL: 110- 129 mg/dLBorderline High LDL: 130-159 mg/dLHigh LDL: 160-189 mg/dLVery High LDL: greater than or equal to 190 mg/dL HDL Cholesterol 53 >40 mg/dL [facility] Comment:Desirable HDL: great er than 40 mg/dL Note: This HDL assay may give artificially low results in patients with liver disease. 01/30/2024 9:03 AM EDT 01/30/2024 9:03 AM EDT us Generic External Data Provider LAB BLOOD ORDERAB LES Final Result Performing Organization Address [facility]/ZIP Co de Phone Number [facility] [address] [place] [address] [phone] * HIV 1/2 ANTIGEN/ANTIBODY,FOURTH GENERATION W/RFL (01/05/2022 9:49 AM EDT) Pathologist [facility] HIV-1/2 ANTIGEN AND ANTIBODIES, 4TH GENERATION W/ [...] ? For additional information please refer to http://education.[employer].SL8Z | [employer]/faq/UTA138 (This link is being provided for informational/ educational purposes only.) ? The performance of this assay has not been clinically validated in patients less than 2 years old. ?? 01/05/2022 9:49 AM EDT us Heidi Moreau MD LAB BLOOD ORDERABLES Final Re sult Performing Organization Address [facility]/ZIP Co de Phone Number [facility] [address] [place] [address], * THINPREP TIS PAP AND HPV mRNA E6/E7 WITH REFLEX TO HPV 16,18/45 (04/18/2021 10:23 AM EST) Clinical Information: None given [facility] COMMENT SEE COMMENT [facility] ON [...] has been evaluated with computer assisted technology. [facility] Community Service Aide: SEE COMMENT [facility] Comment: HJP, CT(ASCP) CT screening location: [address] ??[address] HPV nRNA E6/E7 Not Detected Not Detected [facility] Comment: Methodology: Steeping Press Operator-Mediated Amplification This assay detects E6/E7 viral messenger RNA (mRNA) from 14 high-risk HPV types (16,18,31,33,35,39,45,51,52,56,58,59,66,68). ? The analytical performance characteristics of this assay have been determined by [employer]. The modifications have not been cleared or approved by the FDA. This assay has been validated pursuant to the CLIA regulations and is used for clinical purposes. ?? For additional information, please refer to http://education.[employer]/faq/XPO729b8 (This link if provided for information/ educational purposes only.) Interpretation/Re sult: Negative for intraepithelial lesion or malignancy. [facility] LMP: 03/2021 [facility] Prev. BX: NONE GIVEN [facility] Prev. PAP: 01/23/18 [facility] SOURCE: Cervix [facility] Statement Of Adequacy: SEE COMMENT [facility] Comment: Satisfactory for evaluation. Endocervical/transformation zone component absent. 04/18/2021 10:2 3 AM EST us Rochelle Phan MD LAB PATHOLOGY ORDERABLES Meenakshi barone Result [facility] [address] [place] [address], from Last 3 Months or Most Recently Relevant to Health Maintenance Care Teams Plant Operations Manager Relationship Specialty Start Date End Date Rochelle Phan MD [address] [facility] [place] [address] PCP - General Family Medicine 10/27/12 Gilberto Zayas FNP [address] [facility] [place] [address] Nurse Practitioner Family Medicine 03/20/23"
--- OUTSIDE RECORDS SUMMARY | 2024-07-08 09:56 | XMS_ITS | Encounter Summary ---
Author Organization [employer] [facility] Address [address] [place] [address] Care Team Providers Care Price Clerk Name Role Phone Rochelle Phan MD Primary Care Provider [phone] Gilberto Zayas Unavailable Unavailable Encounter Details Date [...] on filedocumented in this encounter Care Teams Price Clerk Relationship Specialty Start Date End Date Rochelle Phan MD [address] [place] [address] PCP - General Family Medicine 10/27/12 Gilberto Zayas FNP [address] [place] [address] Nurse Practitioner Family Medicine 03/20/23 documented as of this encounter
--- OUTSIDE RECORDS SUMMARY | 2024-07-08 09:57 | XMS_ITS | Clinical Summary ---
Author Organization [facility] Address [address] [place] [phone] Phone Care Team Providers Care Clinique Counter Manager Name Role Phone Physician, No Pcp Primary Care Provider Unavaila ble Allergies Active Allergy Reactions Criticality Noted Date Comments Codeine Itching,Hives Low 04/18/2010 Break out hives Nsaids (Non-Steroidal Anti-Inflammatory Drug) 04/18/2010 Other reaction(s): Increased bleeding r/t Von Aliya's Penicillin G Itching 05/24/2024 Penicillins Hives Low 01/24/2020 Itchy Medications FLUoxetine (PROzac) 20 mg capsule TAKE TWO CAPSULES ONCE DAILY Active butalbital-acet aminophen-caffe ine (ESGIC) 50-325-40 mg per capsule Take 1 tablet by mouth. 1 Active acetaminophen (TYLENOL 8 HOUR ORAL) Take 650 mg by mouth. 4 Active albuterol HFA (PROAIR HFA ; PROVENTIL HFA ; VENTOLIN HFA) 90 mcg/actuation inhaler INHALE TWO PUFFS EVERY 4 TO 6 HOURS NEEDED FOR difficulty with breathing Active amitriptyline (ELAVIL) 75 mg tablet Take 1 tablet (75 mg total) by mouth. at bedtime Active ARIPiprazole (ABILIFY) 15 mg tablet Take 1 tablet (15 mg total) by mouth 1 (one) time each day. Active docusate sodium (COLACE) 100 mg capsule Take 1 capsule (100 mg total) by mouth. 8 Active norethindrone-e thinyl estradiol (ORTHO-NOVUM 1-35 TAB,NORTREL 1-35 TAB) 1-35 mg-mcg per tablet Take 1 tablet by mouth. 6 Active hydrOXYzine HCL (ATARAX) 25 mg tablet Take 1-2 tablets (25-50 mg total) by mouth every 8 hours as needed. 4 Active pantoprazole (PROTONIX) 40 mg EC tablet Take 1 tablet (40 mg total) by mouth 1 (one) time each day. 5 Active Active Problems Problem Noted Date Diagnosed Date Abnormal cytological findings in female genital organs 07/03/2024 Incompetence of cervix 07/03/2024 Obesity 07/03/2024 Pure hypercholesterolemia 07/03/2024 Dermoid cyst of both ovaries 07/03/2024 Chronic pelvic pain in female 07/03/2024 Abnormal cytological findings in female genital organs 07/12/2023 Primary hypertension 06/21/2023 Elevated BP without diagnosis of hypertension Psoriasis 01/23/2018 Moderate recurrent major depression 01/17/2018 Cystic acne 03/17/2015 Migraine 10/13/2012 Asthma 04/30/2012 Von Willebrand disease 04/30/2012 Encounters Date Type Department Care Team Description 07/03/2024 2:30 PM EST Office Visit [facility] [address] [place] [phone] Sahara Tello DO Dermoid cyst of both ovaries (Primary Dx) 06/25/2024 Telephone [facility] [address] [place] [address] Sahara Tello DO Appointment 05/24/2024 11:21 AM EST - 05/24/2024 4:03 PM EST Emergency [facility] Emergency [address] [place] [phone] Ovarian mass (Primary Dx); Acute cystitis without hematuria Discharge Disposition: Home or Self Care from Last 3 Months Surgical History Surgery Date Site/Laterality Comments SLEEVE GASTROPLASTY 05/30/2024 - 06/26/2024 gastric sleeve SECTION, LOW TRANSVERSE SEPTOPLASTY APPENDECTOMY CERVICAL BIOPSY W/ LOOP ELECTRODE EXCISION Medical History Medical History Date Comments Asthma Clotting disorder (CMS/HCC) Social History Tobacco Use Types Packs/Day Years Used Date Smoking Tobacco: Never Smokeless Tobacco: Never Tobacco Cessation:Counseling Given: Not Answered Alcohol Use Standard Drinks/Week Comments Never 0 (1 standard drink = 0.6 oz pur e alcohol) Housing Instability Answer Date Recorde d Are you worried that in the next 2 months you may not have stable housing? No 07/03/2024 Food Access & Nutrition Answer Date Rec orded Do you have access to a vari ety of food including fruits and vegetables? Yes 07/03/2024 Access to Healthcare Answer Date Record ed Within the last 3 months, ho w many times did you visit the emergency department for your medical care? 1 07/03/2024 Health Literacy Answer Date Recorded How often do you need to hav e someone help you when you read instructions, pamphlets, or other written material from your doctor or pharmacy? Never 07/03/2024 Caregiver: How often do you need to have someone help you when you read instructions, pamphlets, or other written material from your doctor or pharmacy? Not on file 07/03/2024 Financial Risk Answer Date Recorded How hard is it for you to pa y for the very basics like food, housing, medical care, and air conditioning / heating? Not very hard 07/03/2024 Transportation Answer Date Recorded Has the lack of transportati on kept you from meetings, work, or from getting things needed for daily living? No Has the lack of transportati on kept you from medical appointments or from getting medications? No 07/03/2024 Social Isolation Answer Date Recorded How often do you feel lonely or isolated from th ose around you? Rarely 07/03/2024 Food Risk Answer Date Recorded Within the past 12 months we worried whether our food would run out before we got money to buy more. Never true 07/03/2024 Within the past 12 months th e food we bought just didn't last and we didn't have money to get more. Never true 07/03/2024 Dependent Care Answer Date Recorded Do you need help finding or paying for care for your loved ones. For example, childcare aide or elderly care for an older adult? No 07/03/2024 Education Answer Date Recorded Do you think completing more education or training, like finishing a GED, going to college, or learning a trade, would be helpful for you? N/A 07/03/2024 Employment and Income Answer Date Recor ded During the last four weeks, have you been actively looking for work? Yes 07/03/2024 Living Situation Answer Date Recorded What is your living situation? 0 07/03/2024 Comments No Sex and Gender Information Value Date Recorded Sex Assigned at Not on file Legal Sex Female 4:57 AM EST Gender Identity Not on file Sexual Orientation Not on file Obstetrics History Para Term AB IAB SAB Ectopic Multiple Livin g Live Births 1 1 1 1 1 Date Outcome GA Total Labor Labor/2nd/3rd Weight Sex Type Anes PTL Mel A1 A5 Name Clin Term CS-LT ranv Living Last Filed Vital Signs Vital Sign Reading Time Taken Comments Blood Pressure 116/84 07/03/2024 2:24 PM EST Pulse 96 07/03/2024 2:24 PM EST Temperature 37 ??C (98.6 ??F) 05/24/2024 2:51 PM EST Respiratory Rate 16 05/24/2024 2:51 PM EST Oxygen Saturation 100% 05/24/2024 2:51 PM EST Inhaled Oxygen Concentration - - Weight 78.1 kg (172 lb 3.2 oz) 07/03/2024 2:24 P M EST Height 147.3 cm (4' 10 ) 05/24/2024 8:47 AM EST Body Mass Index 35.99 05/24/2024 8:47 AM EST Plan of Treatment Upcoming Encounters Date Type Department Care Team (Late st Contact Info) Description 09/18/2024 7:30 AM EDT Hospital Encounter [facility] Main OR [address] [place] [phone] Sahara Tello, [address] [place] [address] 09/18/2024 7:30 AM EDT - 09/18/2024 9:[address] [facility] [place] [address] [place] [phone] Sahara eTllo, [address] [place] [address] DAVINCI EXCISION OVARIAN CYST [[id number] (CPT??)] Scheduled Procedures Name Priority Associated Diagnoses Date/Ti me EXCISION CYST OVARIAN ROBOT Dermoid cyst of both ovaries Chronic pelvic pain in female 09/18/2024 7:30 AM EDT Health Maintenance Due Date Last Done Comments Breast Cancer Screening 1981 Hepatitis B Vaccines (1 of 3 - 19+ 3-dose series) 2000 Pneumococcal Vaccine: Pediatrics (0 to 5 Years) and At-Risk Patients (6 to 64 Years) (1 of 2 - PCV) 2000 Cervical Cancer Screening: Pap Smear 2002 Hepatitis C Screening 04/01/2022 COVID-19 Vaccine ( season) 2023 02/07/2022, 07/11/2021, 08/20/2020, Additional history exists Hypertension/CHF/CAD Annual BMP Blood Test 05/24/2025 05/24/2024 Depression Screening 07/03/2025 07/03/2024 Social Influencers of Health Screening 07/03/2025 07/03/2024 DTaP,Tdap,and Td Vaccines (3 - Td or [...] management. 2. 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 ([id number]) -------- FINAL REPORT -------- Dictated By: Mechelle Bosch Dictated Date: 05/24/2024 13:53 ET Assigned Physician: Mechelle Bosch Reviewed and Electronically Signed By: Mechelle Bosch Signed Date: 05/24/2024 14:04 ET Workstation ID: [id number] Transcribed By: Self Edit Transcribed Date: 05/24/2024 13:53 ET Narrative 05/24/2024 2:04 PM EST History: Right-sided abdominal pain radiating to the back. Vomiting. Prior appendectomy. Comparison: 06/18/18 Technique: Helical volumetric imaging of the abdomen and pelvis was performed following oral contrast and during the uneventful intravenous administration of 90 cc Isovue-370. DLP: 1194.40 mGy/cm Gevo VCT Iterative reconstruction technique Findings: The liver [...] of 90 cc Isovue-370. DLP: 1194.40 mGy/cm Gevo VCT Iterative reconstruction technique Findings: The liver [...] for a dermoid tumor. This is new [id number]. A 2.3 x 2.2 x 1.8 cm [...] management. 2. 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 Telerad [place] ([id number]) -------- FINAL REPORT -------- Dictated By: Mechelle Bosch Dictated Date: 05/24/2024 13:53 ET Assigned Physician: Mechelle Bosch Reviewed and Electronically Signed By: Mechelle Bosch Signed Date: 05/24/2024 14:04 ET Workstation ID: [id number] Transcribed By: Self Edit Transcribed Date: 05/24/2024 13:53 ET Ira [facility] IMG CT PROCEDURES Final Result * XR Chest 2 Views (05/24/2024 12:43 PM EST) Anatomical Region Laterality Modality Body Radiographic Jing ging 05/24/2024 12:4 4 PM EST Impressions 05/24/2024 12:45 PM EST Impression: No active pulmonary process identified. Telerad PA ([id number]) -------- FINAL REPORT -------- Dictated By: Mechelle Bosch Dictated Date: 05/24/2024 12:44 ET Assigned Physician: Mechelle Bosch Reviewed and Electronically Signed By: Mechelle Bosch Signed Date: 05/24/2024 12:45 ET Workstation ID: [id number] Transcribed By: Self Edit Transcribed Date: 05/24/2024 [...] No active pulmonary process identified. Telerad ETIENNE ([id number]) -------- FINAL REPORT -------- Dictated By: Mechelle Bosch Dictated Date: 05/24/2024 12:44 ET Assigned Physician: Mechelle Bosch Reviewed and Electronically Signed By: Mechelle Bosch Signed Date: 05/24/2024 12:45 ET Workstation ID: [id number] Transcribed By: Self Edit Transcribed Date: 05/24/2024 [...] 05/24/2024 1:44 PM EST [facility] Parainfluenza Virus 4 Not [...] PM EST Testing was performed using the Yabblye Respiratory Pathogen PCR Assay. All results must [...] of detection. Ira [facility] MICROBIOLOGY - [facility] AL ORDERABLES Final Result [facility] [address] [place] [address], [place] [phone] * (ABNORMAL) Urinalysis with reflex microscopic and culture (05/24/2024 12:12 PM EST) Specific [place] Urine 1.025 1.003 - 1.030 LAB URINALYSIS [...] 12:12 PM EST 05/24/2024 12:44 PM EST [facility] Delilah [facility] LAB URINE ORDERABLES Fin al Result [facility] [address] [place] [address], [place] [phone] * Moss urine culture tube (05/24/2024 12:12 PM EST) Extra Tube Hold for add-ons. 05/24/2024 2:01 PM EST [facility] Comment:Auto resulted. Urine Urine specimen obtained by clean catch procedure / Unknown Non-blood Collection / Unknown 05/24/2024 12:12 PM EST 05/24/2024 12:44 PM EST [facility] Delilah [facility] LAB URINE ORDERABLES Fin al Result Performing Organization Address City/[facility]/ZIP Co de Phone Number [facility] [address] [place] [address], [place] [phone] * Troponin I high sensitivity (05/24/2024 12:12 PM EST) Only the most recent of2 resultswithin the time period is included. [facility] High Sensitivity Troponin I <3 <=54 ng/L LAB CHEMISTRY METHOD 05/24/2024 1:21 PM EST [facility] Blood Venous blood specimen / Unknown Venipuncture / Unknown 05/24/2024 12:12 PM EST 05/24/2024 12:43 PM EST [facility] - 05/24/2024 1:21 PM EST High levels of biotin in samples may falsely decrease hsTroponin values. ??Use caution when interpreting hsTroponin results in patients taking biotin who exhibit renal impairment (eGFR <60) or in patients taking more than 20 mg/day of biotin. Debbie Elder DO LAB BLOOD ORDERABLES Meenakshi l Result Performing Organization Address City/[facility]/ZIP Co de Phone Number [facility] [address] [place] [address], [place] [phone] * Culture urine (05/24/2024 12:12 PM EST) Urine Urine specimen obtained by clean catch procedure / Unknown Non-blood Collection / Unknown 05/24/2024 12:12 PM EST 05/24/2024 1:08 PM EST [facility] - 05/26/2024 11:10 AM EST Beta Strep Group B noted. The presence of a low colony count of Beta Strep Group B may have clinical significance in women. Ira [facility] MICROBIOLOGY - GENER AL ORDERABLES Final Result Performing Organization Address City/[facility]/ZIP Co de Phone Number [facility] [address] [place] [address], [place] [phone] * (ABNORMAL) CBC auto differential (05/24/2024 10:36 [...] 05/24/2024 10:52 AM EST us Debbie Elder LAB BLOOD ORDERABLES Meenakshi l Result [facility] [address] [place] [address], [place] [phone] * Protime-INR (05/24/2024 10:36 AM EST) Protime 11.0 10.6 - 13.9 sec LAB COAGULATION METHOD 05/24/2024 11:01 AM EST [facility] INR 0.9 LAB COAGULATION METHOD 05/24/2024 11:01 AM EST [facility] Blood Venous blood specimen / Unknown Venipuncture / Unknown 05/24/2024 10:36 AM EST 05/24/2024 10:52 AM EST Debbie Elder LAB BLOOD ORDERABLES Meenakshi l Result Performing Organization Address City/[facility]/ZIP Co de Phone Number [facility] [address] [place] [address], [place] [phone] * Type and screen (05/24/2024 10:36 AM EST) Pathologist [facility] ABO Group O 05/24/2024 11:51 AM EST [facility] Rh Type Positive 05/24/2024 11:51 AM EST [facility] Antibody Screen Negative 05/24/2024 11:51 AM EST [facility] Blood Venous blood specimen / Unknown Venipuncture / Unknown 05/24/2024 10:36 AM EST 05/24/2024 10:52 AM EST us Debbie Elder LAB BLOOD BANK TEST ORDER MARY KATE Final Result Performing Organization Address City/[facility]/ZIP Co de Phone Number [facility] [address] [place] [address], [place] [phone] * Magnesium (05/24/2024 10:36 AM EST) Magnesium 2.1 1.9 - 2.6 mg/dL LAB CHEMISTRY METHOD 05/24/2024 11:41 AM [facility] Comment:Hemolysis present Blood Venous blood specimen / Unknown Venipuncture / Unknown 05/24/2024 10:36 AM EST 05/24/2024 10:52 AM EST us Debbie Elder DO LAB BLOOD ORDERABLES Meenakshi l Result [facility] [address] [place] [address], [place] [phone] * (ABNORMAL) Comprehensive metabolic panel (05/24/2024 10:36 AM EST) Pathologist [facility] Sodium 137 133 - 145 mmol/L LAB [...] DO LAB BLOOD ORDERABLES Meenakshi l Result [facility] [address] [place] [address], * ECG 12 lead (05/24/2024 9:53 AM EST) Ventricular Rate ECG 80 BPM GEMUSE Atrial Rate 80 BPM GEMUSE P-R Interval 148 ms GEMUSE QRS Duration 90 ms GEMUSE Q-T Interval 396 ms GEMUSE QTc 456 ms GEMUSE P Wave [place] 19 degrees GEMUSE R [place] -13 degrees GEMUSE T [place] -9 degrees GEMUSE ECG Interpretation Normal sinus [...] Final Result from Last 3 Months Insurance MEDICA[place] - [place] Care Teams Clinique Counter Manager Relationship Specialty Start Date End Date Physician, No Pcp PCP - General 05/27/24
--- OUTSIDE RECORDS SUMMARY | 2024-07-08 09:57 | XMS_ITS | Encounter Summary ---
Author Organization [facility] Address [address] [place] [address] Care Team Providers Care Carbonation Equipment Operator Name Role Phone Physician, No Pcp Primary Care Provider Unavaila ble Reason for Visit * Reason Onset Date Comments Appointment 06/25/2024 Encounter Details Date Type Department Care Team (Late st Contact Info) Description 06/25/2024 Telephone Ob[facility]s [facility] [address] [place] [phone] Sahara Tello, DO [address] [place] [address] Appointment Social History Tobacco Use Types Packs/Day Years Used Date Smoking Tobacco: Never Smokeless Tobacco: Never Alcohol Use Standard Drinks/Week Comments Never 0 (1 standard drink = 0.6 oz pur e alcohol) Comments Unknown Sex and Gender Information Value Date Recorded Sex Assigned at Not on file Legal Sex Female 4:57 AM EST Gender Identity Not on file Sexual Orientation Not on file documented as of this encounter Functional Status * Are you [...] Luis Galicia RN documented in this encounter Progress Notes * Sade Cedillo RN - 06/25/2024 3:59 PM EST Pt is asking to reschedule the missed appointment, her grandmother had past away and she had to go to [place]. Appointment scheduled with Dr. Tello on 07/03/24 at 230pm * Genesis Seaman - 06/25/2024 10:33 AM EST Pt calling, wanting to reinstate her appt missed on 06/11/24 w/ dr. Chu. Pls advise documented in this encounter Plan of Treatment Upcoming Encounters Date Type Department Care Team (Late st Contact Info) Description 09/18/2024 7:30 AM EDT Hospital Encounter [facility] [place] [address] [place] [phone] Sahara Tello, [address] [place] [address] 09/18/2024 7:30 AM EDT - 09/18/2024 9:30 AM EDT Surgery [facility] [place] [address] [place] [phone] Sahara Tello, [address] [place] [address] DAVINCI EXCISION OVARIAN CYST [[id number] (CPT??)] Scheduled Procedures Name Priority Associated Diagnoses Date/Ti me EXCISION CYST OVARIAN ROBOT Dermoid cyst of both ovaries Chronic pelvic pain in female 09/18/2024 7:30 AM EDT documented as of this encounter Visit Diagnoses Not on filedocumented in this encounter Care Teams Carbonation Equipment Operator Relationship Specialty Start Date End Date Physician, No Pcp PCP - General 05/27/24 documented as of this encounter
--- OUTSIDE RECORDS SUMMARY | 2024-07-08 09:57 | XMS_ITS | Encounter Summary ---
Author Organization [facility] Address [address] [place] [address] Care Team Providers Care Blending Coordinator Name Role Phone Physician, No Pcp Primary Care Provider Unavaila ble Reason for Visit * Reason Comments ED Follow-up Encounter Details Date Type Department Care Team (Late st Contact Info) Description 07/03/2024 2:30 PM EST Office Visit Obstetrics [facility]necology [facility] [address] [place] [address] Sahara Tello, DO [address] [place] [address] Dermoid cyst of both ovaries (Primary Dx) Social History Tobacco Use Types Packs/Day Years [...] care for your loved ones. For example, director maternal child or elderly care for an older adult? [...] Pulse 96 07/03/2024 2:24 PM EST Temperature - - Respiratory Rate - - Oxygen Saturation - - Inhaled Oxygen Concentration - - Weight 78.1 kg (172 lb 3.2 oz) 07/03/2024 2:24 P M EST Height - - Body Mass Index 35.99 05/24/2024 8:47 AM EST documented in this [...] documented in this encounter Progress Notes * Sahara Tello, DO - 07/03/2024 2:30 PM EST Images from the original note were not included. CHIEF COMPLAINT: ED Follow-up IDENTIFIER:Maria C Adam is a 43 y.o. female HPI: Pt presents today for ER follow up. She was seen at [facility] ER on 05/24/24 for persistent and intense pelvic pain. The pain has since subsided. Imaging at the time showed a bilateral ovarian dermoid cysts. On the left the cyst measures nearly 6cm, on the right it is small measuring 2cm. She is interested in having these removed. She did just recently have bariatric surgery at [facility] last month. She also tells me she has von Willebrand's, so will require preoperative ddavp. 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 PAST MEDICAL HISTORY: OB History Para Term AB Living 1 1 1 1 SAB IAB Ectopic Multiple Live Births 1 # Outcome Date GA Lbr Godwin/2nd Weight Sex Type Anes PTL Lv 1 Term CS-LTranv JOSEPHINE Patient Active Problem List Diagnosis Abnormal cytological findings in female genital organs Abnormal cytological findings in female genital organs Asthma Cystic acne Elevated BP without diagnosis of hypertension Incompetence of cervix Migraine Moderate recurrent major depression (CMS/HCC) Obesity Primary hypertension Pure hypercholesterolemia Psoriasis Von Willebrand disease (CMS/HCC) SOCIAL HISTORY: Social History Tobacco Use Smoking status: Never Smokeless tobacco: Never Substance Use Topics Alcohol use: Never Drug use: Never FAMILY HISTORY: No family history on file. I have reviewed the following sections of the chart: active problem list, medication list, notes from last encounter, imaging, other obstetric and surgical histories MEDICATIONS: Your medication list Accurate as of July 03, 2024 2:38 PM. If you have any questions, ask your nurse or doctor. CONTINUE taking these medications Instructions Last Dose Given Next Dose Due albuterol HFA 90 mcg/actuation inhaler Commonly known as: PROAIR HFA ; PROVENTIL HFA ; VENTOLIN HFA INHALE TWO PUFFS EVERY 4 TO 6 HOURS NEEDED FOR difficulty with breathing amitriptyline 75 mg tablet Commonly known as: ELAVIL Take 1 tablet (75 mg total) by mouth. at bedtime ARIPiprazole 15 mg tablet Commonly known as: ABILIFY Take 1 tablet (15 mg total) by mouth 1 (one) time each day. nuzoagyxny-vzzcszzppabmv-dvfhexhv 50-325-40 mg per capsule Commonly known as: ESGIC Take 1 tablet by mouth. docusate sodium 100 mg capsule Commonly known as: COLACE Take 1 capsule (100 mg total) by mouth. FLUoxetine 20 mg capsule Commonly known as: PROzac TAKE TWO CAPSULES ONCE DAILY hydrOXYzine HCL 25 mg tablet Commonly known as: ATARAX Take 1-2 tablets (25-50 mg total) by mouth every 8 hours as needed. norethindrone-ethinyl estradiol 1-35 mg-mcg per tablet Commonly known as: ORTHO-NOVUM 1-35 TAB,NORTREL 1-35 TAB Take 1 tablet by mouth. pantoprazole 40 mg EC tablet Commonly known as: PROTONIX Take 1 tablet (40 mg total) by mouth 1 (one) time each day. TYLENOL 8 HOUR ORAL Take 650 mg by mouth. Contraception: Nothing ALLERGIES: Allergies Allergen Reactions Nsaids (Non-Steroidal Anti-Inflammatory Drug) Other reaction(s): Increased bleeding r/t Von Willdebrand's Penicillin G Itching Codeine Itching and Hives Break out hives Penicillins Hives Itchy PHYSICAL EXAM: Visit Vitals BP 116/84 Pulse 96 Wt 78.1 kg (172 lb 3.2 oz) LMP 07/02/2024 (Exact Date) BMI 35.99 kg/m?? OB Status Having periods Smoking Status Never BSA 1.71 m?? APPEARANCE:Healthy, alert, active, cooperative, and in no distress PSYCH: affect appropriate ASSESSMENT: 1. Dermoid cyst of both ovaries PLAN: Reviewed imaging with Maria C. Explained what dermoid cysts are. Explained that I will be happy to remove her dermoid cysts. Robotic bilateral ovarian cystectomy reviewed in detail. Will place surgical request today, however, would like to wait another month or so to get farther out from her recent gastric sleeve surgery. She agrees. No orders of the defined types were placed in this encounter. Sahara Tello DO documented in this encounter Plan of Treatment Upcoming Encounters Date Type Department Care Team (Late st Contact Info) Description 09/18/2024 7:30 AM EDT Hospital Encounter [facility] OR [address] [place] [phone] Sahara Tello DO [address] [place] [address] 09/18/2024 7:30 AM EDT - 09/18/2024 9:30 AM EDT Surgery [facility] OR [address] [place] [phone] Sahara Tello DO [address] [place] [address] DAVINCI EXCISION OVARIAN CYST [77838 (CPT??)] Scheduled Procedures Name Priority Associated Diagnoses Date/Ti or EXCISION CYST OVARIAN ROBOT Dermoid cyst of both ovaries Chronic pelvic pain in female 09/18/2024 7:30 AM EDT documented as of this encounter Visit Diagnoses Diagnosis Dermoid cyst of both ovaries- Primary Dermoid cyst of both ovaries Chronic pelvic pain in female Unspecified symptom associated with female genital organs documented in this encounter Historical Medications * This list may reflect changes made after this encounter. pantoprazole (PROTONIX) 40 mg EC tablet Take 1 tablet (40 mg total) by mouth 1 (one) time each day. 06/01/2024 hydrOXYzine HCL (ATARAX) 25 mg tablet Take 1-2 tablets (25-50 mg total) by mouth every 8 hours as needed. 11/14/2023 norethindrone-et hinyl estradiol (ORTHO-NOVUM 1-35 TAB,NORTREL 1-35 TAB) 1-35 mg-mcg per tablet Take 1 tablet by mouth. 02/20/2016 docusate sodium (COLACE) 100 mg capsule Take 1 capsule (100 mg total) by mouth. 03/12/2018 ARIPiprazole (ABILIFY) 15 mg tablet Take 1 tablet (15 mg total) by mouth 1 (one) time each day. amitriptyline (ELAVIL) 75 mg tablet Take 1 tablet (75 mg total) by mouth. at bedtime albuterol HFA (PROAIR HFA ; PROVENTIL HFA ; VENTOLIN HFA) 90 mcg/actuation inhaler INHALE TWO PUFFS EVERY 4 TO 6 HOURS NEEDED FOR difficulty with breathing acetaminophen (TYLENOL 8 HOUR ORAL) Take 650 mg by mouth. 07/14/2013 butalbital-aceta minophen-caffein e (ESGIC) 50-325-40 mg per capsule Take 1 tablet by mouth. 10/03/2010 FLUoxetine (PROzac) 20 mg capsule TAKE TWO CAPSULES ONCE DAILY added in this encounter Additional Health Concerns Assessment Noted Time PHQ-9 Depression Total Score: 4 07/04/19 25 9:48 AM EST documented as of this encounter Care Teams Blending Coordinator Relationship Specialty Start Date End Date Physician, No Pcp PCP - General 05/27/24 documented as of this encounter
== END 2024-07-08 09:51 | disposition home or self-care (01) ==
LOC: HO.HBST 09:15
PROVIDERS: PCP Pediatrics; Visit Provider Counselor Mental Health
DX: F32.1 Major depressive disorder, single episode, moderate (principal); F41.9 Anxiety disorder, unspecified
CPT/HCPCS: 90834

== ENCOUNTER 2024-08-12 10:57 | Outpatient (AMB) | payer MEDICAID, SELFPAY ==
--- NOTE | 2024-08-12 11:05 | MHC.OFFVISWM ---
VS Expanded 08/12/24 11:07 08/12/24 11:08 BP 113/70 Blood Pressure Location Lt brachial Lt brachial Blood Pressure Position Sitting Sitting Pulse 73 Pulse Source Pulse Oximeter Pulse Oximeter Pulse Oximetry 96 Height 4 ft 10 in Weight 161 lb BMI 33.6 Body Fat % 38.2 Body Fat Mass 61.6 Fat Free Mass 99.4 Visceral Fat Rating 9.0 Body Water % 44.1 Body Water Mass 71.0 Muscle Mass/Score 94.4 Basal Metabolic Rate/Score 1,381 Intake Visit Reasons: (OV) PO LSG 06/16/24 Intake Note: She states that she is on a waitlist to have a cyst removed from her ovary. Allergies codeine Allergy (Intermediate, Verified 06/22/24 11:11) Itching Penicillins Allergy (Intermediate, Verified 06/22/24 11:11) Swelling Medication List - Last Reconciled 08/12/24 by ETIENNE Bird albuterol sulfate 90 mcg/actuation (Ventolin HFA) 2 puffs inhalation Q4H amitriptyline 75 mg PO BEDTIME aripiprazole 15 mg PO QAM blood pressure test kit-large As directed fluoxetine 40 mg PO DAILY hydroxyzine HCl 25 - 50 mg PO Q8H PRN melatonin 5 - 10 mg PO BEDTIME PRN norethindrone-ethin estradiol 0.5-35 mg-mcg (Nortrel) 1 tab PO DAILY ondansetron 4 mg PO Q12H PRN pantoprazole 40 mg PO DAILY@0630 HPI Comments Details: This?is a?43?yo female who is s/p LSG 06/16/2024. Presents for 2 month post op visit. Weight at last visit on 06/22/2024 was 172.2 pounds with a BMI of 36, weight today is 161 pounds, representing a 11.2 pound weight loss with a BMI today of 33.6.? Some nausea and pain when eating solid foods. Tolerating fluids, shakes, and bars without difficulty. Never took carafate, has some pantoprazole left. Takes BP at home, has not been needing HCTZ. Scheduled for surgery September 18, having removal of cyst of ovary at [facility]. Could possibly be earlier depending on wait list. Present meal plan includes: 2 shakes, each with half scoop 2 bars 3ff protein, 3ff veg taking MVI hydration is adequate Exercise routine includes: 350 patrick per day- was just increased by Weston Martines, has elliptical at home PFSH Medical History (Updated 08/12/24 @ 11:12 by ETIENNE Bird) Pre-diabetes Von Willebrand's disease Asthma Migraines Insomnia Anxiety Hyperlipidemia Hypertension Morbid obesity Depression Persistent proteinuria Surgical History (Updated 06/30/24 @ 00:01 by Rasta Colindres) S/P laparoscopic sleeve gastrectomy H/O section History of appendectomy Hx of nasal septoplasty Family History Mother Diabetes Hypertension Paternal Uncle Leukemia Social History Household Members: Significant Other and Children Housing: Apartment Are you a primary home health care social worker to a significant other at home: No Do you presently have visiting nurse or other home services: No Alcohol intake: current Alcohol intake frequency: does not drink Alcohol type: other Patient Tobacco Use Status: Never used Tobacco e-Cigarette/Vaping Use: Never Used service: No Assessment & Plan Assessment & Plan (1) S/P laparoscopic sleeve gastrectomy: Code(s): Z98.84 - Bariatric surgery status Category: Surgical (2) Obesity: Code(s): E66.9 - Obesity, unspecified Category: Medical Plan Continue meal plan per Dr. Matta Discussed that her body/stomach may just need more time to acclimate to solid food. Make sure to take very small bites and chew thoroughly. Suggested trying eggs or yogurt to see if she tolerates those better instead of the meat. She will increase calories burned during exercise this week. Due to complete PPI this month. No activity restrictions. Continue to monitor BP at home. RTC 1 month.
[2024-08-12 11:08] VITALS: BP 113/70; PULSE 73; O2SAT 96; BMI 33.6
--- OUTSIDE RECORDS SUMMARY | 2024-08-12 13:06 | XMS_ITS | Clinical Summary ---
Author Organization [employer] Address [address] [facility] [address] [place] [address] Care Team Providers Care Services Clerk Name Role Phone Rochelle Phan MD Primary Care Provider [phone] Gilberto Zayas Unavailable Unavailable Allergies Active Allergy Reactions Criticality Noted Date Comments Codeine Hives Low 04/18/2010 Break out hives Nsaids 04/18/2010 Other reaction(s): Increased bleeding r/t Von Willdebrand's Penicillin G 03/27/2023 Penicillins Hives Low 04/26/2022 Itchy Medications ProAir HFA 108 (90 Base) MCG/ACT inhalerIndicati ons:Mild persistent asthma without complication INHALE TWO PUFFS BY MOUTH EVERY 4 HOURS 8.5 g 5 Active acetaminophen (Tylenol) 500 MG tablet Take 1 tablet by mouth every 8 (eight) hours. Active EPINEPHrine (EpiPen 2-Sebastián) 0.3 MG/0.3ML injection syringe Inject 1 pen injector intramuscularly single dose as needed Active fluticasone (Flonase) 50 MCG/ACT nasal spray spray 1 spray by intranasal route every day in each nostril as needed Active nitrofurantoin, macrocrystal-mo nohydrate, (Macrobid) 100 MG capsuleIndicati ons:Acute cystitis with hematuria Take 1 tablet twice a day for 7 days 14 capsule Active dulaglutide (Trulicity) 0.75 MG/0.5ML solution pen-injector Inject 0.75 mg under the skin 1 (one) time per week. 4 each 023 Active Blood Pressure kit Check BP daily 1 kit 023 Active omega-3 (Fish Oil) 1000 MG capsuleIndicati ons:Hypertrigly ceridemia TAKE ONE CAPSULE BY MOUTH TWICE DAILY 60 capsule 024 Active ARIPiprazole (Abilify) 15 MG tabletIndicatio ns:Moderate recurrent major depression (CMS/HCC) Take 1 tablet (15 mg) by mouth Once per day. 90 tablet 024 Active amitriptyline (Elavil) 75 MG tabletIndicatio ns:Moderate recurrent major depression (CMS/HCC),Insom terrie, unspecified type Take 1 tablet (75 mg) by mouth at bedtime. 90 tablet 024 Active FLUoxetine (PROzac) 20 MG capsuleIndicati ons:Moderate recurrent major depression (CMS/HCC) Take 2 capsules (40 mg) by mouth Once daily. 180 capsule 024 Active hydrOXYzine HCl (Atarax) 25 MG tabletIndicatio ns:Moderate recurrent major depression (CMS/HCC) Take 1-2 tablets (25-50 mg) by mouth every 8 (eight) hours if needed for anxiety. 200 tablet 024 Active LORazepam (Ativan) 0.5 MG tabletIndicatio ns:Moderate recurrent major depression (CMS/HCC) Take 1 tablet (0.5 mg) by mouth 2 times daily. If needed for anxiety 60 tablet 5 024 Active Nortrel 0.5/35, 28, 0.5-35 MG-MCG tablet TAKE ONE TABLET BY MOUTH EVERY DAY 28 tablet 024 Active hydroCHLOROthia zide (HYDRODiuril) 25 MG tablet TAKE ONE TABLET EVERY MORNING 30 tablet 025 Active melatonin 5 MG tabletIndicatio ns:Insomnia, unspecified type Take 1-2 tablets (5-10 mg) by mouth if needed at bedtime (sleep). 180 tablet 1 025 Active melatonin 5 MG tabletIndicatio ns:Insomnia, unspecified type Take 1-2 tablets (5-10 mg) by mouth if needed at bedtime (sleep). 180 tablet 1 023 2024 Discontinued(R eorder (will not trigger notification to Pharmacy)) melatonin 5 MG tabletIndicatio ns:Insomnia, unspecified type Take 1-2 tablets (5-10 mg) by mouth if needed at bedtime (sleep). 180 tablet 1 025 2024 Discontinued(R eorder (will not trigger notification to Pharmacy)) Active Problems Problem Noted Date Diagnosed Date [...] 1-2 tabs every 8 hours as needed. [place] Lorazepam 0.5 mg for occasional panic attacks [...] the next year or so, and that [facility] should hopefully have new prescriber(s) available [...] Encounters Date Type Department Care Team Description 07/23/2024 Orders Only [facility] [address] [place] [address] Rochelle Phan MD Insomnia, unspecified type 07/22/2024 Population Health Risk Score Community Care [facility] (C[facility]) Department [address] [address] Provider, Population Health Generic 07/22/2024 Refill [facility] [address] [place] [address] Rochelle Phan MD Insomnia, unspecified type 07/10/2024 Refill [facility] [address] [place] [address] Helena Jennings MD from Last 3 Months Immunizations Name Administration [...] EST Narrative 04/17/2024 9:41 AM EST ? [facility] ? [address] ?[place] [address] ? Mammography Report ? Signed ? Patient: Maria C Adam ?MR#: [id number] ?? [id number] ? : 1980 ?Acct:[id number] ? Age/Sex: 43 / F ?ADM Date: 04/16/24 ? Loc: HO.MAMMO ? Attending Dr: Rochelle Phan MD ? Ordering Physician: Rochelle Phan MD ?Results: 2Be ?? nign Findings ? Date of Service: 04/16/24 ?Follow Up: 1 Year From Orig ?? inal Mammogram ? Procedure(s): MM tomosynthesis screening BI ?? Accession Number(s): [id number] ? cc: Rochelle Phan MD ? EXAMINATION: [...] DD/ 0900 ? TD/TT: 04/16/24 0925 ? Career Guidance Technician: ? Procedure Note Becca Chavis - 04/17/2024 [facility] [address] [place] [address] Mammography Report Signed Patient: Rosalina Adam#: [id number] : 1980Acct:[id number] Age/Sex: 43 / FADM Date: 04/16/24 Loc: [facility] Attending Dr: Rochelle Phan MD Ordering Physician: Rochelle Phanesults: 2Be nign Findings Date of Service: 04/16/24Follow Up: 1 Year From Orig inal Mammogram Procedure(s): MM tomosynthesis screening BI Accession Number(s): [id number] cc: Rochelle Phan MD EXAMINATION: MM SCREENING [...] in OV> 04/17/249[address] DD/ 9 TD/TT: 04/16/24924 Career Guidance Technician: us Rochelle Phan MD IMG BI PROCEDURES Final Resul t * Hemoglobin A1c (01/30/2024 9:03 AM EDT) Hemoglobin A1c 5.8 <6.0 % [facility] Comment:Hemoglobin A1C Refer ence Range Adults: 4.8 - 6.0 % Non diabetic: < 6.0 % Goal: < 7.0 %Additional Action Suggested: > 8.0 %Note: Hemoglobin A1c results are invalid for patients with abnormal amounts of HbF. Blood transfusions may impact the HbA1c concentration in the patient sample. Estimated Average Glucose 120 mg/dL [facility] Comment:eAG = Estimated ave rage glucose which is %A1C expressed asaverage glucose, using the formula of the I8Z-OixvzzjQfwaltf Glucose study (ADAG), Diabetes Care, Vol.31,#8,Aug. 2007 01/30/2024 9:03 AM EDT 01/30/2024 9:03 AM EDT us Generic External Data Provider LAB BLOOD ORDERAB LES Final Result Performing Organization Address [facility]/ZIP Co de Phone Number [facility] [address] [place] [address] [phone] * (ABNORMAL) Lipid Panel, Standard (01/30/2024 9:03 AM EDT) Triglycerides 287(H) <150 mg/dL [facility] Comment:Desirable Triglyceri de: less than 150 mg/dLBorderline High Triglyceride 150-199 mg/dLHigh Triglyceride: 200-499 mg/dLVery High Triglyceride: greater than or equal to 5OO mg/dL Cholesterol 257(H) <200 mg/dL [facility] Comment:Desirable Cholestero l: less than 200 mg/dLBorderline High Cholesterol: 200-239 mg/dLHigh Cholesterol: greater than 239 mg/dL LDL Cholesterol Calculated 147(H) <100 mg/dL [facility] Comment:Desirable LDL: less than 100 mg/dLNear Optimal/Above Optimal LDL: 110- 129 mg/dLBorderline High LDL: 130-159 mg/dLHigh LDL: 160-189 mg/dLVery High LDL: greater than or equal to 190 mg/dL HDL Cholesterol 53 >40 mg/dL [facility] Comment:Desirable HDL: great er than 40 mg/dL Note: This HDL assay may give artificially low results in patients with liver disease. 01/30/2024 9:03 AM EDT 01/30/2024 9:03 AM EDT us Generic External Data Provider LAB BLOOD ORDERAB LES Final Result Performing Organization Address [facility]/ZIP Co de Phone Number [facility] [address] [place] [address] [phone] * HIV 1/2 ANTIGEN/ANTIBODY,FOURTH GENERATION W/RFL (01/05/2022 9:49 AM EDT) HIV-1/2 ANTIGEN AND ANTIBODIES, 4TH GENERATION W/ REFLEX NON-REACT DEEPTI NON-REACT DEEPTI [facility] Comment: HIV-1 antigen and HIV-1/HIV-2 [...] ? For additional information please refer to http://education.Aumentality.cl/faq/ZAH260 (This link is being provided for informational/ educational purposes only.) ? The performance of this assay has not been clinically validated in patients less than 2 years old. ?? 01/05/2022 9:49 AM EDT us Heidi Moreau MD LAB BLOOD ORDERABLES Final Re sult [facility] [address] * THINPREP TIS PAP AND HPV mRNA E6/E7 WITH REFLEX TO HPV 16,18/45 (04/18/2021 10:23 AM EST) Pathologist [facility] Clinical Information: None given [facility] COMMENT SEE COMMENT [facility] ON [...] has been evaluated with computer assisted technology. [facility] Application Tester: SEE COMMENT [facility] Comment: HJP, CT(ASCP) CT screening location: [address] ??[address] HPV nRNA E6/E7 Not Detected Not Detected [facility] Comment: Methodology: Microbiological Laboratory Technician-Mediated Amplification This assay detects E6/E7 viral messenger RNA (mRNA) from 14 high-risk HPV types (16,18,31,33,35,39,45,51,52,56,58,59,66,68). ? The analytical performance characteristics of this assay have been determined by [employer]. The modifications have not been cleared or approved by the FDA. This assay has been validated pursuant to the CLIA regulations and is used for clinical purposes. ?? For additional information, please refer to http://education.Aumentality.cl/faq/OYL069h9 (This link if provided for information/ educational purposes only.) Interpretation/Re sult: Negative for intraepithelial lesion or malignancy. [facility] LMP: 03/2021 [facility] Prev. BX: NONE GIVEN [facility] Prev. PAP: 01/23/18 [facility] SOURCE: Cervix [facility] Statement Of Adequacy: SEE COMMENT [facility] Comment: Satisfactory for evaluation. Endocervical/transformation zone component absent. 04/18/2021 10:2 3 AM EST us Rochelle Phan MD LAB PATHOLOGY ORDERABLES Meenakshi barone Result [facility] [address] from Last 3 Months or Most Recently Relevant to Health Maintenance Care Teams Services Clerk Relationship Specialty Start Date End Date Rochelle Phan MD [address] [place] [address] PCP - General Family Medicine 10/27/12 Gilberto Zayas FNP [address] [facility] [address] Nurse Practitioner Family Medicine 03/20/23
--- OUTSIDE RECORDS SUMMARY | 2024-08-12 13:06 | XMS_ITS | Encounter Summary ---
Author Organization [employer] [facility] Address [address] [facility] [address] [place] [address] Care Team Providers Care Air Traffic Supervisor Name Role Phone Rochelle Phan MD Primary Care Provider [phone] Gilberto Zayas Unavailable Unavailable Encounter Details Date [...] on filedocumented in this encounter Care Teams Air Traffic Supervisor Relationship Specialty Start Date End Date Rochelle Phan MD [address] [place] [address] PCP - General Family Medicine 10/27/12 Gilberto Zayas FNP [address] [place] [address] Nurse Practitioner Family Medicine 03/20/23 documented as of this encounter
--- OUTSIDE RECORDS SUMMARY | 2024-08-12 13:07 | XMS_ITS | Encounter Summary ---
Author Organization [facility] Address [address] [place] [address] Care Team Providers Care Women'S Lacrosse Coach Name Role Phone Physician, No Pcp Primary Care Provider Unavaila ble Reason for Visit * Reason Onset Date Comments New Med Request 08/10/2024 Encounter Details Date Type Department Care Team (Late st Contact Info) Description 08/10/2024 Telephone Obstetrics and Gynecology - [place] [address] [place] [address] Sahara Tello, DO [address] [place] [address] New Med Request Social History Tobacco Use Types Packs/Day Years [...] care for your loved ones. For example, child adolescent care or elderly care for an older adult? [...] Author No 05/24/2024 11:36 AM Pedro Luis Galicai RN * Do you have serious difficulty [...] Progress Notes * Sade Cedillo RN - 08/10/2024 2:[address] Tello, Patient is calling to get the Rx for DDAVP, She has pre-op on 08/25 with Luis F Moss, and Dermoid cyst surgery on 09/18/24 Can you please advise, Thank you * Mer Dillon - 08/10/2024 2:28 PM EDT Pt is having surgery on 08/14/[address] Tello, was told to call and request Rx for DDAVP prior to surgery. documented in this encounter Plan of Treatment Upcoming Encounters Date Type Department Care Team (Late st Contact Info) Description 08/25/2024 1:40 PM EDT Consult Obstetrics and Gynecology - [address] [phone] Marion Moss PA [address] [place] [address] 09/18/2024 7:30 AM EDT Hospital Encounter [facility] [place] [address] [place] [address] Sahara Tello, DO [address] [place] [address] 09/18/2024 7:30 AM EDT - 09/18/2024 9:30 AM EDT Surgery [facility] [place] [address] [place] [address] Omer Sahara, DO [address] [place] [address] DAVINCI EXCISION OVARIAN CYST [78012 (CPT??)] 10/06/2024 1:40 PM EDT Office Visit Obstetrics and Gynecology - [address] [phone] Marion Moss, PA [address] [place] [address] Scheduled Procedures Name Priority Associated Diagnoses Date/Ti me EXCISION CYST OVARIAN ROBOT Dermoid cyst of both ovaries Chronic pelvic pain in female 09/18/2024 7:30 AM EDT documented as of this encounter Visit Diagnoses Not on filedocumented in this encounter Additional Health Concerns Assessment Noted Time PHQ-9 Depression Total Score: 4 07/04/19 25 9:48 AM EST documented as of this encounter Care Teams Women'S Lacrosse Coach Relationship Specialty Start Date End Date Physician, No Pcp PCP - General 05/27/24 documented as of this encounter
--- OUTSIDE RECORDS SUMMARY | 2024-08-12 13:07 | XMS_ITS | Encounter Summary ---
Author Organization [facility] [place] [address] Care Team Providers Care Model Maker Plastic Name Role Phone Physician, No Pcp Primary Care Provider Unavaila ble Encounter Details Date Type Department Care Team (Late st Contact Info) Description 07/09/2024 Telephone Obstetrics and Gynecology - [place] [place] [address] Sahara Tello DO [address] [place] [address] Social History Tobacco Use Types Packs/Day Years [...] care for your loved ones. For example, early childhood aide classroom or elderly care for an older adult? [...] documented in this encounter Progress Notes * Marija Tahir - 07/09/2024 11:26 AM EDT Robotic bilateral ovarian cystectomy has been scheduled on 07/19/2024 at [facility] with Dr. Tello. Patient has been notified by phone and a letter has been sent to her. MD calendar has been updated and schedulers have been notified. documented in this encounter Plan of Treatment Upcoming Encounters Date Type Department Care Team (Late st Contact Info) Description 08/25/2024 1:40 PM EDT Consult Obstetrics and Gynecology - [address] [address] Marion Moss PA [address] [place] [address] 09/18/2024 7:30 AM EDT Hospital Encounter [facility] Main OR [address] [place] [phone] Sahara Tello, [address] [place] [address] 09/18/2024 7:30 AM EDT - 09/18/2024 9:30 AM EDT Surgery [facility] OR [address] [place] [phone] Sahara Tello, [address] [place] [address] DAVINCI EXCISION OVARIAN CYST [[id number] (CPT??)] 10/06/2024 1:40 PM EDT Office Visit Obstetrics and Gynecology [address] [address] Marion Moss PA [address] [place] [address] Scheduled Procedures Name Priority Associated Diagnoses Date/Ti me EXCISION CYST OVARIAN ROBOT Dermoid cyst of both ovaries Chronic pelvic pain in female 09/18/2024 7:30 AM EDT documented as of this encounter Visit Diagnoses Not on filedocumented in this encounter Additional Health Concerns Assessment Noted Time PHQ-9 Depression Total Score: 4 07/04/19 25 9:48 AM EST documented as of this encounter Care Teams Model Maker Plastic Relationship Specialty Start Date End Date Physician, No Pcp PCP - General 05/27/24 documented as of this encounter
--- OUTSIDE RECORDS SUMMARY | 2024-08-12 13:07 | XMS_ITS | Encounter Summary ---
Author Organization [employer] [facility] Address [address] [facility] [address] [place] [address] Care Team Providers Care Nursery Attendant Name Role Phone Rochelle Phan MD Primary Care Provider [phone] Gilberto Zayas Unavailable Unavailable Reason for Visit * Reason Onset Date Comments Med Refill 07/22/2024 Encounter Details Date Type Department Care Team ([facility] st Contact Info) Description 07/22/2024 Refill [facility] [address] [place] [address] Rochelle Phan MD [address] [place] [phone] Insomnia, unspecified type Social History Tobacco Use Types Packs/Day Years Used Date Smoking Tobacco: Never Passive Smoke Exposure: Never Smokeless Tobacco: Never Alcohol Use Standard [...] AM EDT documented as of this encounter Miscellaneous Notes * Telephone Encounter - Gail Wick - 07/22/2024 11:59 AM EDT TC from pt requesting medication refill. Medications needing refill : melatonin 5 MG tablet To be sent to: [facility] documented in this encounter Plan of Treatment Not on file documented as of this encounter Visit Diagnoses Diagnosis Insomnia, unspecified type documented in this encounter Additional Health Concerns Assessment Noted Time PHQ-9 Depression Total Score: 1 07/25/19 24 3:42 PM EDT documented as of this encounter Care Teams Nursery Attendant Relationship Specialty Start Date End Date Rochelle Phan MD [address] [facility] [place] [address] PCP - General Family Medicine 10/27/12 Gilberto Zayas FNP [address] [facility] [place] [address] Nurse Practitioner Family Medicine 03/20/23 documented as of this encounter
--- OUTSIDE RECORDS SUMMARY | 2024-08-12 13:07 | XMS_ITS | Clinical Summary ---
Author Organization [facility] Address [address] [place] [phone] Phone Care Team Providers Care Coffee Machine Technician Name Role Phone Physician, No Pcp Primary [...] of hypertension Psoriasis 01/23/2018 Moderate recurrent major dep ression ([facility] V24, [facility] V28) 01/17/2018 Cystic acne 03/17/2015 Migraine 10/13/2012 Asthma 04/30/2012 Von Willebrand disease ([facility] V24, [facility] V28 ) 04/30/2012 Encounters Date Type Department Care Team Description 08/10/2024 Telephone [facility]s [facility] [address] [place] [phone] Sahara Tello DO New Med Request 07/09/2024 Telephone Obstetrics [facility]cology [facility] [address] [place] [phone] Sahara Tello DO 07/03/2024 2:30 PM EST Office Visit Obstetrics [facility]cology [facility] [address] [place] [address] Sahara Tello DO Dermoid cyst of both ovaries (Primary Dx) 06/25/2024 Telephone Obstetrics and Gynecology - [facility] [address] [place] [phone] Sahara Tello DO Appointment 05/24/2024 11:21 AM EST - 05/24/2024 4:03 PM EST Emergency [facility] Emergency [address] [place] [address] Ovarian mass (Primary Dx); Acute cystitis without hematuria Discharge Disposition: Home or Self Care from Last 3 Months Surgical History Surgery Date Site/Laterality Comments SLEEVE GASTROPLASTY 05/30/2024 - 06/26/2024 gastric sleeve SECTION, LOW TRANSVERSE SEPTOPLASTY APPENDECTOMY CERVICAL BIOPSY W/ LOOP ELECTRODE EXCISION Medical History Medical History Date Comments Asthma Clotting disorder (CMS/HCC V24) Social History Tobacco Use Types Packs/Day Years [...] ed Within the last 3 months, ho mary many times did you visit the emergency [...] for your loved ones. For example, child attendant or elderly care for an older adult? [...] 1:40 PM EDT Consult Obstetrics and Gynecology [address] [phone] Marion Moss PA [address] [place] [address] 09/18/2024 7:30 AM EDT Hospital Encounter [facility] Main OR [address] [place] [phone] Sahara Tello, [address] [place] [address] 09/18/2024 7:30 AM EDT - 09/18/2024 9:30 AM EDT Surgery [facility] Main OR [address] [place] [phone] Sahara Tello, [address] [place] [address] DAVINCI EXCISION OVARIAN CYST [[id number] (CPT??)] 10/06/2024 1:40 PM EDT Office Visit Obstetrics and Gynecology [address] [phone] Marion Moss PA [address] [place] [address] Scheduled Procedures Name Priority Associated Diagnoses Date/Ti [...] age to complete this topic Meningococcal B Vaccine Aged Out No l onger eligible based on patient's age to complete [...] management. 2. 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 Telerad ETIENNE ([id number]) -------- FINAL REPORT -------- Dictated By: Mechelle Bosch Dictated Date: 05/24/2024 13:53 ET Assigned Physician: Mechelle Bosch Reviewed and Electronically Signed By: Mechelle Bosch Signed Date: 05/24/2024 14:04 ET Workstation ID: [id number] Transcribed By: Self Edit Transcribed Date: 05/24/2024 13:53 ET Narrative 05/24/2024 2:04 PM EST History: Right-sided abdominal pain radiating to the back. Vomiting. Prior appendectomy. Comparison: 06/18/18 Technique: Helical volumetric imaging of the abdomen and pelvis was performed following oral contrast and during the uneventful intravenous administration of 90 cc Isovue-370. DLP: 1194.40 mGy/cm GE [employer] VCT Iterative reconstruction technique Findings: The liver [...] of 90 cc Isovue-370. DLP: 1194.40 mGy/cm [employer] VCT Iterative reconstruction technique Findings: The liver [...] for a dermoid tumor. This is new [id number]. A 2.3 x 2.2 x 1.8 cm [...] for further management. 2. 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 Jermaine CLIFTON ([id number]) -------- FINAL REPORT -------- Dictated By: Mechelle Bosch Dictated Date: 05/24/2024 13:53 ET Assigned Physician: Mechelle Bosch Reviewed and Electronically Signed By: Mechelle Bosch Signed Date: 05/24/2024 14:04 ET Workstation ID: [id number] Transcribed By: Self Edit Transcribed Date: 05/24/2024 13:53 ET Ira CLIFTON IMG CT PROCEDURES Final Result * XR Chest 2 Views (05/24/2024 12:43 PM EST) Anatomical Region Laterality Modality Body Radiographic Jing ging 05/24/2024 12:4 4 PM EST Impressions 05/24/2024 12:45 PM EST Impression: No active pulmonary process identified. Telerad PA ([id number]) -------- FINAL REPORT -------- Dictated By: Mechelle Bosch Dictated Date: 05/24/2024 12:44 ET Assigned Physician: Mechelle Bosch Reviewed and Electronically Signed By: Mechelle Bosch Signed Date: 05/24/2024 12:45 ET Workstation ID: [id number] Transcribed By: Self Edit Transcribed Date: 05/24/2024 [...] No active pulmonary process identified. Telerad PA ([id number]) -------- FINAL REPORT -------- Dictated By: Mechelle Bosch Dictated Date: 05/24/2024 12:44 ET Assigned Physician: Mechelle Bosch Reviewed and Electronically Signed By: Mechelle Bosch Signed Date: 05/24/2024 12:45 ET Workstation ID: [id number] Transcribed By: Self Edit Transcribed Date: 05/24/2024 12:44 ET us Debbie Elder DO IMG XR PROCEDURES Final R esult * Respiratory virus panel molecular study (05/24/2024 12:14 PM EST) Pathologist [facility] Adenovirus Detection by PCR Not Detected Not Detected LAB MICROBIOLOGY METHOD 05/24/2024 1:44 PM [facility] Influenza A PCR Not Detected Not Detected LAB MICROBIOLOGY METHOD 05/24/2024 1:44 PM [facility] Influenza B PCR Not Detected Not Detected LAB MICROBIOLOGY METHOD 05/24/2024 1:44 PM [facility] Coronavirus 229E Not Detected Not Detected LAB MICROBIOLOGY METHOD 05/24/2024 1:44 PM [facility] Coronavirus HKU1 Not Detected Not Detected LAB MICROBIOLOGY METHOD 05/24/2024 1:44 PM [facility] Coronavirus OC43 Not Detected Not Detected LAB MICROBIOLOGY METHOD 05/24/2024 1:44 PM [facility] Coronavirus NL63 Not Detected Not Detected LAB MICROBIOLOGY METHOD 05/24/2024 1:44 PM [facility] Parainfluenza Virus 1 Not Detected Not Detected LAB MICROBIOLOGY METHOD 05/24/2024 1:44 PM [facility] Parainfluenza Virus 2 Not Detected Not Detected LAB MICROBIOLOGY METHOD 05/24/2024 1:44 PM [facility] Parainfluenza Virus 3 Not Detected Not Detected LAB MICROBIOLOGY METHOD 05/24/2024 1:44 PM [facility] Parainfluenza Virus 4 Not Detected Not Detected LAB MICROBIOLOGY METHOD 05/24/2024 1:44 PM [facility] RSV PCR Not Detected Not Detected LAB MICROBIOLOGY METHOD 05/24/2024 1:44 PM [facility] Human Metapneumovirus A and B Not Detected Not Detected LAB MICROBIOLOGY METHOD 05/24/2024 1:44 PM [facility] Rhinovirus/Entero virus Not Detected Not Detected LAB MICROBIOLOGY METHOD 05/24/2024 1:44 PM [facility] Bordetella pertussis Not Detected Not Detected LAB MICROBIOLOGY METHOD 05/24/2024 1:44 PM [facility] Bordetella parapertussis Not Detected Not Detected LAB MICROBIOLOGY METHOD 05/24/2024 1:44 PM EST [facility] Mycoplasma pneumo by PCR Not Detected Not Detected LAB MICROBIOLOGY METHOD 05/24/2024 1:44 PM EST [facility] Chlamydia pneumoniae Not Detected Not Detected LAB MICROBIOLOGY METHOD 05/24/2024 1:44 PM [facility] SARS COV-2 Not Detected Not Detected LAB MICROBIOLOGY METHOD 05/24/2024 1:44 PM [facility] Swab Both anterior nares / Unknown Non-blood Collection / Unknown 05/24/2024 12:14 PM EST 05/24/2024 12:43 PM EST [facility] - 05/24/2024 1:44 PM EST Testing was performed using the [employer] Respiratory Pathogen PCR Assay. All results must [...] of detection. Ira CLIFTON LAB MICROBIOLOGY - [facility] AL ORDERABLES Final Result [facility] [address] [place] [address], * (ABNORMAL) Urinalysis with reflex microscopic and culture (05/24/2024 12:12 PM EST) Specific [place] Urine 1.025 1.003 - 1.030 LAB URINALYSIS - AUTOMATED METHOD 05/24/2024 1:08 PM [facility] pH, Urine 6.0 5.0 - 8.0 pH LAB URINALYSIS - AUTOMATED METHOD 05/24/2024 1:08 PM [facility] Leukocytes, Urine Negative Negative LAB URINALYSIS - AUTOMATED METHOD 05/24/2024 1:08 PM [facility] Nitrite, Urine Negative Negative LAB URINALYSIS - AUTOMATED METHOD 05/24/2024 1:08 PM [facility] Protein, Urine 30(A) <=Trace mg/dL LAB URINALYSIS - AUTOMATED METHOD 05/24/2024 1:08 PM [facility] Glucose, Urine Negative Negative mg/dL LAB URINALYSIS - AUTOMATED METHOD 05/24/2024 1:08 PM [facility] Ketones, Urine Trace(A) Negative mg/dL LAB URINALYSIS - AUTOMATED METHOD 05/24/2024 1:08 PM [facility] Urobilinogen , Urine 0.2 0.2 - 1.0 mg/dL LAB URINALYSIS - AUTOMATED METHOD 05/24/2024 1:08 PM [facility] Bilirubin, Urine Negative Negative LAB URINALYSIS - AUTOMATED METHOD 05/24/2024 1:08 PM [facility] Blood, Urine Small(A) Negative LAB URINALYSIS - AUTOMATED METHOD 05/24/2024 1:08 PM [facility] RBC, Urine 22.1(H) 0 - 4 /HPF LAB URINALYSIS - AUTOMATED METHOD 05/24/2024 1:08 PM [facility] WBC, Urine 8.0(H) 0 - 4 /HPF LAB URINALYSIS - AUTOMATED METHOD 05/24/2024 1:08 PM [facility] Squamous Epithelial, Urine 80(H) 0 - 60 /LPF LAB URINALYSIS - AUTOMATED METHOD 05/24/2024 1:08 PM [facility] Bacteria, Urine Moderate(A) Negative /HPF LAB URINALYSIS - AUTOMATED METHOD 05/24/2024 1:08 PM [facility] Hyaline Casts, Urine 3.0 0 - 3 /LPF LAB URINALYSIS - AUTOMATED METHOD 05/24/2024 1:08 PM [facility] Urine Urine specimen obtained by clean catch procedure / Unknown Non-blood Collection / Unknown 05/24/2024 12:12 PM EST 05/24/2024 12:44 PM EST [facility] URINE ORDERABLES Fin al Result Performing Organization Address City/[facility]/ZIP Co de Phone Number [facility] [address] [place] [address], [place] [phone] * Moss urine culture tube (05/24/2024 12:12 PM EST) Pathologist [facility] Extra Tube Hold for add-ons. 05/24/2024 2:01 PM EST [facility] Comment:Auto resulted. Urine Urine specimen obtained by clean catch procedure / Unknown Non-blood Collection / Unknown 05/24/2024 12:12 PM EST 05/24/2024 12:44 PM EST [facility] URINE ORDERABLES Fin al Result Performing Organization Address [facility] Co de Phone Number [facility] [address] [place] [address], [place] [phone] * Troponin I high sensitivity (05/24/2024 12:12 PM EST) Only the most recent of2 resultswithin the time period is included. [facility] High Sensitivity Troponin I <3 <=54 ng/L LAB CHEMISTRY METHOD 05/24/2024 1:21 PM EST [facility] Blood Venous blood specimen / Unknown Venipuncture / Unknown 05/24/2024 12:12 PM EST 05/24/2024 12:43 PM EST Narrative [facility] - 05/24/2024 1:21 PM EST High levels of biotin in samples may falsely decrease hsTroponin values. ??Use caution when interpreting hsTroponin results in patients taking biotin who exhibit renal impairment (eGFR <60) or in patients taking more than 20 mg/day of biotin. Debbie Elder LAB BLOOD ORDERABLES Meenakshi l Result [facility] [address] [place] [address], [place] [phone] * Culture urine (05/24/2024 12:12 PM EST) Urine Urine specimen obtained by clean catch procedure / Unknown Non-blood Collection / Unknown 05/24/2024 12:12 PM EST 05/24/2024 1:08 PM EST [facility] - 05/26/2024 11:10 AM EST Beta Strep Group B noted. The presence of a low colony count of Beta Strep Group B may have clinical significance in women. Ira CLIFTON LAB MICROBIOLOGY - GENER AL ORDERABLES Final Result Performing Organization Address [facility]/ZIP Co de Phone Number [facility] [address] [place] [address], [place] [phone] * (ABNORMAL) CBC auto differential (05/24/2024 10:36 AM EST) WBC 9.6 4.8 - 10.8 K/mcL LAB HEMETOLOGY METHOD 05/24/2024 10:58 AM [facility] RBC 4.60 3.80 - 4.80 M/mcL LAB HEMETOLOGY METHOD 05/24/2024 10:58 AM [facility] Hemoglobin 12.9 11.5 - 16.0 g/dL LAB HEMETOLOGY METHOD 05/24/2024 10:58 AM [facility] Hematocrit 39.3 35.0 - 47.0 % LAB HEMETOLOGY METHOD 05/24/2024 10:58 AM [facility] MCV 85.1 79.0 - 98.0 FL LAB HEMETOLOGY METHOD 05/24/2024 10:58 AM [facility] MCH 27.9 27.0 - 32.0 pcg LAB HEMETOLOGY METHOD 05/24/2024 10:58 AM [facility] MCHC 32.8 32.0 - 37.0 g/dL LAB HEMETOLOGY METHOD 05/24/2024 10:58 AM [facility] RDW 12.5 11.0 - 15.0 % LAB HEMETOLOGY METHOD 05/24/2024 10:58 AM [facility] Platelets 341 130 - 400 K/mcL LAB HEMETOLOGY METHOD 05/24/2024 10:58 AM [facility] MPV 9.4 7.0 - 11.0 FL LAB HEMETOLOGY METHOD 05/24/2024 10:58 AM [facility] NRBC 0.0 <1.0 % LAB HEMETOLOGY METHOD 05/24/2024 10:58 AM [facility] NRBC Absolute 0.00 <0.10 K/mcL LAB HEMETOLOGY METHOD 05/24/2024 10:58 AM [facility] Neutrophils Relative 86.6 % LAB HEMETOLOGY METHOD 05/24/2024 10:58 AM [facility] Lymphocytes Relative 9.7 % LAB HEMETOLOGY METHOD 05/24/2024 10:58 AM [facility] Monocytes Relative 2.4 % LAB HEMETOLOGY METHOD 05/24/2024 10:58 AM [facility] Eosinophils Relative 0.5 % LAB HEMETOLOGY METHOD 05/24/2024 10:58 AM [facility] Basophils Relative 0.5 % LAB HEMETOLOGY METHOD 05/24/2024 10:58 AM [facility] Immature Granulocytes Relative 0.3 % LAB HEMETOLOGY METHOD 05/24/2024 10:58 AM [facility] Neutrophils Absolute 8.34(H) 1.50 - 7.00 K/mcL LAB HEMETOLOGY METHOD 05/24/2024 10:58 AM EST [facility] Lymphocytes Absolute 0.93(L) 1.00 - 5.00 K/[facility] LAB HEMETOLOGY METHOD 05/24/2024 10:58 AM EST [facility] Monocytes Absolute 0.23 0.20 - 1.00 K/[facility] LAB HEMETOLOGY METHOD 05/24/2024 10:58 AM EST [facility] Eosinophils Absolute 0.05 0.00 - 0.50 K/[facility] LAB HEMETOLOGY METHOD 05/24/2024 10:58 AM EST [facility] Basophils Absolute 0.05 0.00 - 0.20 K/[facility] LAB HEMETOLOGY METHOD 05/24/2024 10:58 AM [facility] Immature Granulocytes Absolute 0.03 0.00 - 0.03 K/[facility] LAB HEMETOLOGY METHOD 05/24/2024 10:58 AM [facility] Blood Venous blood specimen / Unknown Venipuncture / Unknown 05/24/2024 10:36 AM EST 05/24/2024 10:52 AM EST us Debbie Elder DO LAB BLOOD ORDERABLES Meenakshi l Result [facility] [address] [place] [address], * Protime-INR (05/24/2024 10:36 AM EST) Protime 11.0 10.6 - 13.9 sec LAB COAGULATION METHOD 05/24/2024 11:01 AM EST [facility] INR 0.9 LAB COAGULATION METHOD 05/24/2024 11:01 AM EST [facility] Blood Venous blood specimen / Unknown Venipuncture / Unknown 05/24/2024 10:36 AM EST 05/24/2024 10:52 AM EST Debbie Elder LAB BLOOD ORDERABLES Meenakshi l Result Performing Organization Address City/[facility]/ZIP Co de Phone Number [facility] [address] [place] [address], [place] [phone] * Type and screen (05/24/2024 10:36 AM EST) ABO Group O 05/24/2024 11:51 AM EST [facility] Rh Type Positive 05/24/2024 11:51 AM EST [facility] Antibody Screen Negative 05/24/2024 11:51 AM EST [facility] Blood Venous blood specimen / Unknown Venipuncture / Unknown 05/24/2024 10:36 AM EST 05/24/2024 10:52 AM EST [facility] Juan Manuel Elder LAB BLOOD BANK TEST ORDER MARY KATE Final Result Performing Organization Address [facility]/ZIP Co de Phone Number [facility] [address] [place] [address], [place] [phone] * Magnesium (05/24/2024 10:36 AM EST) Magnesium 2.1 1.9 - 2.6 mg/dL LAB CHEMISTRY METHOD 05/24/2024 11:41 AM EST [facility] Comment:Hemolysis present Blood Venous blood specimen / Unknown Venipuncture / Unknown 05/24/2024 10:36 AM EST 05/24/2024 10:52 AM EST Debbie Elder LAB BLOOD ORDERABLES Meenakshi l Result [facility] [address] [place] [address], [place] [phone] * (ABNORMAL) Comprehensive metabolic panel (05/24/2024 10:36 AM EST) Sodium 137 133 - 145 mmol/L LAB CHEMISTRY METHOD 05/24/2024 11:41 AM [facility] Potassium 4.5 3.5 - 5.5 mmol/L LAB CHEMISTRY METHOD 05/24/2024 11:41 AM [facility] Comment:Hemolysis present Chloride 106 96 - 110 mmol/L LAB CHEMISTRY METHOD 05/24/2024 11:41 AM [facility] CO2 25 21 - 32 mmol/L LAB CHEMISTRY METHOD 05/24/2024 11:41 AM [facility] Anion Gap 6 3 - 11 LAB CHEMISTRY METHOD 05/24/2024 11:41 AM [facility] Glucose 119(H) 70 - 100 mg/dL LAB CHEMISTRY METHOD 05/24/2024 11:41 AM [facility] BUN 15 5 - 25 mg/dL LAB CHEMISTRY METHOD 05/24/2024 11:41 AM [facility] Creatinine 0.83 0.50 - 1.10 mg/dL LAB CHEMISTRY METHOD 05/24/2024 11:41 AM [facility] eGFR 90 >=60 mL/min/1. 73m2 LAB CHEMISTRY METHOD 05/24/2024 11:41 AM [facility] Comment:Calculation based on the??Chronic Kidney Disease Epidemiology Collaboration (CKD-EPI) equation refit??without adjustment for race. BUN/Creatinine Ratio 18.1 LAB CHEMISTRY METHOD 05/24/2024 11:41 AM [facility] Calcium 9.0 8.5 - 10.5 mg/dL LAB CHEMISTRY METHOD 05/24/2024 11:41 AM [facility] AST (SGOT) 29 10 - 42 unit/L LAB CHEMISTRY METHOD 05/24/2024 11:41 AM [facility] Comment:Hemolysis present ALT (SGPT) 51 10 - 60 unit/L LAB CHEMISTRY METHOD 05/24/2024 11:41 AM EST [facility] Alkaline Phosphatase 65 42 - 121 unit/L LAB CHEMISTRY METHOD 05/24/2024 11:41 AM EST [facility] Total Protein 7.6 6.0 - 8.0 g/dL LAB CHEMISTRY METHOD 05/24/2024 11:41 AM EST [facility] Albumin 3.4 3.2 - 5.0 g/dL LAB CHEMISTRY METHOD 05/24/2024 11:41 AM EST [facility] Total Bilirubin 0.3 0.0 - 1.4 mg/dL LAB CHEMISTRY METHOD 05/24/2024 11:41 AM EST [facility] Blood Venous blood specimen / Unknown Venipuncture / Unknown 05/24/2024 10:36 AM EST 05/24/2024 10:52 AM EST us Debbie Elder DO LAB BLOOD ORDERABLES Meenakshi l Result [facility] [address] [place] [address], [place] [phone] * ECG 12 lead (05/24/2024 9:53 AM EST) Ventricular Rate ECG 80 BPM GEMUSE Atrial Rate 80 BPM GEMUSE P-R Interval 148 ms GEMUSE QRS Duration 90 ms GEMUSE Q-T Interval 396 ms GEMUSE QTc 456 ms GEMUSE P Wave [place] 19 degrees GEMUSE R [place] -13 degrees GEMUSE T [place] -9 degrees GEMUSE ECG Interpretation Normal sinus rhythm When compared with ECG of 21-JAN-2012 23:59, Nonspecific T wave abnormality now evident in Anterior leads Confirmed by MATHEW GARRIDO ([id number]) on 05/25/2024 8:33:46 PM GEMUSE 05/24/2024 9:53 AM EST 05/25/2024 8:33 PM EST us Debbie Elder DO ECG ORDERABLES Final Res ult GEMUSE * ECG-Annotated (05/24/2024) us Provider Onbase MD ECG ORDERABLES Final Result from Last 3 Months Insurance MEDICAID - [place] Care Teams Coffee Machine Technician Relationship Specialty Start Date End Date Physician, No Pcp PCP - General 05/27/24
== END 2024-08-12 11:24 | disposition home or self-care (01) ==
LOC: HO.HBS 10:58
PROVIDERS: PCP Pediatrics; Visit Provider Physician Assistant Surgical
DX: E66.9 Obesity, unspecified (principal); Z98.84 Bariatric surgery status
CPT/HCPCS: 99024

== ENCOUNTER → 2024-08-12 10:57 | Outpatient (BNVA) | payer MEDICAID, SELFPAY | PROVIDERS: PCP Pediatrics; Visit Provider Physician Assistant Surgical | DX: Z48.815 Encounter for surgical aftercare following surgery on the digestive system (principal); E66.9 Obesity, unspecified; Z98.84 Bariatric surgery status; Z68.33 Body mass index [BMI] 33.0-33.9, adult; Z98.890 Other specified postprocedural states | CPT/HCPCS: 99212 ==

== ENCOUNTER 2024-09-23 11:09 | Outpatient (AMB) | payer MEDICAID, SELFPAY ==
--- NOTE | 2024-09-23 10:29 | MHC.OFFVISWM ---
VS Expanded 09/23/24 10:32 Height 4 ft 10 in Weight 148 lb BMI 30.9 Intake Visit Reasons: TV PO LSG 06/16/24 Allergies codeine Allergy (Intermediate, Verified 06/22/24 11:11) Itching Penicillins Allergy (Intermediate, Verified 06/22/24 11:11) Swelling Medication List - Last Reconciled 09/23/24 by ETIENNE Bird albuterol sulfate 90 mcg/actuation (Ventolin HFA) 2 puffs inhalation Q4H amitriptyline 75 mg PO BEDTIME aripiprazole 15 mg PO QAM blood pressure test kit-large As directed fluoxetine 40 mg PO DAILY hydroxyzine HCl 25 - 50 mg PO Q8H PRN melatonin 5 - 10 mg PO BEDTIME PRN norethindrone-ethin estradiol 0.5-35 mg-mcg (Nortrel) 1 tab PO DAILY HPI Comments Details: This?is a?43?yo F who is s/p LSG 06/06/2024. Presents for 3.5mo post op visit. Weight at last visit on 08/12/2024 was 161 pounds with a BMI of 33.6, weight today is 148 pounds, representing a 148 pound weight loss with a BMI today of 30.9.? No complaints of nausea, emesis, abdominal pain, reflux, or constipation. Takes BP at home, has not been needing HCTZ. Ended up having surgery last Saturday at [facility]- removal of cyst of ovary. Is restricted from activity for 2 weeks, has postop appt October 06. Ended up needing to go back to ED on Saturday for bleeding (vW) and needed DDAVP. Off pantoprazole. Present meal plan includes: 2 shakes, each with half scoop 3ff protein, 3ff veg taking MVI hydration is adequate Exercise routine includes: 350 patrick per day- was just increased by Weston Martines, has elliptical at home [facility] Medical History (Updated 08/12/24 @ 11:12 by ETIENNE Bird) Pre-diabetes Von Willebrand's disease Asthma Migraines Insomnia Anxiety Hyperlipidemia Hypertension Morbid obesity Depression Persistent proteinuria Surgical History (Updated 06/30/24 @ 00:01 by Rasta Colindres) S/P laparoscopic sleeve gastrectomy H/O section History of appendectomy Hx of nasal septoplasty Family History Mother Diabetes Hypertension Paternal Uncle Leukemia Social History Household Members: Significant Other and Children Housing: Apartment Are you a primary home health care social worker to a significant other at home: No Do you presently have visiting nurse or other home services: No Alcohol intake: current Alcohol intake frequency: does not drink Alcohol type: other Patient Tobacco Use Status: Never used Tobacco e-Cigarette/Vaping Use: Never Used service: No Telehealth Telehealth Telehealth Platform: Telephone Location of provider rendering services: other Location of patient: address on file Patient Identification confirmed using: Name, : Yes Telehealth method: voice only Patient verbally consented to treatment: Yes Patient verbally consented to billing insurance company: Yes Patient informed of any privacy concerns related to visit: Yes Minutes spent on Phone/Video with Pt.: 16 Assessment & Plan Assessment & Plan (1) Obesity: Code(s): E66.9 - Obesity, unspecified Category: Medical (2) S/P laparoscopic sleeve gastrectomy: Code(s): Z98.84 - Bariatric surgery status Category: Medical Plan Pt to continue meal plan per Dr Ontiveros; she has stopped taking protein bars but did not tell him that so I asked that she discuss her meal plan with him to make sure she getting enough protein. She will resume exercise when cleared by her other surgeon. Completed course of PPI. Continue to monitor BP. RTC 6-8w.
[2024-09-23 10:32] VITALS: BMI 30.9
--- OUTSIDE RECORDS SUMMARY | 2024-09-23 12:11 | XMS_ITS | Clinical Summary ---
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 4 each 09/05/19 23 Active Blood Pressure kit Check BP daily 1 kit 03/27/20 23 Active omega-3 (Fish Oil) 1000 MG capsuleIndicatio ns:Hypertriglyce ridemia TAKE ONE CAPSULE BY MOUTH TWICE DAILY 60 capsule 05/30/19 24 Active ARIPiprazole (Abilify) 15 MG tabletIndication s:Moderate recurrent major depression (CMS/HCC) Take 1 tablet (15 mg) by mouth Once per day. 90 tablet 11/14/19 24 Active amitriptyline (Elavil) 75 MG tabletIndication s:Moderate recurrent major depression (CMS/HCC),Insomn ia, unspecified type Take 1 tablet (75 mg) by mouth at bedtime. 90 tablet 11/14/19 24 Active FLUoxetine (PROzac) 20 MG capsuleIndicatio ns:Moderate recurrent major depression (CMS/HCC) Take 2 capsules (40 mg) by mouth Once daily. 180 capsule 11/14/19 24 Active hydrOXYzine HCl (Atarax) 25 MG tabletIndication s:Moderate recurrent major depression (CMS/HCC) Take 1-2 tablets (25-50 mg) by mouth every 8 (eight) hours if needed for anxiety. 200 tablet 11/14/19 24 Active LORazepam (Ativan) 0.5 MG tabletIndication s:Moderate recurrent major depression (CMS/HCC) Take 1 tablet (0.5 mg) by mouth 2 times daily. If needed for anxiety 60 tablet 11/14/19 24 Active Nortrel 0.5/35, 28, 0.5-35 MG-MCG tablet TAKE ONE TABLET BY MOUTH EVERY DAY 28 tablet 12/19/19 24 Active hydroCHLOROthiaz irais (HYDRODiuril) 25 MG tablet TAKE ONE TABLET EVERY MORNING 30 tablet 07/11/19 25 Active melatonin 5 MG tabletIndication s:Insomnia, unspecified type Take 1-2 tablets (5-10 mg) by mouth if needed at bedtime (sleep). 180 tablet 1 07/24/19 25 Active Active Problems Problem Noted Date Diagnosed [...] 1-2 tabs every 8 hours as needed. [place] Lorazepam 0.5 mg for occasional panic attacks [...] the next year or so, and that [facility] should hopefully have new prescriber(s) available [...] Encounters Date Type Department Care Team Description 09/22/2024 Orders Only [place] [employer] [facility] [address] [place] [address] Provider, MD Chuck 09/08/2024 1:15 PM EDT Nurse Only [facility] [address] [place] [address] Yenny Hall, IVANIA Encounter for immunization 09/08/2024 Travel 07/23/2024 Orders Only [facility] [address] [place] [address] Rochelle Phan MD Insomnia, unspecified type 07/22/2024 Population Health Risk Score [facility] [address] [place] [phone] Provider, Population Health Generic 07/22/2024 Refill [facility] [address] [place] [address] Rochelle Phan MD Insomnia, unspecified type 07/10/2024 Refill [facility] [address] [place] [address] Helena Jennings MD from Last 3 Months Immunizations Immunization Administration Dates Next Due Influenza injectable quadriv alent IIV4 with preservative 01/17/2018,02/09/2016,02/03/2015 Influenza injectable quadriv alent preservative free 02/27/2023,02/06/2022,04/18/2021,2018 Influenza, IIV3, injectable 02/06/2017 Influenza, seasonal, injecta ble, preservative free 09/08/2024 Moderna Covid-19 Vaccine 12+ 08/20/2020,07/24/19 21 Tdap [...] Health Maintenance Due Date Last Done Comments Disability Screening 1981 Alcohol/Substance Use Screening 1993 Family Planning (PISQ) 1996 Hepatitis C Screening 12/31/1999 Hepatitis B Vaccines (1 of 3 - 19+ 3-dose series) 2000 Pneumococcal Vaccine: Pediatrics (0 to 5 Years) and At-Risk Patients (6 to 49) Years) (1 of 2 - PCV) 2000 COVID-19 Vaccine ( season) 2023 02/07/2022, 07/11/2021, 08/20/2020, Additional history exists Pap Smear 04/18/2024 04/18/2021 [...] 75+ series) 2056 HIV Screening Completed 01/05/2022 Influenza Vaccine Completed 09/08/2024, , 02/27/2023, Additional history exists HIB Vaccines Aged Out [...] Name Priority Date/Time Associated Diagnosis Comments CT CHEST ANGIO W AND WO IV CONTRAST Routine 09/20/2024 1:34 PM EDT BI MAMMOGRAM SCREENING TOMOSYNTHESIS BILATERAL Routine 04/16/2024 [...] Recently Relevant to Health Maintenance Results * CT CHEST ANGIO W AND WO IV CONTRAST (09/20/2024 1:34 PM EDT) Anatomical Region Laterality Modality Computed Tomogra phy us Historical Provider MD JIMENEZ CT PROCEDURES Final R esult * BI Mammogram Screening Tomosynthesis Bilateral (04/16/2024 9:00 AM EST) Anatomical Region Laterality Modality Breast Bilateral Mammography 04/16/2024 9:00 AM EST Narrative 04/17/2024 9:41 AM EST ? [facility] ? [address] ?[place] [address] ? Mammography Report ? Signed ? Patient: Jair,Maria C ?MR#: [id number] ?? [id number] ? : 1980 ?Acct:[id number] ? Age/Sex: 43 / F ?ADM Date: 12//24 ? Loc: HO.MAMMO ? Attending Dr: Rochelle Phan MD ? Ordering Physician: Rochelle Phan MD ?Results: 2Be ?? nign Findings ? Date of Service: 12//24 ?Follow Up: 1 Year From Orig ?? inal Mammogram ? Procedure(s): MM tomosynthesis screening BI ?? Accession Number(s): [id number] ? cc: Rochelle Phan MD ? EXAMINATION: [...] DD/ 0900 ? TD/TT: 04/16/24 0925 ? Craft Center Director: ? Procedure Note Palmira, Becca - 04/17/2024 [facility] [address] [place] [address] [place] [address] Mammography Report Signed Patient: Rosalina Adam#: [id number] : 1980Acct:[id number] Age/Sex: 43 / FADM Date: 04/16/24 Loc: HO.MAMMO Attending Dr: Rochelle Phan MD Ordering Physician: Rochelle Phan MDResults: 2Be nign Findings Date of Service: 04/16/24Follow Up: 1 Year From Orig inal Mammogram Procedure(s): MM tomosynthesis screening BI Accession Number(s): [id number] cc: Rochelle Phan MD EXAMINATION: MM SCREENING [...] in OV> 04/17/24937 DD/ 9 TD/TT: 04/16/24924 Craft Center Director: us Rochelle Phan MD IMG BI PROCEDURES Final Resul t * Hemoglobin A1c (01/30/2024 9:03 AM EDT) Hemoglobin A1c 5.8 <6.0 % [facility] Comment:Hemoglobin A1C Refer ence Range Adults: 4.8 - 6.0 % Non diabetic: < 6.0 % Goal: < 7.0 %Additional Action Suggested: > 8.0 %Note: Hemoglobin A1c results are invalid for patients with abnormal amounts of HbF. Blood transfusions may impact the HbA1c concentration in the patient sample. Estimated Average Glucose 120 mg/dL [facility] Comment:eAG = Estimated ave rage glucose which is %A1C expressed asaverage glucose, using the formula of the A7F-KsbirhtIlsztux Glucose study (ADAG), Diabetes Care, Vol.31,#8,Nov. 2007 01/30/2024 9:03 AM EDT 01/30/2024 9:03 AM EDT us Generic External Data Provider LAB BLOOD ORDERAB LES Final Result [facility] [address] [place] [address] [phone] * (ABNORMAL) Lipid Panel, Standard (01/30/2024 9:03 AM EDT) Triglycerides 287(H) <150 mg/dL [facility] Comment:Desirable Triglyceri de: less than 150 mg/dLBorderline High Triglyceride 150-199 mg/dLHigh Triglyceride: 200-499 mg/dLVery High Triglyceride: greater than or equal to 5OO mg/dL Cholesterol 257(H) <200 mg/dL [facility] Comment:Desirable Cholestero l: less than 200 mg/dLBorderline High Cholesterol: 200-239 mg/dLHigh Cholesterol: greater than 239 mg/dL LDL Cholesterol Calculated 147(H) <100 mg/dL [facility] Comment:Desirable LDL: less than 100 mg/dLNear Optimal/Above Optimal LDL: 110- 129 mg/dLBorderline High LDL: 130-159 mg/dLHigh LDL: 160-189 mg/dLVery High LDL: greater than or equal to 190 mg/dL HDL Cholesterol 53 >40 mg/dL [facility] Comment:Desirable HDL: great er than 40 mg/dL Note: This HDL assay may give artificially low results in patients with liver disease. 01/30/2024 9:03 AM EDT 01/30/2024 9:03 AM EDT us Generic External Data Provider LAB BLOOD ORDERAB LES Final Result Performing Organization Address [facility]/ZIP Co de Phone Number [facility] [address] [place] [phone] * HIV 1/2 ANTIGEN/ANTIBODY,FOURTH GENERATION W/RFL (01/05/2022 9:49 AM EDT) HIV-1/2 ANTIGEN AND ANTIBODIES, 4TH GENERATION W/ REFLEX NON-REACT DEEPTI NON-REACT DEEPTI [facility] Comment: HIV-1 antigen and HIV-1/HIV-2 [...] ? For additional information please refer to http://education.[employer]/faq/IMU886 (This link is being provided for informational/ educational purposes only.) ? The performance of this assay has not been clinically validated in patients less than 2 years old. ?? 01/05/2022 9:49 AM EDT us Heidi Moreau MD LAB BLOOD ORDERABLES Final Re sult Performing Organization Address [facility] Co de Phone Number [facility] [address] * THINPREP TIS PAP AND HPV mRNA E6/E7 WITH REFLEX TO HPV 16,18/45 (04/18/2021 10:23 AM EST) Clinical Information: None given [facility] COMMENT SEE COMMENT [facility] [...] has been evaluated with computer assisted technology. [facility] Recreational Programs Director: SEE COMMENT [facility] Comment: HJP CT(ASCP) CT screening location: [address] ??[id number] HPV nRNA E6/E7 Not Detected Not Detected [facility] Comment: Methodology: Demo Coordinator-Mediated Amplification This assay detects E6/E7 viral messenger RNA (mRNA) from 14 high-risk HPV types (16,18,31,33,35,39,45,51,52,56,58,59,66,68). ? The analytical performance characteristics of this assay have been determined by [employer]. The modifications have not been cleared or approved by the FDA. This assay has been validated pursuant to the CLIA regulations and is used for clinical purposes. ?? For additional information, please refer to http://education.[employer]/faq/ETL997g1 (This link if provided for information/ educational purposes only.) Interpretation/Re sult: Negative for intraepithelial lesion or malignancy. [facility] LMP: 03/2021 [facility] Prev. BX: NONE GIVEN [facility] Prev. PAP: 01/23/18 [facility] SOURCE: Cervix [facility] Statement Of Adequacy: SEE COMMENT [facility] Comment: Satisfactory for evaluation. Endocervical/transformation zone component absent. 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
== END 2024-09-23 11:09 | disposition home or self-care (01) ==
LOC: HO.HBS 11:09
PROVIDERS: PCP Pediatrics; Visit Provider Physician Assistant Surgical
DX: E66.9 Obesity, unspecified (principal); Z98.84 Bariatric surgery status
CPT/HCPCS: 99214

== ENCOUNTER → 2024-09-23 11:09 | Outpatient (BNVA) | payer MEDICAID, SELFPAY | PROVIDERS: PCP Pediatrics; Visit Provider Physician Assistant Surgical | DX: E66.9 Obesity, unspecified (principal); Z98.84 Bariatric surgery status ==

== ENCOUNTER 2024-11-02 14:30 | Outpatient (AMB) | payer MEDICAID, SELFPAY ==
--- NOTE | 2024-11-02 14:30 | A.OFFVIS_ITS ---
VS Expanded 11/02/24 14:33 Height 4 ft 10 in Weight 143 lb BMI 29.9 Intake Visit Reasons: TELEPHONE PO LSG 06/16/24 Allergies codeine Allergy (Intermediate, Verified 06/22/24 11:11) Itching Penicillins Allergy (Intermediate, Verified 06/22/24 11:11) Swelling Medication List - Last Reconciled 11/02/24 by ETIENNE Bird albuterol sulfate 90 mcg/actuation (Ventolin HFA) 2 puffs inhalation Q4H amitriptyline 75 mg PO BEDTIME aripiprazole 15 mg PO QAM blood pressure test kit-large As directed fluoxetine 40 mg PO DAILY hydroxyzine HCl 25 - 50 mg PO Q8H PRN melatonin 5 - 10 mg PO BEDTIME PRN norethindrone-ethin estradiol 0.5-35 mg-mcg (Nortrel) 1 tab PO DAILY HPI Comments Details: This?is a?43?yo F who is s/p LSG 06/16/2024. Presents for 5mo post op visit. Weight loss No complaints of nausea, emesis, abdominal pain or reflux, or constipation. Pt notes hair loss. Present meal plan includes: 1 shake with 2 scoops Premier 3ff protein, 3ff veg x 2 taking MVI- taking karson brand she found on [employer] hydration is adequate Exercise routine includes: 400 patrick per day on elliptical- was increased by Dr Ontiveros from 350 was exercising less after her previous surgery but is now cleared for activity and increased again PFSH Medical History (Updated 11/02/24 @ 14:40 by ETIENNE Bird) Pre-diabetes Von Willebrand's disease Asthma Migraines Insomnia Anxiety Hyperlipidemia Hypertension Morbid obesity Depression Persistent proteinuria Surgical History (Updated 06/30/24 @ 00:01 by Rasta Colindres) S/P laparoscopic sleeve gastrectomy H/O section History of appendectomy Hx of nasal septoplasty Family History Mother Diabetes Hypertension Paternal Uncle Leukemia Social History Household Members: Significant Other and Children Housing: Apartment Are you a primary care coordinator to a significant other at home: No Do you presently have visiting nurse or other home services: No Alcohol intake: current Alcohol intake frequency: does not drink Alcohol type: other Patient Tobacco Use Status: Never used Tobacco e-Cigarette/Vaping Use: Never Used service: No Telehealth Telehealth Telehealth Platform: Telephone Location of provider rendering services: other Location of patient: address on file Patient Identification confirmed using: Name, : Yes Telehealth method: voice only Patient verbally consented to treatment: Yes Patient verbally consented to billing insurance company: Yes Patient informed of any privacy concerns related to visit: Yes Minutes spent on Phone/Video with Pt.: 15 Assessment & Plan Assessment & Plan (1) S/P laparoscopic sleeve gastrectomy: Code(s): Z98.84 - Bariatric surgery status Category: Medical (2) Overweight: Code(s): E66.3 - Overweight Category: Medical Plan Pt with BMI now < 30. Her goal weight is 130lbs. Continue monthly text with Dr Paxton Dominguez take biotin for hair loss. Labs ordered, pt will have done later this month or early next month. RTC 6w for 6mo postop visit. Orders: Orders Vitamin D 25-OH Total Today Z98.84 - Bariatric surgery status Vitamin B12 and Folate Today Z.84 - Bariatric surgery status Complete Blood Count Auto Diff Today Z98.84 - Bariatric surgery status Lipid Panel Today Z.84 - Bariatric surgery status IRON PROFILE Today Z.84 - Bariatric surgery status Hemoglobin A1c Today Z98.84 - Bariatric surgery status Ferritin Today Z98.84 - Bariatric surgery status TSH reflex Free T4 Today Z98.84 - Bariatric surgery status C Reactive Protein Today Z98.84 - Bariatric surgery status Vitamin B1 Today Z98.84 - Bariatric surgery status Vitamin A Today Z98.84 - Bariatric surgery status Zinc Today Z98.84 - Bariatric surgery status Comprehensive Met. Panel Today Z.84 - Bariatric surgery status Insulin Today Z98.84 - Bariatric surgery status
[2024-11-02 14:33] VITALS: BMI 29.9
--- OUTSIDE RECORDS SUMMARY | 2024-11-02 15:46 | XMS_ITS | Clinical Summary ---
Author Organization [facility] Address [address] [place] [phone] Phone Care Team Providers Care Drawing Supervisor Name Role Phone Rochelle Phan MD Primary Care Provider [phone] Allergies Active Allergy Reactions Criticality Noted Date Comments Codeine Itching,Hives Low 04/18/2010 Break out hives Nsaids (Non-Steroidal Anti-Inflammatory Drug) 04/18/2010 Other reaction(s): Increased bleeding r/t Von Willbebo's Penicillin G Itching 05/24/2024 Penicillins Swelling Low 01/24/2020 As child Medications FLUoxetine (PROzac) 20 mg capsule TAKE [...] every 8 hours as needed. 4 Active Active Problems Problem Noted Date Diagnosed Date Abnormal cytological findings in female genital organs 07/03/2024 Incompetence of cervix 07/03/2024 Obesity 07/03/2024 Pure hypercholesterolemia 07/03/2024 Chronic pelvic pain in female 07/03/2024 Abnormal cytological findings in female genital organs 07/12/2023 Primary hypertension 06/21/2023 Elevated BP without diagnosis of hypertension Psoriasis 01/23/2018 Moderate recurrent major dep ression ([facility] V24, [facility] V28) 01/17/2018 Cystic acne 03/17/2015 Migraine 10/13/2012 Asthma 04/30/2012 Von Willebrand disease ([facility] V24, [facility] V28 ) 04/30/2012 Resolved Problems Problem Noted Date Diagnosed Date Resolved Date Dermoid cyst of both ovaries 07/03/2024 09/18/2024 Encounters Date Type Department Care Team Description 10/06/2024 3:30 PM EDT Office Visit Obstetrics and Gynecology [address] [phone] Marion Moss PA Postop check (Primary Dx); Von Willebrand disease ([facility] V24, [facility] V28) 09/20/2024 3:42 PM EDT - 09/20/2024 9:42 PM EDT Emergency [facility] Emergency [address] [place] [phone] Bunny Pino MD Vaginal bleeding (Primary Dx); Chest pain, unspecified type; Von Willebrand's disease ([facility] V24, [facility] V28) Discharge Disposition: Home or Self Care 09/18/2024 7:34 AM EDT Anesthesia Event [facility] Main OR [address] [place] [phone] Devante [place] MD Johnson, Lorraine, CRNA 09/18/2024 7:30 AM EDT - 09/18/2024 9:30 AM EDT Surgery [facility] Main OR [address] [place] [phone] Sahara Tello DO DAVINCI EXCISION OVARIAN CYST [10166 (CPT )] 09/18/2024 5:44 AM EDT - 09/18/2024 12:44 PM EDT Hospital Encounter [facility] Main OR [address] [place] [phone] Sahara Tello DO Dermoid cyst of both ovaries; Chronic pelvic pain in female Discharge Disposition: Home or Self Care 09/04/2024 Telephone Obstetrics and Gynecology - [address] [place] [phone] Sahara Tello DO SURGERY 08/25/2024 1:40 PM EDT Consult Obstetrics and Gynecology - [address] [phone] Marion Moss, PA Dermoid cyst of both ovaries (Primary Dx) 08/10/2024 Telephone Obstetrics and Gynecology - [address] [place] [phone] Sahara Tello DO New Med Request from Last 3 Months Surgical History Surgery Date Site/Laterality Comments SLEEVE GASTROPLASTY 05/30/2024 - 06/26/2024 gastric sleeve SECTION, LOW TRANSVERSE SEPTOPLASTY APPENDECTOMY CERVICAL BIOPSY W/ LOOP ELECTRODE EXCISION BARIATRIC SURGERY Medical History Medical History Date Comments Asthma Clotting disorder ([facility]/HCC V24) Von Willebrand disease ([facility]/HCC V24, CMS/HCC V28 ) Social History Tobacco Use Types Packs/Day Years Used Date Smoking Tobacco: Never Smokeless Tobacco: Never Tobacco Cessation:Counseling Given: Not Answered Alcohol Use Standard Drinks/Week Comments Not Currently 0 (1 standard drink = 0.6 oz [...] care for your loved ones. For example, children's ministries director or elderly care for an older adult? [...] What is your living situation? 0 07/03/2024 Interpersonal Safety Answer Date Record ed Physical Abuse 09/18/2024 Verbal Abuse 09/18/2024 Comments No Sex and Gender Information Value Date Recorded Sex Assigned at Female 09/15/2024 10:36 AM EDT Legal Sex Female 4:57 AM EST Gender [...] Sign Reading Time Taken Comments Blood Pressure 115/76 10/06/2024 3:45 PM EDT Pulse 86 10/06/2024 3:45 PM EDT Temperature 37 C (98.6 F) 09/20/2024 6:24 PM EDT Respiratory Rate 16 09/20/2024 9:40 PM EDT Oxygen Saturation 94% 09/20/2024 9:40 PM EDT Inhaled Oxygen Concentration - - Weight 70.4 kg (155 lb 3.2 oz) 10/06/2024 3:45 P M EDT Height 147.3 cm (4' 10 ) 09/20/2024 1:55 PM EDT Body Mass Index 32.44 09/20/2024 1:55 PM EDT Plan of Treatment Health Maintenance Due Date Last Done Comments Breast Cancer Screening 1981 Hepatitis B Vaccines (1 of 3 - 19+ 3-dose series) 2000 Pneumococcal Vaccine: Pediatrics (0 to 5 Years) and At-Risk Patients (6 to 49 Years) (1 of 2 - PCV) 2000 Cervical Cancer Screening: Pap Smear 2002 Hepatitis C Screening 04/01/2022 COVID-19 Vaccine ( season) 2023 02/07/2022, 07/11/2021, 08/20/2020, Additional history exists Influenza Vaccine (#1) 2024 , 01/27/2024, 02/27/2023, Additional history exists Depression Screening 07/03/2025 07/03/2024 Social Influencers of Health Screening 07/03/2025 07/03/2024 Hypertension/CHF/CAD Annual BMP Blood Test 09/20/2025 09/20/2024, 05/24/2024 DTaP,Tdap,and Td Vaccines (3 - Td or Tdap) 01/18/2028 01/17/2018, 10/06/2015 Cholesterol Screening (Lipid Panel) 01/29/2029 01/30/2024 HIV Screening Completed 01/05/2022 HIB Vaccines Aged [...] Name Priority Date/Time Associated Diagnosis Comments CT ANGIO CHEST WO AND/OR W CONTRAST STAT 09/20/2024 8:08 PM EDT Chest pain, unspecified type HCG, SERUM, QUALITATIVE STAT Add-on 09/20/2024 2:00 PM EDT CBC WITH AUTO DIFFERENTIAL STAT 09/20/2024 2:00 PM EDT TYPE AND SCREEN STAT 09/20/2024 2:00 PM EDT BASIC METABOLIC PANEL STAT 09/20/2024 2:00 PM EDT CBC AND DIFFERENTIAL STAT 09/20/2024 2:00 PM EDT TH AN ENDOTRACHEAL(NO CHARGE) Routine 09/18/2024 8:30 AM EDT TISSUE EXAM Routine 09/18/2024 8:24 AM EDT Dermoid cyst of both ovaries Chronic pelvic pain in female ID LAP SURG W FULG/EXC LESIONS OF OVARY PELVIC VISCERA/PERITONEAL SURFACE 09/18/2024 7:33 AM EDT Dermoid cyst of both ovaries Chronic pelvic pain in female Special Needs Da Ragini CBC WITH AUTO DIFFERENTIAL Routine 09/18/2024 6:29 AM EDT TYPE AND SCREEN Routine 09/18/2024 6:29 AM EDT CBC AND DIFFERENTIAL Routine 09/18/2024 6:29 AM EDT from Last 3 Months Results * CT Angio Chest wo and/or w Contrast (09/20/2024 8:08 PM EDT) Anatomical Region Laterality Modality Body Computed Tomogra phy 09/20/2024 8:53 PM EDT Impressions 09/20/2024 8:53 PM EDT Impression: 1. No pulmonary embolism, aortic dissection or acute pulmonary disease. This document has been electronically signed by: Yandel Martinez MD on 09/20/2024 20:53:49 Narrative 09/20/2024 8:53 PM EDT INDICATION: PE suspected, high prob Exam: Contrast-enhanced chest CT pulmonary angiogram with multiplanar reformats. Comparison: None. Findings: There is no pulmonary embolism or thoracic aortic dissection. No mediastinal or hilar masses or adenopathy. No pleural or pericardial effusions. Images below the diaphragms reveal no acute abnormalities. Remote postop changes related to gastric sleeve procedure are present. Lungs are free of focal consolidation. Airways are patent. No pneumothorax. Osseous structures reveal no destructive osseous lesions. Procedure Note Yandel Martinez MD - 09/20/2024 INDICATION: PE suspected, high prob Exam: Contrast-enhanced chest CT pulmonary angiogram with multiplanar reformats. Comparison: None. Findings: There is no pulmonary embolism or thoracic aortic dissection.No mediastinal or hilar masses or adenopathy. No pleural or pericardial effusions. Images below the diaphragms reveal no acute abnormalities. Remote postop changes related to gastric sleeve procedure are present. Lungs are free of focal consolidation. Airways are patent. Nopneumothorax. Osseous structures reveal no destructive osseous lesions. IMPRESSION: Impression: 1. No pulmonary embolism, aortic dissection or acute pulmonary disease. This document has been electronically signed by: Yandel Martinez MD on 09/20/2024 20:53:49 Bunny Pino MD IMG CT PROCEDURES Final Result * CBC auto differential (09/20/2024 2:00 PM EDT) Only the most recent of2 resultswithin the time period is included. WBC 8.7 4.8 - 10.8 K/mcL LAB HEMETOLOGY METHOD 09/20/2024 2:14 PM EDT [facility] RBC 4.40 3.80 - 4.80 M/mcL LAB HEMETOLOGY METHOD 09/20/2024 2:14 PM EDT [facility] Hemoglobin 12.3 11.5 - 16.0 g/dL LAB HEMETOLOGY METHOD 09/20/2024 2:14 PM EDT [facility] Hematocrit 38.3 35.0 - 47.0 % LAB HEMETOLOGY METHOD 09/20/2024 2:14 PM EDT [facility] MCV 86.5 79.0 - 98.0 FL LAB HEMETOLOGY METHOD 09/20/2024 2:14 PM EDT [facility] MCH 27.8 27.0 - 32.0 pcg LAB HEMETOLOGY METHOD 09/20/2024 2:14 PM EDT [facility] MCHC 32.1 32.0 - 37.0 g/dL LAB HEMETOLOGY METHOD 09/20/2024 2:14 PM EDT [facility] RDW 13.1 11.0 - 15.0 % LAB HEMETOLOGY METHOD 09/20/2024 2:14 PM EDT [facility] Platelets 321 130 - 400 K/mcL LAB HEMETOLOGY METHOD 09/20/2024 2:14 PM EDT [facility] MPV 9.2 7.0 - 11.0 FL LAB HEMETOLOGY METHOD 09/20/2024 2:14 PM EDT [facility] NRBC 0.0 <1.0 % LAB HEMETOLOGY METHOD 09/20[facility] NR[facility] Absolute 0.00 <0.10 K/mcL LAB HEMETOLOGY METHOD 09/20/2024 2:14 PM [facility] Neutrophils Relative 59.9 % LAB HEMETOLOGY METHOD 09/20/2024 2:14 PM [facility] Lymphocytes Relative 30.4 % LAB HEMETOLOGY METHOD 09/20/2024 2:14 PM [facility] Monocytes Relative 5.9 % LAB HEMETOLOGY METHOD 09/20/2024 2:14 PM [facility] Eosinophils Relative 2.9 % LAB HEMETOLOGY METHOD 09/20/2024 2:14 PM [facility] Basophils Relative 0.7 % LAB HEMETOLOGY METHOD 09/20/2024 2:14 PM [facility] Immature Granulocytes Relative 0.2 % LAB HEMETOLOGY METHOD 09/20/2024 2:14 PM [facility] Neutrophils Absolute 5.19 1.50 - 7.00 K/mcL LAB HEMETOLOGY METHOD 09/20/2024 2:14 PM [facility] Lymphocytes Absolute 2.64 1.00 - 5.00 K/mcL LAB HEMETOLOGY METHOD 09/20/2024 2:14 PM [facility] Monocytes Absolute 0.51 0.20 - 1.00 K/mcL LAB HEMETOLOGY METHOD 09/20/2024 2:14 PM [facility] Eosinophils Absolute 0.25 0.00 - 0.50 K/mcL LAB HEMETOLOGY METHOD 09/20/2024 2:14 PM [facility] Basophils Absolute 0.06 0.00 - 0.20 K/mcL LAB HEMETOLOGY METHOD 09/20/2024 2:14 PM EDT [facility] Immature Granulocytes Absolute 0.02 0.00 - 0.03 K/mcL LAB HEMETOLOGY METHOD 09/20/2024 2:14 PM EDT [facility] Blood Venous blood specimen / Unknown Venipuncture / Unknown 09/20/2024 2:00 PM EDT 09/20/2024 2:08 PM EDT Jamir Salas MD LAB BLOOD ORDERABLES Final Result Performing Organization Address [facility]/ZIP Co de Phone Number [facility] [address] [place] [address], * Type and screen (09/20/2024 2:00 PM EDT) Only the most recent of2 resultswithin the time period is included. ABO Group O 09/25/2024 2:19 PM EDT [facility] Rh Type Positive 09/25/2024 2:19 PM EDT [facility] Antibody Screen Negative 09/25/2024 2:19 PM EDT [facility] Blood Venous blood specimen / Unknown Venipuncture / Unknown 09/20/2024 2:00 PM EDT 09/20/2024 2:08 PM EDT Jamir Salas MD LAB BLOOD BANK TEST ORDERAB LES Final Result [facility] [address] [place] [address], [place] [phone] * hCG, serum, qualitative (09/20/2024 2:00 PM EDT) hCG Qual Negative Negative 09/20/2024 5:23 PM EDT [facility] Blood Venous blood specimen / Unknown Venipuncture / Unknown 09/20/2024 2:00 PM EDT 09/20/2024 2:08 PM EDT us Bunny Pino MD LAB BLOOD ORDERABLES Final Res ult [facility] [address] [place] [address], [place] [phone] * Basic metabolic panel (09/20/2024 2:00 PM EDT) Sodium 137 133 - 145 mmol/L LAB CHEMISTRY METHOD 09/20/2024 2:34 PM T [facility] Potassium 3.8 3.5 - 5.5 mmol/L LAB CHEMISTRY METHOD 09/20/2024 2:34 PM [facility] Chloride 103 96 - 110 mmol/L LAB CHEMISTRY METHOD 09/20/2024 2:34 PM [facility] CO2 28 21 - 32 mmol/L LAB CHEMISTRY METHOD 09/20/2024 2:34 PM [facility] Anion Gap 6 3 - 11 LAB CHEMISTRY METHOD 09/20/2024 2:34 PM [facility] Glucose 98 70 - 100 mg/dL LAB CHEMISTRY METHOD 09/20/2024 2:34 PM [facility] BUN 12 5 - 25 mg/dL LAB CHEMISTRY METHOD 09/20/2024 2:34 PM [facility] Creatinine 0.81 0.50 - 1.10 mg/dL LAB CHEMISTRY METHOD 09/20/2024 2:34 PM [facility] eGFR 93 >=60 mL/min/1. 73m2 LAB CHEMISTRY METHOD 09/20/2024 2:34 PM [facility] Comment:Calculation based on the Chronic Kidney Disease Epidemiology Collaboration (CKD-EPI) equation refit without adjustment for race. BUN/Creatinine Ratio 14.8 LAB CHEMISTRY METHOD 09/20/2024 2:34 PM [facility] Calcium 9.7 8.5 - 10.5 mg/dL LAB CHEMISTRY METHOD 09/20/2024 2:34 PM EDT [facility] Blood Venous blood specimen / Unknown Venipuncture / Unknown 09/20/2024 2:00 PM EDT 09/20/2024 2:08 PM EDT Jamir Salas MD LAB BLOOD ORDERABLES Final Result [facility] [address] [place] [address], [place] [phone] * TH AN ENDOTRACHEAL(NO CHARGE) (09/18/2024 8:30 AM EDT) Nazia Lopez CRNA - 09/18/2024 8:30 AM EDT Nazia Cotto CRNA 09/18/2024 8:32 AM General Information and Staff Patient location during procedure: OR Performed: resident/DRY CLEANING SUPERVISOR/CAA Performed by: Nazia Cotto CRNA Authorized by: Devante [place] MD Intubation Airway not difficult Urgency: elective Final Airway Details Successful airway: ETT Cuffed: yes Successful intubation technique: direct laryngoscopy Blade: Francisco Blade size: #4 ETT size (mm): 7.0 Cormack-Lehane Classification: grade I - full view of glottis Placement verified by: chest auscultation and capnometry Inital cuff pressure (cm H2O): 10 Measured from: lips ETT to lips (cm): 21 Number of attempts at approach: 1Final airway type: endotracheal airway Indications and Patient Condition Indications for airway management: anesthesia Spontaneous ventilation: present Sedation level: Yes Preoxygenated: yes Soft Tissue Damage: No Dentition Unchanged: Yes Patient position: neutral MILS maintained throughout Mask difficulty assessment: 1 - vent by mask us Devante [place] MD ANESTHESIA ORDERABLES Final Re sult * Tissue exam (09/18/2024 8:24 AM EDT) Final Diagnosis Cysts, right and left ovaries, cystectomies: - Mature cystic teratoma(s) (multiple fragments). 09/22/2024 2:31 PM EDT [facility] Comment Client Success Manager slide(s) from this case have been presented at Anatomic Pathology Intradepartmental Review Conference on 09/22/24. 09/22/2024 2:31 PM EDT [facility] Gross Description A. Ovary, Left, and right ovarian cysts: Labeled bilateral . Received in formalin are two disrupted cysts, measuring 2.6 x 1.3 x 0.9 cm and 5.2 x 4.5 x 2.5 cm. Both cysts display a smooth pink-white to red external surface. Both cysts contain a brown-yellow friable substance. The smaller cyst displays a 0.4 cm pink-red nodule but is otherwise moved and glistening. The larger cyst is biloculated and contains a yellow friable substance admixed with brown hair. There is a 1.3 cm hairbearing nodule that has glistening yellow to calcified cut surfaces. No definitive ovarian parenchyma is identified. Client Success Manager sections are submitted as follows: 1, smaller cyst to include entirety of nodule, three pieces 2-4, larger cyst, three pieces each KODI 09/22/2024 2:31 PM EDT [facility] Disclaimer Unless otherwise specified, all tissue is 10% NB formalin fixed and paraffin embedded. 09/22/2024 2:31 PM EDT [facility] Tissue Structure of left ovary / Unknown 09/18/2024 8:24 AM EDT 09/18/2024 11:07 AM EDT us Sahara Tello DO LAB PATHOLOGY ORDERABLES Meenakshi barone Result [facility] [address] [place] [address], from Last 3 Months Insurance MEDICAID - [place] Advance Directives * Full Code - Default (Latest Code Status on File) Date Activated Date Inactivated Comments 09/18/2024 6:14 AM 09/18/2024 2:50 PM This is orde r is used when code status has not been discussed with the patient, or code status is otherwise unknown/unconfirmed To update the patient's code status, place a code status order. Do not modify or discontinue any currently active code status orders. Care Teams Drawing Supervisor Relationship Specialty Start Date End Date Rochelle Phan MD [address] [place] [phone] PCP - General Internal Medicine 09/20/24
--- OUTSIDE RECORDS SUMMARY | 2024-11-02 15:46 | XMS_ITS | Clinical Summary ---
Author Organization [employer] Address [address] [facility] 7t [place] [address] Care Team Providers Care Seed Sales Manager Name Role Phone Rochelle Phan MD Primary Care Provider Gilberto Zayas Unavailable Unavailable Allergies Active Allergy [...] 1-2 tabs every 8 hours as needed. [place] Lorazepam 0.5 mg for occasional panic attacks [...] the next year or so, and that [facility] should hopefully have new prescriber(s) available [...] Department Care Team Description 09/22/2024 Orders Only [place] [employer] [facility] [address] [place] [address] Provider, MD Chuck 09/08/2024 1:15 PM EDT Nurse Only [facility] [address] [place] [address] Yenny Hall RN Encounter for immunization 09/08/2024 Travel from Last 3 Months Immunizations Immunization Administration [...] 86 07/12/2023 9:14 AM EDT Temperature 36.7 C (98 F) 07/12/2023 9:14 AM EDT Respiratory Rate 20 [...] Years) and At-Risk Patients (6 to 49) Years (1 of 2 - PCV) 2000 COVID-19 Vaccine ( season) 2023 02/07/2022, 07/11/2021, 08/20/2020, Additional history exists SDOH Screening 06/21/2024 06/21/2023 Tobacco Screening 07/11/2024 07/12/2023 Depression Screening 07/24/2024 07/25/2023, 07/25/19 24 Influenza Vaccine (#1) 2024 5, 01/27/2024, 02/27/2023, Additional history exists Diabetes: Hemoglobin A1C 01/29/2025 024, 03/28/2023, 05/25/2022, Additional history exists Mammogram 04/16/2026 04/16/2024, 09/27, 03/28/2023, Additional history exists Cervical Cancer Screening 04/18/2026 HPV/Cotest 04/18/2026 04/18/2021 Pap Smear 04/18/2026 04/18/2021 DTaP/Tdap/Td Vaccines (3 - Td [...] AM EST Narrative 04/17/2024 9:41 AM EST [address] [place] [address] Mammography Report Signed Patient: Maria C Adam MR#: [id number] : 1980 Acct:[id number] Age/Sex: 43 / F ADM Date: 04/16/24 Loc: HO.MAMMO Attending Dr: Rochelle Phan MD Ordering Physician: Rochelle Phan MD Results: 2Be nign Findings Date of Service: 04/16/24 Follow Up: 1 Year From Orig inal Mammogram Procedure(s): MM tomosynthesis screening BI Accession Number(s): [id number] cc: Rochelle Phan MD EXAMINATION: MM SCREENING [...] in OV> 04/17/24937 DD/ 9 TD/TT: 04/16/24924 Health Information Systems Technician: Procedure Note Donotuseinterpreter, Image - 04/17/[address] [place] [address] Mammography Report Signed Patient: Rosalina Adam#: [id number] : 1980Acct:[id number] Age/Sex: 43 / FADM Date: 04/16/24 Loc: HO.MAMMO Attending Dr: Rochelle Phan MD Ordering Physician: Rochelle Phan MDResults: 2Be nign Findings Date of Service: 04/16/24Follow Up: 1 Year From Orig inal Mammogram Procedure(s): MM tomosynthesis screening BI Accession Number(s): [id number] cc: Rochelle Phan MD EXAMINATION: MM SCREENING [...] in OV> 04/17/24937 DD/ 9 TD/TT: 04/16/24924 Health Information Systems Technician: us Rochelle Phan MD IMG BI PROCEDURES Final Resul t * Hemoglobin A1c (01/30/2024 9:03 AM EDT) Hemoglobin A1c 5.8 <6.0 % [facility] Comment:Hemoglobin A1C Refer ence Range Adults: 4.8 - 6.0 % Non diabetic: < 6.0 % Goal: < 7.0 %Additional Action Suggested: > 8.0 %Note: Hemoglobin A1c results are invalid for patients with abnormal amounts of HbF. Blood transfusions may impact the HbA1c concentration in the patient sample. Estimated Average Glucose 120 mg/dL [facility] Comment:eAG = Estimated ave rage glucose which is %A1C expressed asaverage glucose, using the formula of the A5O-KhgowznDnymldl Glucose study (ADAG), Diabetes Care, Vol.31,#8,Nov. 2007 01/30/2024 9:03 AM EDT 01/30/2024 9:03 AM EDT us Generic External Data Provider LAB BLOOD ORDERAB LES Final Result [facility] [address] [place] [phone] * (ABNORMAL) Lipid Panel, Standard (01/30/2024 9:03 AM EDT) Triglycerides 287(H) <150 mg/dL [facility] Comment:Desirable Triglyceri de: less than 150 mg/dLBorderline High Triglyceride 150-199 mg/dLHigh Triglyceride: 200-499 mg/dLVery High Triglyceride: greater than or equal to 5OO mg/dL Cholesterol 257(H) <200 mg/dL [facility] Comment:Desirable Cholestero l: less than 200 mg/dLBorderline High Cholesterol: 200-239 mg/dLHigh Cholesterol: greater than 239 mg/dL LDL Cholesterol Calculated 147(H) <100 mg/dL [facility] Comment:Desirable LDL: less than 100 mg/dLNear Optimal/Above Optimal LDL: 110- 129 mg/dLBorderline High LDL: 130-159 mg/dLHigh LDL: 160-189 mg/dLVery High LDL: greater than or equal to 190 mg/dL HDL Cholesterol 53 >40 mg/dL [facility] Comment:Desirable HDL: great er than 40 mg/dL Note: This HDL assay may give artificially low results in patients with liver disease. 01/30/2024 9:03 AM EDT 01/30/2024 9:03 AM EDT us Generic External Data Provider LAB BLOOD ORDERAB LES Final Result Performing Organization Address [facility]/ZIP Co de Phone Number [facility] [address] [place] [phone] [phone] * HIV 1/2 ANTIGEN/ANTIBODY,FOURTH GENERATION W/RFL (01/05/2022 9:49 AM EDT) HIV-1/2 ANTIGEN AND ANTIBODIES, 4TH GENERATION W/ REFLEX NON-REACT DEEPTI NON-REACT DEEPTI [facility] Comment: HIV-1 antigen and HIV-1/HIV-2 antibodies were not detected. There is no laboratory evidence of HIV infection. PLEASE NOTE: This information has been disclosed to you from records whose confidentiality may be protected by state law. If your state requires such protection, then the state law prohibits you from making any further disclosure of the information without the specific written consent of the person to whom it pertains, or as otherwise permitted by law. A general authorization for the release of medical or other information is NOT sufficient for this purpose. For additional information please refer to http://education.Valentin Uzhun/faq/UWA891 (This link is being provided for informational/ educational purposes only.) The performance of this assay has not been clinically validated in patients less than 2 years old. 01/05/2022 9:49 AM EDT us Hedii Moreau MD LAB BLOOD ORDERABLES Final Re sult [facility] [address] * THINPREP TIS PAP AND HPV mRNA E6/E7 WITH REFLEX TO HPV 16,18/45 (04/18/2021 10:23 AM EST) Clinical Information: None given [facility] COMMENT SEE COMMENT [facility] Comment: EXPLANATORY NOTE: The Pap is a screening test for cervical cancer. It is not a diagnostic test and is subject to false negative and false positive results. It is most reliable when a satisfactory sample, regularly obtained, is submitted with relevant clinical findings and history, and when the Pap result is evaluated along with historic and current clinical information. COMMENT: This Pap test has been evaluated with computer assisted technology. [facility] Digital Account Director: SEE COMMENT [facility] Comment: HJP, CT(ASCP) CT screening location: [place] [address] HPV nRNA E6/E7 Not Detected Not Detected [facility] Comment: Methodology: In Flight Crew Member-Mediated Amplification This assay detects E6/E7 viral messenger RNA (mRNA) from 14 high-risk HPV types (16,18,31,33,35,39,45,51,52,56,58,59,66,68). The analytical performance characteristics of this assay have been determined by [facility]. The modifications have not been cleared or approved by the FDA. This assay has been validated pursuant to the CLIA regulations and is used for clinical purposes. For additional information, please refer to http://education.Valentin Uzhun/faq/ECJ145q8 (This link if provided for information/ educational purposes only.) Interpretation/Re sult: Negative for intraepithelial lesion or malignancy. [facility] LMP: 03/2021 [facility] Prev. BX: NONE GIVEN [facility] Prev. PAP: 01/23/18 [facility] SOURCE: Cervix [facility] Statement Of Adequacy: SEE COMMENT [facility] Comment: Satisfactory for evaluation. Endocervical/transformation zone component absent. 04/18/2021 10:2 3 AM EST us Rochelle Phan MD LAB PATHOLOGY ORDERABLES Meenakshi barone Result [facility] [address] from Last 3 Months or Most Recently Relevant to Health Maintenance Insurance [place] [email or web address] C[employer] Care Teams Seed Sales Manager Relationship Specialty Start Date End Date Rochelle Phan MD [address] [place] [address] PCP - General Family Medicine 10/27/12 Gilberto Zayas FNP [address] [place] [address] Nurse Practitioner Family Medicine 03/20/23
== END 2024-11-02 15:00 | disposition home or self-care (01) ==
LOC: HO.HBS 15:36
PROVIDERS: PCP Pediatrics; Visit Provider Physician Assistant Surgical
DX: Z98.84 Bariatric surgery status (principal); E66.3 Overweight
CPT/HCPCS: 99214

== ENCOUNTER 2024-12-30 06:00 | Outpatient (REF) | payer MEDICAID, SELFPAY ==
--- OUTSIDE RECORDS SUMMARY | 2024-12-30 06:03 | XMS_ITS | Clinical Summary ---
Author Organization [facility] Address [address] [place] [phone] Phone Care Team Providers Care Councilman Name Role Phone Rochelle Phan MD Primary Care Provider [phone] Allergies Active Allergy Reactions Criticality Noted Date [...] Psoriasis 01/23/2018 Moderate recurrent major dep ression ([facility] V24, [facility] V28) 01/17/2018 Cystic acne 03/17/2015 Migraine 10/13/2012 Asthma 04/30/2012 Von Willebrand disease ([facility] V24, [facility] V28 ) 04/30/2012 Resolved Problems Problem Noted Date Diagnosed Date Resolved Date Dermoid cyst of both ovaries 07/03/2024 09/18/2024 Encounters Date Type Department Care Team Description 10/06/2024 3:30 PM EDT Office Visit Obstetrics and Gynecology [address] [phone] [place], [place] Postop check (Primary Dx); Von Willebrand disease ([facility] V24, [facility] V28) from Last 3 Months Surgical History Surgery Date Site/Laterality Comments SLEEVE GASTROPLASTY 05/30/2024 - 06/26/2024 gastric sleeve SECTION, LOW TRANSVERSE SEPTOPLASTY APPENDECTOMY CERVICAL BIOPSY W/ LOOP ELECTRODE EXCISION BARIATRIC SURGERY Medical History Medical History Date Comments Asthma Clotting disorder ([facility] V24) Von [facility]illebrand disease ([facility] V24, [facility] V28 ) Social History Tobacco Use Types [...] for your loved ones. For example, child development associate teacher or elderly care for an older adult? [...] C Screening 04/01/2022 COVID-19 Vaccine ( season) 2024 02/07/2022, 07/11/2021, 08/20/2020, Additional history exists Influenza Vaccine (#1) 2024 , 01/27/2024, 02/27/2023, Additional history exists Social Influencers of Health Screening 07/03/2025 07/03/2024 Hypertension/CHF/CAD Annual BMP Blood Test 09/20/2025 09/20/2024, 05/24/2024 DTaP,Tdap,and Td Vaccines (3 - Td or Tdap) 01/18/2028 01/17/2018, 10/06/2015 Cholesterol Screening (Lipid Panel) 01/29/2029 01/30/2024 HIV Screening Completed 01/05/2022 Depression Screening Completed 07/03/2024 HIB Vaccines Aged Out No longer eligi [...] Procedure Name Priority Date/Time Associated Diagnosis Comments BASIC METABOLIC PANEL STAT 09/20/2024 2:00 PM EDT from Last 3 Months or Most Recently Relevant to Health Maintenance Results * Basic metabolic panel (09/20/2024 2:00 PM EDT) Sodium 137 133 - 145 mmol/L LAB CHEMISTRY METHOD 09/20/2024 2:34 PM EDT [facility] Potassium 3.8 3.5 - 5.5 mmol/L LAB CHEMISTRY METHOD 09/20/2024 2:34 PM EDT [facility] Chloride 103 96 - 110 mmol/L LAB CHEMISTRY METHOD 09/20/2024 2:34 PM EDT [facility] CO2 28 21 - 32 mmol/L LAB CHEMISTRY METHOD 09/20/2024 2:34 PM EDT [facility] Anion Gap 6 3 - 11 LAB CHEMISTRY METHOD 09/20/2024 2:34 PM EDT [facility] Glucose 98 70 - 100 mg/dL LAB CHEMISTRY METHOD 09/20/2024 2:34 PM EDT [facility] BUN 12 5 - 25 mg/dL LAB CHEMISTRY METHOD 09/20/2024 2:34 PM EDT [facility] Creatinine 0.81 0.50 - 1.10 mg/dL LAB CHEMISTRY METHOD 09/20/2024 2:34 PM EDT [facility] eGFR 93 >=60 mL/min/1. 73m2 LAB CHEMISTRY METHOD 09/20/2024 2:34 PM EDT [facility] Comment:Calculation based on the Chronic Kidney Disease Epidemiology Collaboration (CKD-EPI) equation refit without adjustment for race. BUN/Creatinine Ratio 14.8 LAB CHEMISTRY METHOD 09/20/2024 2:34 PM EDT [facility] Calcium 9.7 8.5 - 10.5 mg/dL LAB CHEMISTRY METHOD 09/20/2024 2:34 PM EDT [facility] Blood Venous blood specimen / Unknown Venipuncture / Unknown 09/20/2024 2:00 PM EDT 09/20/2024 2:08 PM EDT Jamir Salas MD LAB BLOOD ORDERABLES Final Result [facility] [address] [place] [address], from Last 3 Months or Most Recently Relevant to Health Maintenance Insurance [place] - [place] Advance Directives * Full Code - Default [...] currently active code status orders. Care Teams Councilman Relationship Specialty Start Date End Date Rochelle Phan MD [address] [place] [phone] PCP - General Internal Medicine 09/20/24
--- OUTSIDE RECORDS SUMMARY | 2024-12-30 06:03 | XMS_ITS | Encounter Summary ---
Author Organization [employer] Address [address] [facility] 7[address] [place] [address] Care Team Providers Care Scheduling Administrator Name Role Phone Rochelle Phan MD Primary Care Provider [phone] Gilberto Zayas Unavailable Unavailable Encounter Details Date Type Department Care Team ([facility] Contact Info) Description 09/22/2024 Orders Only [place] [facility] [address] [place], [place] [phone] ProviderChuck MD Social History Tobacco Use Types Packs/Day Years [...] on file documented as of this encounter Procedures Procedure Name Priority Date/Time Associated Diagnosis Comments CT CHEST ANGIO W AND WO IV CONTRAST Routine 09/20/2024 1:34 PM EDT documented in this encounter Results * CT CHEST ANGIO W AND WO IV CONTRAST (09/20/2024 1:34 PM EDT) Anatomical Region Laterality Modality Computed Tomogra phy Historical Provider MD JIMENEZ CT PROCEDURES Final R esult documented in this encounter Visit Diagnoses Not on filedocumented in this encounter Additional Health Concerns Assessment Noted Time PHQ-9 Depression Total Score: 1 07/25/19 24 3:42 PM EDT documented as of this encounter Care Teams Scheduling Administrator Relationship Specialty Start Date End Date Rochelle Phan MD [address] [place] [address] PCP - General Family Medicine 10/27/12 Gilberto Zayas FNP [address] [place] [address] Nurse Practitioner Family Medicine 03/20/23 documented as of this encounter
--- OUTSIDE RECORDS SUMMARY | 2024-12-30 06:03 | XMS_ITS | Encounter Summary ---
Author Organization [employer] Address [address] [facility] [address], [place] [address] Care Team Providers Care Can Sterilizer Name Role Phone Rochelle Phan MD Primary Care Provider [phone] Gilberto Zayas Unavailable Unavailable Reason for Visit * Reason Onset Date Comments Med Refill 07/22/2024 Encounter Details Date Type Department Care Team ([facility] st Contact Info) Description 07/22/2024 Refill [facility] [address] [place] [address] Rochelle Phan MD [address] [place] [phone] Insomnia, unspecified type Social History Tobacco Use [...] 5 MG tablet To be sent to: [facility] documented in this encounter Plan of Treatment Not on file documented as of this encounter Visit Diagnoses Diagnosis Insomnia, unspecified type documented in this encounter Additional Health Concerns Assessment Noted Time PHQ-9 Depression Total Score: 1 07/25/19 24 3:42 PM EDT documented as of this encounter Care Teams Can Sterilizer Relationship Specialty Start Date End Date Rochelle Phan MD [address] [facility] [place] [address] PCP - General Family Medicine 10/27/12 Gilberto Zayas FNP [address] [place] [address] Nurse Practitioner Family Medicine 03/20/23 documented as of this encounter
--- OUTSIDE RECORDS SUMMARY | 2024-12-30 06:03 | XMS_ITS | Encounter Summary ---
Author Organization [employer] Address [address] [facility] [address] [place] [address] Care Team Providers Care Shopfitter Name Role Phone Rochelle Phan MD Primary Care Provider [phone] Gilberto Zayas Unavailable Unavailable Encounter Details Date [...] on filedocumented in this encounter Care Teams Shopfitter Relationship Specialty Start Date End Date Rochelle Phan MD [address] [place] [address] PCP - General Family Medicine 10/27/12 Gilberto Zayas FNP [address] [place] [address] Nurse Practitioner Family Medicine 03/20/23 documented as of this encounter
--- OUTSIDE RECORDS SUMMARY | 2024-12-30 06:03 | XMS_ITS | Clinical Summary ---
Author Organization [employer] Address [address] [facility] [address] [place] [address] Care Team Providers Care General Supervisor Name Role Phone Rochelle Phan MD [...] Check BP daily 1 kit 023 Active LORazepam (Ativan) 0.5 MG tabletIndicatio ns:Moderate recurrent major depression (CMS/HCC) Take 1 tablet (0.5 mg) by mouth 2 times daily. If needed for anxiety 60 tablet 5 024 Active hydroCHLOROthia zide (HYDRODiuril) 25 MG tablet TAKE ONE TABLET EVERY MORNING 30 tablet 11 025 Active melatonin 5 MG tabletIndicatio ns:Insomnia, unspecified type Take 1-2 tablets (5-10 mg) by mouth if needed at bedtime (sleep). 180 tablet 1 025 Active omega-3 (Fish Oil) 1000 MG capsuleIndicati ons:Hypertrigly ceridemia TAKE ONE CAPSULE BY MOUTH TWICE DAILY 180 capsule 025 Active norethindrone-e thinyl estradiol (Nortrel 0.5/35, 28,) 0.5-35 MG-MCG tablet TAKE ONE TABLET BY MOUTH EVERY DAY 84 tablet 3 025 Active FLUoxetine (PROzac) 20 MG capsuleIndicati ons:Moderate recurrent major depression (CMS/HCC) TAKE TWO CAPSULES ONCE DAILY 180 capsule 3 025 Active amitriptyline (Elavil) 75 MG tabletIndicatio ns:Moderate recurrent major depression (CMS/HCC),Insom terrie, unspecified type TAKE ONE TABLET AT BEDTIME 90 tablet 3 025 Active ARIPiprazole (Abilify) 15 MG tabletIndicatio ns:Moderate recurrent major depression (CMS/HCC) TAKE 1 TABLET BY MOUTH EVERY DAY 90 tablet 025 Active hydrOXYzine HCl (Atarax) 25 MG tabletIndicatio ns:Moderate recurrent major depression (CMS/HCC) TAKE 1 TO 2 TABLETS BY MOUTH EVERY 8 HOURS NEEDED FOR ANXIETY 200 tablet 6 025 Active ARIPiprazole (Abilify) 15 MG tabletIndicatio ns:Moderate recurrent major depression (CMS/HCC) Take 1 tablet (15 mg) by mouth Once per day. 90 tablet 3 024 2024 Discontinued(R eorder (will not trigger notification to Pharmacy)) amitriptyline (Elavil) 75 MG tabletIndicatio ns:Moderate recurrent major depression (CMS/HCC),Insom terrie, unspecified type Take 1 tablet (75 mg) by mouth at bedtime. 90 tablet 3 024 2024 Discontinued(R eorder (will not trigger notification to Pharmacy)) FLUoxetine (PROzac) 20 MG capsuleIndicati ons:Moderate recurrent major depression (CMS/HCC) Take 2 capsules (40 mg) by mouth Once daily. 180 capsule 3 024 2024 Discontinued(R eorder (will not trigger notification to Pharmacy)) hydrOXYzine HCl (Atarax) 25 MG tabletIndicatio ns:Moderate recurrent major depression (CMS/HCC) Take 1-2 tablets (25-50 mg) by mouth every 8 (eight) hours if needed for anxiety. 200 tablet 6 024 2024 Discontinued(R eorder (will not trigger notification to Pharmacy)) Nortrel 0.5/35, 28, 0.5-35 MG-MCG tablet TAKE ONE TABLET BY MOUTH EVERY DAY 28 tablet 11 024 2024 Discontinued Active Problems Problem Noted Date Diagnosed Date [...] 1-2 tabs every 8 hours as needed. Rush Lorazepam 0.5 mg for occasional panic attacks [...] the next year or so, and that [facility] should hopefully have new prescriber(s) available by [...] Encounters Date Type Department Care Team Description 12/22/2024 Refill [facility] PEDS [address] [place] [address] Rochelle Phan MD Moderate recurrent major depression (CMS/HCC) 12/21/2024 Refill [facility] [address] [place] [address] Rochelle Phan MD Moderate recurrent major depression (CMS/HCC) 12/19/2024 Refill [facility] MEDICINE [address] [place], [place] [phone] Rochelle Phan MD Moderate recurrent major depression (CMS/HCC); Insomnia, unspecified type 12/13/2024 Refill [facility] [address] [place] [address] Rochelle Phan MD Insomnia, unspecified type 11/24/2024 Refill [facility] [address] [place] [address] Rochelle Phan MD Hypertriglyceridemia from Last 3 Months Immunizations Immunization Administration [...] Use Screening 1993 Family Planning (PISQ) 1996 HPV Vaccines (1 - 3-dose series) 1996 Hepatitis C Screening 12/31/1999 Hepatitis B Vaccines (1 of 3 - 19+ 3-dose series) 2000 Pneumococcal Vaccine: Pediatrics (0 to 5 Years) and At-Risk Patients (6 to 49) Years (1 of 2 - PCV) 2000 SDOH Screening 06/21/2024 06/21/2023 Tobacco Screening 07/11/2024 07/12/2023 Depression Screening 07/24/2024 07/25/2023, 07/25/19 24 COVID-19 Vaccine ( season) 2024 02/07/2022, 07/11/2021, 08/20/2020, Additional history exists Influenza Vaccine (#1) 2024 , 01/27/2024, 02/27/2023, Additional history exists Diabetes: Hemoglobin [...] AM EST Narrative 04/17/2024 9:41 AM EST [facility] [address] [place], [place] [address] Mammography Report Signed Patient: Maria C Adam MR#: [id number] : 1980 Acct:[id number] Age/Sex: 43 / F ADM Date: 04/16/24 Loc: HO.MAMMO Attending Dr: Rochelle Phan MD Ordering Physician: Rochelle Phan MD Results: 2Be nign Findings Date of Service: 04/16/24 Follow Up: 1 Year From Orig inal Mammogram Procedure(s): MM tomosynthesis screening BI Accession Number(s): [id number] cc: Rochelle Phan MD EXAMINATION: MM SCREENING [...] Lupe Dunaway DO in OV> 04/17/24937 DD/ 0900 TD/TT: 04/16/24 09 Membership Advisor: Procedure Note Donotuseinterpreter, Image - 04/17/2024 [facility] [address] [place], [place] [address] Mammography Report Signed Patient: Rosalina Adam#: [id number] : 1980Acct:[id number] Age/Sex: 43 / FADM Date: 04/16/24 Loc: HO.MAMMO Attending Dr: Rochelle Phan MD Ordering Physician: Rochelle Phan MDResults: 2Be nign Findings Date of Service: 04/16/24Follow Up: 1 Year From Orig inal Mammogram Procedure(s): MM tomosynthesis screening BI Accession Number(s): [id number] cc: Rochelle Phan MD EXAMINATION: MM SCREENING [...] Lupe Dunaway DO in OV> 04/17/24937 DD/ 09 TD/TT: 04/16/24924 Membership Advisor: us Rochelle Phan MD IMG BI PROCEDURES Final Resul t * Hemoglobin A1c (01/30/2024 9:03 AM EDT) Hemoglobin A1c 5.8 <6.0 % [facility] Comment:Hemoglobin A1C Refer ence Range Adults: 4.8 - 6.0 % Non diabetic: < 6.0 % Goal: < 7.0 %Additional Action Suggested: > 8.0 %Note: Hemoglobin A1c results are invalid for patients with abnormal amounts of HbF. Blood transfusions may impact the HbA1c concentration in the patient sample. Estimated Average Glucose 120 mg/dL [facility] Comment:eAG = Estimated ave rage glucose which is %A1C expressed asaverage glucose, using the formula of the N2E-KhdiazhEgqobao Glucose study (ADAG), Diabetes Care, Vol.31,#8,Nov. 2007 01/30/2024 9:03 AM EDT 01/30/2024 9:03 AM EDT Generic External Data Provider LAB BLOOD ORDERAB LES Final Result Performing Organization Address City/[facility]/ZIP Co de Phone Number [facility] [address] [place] [address] [phone] * (ABNORMAL) Lipid Panel, Standard (01/30/2024 9:03 AM EDT) Triglycerides 287(H) <150 mg/dL [facility] Comment:Desirable Triglyceri de: less than 150 mg/dLBorderline High Triglyceride 150-199 mg/dLHigh Triglyceride: 200-499 mg/dLVery High Triglyceride: greater than or equal to 5OO mg/dL Cholesterol 257(H) <200 mg/dL [facility] Comment:Desirable Cholestero l: less than 200 mg/dLBorderline High Cholesterol: 200-239 mg/dLHigh Cholesterol: greater than 239 mg/dL LDL Cholesterol Calculated 147(H) <100 mg/dL [facility] Comment:Desirable LDL: less than 100 mg/dLNear Optimal/Above Optimal LDL: 110- 129 mg/dLBorderline High LDL: 130-159 mg/dLHigh LDL: 160-189 mg/dLVery High LDL: greater than or equal to 190 mg/dL HDL Cholesterol 53 >40 mg/dL [facility] Comment:Desirable HDL: great er than 40 mg/dL Note: This HDL assay may give artificially low results in patients with liver disease. 01/30/2024 9:03 AM EDT 01/30/2024 9:03 AM EDT us Generic External Data Provider LAB BLOOD ORDERAB LES Final Result Performing Organization Address [facility]/ZIP Co de Phone Number [facility] [address] [place] [address] [phone] * HIV 1/2 ANTIGEN/ANTIBODY,FOURTH GENERATION W/RFL (01/05/2022 9:49 AM EDT) HIV-1/2 ANTIGEN AND ANTIBODIES, 4TH GENERATION W/ REFLEX NON-REACT DEEPTI NON-REACT DEEPTI [facility] Comment: HIV-1 antigen and HIV-1/HIV-2 [...] purpose. For additional information please refer to http://education.[employer]/faq/IBP406 (This link is being provided for informational/ educational purposes only.) The performance of this assay has not been clinically validated in patients less than 2 years old. 01/05/2022 9:49 AM EDT us Heidi Moreau MD LAB BLOOD ORDERABLES Final Re sult [facility] [address] * THINPREP TIS PAP AND HPV mRNA E6/E7 WITH REFLEX TO HPV 16,18/45 (04/18/2021 10:23 AM EST) Clinical Information: None given [facility] COMMENT SEE COMMENT FOUNDAT[facility] ON [...] has been evaluated with computer assisted technology. [facility] Cushion Former: SEE COMMENT [facility] Comment: HJP, CT(ASCP) CT screening location: [place] [address] HPV nRNA E6/E7 Not Detected Not Detected [facility] Comment: Methodology: Career Agent-Mediated Amplification This assay detects E6/E7 viral messenger RNA (mRNA) from 14 high-risk HPV types (16,18,31,33,35,39,45,51,52,56,58,59,66,68). The analytical performance characteristics of this assay have been determined by [employer] The modifications have not been cleared or approved by the FDA. This assay has been validated pursuant to the CLIA regulations and is used for clinical purposes. For additional information, please refer to http://education.[employer]/faq/TAY314g1 (This link if provided for information/ educational purposes only.) Interpretation/Re sult: Negative for intraepithelial lesion or malignancy. [facility] LMP: 03/2021 [facility] Prev. BX: NONE GIVEN [facility] Prev. PAP: 01/23/18 [facility] SOURCE: Cervix [facility] Statement Of Adequacy: SEE COMMENT [facility] Comment: Satisfactory for evaluation. Endocervical/transformation zone component absent. 04/18/2021 10:2 3 AM EST us Rochelle Phan MD LAB PATHOLOGY ORDERABLES Meenakshi barone Result [facility] [address] from Last 3 Months or Most Recently Relevant to Health Maintenance Insurance [facility] Care Teams General Supervisor Relationship Specialty Start Date End Date Rochelle Phan MD [address] [place] [address] PCP - General Family Medicine 10/27/12 Gilberto Zayas FNP [address] [place] [address] Nurse Practitioner Family Medicine 03/20/23
[2024-12-30 06:19] LABS: MANUAL DIFF FLAG NO
[2024-12-30 07:43] LABS: Hematocrit 38.7 % (37.0-47.0); Hemoglobin 12.7 g/dl (12.0-16.0); Imm Gran Abs Auto 0.02 X10*3/uL (0.00-0.03); Imm Gran Pct Auto 0.2 % (0.0-0.4); Lymphocytes Absolute Auto 2.9 X10*3/uL (1.2-4.9); Mean Corpuscular HGB Conc 32.8 g/dl (31.0-35.0); Mean Corpuscular Hemoglobin 27.9 pg (27.0-33.0); Mean Corpuscular Volume 85.1 fL (80.0-98.0); NRBC Abs Auto 0.000 X10*3/uL (0.0-0.012); NRBC Pct Auto 0.0 /100WBC (0.0-0.2); Platelet Count 359 X10*3/uL (160-400); Red Blood Count 4.55 X10*6/uL (4.20-5.50); White Blood Count 8.3 X10*3/uL (4.8-10.8)
[2024-12-30 07:57] LABS: Hemoglobin A1C 120.9873 umol/L; Total Hemoglobin (HGBA1C) 3348.6070 umol/L
[2024-12-30 08:28] LABS: Alanine Aminotransferase 15 U/L (0-31); Albumin Level 4.0 g/dL (3.5-5.0); Alkaline Phosphatase 71 U/L (39-117); Anion Gap 13 (12-20); Aspartate Amino Transferase 19 U/L (5-31); Blood Urea Nitrogen 17 mg/dL (9-16); Calcium 8.9 mg/dL (8.4-10.2); Carbon Dioxide 27 mmol/L (22-29); Chloride 103 mmol/L (96-108); Cholesterol 268 mg/dL (<200); Estimated Glomerular Filt Rate > 60; HDL Cholesterol 56 mg/dL (>40); Iron 99 mcg/dL (30-160); Percent Iron Saturation 30 % (15-50); Potassium 3.8 mmol/L (3.3-5.1); Sodium 139 mmol/L (135-145); Total Iron Binding Capacity 326 mcg/dL (228-428); Total Protein 7.0 g/dL (6.5-8.0); Triglycerides 211 mg/dL (<150); Unsaturated Iron Binding 227 ug/dL
[2024-12-30 08:36] LABS: Ferritin 29 ng/mL (10-250)
[2024-12-30 08:52] LABS: Folate 13.2 ng/mL (> or = 4.0); Vitamin B12 303 pg/mL (200-900)
== END 2024-12-30 06:01 | disposition home or self-care (01) ==
LOC: HO.LAB 06:00
PROVIDERS: PCP Pediatrics; Visit Provider Physician Assistant Surgical
DX: Z98.84 Bariatric surgery status (principal)
CPT/HCPCS: 36415; 80053; 80061; 82306; 82607; 82728; 82746; 83036; 83525; 83540; 84425; 84443; 84590; 84630; 85025; 86140

== ENCOUNTER 2025-02-23 06:00 | Outpatient (REF) | payer MEDICAID, SELFPAY ==
--- OUTSIDE RECORDS SUMMARY | 2025-02-23 06:03 | XMS_ITS | Encounter Summary ---
Author Organization [employer] Address [address] [facility] [address] [place] [address] Care Team Providers Care Community Relations Rep Name Role Phone Rochelle Phan MD Primary Care Provider [phone] Gilberto Zayas Unavailable Unavailable Reason for Visit * Reason Onset Date Comments Nurse Triage 02/22/2025 Encounter Details Date Type Department Care Team ([facility] st Contact Info) Description 02/22/2025 Telephone [facility] [address] [place], [place] [phone] Rochelle Phan MD [address] [place] [address] Nurse Triage Social History Tobacco Use Types Packs/Day Years Used Date Smoking Tobacco: Never Passive Smoke Exposure: Never Smokeless Tobacco: Never Alcohol Use Standard Drinks/Week Comments Never 0 (1 standard drink = 0.6 oz pur e alcohol) Depression Answer Date Recorded Patient Health Questionnaire-9 Score 1 02/03/2025 Patient Health Questionnaire-9 Score 1 02/03/2025 Last PHQ-9: Questionnaire Data Not on file 1 Housing Stability Answer Date Recorded What is [...] Date Recorded Patient Health Questionnaire-2 Score 1 02/03/2025 Comments Unknown Sex and Gender Information Value Date Recorded Sex Assigned at Female 02/26/2022 10:17 AM EDT Legal Sex Female 10:17 AM EDT Gender Identity Female 02/26/2022 10:17 AM EDT Sexual Orientation Straight 02/26/2022 10 :17 AM EDT documented as of this encounter Miscellaneous Notes * Addendum Note - Lucy Khanna RN - 02/22/2025 11:59 AM EDTAddended by: LUCY KHANNA on: 02/22/2025 11:59 AM Modules accepted: Orders * Telephone Encounter - Lucy Khanna RN - 02/22/2025 11:53 AM EDT Spoke to Dr Khan who is in agreement to order Blood HCG with Diagnosis Missed Menses. Dr Khan states he will contact Patient with results. Patient informed and agrees with plan of care at this time. * Telephone Encounter - Lucy Khanna RN - 02/22/2025 11:51 AM EDT Call returned to Patient regarding nurse triage: missed period this month. Patient reports she was due for her menses on Saturday02/17/25 and has not gotten her menses. Patient also reports she took 2 home tests which were both negative (Saturday02/17/25 and Saturday02/19/25). Patient reports she is currently using control pills but does not take the pills at the same time eachday, she takes some doses in the morning and some at night (education provided to patient regardingtaking BC pills at the same time each day to maximize effectiveness). Patient does not want to be . She reports she just wants to confirm with a blood HCG since urine tests are negative, she also denies any symptoms and any increase in stress (denies any recent life changes) at this time. Protocol Used: Menstrual Period - Missed or Late (Adult) Protocol-Based Disposition: See in Office or Video Visit within 3 Days Override (Final) Disposition: Discuss with PCP and Callback by Nurse Today Override Reason: Other Override Notes: Unable to get off work and wants to confirm with Blood HCG that she can do after hours. Positive Triage Questions: * Wants a test done in the office * Age > 40 years * suspected or possible * Menstrual period, missed or late * All higher-acuity triage questions were negative Care Advice Discussed: * Test, When in Doubt * Note to Triager - Office Test * Telephone Encounter - Chantale Carranza - 02/22/2025 11:30 AM EDT Tc from pt retuning call * Telephone Encounter - Kathie Morales RN - 02/22/2025 9:37 AM EDT T/C to pt to assess current symptoms based on message below. No answer, v/m left to return call to triage nurses. * Telephone Encounter - Chantale Carranza - 02/22/2025 8:04 AM EDT Symptom: Menstrual Periods Absent or Missed Outcome: Schedule an appointment to be seen within 24 hours Reason: This is the only possible outcome for this symptom The caller accepted this outcome. Contact pt at [phone] documented in this encounter Plan of Treatment Not on file documented as of this encounter Visit Diagnoses Diagnosis Missed menses documented in this encounter Additional Health Concerns Assessment Noted Time PHQ-9 Depression Total Score: 1 02/04/20 25 10:45 AM EDT documented as of this encounter Care Teams Community Relations Rep Relationship Specialty Start Date End Date Rochelle Phan MD [address] [place] [address] PCP - General Family Medicine 10/27/12 Gilberto Zayas FNP [address] [place] [address] Nurse Practitioner Family Medicine 03/20/23 documented as of this encounter
--- OUTSIDE RECORDS SUMMARY | 2025-02-23 06:03 | XMS_ITS | Encounter Summary ---
Author Organization [employer] Address [address] [place] [address] [address] [place] [address] Care Team Providers Care National Recruiter Name Role Phone Rochelle Phan MD Primary Care Provider [phone] Gilberto Zayas Unavailable Unavailable Encounter Details Date [...] on filedocumented in this encounter Care Teams National Recruiter Relationship Specialty Start Date End Date Rochelle Phan MD [address] [place] [address] PCP - General Family Medicine 10/27/12 Gilberto Zayas FNP [address] [place] [address] Nurse Practitioner Family Medicine 03/20/23 documented as of this encounter
--- OUTSIDE RECORDS SUMMARY | 2025-02-23 06:03 | XMS_ITS | Clinical Summary ---
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 If needed for anxiety 60 tablet 024 Active hydroCHLOROthia zide (HYDRODiuril) 25 [...] MG capsuleIndicati ons:Moderate recurrent major depression (CMS/HCC) (HCC) TAKE TWO CAPSULES ONCE DAILY 180 capsule 025 Active amitriptyline (Elavil) 75 MG tabletIndicatio ns:Moderate recurrent major depression (CMS/HCC) (HCC),Insomnia, unspecified type TAKE ONE TABLET AT BEDTIME 90 tablet 3 025 Active ARIPiprazole (Abilify) 15 MG tabletIndicatio ns:Moderate recurrent major depression (CMS/HCC) (HCC) TAKE 1 TABLET BY MOUTH EVERY DAY 90 tablet 025 Active hydrOXYzine HCl (Atarax) 25 MG tabletIndicatio ns:Moderate recurrent major depression (CMS/HCC) (HCC) TAKE 1 TO 2 TABLETS BY MOUTH EVERY 8 HOURS NEEDED FOR ANXIETY 200 tablet 6 025 Active SUMAtriptan (Imitrex) 50 MG tabletIndicatio ns:Migraine without aura and without status migrainosus, not intractable Take 1 tablet (50 mg) by mouth if needed for migraine. May repeat dose once in 2 hours if no relief. Do not exceed 2 doses in 24 hours. 9 tablet 3 Active SUMAtriptan (Imitrex) 50 MG tabletIndicatio ns:Migraine without aura and without status migrainosus, not intractable Take 1 tablet (50 mg) by mouth if needed for migraine. May repeat dose once in 2 hours if no relief. Do not exceed 2 doses in 24 hours. 9 tablet 3 025 2024 Discontinued(R eorder (will not trigger notification to Pharmacy)) Active Problems Problem Noted Date Diagnosed Date Class 1 obesity 02/03/2025 Chronic pelvic pain in female 07/03/2024 Obesity 07/03/2024 Abnormal cytological findings in female genital organs 07/12/2023 GBS carrier 07/12/2023 Incompetence of cervix 07/12/2023 Severe obesity (BMI 35.0-39.9) with comorbidity (CMS/HCC) 07/12/2023 Pure hypercholesterolemia 07/12/2023 Primary hypertension 06/21/2023 [...] PCP Psoriasis 01/23/2018 Moderate recurrent major depression (CMS/HCC) Assessment & Plan (07/25/2023 4:18 PM EDT): [...] 1-2 tabs every 8 hours as needed. Nixon Lorazepam 0.5 mg for occasional panic attacks [...] the next year or so, and that [facility] should hopefully have new prescriber(s) available [...] Migraine 10/13/2012 Syncope 09/25/2012 Von Willebrand disease ([facility]) 04/30/2012 Asthma 04/30/2012 Encounters Date Type Department Care Team Description 02/22/2025 Orders Only [facility] [address] [place] [address] Gerard Khan MD Abnormal menses (Primary Dx) 02/22/2025 Telephone [facility] [address] [place] [address] Rochelle Phan MD Nurse Triage 02/04/2025 Telephone [facility] [address] [place] [address] Rochelle Phan MD Medication Question 02/03/2025 10:00 AM EDT Office Visit [facility] [address] [place] [address] Krystian Cosme, JESSICA Migraine without aura and without status migrainosus, not intractable 02/03/2025 Travel 02/03/2025 Telephone [facility] [address] [place] [address] Rochelle Phan MD Nurse Triage 02/02/2025 Refill [facility] [address] [place] [address] Rochelle Phan MD Migraine without aura and without status migrainosus, not intractable 2024 Orders Only GENERIC EXTERNAL DATA DEPARTMENT Provider, Generic External Data 12/22/2024 Refill [facility] [address] [place] [address] Rochelle Phan MD Moderate recurrent major depression (CMS/HCC) 12/21/2024 Refill [facility] [address] [place] [address] Rochelle Phan MD Moderate recurrent major depression (CMS/HCC) 12/19/2024 Refill [facility] [address] [place] [address] Rochelle Phan MD Moderate recurrent major depression (CMS/HCC); Insomnia, unspecified type 12/13/2024 Refill [facility] [address] [place] [address] Rochelle Phan MD Insomnia, unspecified type 11/24/2024 Refill [facility] [address] [place] [address] Rochelle Phan MD Hypertriglyceridemia from Last 3 Months Immunizations Immunization Administration Dates Next Due Influenza injectable quadriv alent IIV4 with preservative 01/17/2018,02/09/2016,02/03/2015 Influenza injectable quadriv alent preservative free 02/27/2023,02/06/2022,04/18/2021,2018 Influenza, IIV3, injectable 02/06/2017 Influenza, Injectable, MDCK, preservative free 01/30/2025 Influenza, seasonal, injecta ble, preservative free 09/08/2024,01/27/2024 Moderna Covid-19 Vaccine 12+ 08/20/2020,07/24/19 21 Tdap [...] Sign Reading Time Taken Comments Blood Pressure 132/76 02/03/2025 10:10 AM EDT Pulse 82 02/03/2025 10:10 AM EDT Temperature 36.8 C (98.3 F) 02/03/2025 10:10 AM EDT Respiratory Rate 12 02/03/2025 10:10 AM EDT Oxygen Saturation 97% 02/03/2025 10:10 AM EDT Inhaled Oxygen Concentration - - Weight 74.4 kg (164 lb) 02/03/2025 10:10 AM EDT Height 151 cm (4' 11.45 ) 02/03/2025 10:10 AM ED T Body Mass Index 32.62 02/03/2025 10:10 AM EDT Plan of Treatment Health Maintenance [...] Screening 06/21/2024 06/21/2023 Tobacco Screening 07/11/2024 07/12/2023 COVID-19 Vaccine ( season) 2024 02/07/2022, 07/11/2021, 08/20/2020, Additional history exists Depression Screening 02/03/2026 02/03/2025, 02/04/20 25 Mammogram 04/16/2026 04/16/2024, 09/27, 03/28/2023, Additional history exists Cervical Cancer Screening 04/18/2026 HPV/Cotest 04/18/2026 04/18/2021 Pap Smear 04/18/2026 04/18/2021 DTaP/Tdap/Td Vaccines (3 - Td or Tdap) 01/18/2028 01/17/2018, 10/06/2015 Lipid Panel 2029 2024, 10/0 06/2023, 03/28/2023, Additional history exists Zoster Vaccines (1 of 2) 12/31/2031 RSV Patients and Patients Aged 60 years or older (1 - 1-dose 75+ series) 2056 HIV Screening Completed 01/05/2022 Influenza Vaccine Completed 01/30/2025, , 01/27/2024, Additional history exists HIB Vaccines Aged Out [...] Procedure Name Priority Date/Time Associated Diagnosis Comments VITAMIN A Routine 2024 6:17 AM EDT VITAMIN B1 Routine 2024 6:17 AM EDT ZINC Routine 2024 6:17 AM EDT VITAMIN B12/FOLATE, SERUM PANEL Routine 2024 6:17 AM EDT INSULIN Routine 2024 6:17 AM EDT TSH W/REFLEX TO FT4 Routine 2024 6 :17 AM EDT VITAMIN D,25-OH,TOTAL,IA Routine 2024 6:17 AM EDT FERRITIN Routine 2024 6:17 AM EDT LIPID PANEL, STANDARD Routine 2024 6:17 AM EDT C-REACTIVE PROTEIN Routine 2024 6: 17 AM EDT IRON AND TOTAL IRON BINDING CAPACITY Routine 2024 6:17 AM EDT COMPREHENSIVE METABOLIC PANEL Routine 2024 6:17 AM EDT HEMOGLOBIN A1C Routine 2024 6:17 AM EDT CBC WITH AUTO DIFFERENTIAL Routine 2024 6:17 AM EDT BI MAMMOGRAM SCREENING TOMOSYNTHESIS BILATERAL Routine 04/16/2024 9:00 AM EST HIV 1/2 ANTIGEN/ANTIBODY, FOURTH GENERATION W/RFL Routine 01/05/2022 9:49 AM EDT THINPREP IMAGING PAP AND HPV MRNA E6/E7 WITH REFLEX TO HPV 16,18/45 Routine 04/18/2021 10:23 AM EST from Last 3 Months or Most Recently Relevant to Health Maintenance Results * Vitamin D, 25-Hydroxy, Total, Immunoassay (2024 6:17 AM EDT) Vitamin D 25-OH Total 68.1 >30 ng/mL [facility] Comment: Health Based Reference Values*< 20 ng/mL Uhmxoealc82-69 ng/mL Insufficient> 30 ng/mL Sufficient*Diogo MALLORY. N Engl J Med. 2007;357:266-280There is no well-established upper level of normal vitamin Dlevels. Some laboratories use 50 ng/mL as an upper limit ofnormal. However, toxicity is patient-dependent and may occurat any level. Careful correlation with the patient'spresentation is necessary and, if there is concern forvitamin D toxicity, treatment should be consideredirrespective of the serum level.Care must be taken in interpreting Vitamin D results fromdifferent laboratories and methodologies. Published datademonstrated that results from patients undergoinghemodialysis may show a negative bias when tested withvarious automated 25-OH vitamin D assays when compared toLC-MS/MS.When testing samples from patients whose predominant form ofVitamin D is Vitamin D2, such as patients receiving VitaminD2 supplementation, results that are subtherapeutic shouldbe confirmed with another method such as LC-MS/MS. 2024 6:17 AM EDT 2024 6:17 AM EDT Generic External Data Provider LAB BLOOD ORDERAB LES Final Result Performing Organization Address [facility] Co de Phone Number [facility] [address] [place] [phone] * Vitamin B12 (Cobalamin) and Folate Panel, Serum (2024 6:17 AM EDT) Vitamin B12 303 200 - 900 pg/mL [facility] Comment:NORMAL 200-900 PG/ML INDETERMINATE 160-199 PG/ML DEFICIENT < 160 PG/ML Folate 13.2 > or = 4.0 ng/mL [facility] Comment:Reference Values:> o r = 4.0 ng/mL< 4.0 ng/mL suggests folate deficiency Methotrexate, aminopterin and folinic acid(leucovorin) are chemotherapeutic agents whose molecularstructures are similar to folate; therefore, the Architectfolate assay cannot be used for patients using these drugs. 2024 6:17 AM EDT 2024 6:17 AM EDT us Generic External Data Provider LAB BLOOD ORDERAB LES Final Result Performing Organization Address [facility]/ZIP Co de Phone Number [facility] [address] [place] [phone] * TSH with Reflex to Free T4 (2024 6:17 AM EDT) TSH reflex Free T4 2.08 0.32 - 4.0 uIU/mL [facility] 2024 6:17 AM EDT 2024 6:17 AM EDT us Generic External Data Provider LAB BLOOD ORDERAB LES Final Result [facility] [address] [place] [phone] * CBC auto differential (2024 6:17 AM EDT) White Blood Count 8.3 4.8 - 10.8 X10*3/uL [facility] Red Blood Count 4.55 4.20 - 5.50 X10*6/uL [facility] Hemoglobin 12.7 12.0 - 16.0 g/dl [facility] Hematocrit 38.7 37.0 - 47.0 % [facility] Mean Corpuscular Volume 85.1 80.0 - 98.0 fL [facility] Mean Corpuscular Hemoglobin 27.9 27.0 - 33.0 pg [facility] Mean Corpuscular HGB Conc 32.8 31.0 - 35.0 g/dl [facility] Red Cell Distribution Width 12.9 11.0 - 16.0 % [facility] Platelet Count 359 160 - 400 X10*3/uL [facility] Mean Platelet Volume 9.6 9.4 - 12.3 fL [facility] Neutrophils Percent Auto 57.6 45 - 73 % [facility] Imm Gran Pct Auto 0.2 0.0 - 0.4 % [facility] Lymphocytes Percent Auto 34.5 20 - 40 % [facility] Monocytes Percent Auto 4.7 2 - 11 % [facility] Eosinophils Percent Auto 2.2 0 - 4 % [facility] Basophils Percent Auto 0.8 0 - 2 % [facility] NRBC Pct Auto 0.0 0.0 - 0.2 /100WBC [facility] Neutrophils Absolute Auto 4.7 2.0 - 8.3 x10*3/uL [facility] Imm Gran Abs Auto 0.02 0.00 - 0.03 X10*3/uL [facility] Lymphocytes Absolute Auto 2.9 1.2 - 4.9 X10*3/uL [facility] Monocytes Absolute Auto 0.4 0.1 - 1.2 X10*3/uL [facility] Eosinophils Absolute Auto 0.2 0.0 - 0.4 X10*3/uL [facility] Basophils Absolute Auto 0.1 0.0 - 0.2 X10*3/uL [facility] NRBC Abs Auto 0.000 0.0 - 0.012 X10*3/uL [facility] 2024 6:17 AM EDT 2024 6:17 AM EDT us Generic External Data Provider LAB BLOOD ORDERAB LES Final Result Performing Organization Address City/[facility]/ZIP Co de Phone Number [facility] [address] [place] [phone] * Iron And Total Iron Binding Capacity (2024 6:17 AM EDT) Iron 99 30 - 160 mcg/dL [facility] Total Iron Binding Capacity 326 228 - 428 mcg/dL [facility] Percent Iron Saturation 30 15 - 50 % [facility] Unsaturated Iron Binding 227 ug/dL [facility] 2024 6:17 AM EDT 2024 6:17 AM EDT us Generic External Data Provider LAB BLOOD ORDERAB LES Final Result Performing Organization Address [facility]/ZIP Co de Phone Number [facility] [address] [place] [phone] * Insulin (2024 6:17 AM EDT) Pathologist [facility] Insulin 17 2 - 29 uU/mL [facility] Comment:This test was perfor med using the Antoine chemiluminescentmethod. Values obtained from different assay methods cannot beused interchangeably. This insulin assay shows a possiblecross-reactivity with antibodies generated against insulin(immunoreactive insulin and some patients treated withbovine or porcine insulin). Insulin levels may be measuredlower in patients with insulin autoimmune syndrome orfamilial high pro-insulinemia. 2024 6:17 AM EDT 2024 6:17 AM EDT Generic External Data Provider LAB BLOOD ORDERAB LES Final Result Performing Organization Address [facility] de Phone Number [facility] [address] [place] [phone] * Zinc (2024 6:17 AM EDT) [facility] Zinc 67 60 - 130 mcg/dL [facility] Comment:This test was develo ped and its analytical performancecharacteristics have been determined by [employer] [place], [place]. It hasnot been cleared or approved by the U.S. Food and DrugAdministration. This assay has been validated pursuantto the CLIA regulations and is used for clinicalpurposes.THIS TEST WAS PERFORMED AT:[employer] [place] [address]IULPMWZDOREEN ANTOINE MD,PHD 2024 6:17 AM EDT 2024 6:17 AM EDT Generic External Data Provider LAB BLOOD ORDERAB LES Final Result Performing Organization Address [facility] Co de Phone Number [facility] [address] [place] [phone] * Vitamin A (2024 6:17 AM EDT) [facility] Vitamin A (Retinol) 69 38 - 98 mcg/dL [facility] Comment:Vitamin supplementat ion within 24 hours prior toblood draw may affect the accuracy of the results.This test was developed and its analytical performancecharacteristics have been determined by [employer] [place], [place]. It hasnot been cleared or approved by the U.S. Food and DrugAdministration. This assay has been validated pursuantto the CLIA regulations and is used for clinicalpurposes.THIS TEST WAS PERFORMED AT:[employer] [place] [address]KFMRPHYDOREEN ANTOINE MD,PHD 2024 6:17 AM EDT 2024 6:17 AM EDT Generic External Data Provider LAB BLOOD ORDERAB LES Final Result Performing Organization Address [facility]/ZIP Co de Phone Number [facility] [address] [place] [phone] * (ABNORMAL) C-reactive Protein (2024 6:17 AM EDT) [facility] C Reactive Protein 1.07(H) < or = 0.50 mg/dL [facility] 2024 6:17 AM EDT 2024 6:17 AM EDT Generic External Data Provider LAB BLOOD ORDERAB LES Final Result Performing Organization Address City/[facility]/ZIP Co de Phone Number [facility] [address] [place] [phone] * (ABNORMAL) Vitamin B1 (2024 6:17 AM EDT) [facility] Vitamin B1 59(A) 8 - 30 nmol/L [facility] Comment:Vitamin supplementat ion within 24 hours prior toblood draw may affect the accuracy of the results.This test was developed and its analytical performancecharacteristics have been determined by [employer] [place], [place]. It hasnot been cleared or approved by the U.S. Food and DrugAdministration. This assay has been validated pursuantto the CLIA regulations and is used for clinicalpurposes.THIS TEST WAS PERFORMED AT:[employer] [place] [address]ZLTHNRQDOREEN ANTOINE MD,PHD 2024 6:17 AM EDT 2024 6:17 AM EDT us Generic External Data Provider LAB BLOOD ORDERAB LES Final Result Performing Organization Address [facility]/ZIP Co de Phone Number [facility] [address] [place] [phone] * Hemoglobin A1c (2024 6:17 AM EDT) Hemoglobin A1c 5.5 <6.0 % [facility] Comment:Hemoglobin A1C Refer ence Range Adults: 4.8 - 6.0 % Non diabetic: < 6.0 % Goal: < 7.0 %Additional Action Suggested: > 8.0 %Note: Hemoglobin A1c results are invalid for patients with abnormal amounts of HbF. Blood transfusions may impact the HbA1c concentration in the patient sample. Estimated Average Glucose 111 mg/dL [facility] Comment:eAG = Estimated ave rage glucose which is %A1C expressed asaverage glucose, using the formula of the C0T-PdjlbrsQwpytga Glucose study (ADAG), Diabetes Care, Vol.31,#8,Nov. 2007 2024 6:17 AM EDT 2024 6:17 AM EDT Generic External Data Provider LAB BLOOD ORDERAB LES Final Result Performing Organization Address [facility] Co de Phone Number [facility] [address] [place] [phone] * Ferritin (2024 6:17 AM EDT) Ferritin 29 10 - 250 ng/mL [facility] 2024 6:17 AM EDT 2024 6:17 AM EDT Generic External Data Provider LAB BLOOD ORDERAB LES Final Result Performing Organization Address [facility] Co de Phone Number [facility] [address] [place] [phone] * (ABNORMAL) Lipid Panel, Standard (2024 6:17 AM EDT) Triglycerides 211(H) <150 mg/dL [facility] Comment:Desirable Triglyceri de: less than 150 mg/dLBorderline High Triglyceride 150-199 mg/dLHigh Triglyceride: 200-499 mg/dLVery High Triglyceride: greater than or equal to 5OO mg/dL Cholesterol 268(H) <200 mg/dL [facility] Comment:Desirable Cholestero l: less than 200 mg/dLBorderline High Cholesterol: 200-239 mg/dLHigh Cholesterol: greater than 239 mg/dL LDL Cholesterol Calculated 170(H) <100 mg/dL [facility] Comment:Desirable LDL: less than 100 mg/dLNear Optimal/Above Optimal LDL: 110- 129 mg/dLBorderline High LDL: 130-159 mg/dLHigh LDL: 160-189 mg/dLVery High LDL: greater than or equal to 190 mg/dL HDL Cholesterol 56 >40 mg/dL [facility] Comment:Desirable HDL: great er than 40 mg/dL Note: This HDL assay may give artificially low results in patients with liver disease. 2024 6:17 AM EDT 2024 6:17 AM EDT us Generic External Data Provider LAB BLOOD ORDERAB LES Final Result Performing Organization Address [facility]/ZIP Co de Phone Number [facility] [address] [place] [phone] * (ABNORMAL) Comprehensive Metabolic Panel (2024 6:17 AM EDT) Sodium 139 135 - 145 mmol/L [facility] Potassium 3.8 3.3 - 5.1 mmol/L [facility] Chloride 103 96 - 108 mmol/L [facility] Carbon Dioxide 27 22 - 29 mmol/L [facility] Anion Gap 13 12 - 20 [facility] Urea Nitrogen (BUN) 17(H) 9 - 16 mg/dL [facility] Creatinine, Serum 0.82 0.5 - 1.4 mg/dL [facility] Estimated Glomerular Filt Rate >60 [facility] Comment:Chronic Kidney Disea se: Estimated GFR < 60 mL/min/1.82u9Byashy Kidney Disease: Estimated GFR < 15 mL/min/1.73m2 Glucose 81 60 - 115 mg/dL [facility] Calcium 8.9 8.4 - 10.2 mg/dL [facility] Bilirubin, Total 0.4 0.0 - 1.0 mg/dL [facility] Aspartate Amino Transferase 19 5 - 31 U/L [facility] Alanine Aminotransferase 15 0 - 31 U/L [facility] Total Protein 7.0 6.5 - 8.0 g/dL [facility] Albumin Level 4.0 3.5 - 5.0 g/dL [facility] Alkaline Phosphatase 71 39 - 117 U/L [facility] 2024 6:17 AM EDT 2024 6:17 AM EDT us Generic External Data Provider LAB BLOOD ORDERAB LES Final Result [facility] [address], [place] [phone] * BI Mammogram Screening Tomosynthesis Bilateral (04/16/2024 9:00 AM EST) Anatomical Region Laterality Modality Breast Bilateral Mammography 04/16/2024 9:00 AM EST Narrative 04/17/2024 9:41 AM EST [facility] [place] [address] Mammography Report Signed Patient: Maria C Adam MR#: [id number] : 1980 Acct:[id number] Age/Sex: 43 / F ADM Date: 04/16/24 Loc: HO.MAMMO Attending Dr: Rochelle Phan MD Ordering Physician: Rochelle Phan MD Results: 2Be nign Findings Date of Service: 04/16/24 Follow Up: 1 Year From Orig inal Mammogram Procedure(s): MM tomosynthesis screening BI Accession Number(s): [id number] cc: Rochelle Phan MD EXAMINATION: MM SCREENING [...] in OV> 04/17/24937 DD/ 9 TD/TT: 04/16/24924 Finance Executive: Procedure Note Donotuseinterpreter, Image - 04/17/[address] [place] [address] Mammography Report Signed Patient: Rosalina Adam#: [id number] : 1980Acct:[id number] Age/Sex: 43 / FADM Date: 04/16/24 Loc: HO.MAMMO Attending Dr: Rochelle Phan MD Ordering Physician: Rochelle Phan MDResults: 2Be nign Findings Date of Service: 04/16/24Follow Up: 1 Year From Orig inal Mammogram Procedure(s): MM tomosynthesis screening BI Accession Number(s): [id number] cc: Rochelle Phan MD EXAMINATION: MM SCREENING [...] in OV> 04/17/24937 DD/ 09 TD/TT: 04/16/24924 Finance Executive: us Rochelle Phan MD IM BI PROCEDURES Final Resul t * HIV 1/2 ANTIGEN/ANTIBODY,FOURTH GENERATION W/RFL (01/05/2022 [...] purpose. For additional information please refer to http://education.revoPT/faq/SUZ152 (This link is being provided for informational/ educational purposes only.) The performance of this assay has not been clinically validated in patients less than 2 years old. 01/05/2022 9:49 AM EDT us Heidi Moreau MD LAB BLOOD ORDERABLES Final Re sult [facility] [address] * THINPREP TIS PAP AND [...] computer assisted technology. [facility] Sand Technician: SEE COMMENT [facility] Comment: HJP, CT(ASCP) CT screening location: [address] [address] HPV nRNA E6/E7 Not Detected Not Detected [facility] Comment: Methodology: Press Bucker-Mediated Amplification This assay detects E6/E7 viral messenger RNA (mRNA) from 14 high-risk HPV types (16,18,31,33,35,39,45,51,52,56,58,59,66,68). The analytical performance characteristics of this assay have been determined by [employer]. The modifications have not been cleared or approved by the FDA. This assay has been validated pursuant to the CLIA regulations and is used for clinical purposes. For additional information, please refer to http://education.revoPT/faq/ZLN799d6 (This link if provided for information/ educational [...] barone Result [facility] [address] from Last 3 Months or Most Recently Relevant to Health Maintenance Insurance [employer] [place] [address] [employer] Care Teams Mold Yard Worker Relationship Specialty Start Date End Date Rochelle Phan MD [address] [facility] [place] [id number] PCP - General Family Medicine 10/27/12 Gilberto Zayas FNP [address] [facility] [place] [address] Nurse Practitioner Family Medicine 03/20/23
--- OUTSIDE RECORDS SUMMARY | 2025-02-23 06:03 | XMS_ITS | Encounter Summary ---
Author Organization [employer] Address [address] [facility] [address] [facility] [address] [place] [address] Care Team Providers Care Director Water And [employer] Services Name Role Phone Rochelle Phan MD Primary Care Provider [phone] Gilberto Zayas Unavailable Unavailable Encounter Details Date Type Department Care Team ([facility] st Contact Info) Description 02/22/2025 Orders Only [facility] [address] [place], [place] [phone] Gerard Khan MD [address] [place], [place] [id number] Abnormal menses (Primary Dx) Social History Tobacco Use Types [...] as of this encounter Plan of Treatment Scheduled Orders Name Type Priority Associated Diagnoses Orde r Schedule hCG, Total, Quantitative Lab Routine Abnormal menses Expected: 02/22/2025 (Approximate), Expires: 02/22/2026 documented as of this encounter Visit Diagnoses Diagnosis Abnormal menses- Primary Unspecified disorder of menstruation and other abnormal bleeding from female genital tract documented in this encounter Additional Health Concerns Assessment Noted Time PHQ-9 Depression Total Score: 1 02/04/20 25 10:45 AM EDT documented as of this encounter Care Teams Director Water And [employer] Services Relationship Specialty Start Date End Date Rochelle Phan MD [address] [place] [address] PCP - General Family Medicine 10/27/12 Gilberto Zayas FNP [address] [place] [address] Nurse Practitioner Family Medicine 03/20/23 documented as of this encounter
--- OUTSIDE RECORDS SUMMARY | 2025-02-23 06:03 | XMS_ITS | Encounter Summary ---
Author Organization [employer] Address [address] [facility] [address] [place] [address] Care Team Providers Care Pyrometer Mechanic Name Role Phone Rochelle Phan MD Primary Care Provider [phone] Gilberto Zayas Unavailable Unavailable Encounter Details Date Type Department Care Team (Late st Contact Info) Description 09/22/2024 Orders Only [facility] [address] [place], [place] [phone] Provider, MD Chuck Social History Tobacco Use Types Packs/Day Years [...] documented as of this encounter Care Teams Pyrometer Mechanic Relationship Specialty Start Date End Date Rochelle Phan MD [address] [place] [address] PCP - General Family Medicine 10/27/12 Gilberto Zayas FNP [address] [place] [address] Nurse Practitioner Family Medicine 03/20/23 documented as of this encounter
--- OUTSIDE RECORDS SUMMARY | 2025-02-23 06:03 | XMS_ITS | Encounter Summary ---
Author Organization [employer] Address [address] [facility] [address] [place] [address] Care Team Providers Care Medicaid Business Analyst Name Role Phone Rochelle Phan MD Primary Care Provider [phone] Gilberto Zayas Unavailable Unavailable Reason for Visit * Reason Onset Date Comments Med Refill 07/22/2024 Encounter Details Date Type Department Care Team (Late st Contact Info) Description 07/22/2024 Refill [facility] [address] [place] [address] Rochelle Phan MD [address] [place] [address] Insomnia, unspecified type Social History Tobacco Use [...] is your housing situation today? I have salonijeane funk 06/21/[address] you [...] 5 MG tablet To be sent to: [facility] documented in this encounter Plan of Treatment Not on file documented as of this encounter Visit Diagnoses Diagnosis Insomnia, unspecified type documented in this encounter Additional Health Concerns Assessment Noted Time PHQ-9 Depression Total Score: 1 07/25/19 24 3:42 PM EDT documented as of this encounter Care Teams Medicaid Business Analyst Relationship Specialty Start Date End Date Rochelle Phan MD [address] [facility] [place] [address] PCP - General Family Medicine 10/27/12 Gilberto Zayas FNP [address] [facility] [place] [address] Nurse Practitioner Family Medicine 03/20/23 documented as of this encounter
== END 2025-02-23 06:01 | disposition home or self-care (01) ==
LOC: HO.LAB 06:00
PROVIDERS: PCP Pediatrics; Visit Provider Emergency Medicine
DX: N92.6 Irregular menstruation, unspecified (principal)
CPT/HCPCS: 36415; 84702